=== PATIENT | male | born 1930 | race Caucasian/White ===

== ENCOUNTER 2016-09-14 23:08 | Inpatient (IN) | payer MEDICARE ==
[~2016-09-14] VITALS: Ht 172.7 cm; Wt 79.2 kg
[~2016-09-14 23:08] MED LIST: ACET325T16 PO; ATOR10TA; ATOR40TA PO; ATOR40TA59 PO; CARV12.5; CARV6.25 PO; CETI10TA30 PO; CHOL100017 PO; CIPR500T94 PO; CYAN10008 PO; DEXT30SU15 PO; DOXA4TAB2 PO; FLUT1DIS3 IH; FLUT9.9S NS; FURO-69 PO; FURO20TA3 PO; FURO40TA4 PO; GABA-585 PO; GUAI600T38 PO; HYDR-2762 PO; INSU100C SQ; INSU100C4 SQ; INSU100I13 SQ; INSU100I17 SQ; INSU100V13 SQ; IPRA3AMP NEB; LEVO500T38 PO; LOSA100T2 PO; LOSA25TA; MAGN400T3 PO; MAGN500C PO; MOME13HF2 IH; MOME17SP NS; MONT10TA6 PO; OXYC-244 PO; PANT40TA3 PO; POTA10TA5 PO; POTA20TA4 PO; POTA20TA82 PO; PRED-220 PO; PRED5TAB PO; PROAIR HFA8.5 GM IH; TIOT18CA IH; TIZA4TAB PO; TRAM-29 PO; TRAM50TA PO
[2016-09-14] MEDS ORDERED: IV NORMAL SALINE 1000ML BAG 1,000 ML IV SCH (23:52)
--- NOTE | 2016-09-14 23:52 | PHYS DOC ---
Past Medical History Past Medical History: COPD, Diabetes-Type I, Other Additional Past Medical Histor: HOME 02 Past Surgical History: Other Additional Past Surgical Histo: hernia with mesh Alcohol Use: Occasionally Drug Use: None Adult General Chief Complaint Chief Complaint: WEAKNESS/GENERALIZED HPI HPI Patient is a 86 year old female presents with dizziness. Patient reports she started feeling lightheaded at home this evening; he check his blood pressure was in the 70s systolically. He also reports some fatigue and some shortness of breath today. Denies any chest pain. No syncope. No other acute complaints. Review of Systems Review of Systems Constitutional: Lightheaded, fatigue. Denies fever or chills Eyes: Denies change in visual acuity or eye pain HENT: Denies nasal congestion or sore throat Respiratory: Shortness of breath Cardiovascular: Denies chest pain GI: Denies abdominal pain, nausea, vomiting, bloody stools or diarrhea : Denies dysuria or hematuria Musculoskeletal: Denies back pain or joint pain Integument: Denies rash or skin lesions Neurologic: Denies headache, focal weakness or sensory changes Current Medications Current Medications Current Medications Medications (Trade) Dose Ordered Sig/Marilu Start Time Stop Time Status Last Admin Dose Admin Sodium Chloride (Iv Sodium Chloride 0.9% 1000ml Bag) 1,000 ml @ 1,000 mls/hr Q1H 09/14/16 23:52 09/15/16 00:51 DC 09/14/16 23:52 1,000 MLS/HR Allergies Allergies Allergies Coded Allergies Type Severity Reaction Last Updated Verified rofecoxib Allergy Severe 09/14/16 Yes Physical Exam Physical Exam Constitutional: Well developed, well nourished, no acute distress, non-toxic appearance HENT: Normocephalic, bilateral external ears normal, old abrasion to bridge of nose Eyes: EOMI, conjunctiva normal, no discharge Neck: Normal range of motion, no stridor Cardiovascular: Heart rate normal, regular rhythm, no murmur Lungs & Thorax: Bibasilar crackles Abdomen: Bowel sounds normal, soft, non-distended, no TTP Skin: Warm, dry, no erythema, no rash Extremities: No obvious deformity, trace edema Neurologic: Alert and oriented X 3, no gross deficits noted Current Patient Data Vital Signs Vital Signs Date Time Temp Pulse Resp B/P Pulse Ox O2 Delivery O2 Flow Rate FiO2 09/15/16 00:00 62 133/62 99 Room Air 09/14/16 23:30 18 09/14/16 23:23 97.9 97.9 Lab Values Laboratory Tests Test 09/14/16 23:15 White Blood Count 8.7x10^3/uL (4.0-11.0) Red Blood Count 3.27x10^6/uL (4.30-5.70) L Hemoglobin 9.9g/dL (13.0-17.5) L Hematocrit 31.0% (39.0-53.0) L Mean Corpuscular Volume 95fL (79-100) Mean Corpuscular Hemoglobin 30pg (25-35) Mean Corpuscular Hemoglobin Concent 32g/dL (31-37) Red Cell Distribution Width 15.7% (11.5-14.5) H Platelet Count 283x10^3/uL (140-400) Neutrophils (%) (Auto) 56% (31-73) Lymphocytes (%) (Auto) 26% (24-48) Monocytes (%) (Auto) 11% (0-9) H Eosinophils (%) (Auto) 7% (0-3) H Basophils (%) (Auto) 0% (0-3) Neutrophils # (Auto) 4.8x10^3uL (1.8-7.7) Lymphocytes # (Auto) 2.3x10^3/uL (1.0-4.8) Monocytes # (Auto) 0.9x10^3/uL (0.0-1.1) Eosinophils # (Auto) 0.6x10^3/uL (0.0-0.7) Basophils # (Auto) 0.0x10^3/uL (0.0-0.2) Sodium Level 140mmol/L (136-145) Potassium Level 3.5mmol/L (3.5-5.1) Chloride Level 104mmol/L (98-107) Carbon Dioxide Level 28mmol/L (21-32) Anion Gap 8 (6-14) Blood Urea Nitrogen 13mg/dL (8-26) Creatinine 1.0mg/dL (0.7-1.3) Estimated GFR (Cockcroft-Gault) 70.7 Glucose Level 105mg/dL (70-99) H Calcium Level 8.5mg/dL (8.5-10.1) Total Bilirubin 0.6mg/dL (0.2-1.0) Direct Bilirubin 0.1mg/dL (0.0-0.2) Aspartate Amino Transferase (AST) 33U/L (15-37) Alanine Aminotransferase (ALT) 20U/L (16-63) Alkaline Phosphatase 68U/L (46-116) Troponin I Quantitative < 0.017ng/mL (0.000-0.055) XE-Tng-S-Type Natriuretic Peptide 867pg/mL (0-449) H Total Protein 6.7g/dL (6.4-8.2) Albumin 2.1g/dL (3.4-5.0) L Laboratory Tests 09/14/16 23:15 Laboratory Tests 09/14/16 23:15 EKG EKG EKG (my read): sinus rhythm, rate 64, LAD, no acute ischemic changes Radiology/Procedures Radiology/Procedures CXR (my read): No significant change from prior Course & Med Decision Making Course & Med Decision Making Pertinent Labs and Imaging studies reviewed. (See chart for details) Patient is 86-year-old male who presents with dizziness. Apparently related to hypotension. Hypotensive on arrival to ED. Fluid bolus ordered, with subsequent improvement in blood pressure. Will check EKG, chest x-ray, labs. Labs notable for anemia, close to baseline; also has mildly elevated BNP. Discussed results with patient. Discussed with Dr. Milton, will admit under his care for further evaluation and treatment. Dragon Disclaimer Dragon Disclaimer This electronic medical record was generated, in whole or in part, using a voice recognition dictation system. Departure Departure Impression: Primary Impression: Dizziness Additional Impressions: Hypotension SOB (shortness of breath) Disposition: ADMITTED INPATIENT Admitting Physician: Stepan Milton Condition: GUARDED Referrals: STEPAN MILTON MD (PCP) Problem Qualifiers JULIA JASON MD Sep 14, 2016 23:52
[2016-09-15] VITALS (7 sets, daily range): BP systolic 114–130; BP diastolic 44–72
[2016-09-15 00:09] LABS: BASO % 0 % (0-3); EOS % 7 % (0-3); HEMOGLOBIN 9.9 g/dL (13.0-17.5); LYMPH # 2.3 x10^3/uL (1.0-4.8); LYMPH % 26 % (24-48); MEAN CORPUSCULAR HEMOGLOBIN 30 pg (25-35); MEAN CORPUSCULAR HGB CONC 32 g/dL (31-37); MEAN CORPUSCULAR VOLUME 95 fL (79-100); MONO % 11 % (0-9); NEUT % 56 % (31-73); PLATELET COUNT 283 x10^3/uL (140-400); RED BLOOD COUNT 3.27 x10^6/uL (4.30-5.70); RED CELL DISTRIBUTION WIDTH 15.7 % (11.5-14.5); WHITE BLOOD COUNT 8.7 x10^3/uL (4.0-11.0)
[2016-09-15 00:22] LABS: CALCIUM 8.5 mg/dL (8.5-10.1); GFR 70.7; POTASSIUM 3.5 mmol/L (3.5-5.1)
[2016-09-15 00:28] LABS: ALBUMIN 2.1 g/dL (3.4-5.0); DIRECT BILIRUBIN 0.1 mg/dL (0.0-0.2); TOTAL BILIRUBIN 0.6 mg/dL (0.2-1.0); TOTAL PROTEIN 6.7 g/dL (6.4-8.2)
[2016-09-15] MEDS ORDERED: DEXTROSE 50% 25 GM / 50ML DISP.SYRIN. IV PRN (02:00)
[2016-09-15] MEDS ORDERED: ACETAMINOPHEN 325 MG TABLET. PO PRN (02:00)
[2016-09-15] MEDS ORDERED: ONDANSETRON PF 4 MG/2 ML VIAL. IV PRN (02:00)
--- NOTE | 2016-09-15 05:19 | ACF ---
Admit Criteria Forms Admit Criteria Forms Admit Criteria Forms GENERAL ADMISSION CRITERIA (Place 'X' for any and all applicable criteria): Admission is indicated for ANY ONE of the following: [X]I. Hemodynamic instability as indicated by ANY ONE of the following(1)(2) (3)(4)(5): [X]a) Vital sign abnormality not readily corrected by appropriate treatment within 12 to 24 hours indicated by ANY ONE of the following: [X]i) Hypotension [ ]ii) Symptomatic Tachycardia unresponsive to treatment (eg , analgesia, fluids, sedation as indicated) [ ]iii) Orthostatic vital sign changes unresponsive to treatment (eg, fluids) [ ]b) Vital sign abnormality that is severe indicated by ANY ONE of the following: [ ]i) Inadequate perfusion indicated by ANY ONE of the following: [ ]1) Lactic acidosis (greater than 2 mmol/L) [ ]2) New abnormal capillary refill (greater than 3 seconds) [ ]3) Other metabolic acidosis (arterial pH less than 7.35) not otherwise explained [ ]4) Reduced urine output [ ]5) Altered mental status [ ]6) Myocardial Ischemia [ ]v) Mean arterial pressure[A] less than 60 mm Hg [ ]vi) Mean arterial pressure[A] less than 70 mm Hg after 30 minutes of appropriate treatment (eg, fluid resuscitation) [ ]vii) IV inotropic or vasopressor medication required to maintain adequate blood pressure or perfusion [ ]viii) Sustained heart rate greater than 120 beats per minute in adult or child 6 years or older[B]] [ ]II. Hypertension requiring inpatient treatment as indicated by ANY ONE of the following(6)(7)(8): [ ]a) SBP greater than 220 mm Hg or DBP greater than 120 mm Hg despite treatment [ ]b) SBP greater than 140 mm Hg or DBP greater than 100 mm Hg with evidence of acute end organ damage as indicated by ANY ONE of the following: [ ]i) Encephalopathy [ ]ii) Acute renal failure as indicated by new onset of ANY ONE of the following(9)(10)(11)(12)(13): [ ]1) A 3-fold rise in serum creatinine from baseline [ ]2) Serum creatinine greater than 4 mg/dL ( 354 micromoles/L) with acute rise greater than 0.5 mg/dL (44.2 micromoles/L) [ ]3) Reduction of more than 75% in estimated glomerular filtration rate from baseline [ ]4) Estimated glomerular filtration rate less than 35 mL/min/1.73m2 (0.59 mL/sec/1.73m2) in child up to 18 years of age [ ]5) Cessation of urine output indicated by ALL of the following: [ ]A. Adequate volume status [ ]B. Inadequate urine output as indicated by ANY ONE of the following: [ ]a. Urine output less than 0.3 mL/kg/hr for 24 hours [ ]b. Anuria (urine output less than 0.1 mL/kg/hr) for 12 hours [ ]iii) Aortic dissection [ ]iv) Myocardial ischemia [ ]v) Left ventricular heart failure [ ]vi) Retinal hemorrhage [ ]vii) Other significant finding [ ]c) Hypertension in child requiring inpatient treatment as indicated by ALL of the following(14)(15)(16): [ ]i) Outpatient treatment not effective, not available, or not appropriate [ ]ii) SBP or DBP greater than 95th percentile for age [ ]iii) Evidence of acute end organ damage as indicated by ANY ONE of the following: [ ]1) Altered mental status [ ]2) Acute renal failure as indicated by new onset of ANY ONE of the following(9)(10)(11)(12)(13): [ ]A. A 3-fold rise in serum creatinine from baseline [ ]B. Serum creatinine greater than 4 mg/dL (354 micromoles/L) with acute rise greater than 0.5 mg/dL (44.2 micromoles/L) [ ]C. Reduction of more than 75% in estimated glomerular filtration rate from baseline [ ]D. Estimated glomerular filtration rate less than 35 mL/min/1.73m2 (0.59 mL/sec/1.73m2)in child up to 18 years of age [ ]E. Cessation of urine output indicated by ALL of the following: [ ]a. Adequate volume status [ ]b. Inadequate urine output as indicated by ANY ONE of the following: [ ]1) Urine output less than 0.3 mL/kg/hr for 24 hours [ ]2) Anuria (urine output less than 0.1 mL/kg/hr) for 12 hours [ ]3) Severe headache [ ]4) Visual disturbance [ ]5) Retinal hemorrhage [ ]6) Other significant finding [ ]III. Acute cardiac or peripheral ischemia as indicated by ANY ONE of the following: [ ]a) Acute coronary syndrome(17)(18) [ ]b) Acute peripheral ischemia (eg, pulseless, cool, mottled, or cyanotic extremity)(19) [ ]IV. Cardiac arrhythmias or findings of immediate concern indicated by ANY ONE of the following(20)(21): [ ]a) Heart rhythms that are inherently dangerous or unstable indicated by ANY ONE of the following(22)(23)(24): [ ]i) Resuscitated ventricular fibrillation or cardiac arrest [ ]ii) Ventricular escape rhythm [ ]iii) Sustained ventricular tachycardia (30 seconds or more of ventricular rhythm at greater than 100 beats per minute) [ ]iv) Nonsustained ventricular tachycardia and ANY ONE of the following: [ ]1) Suspected cardiac ischemia as cause or consequence of ventricular tachycardia [ ]2) In setting of acute myocarditis [ ]b) Unstable cardiac conduction defects indicated by ANY ONE of the following(24)(25)(26): [ ]i) Type II second-degree atrioventricular block [ ]ii) Third-degree atrioventricular block [ ]iii) New-onset left bundle branch block with suspected myocardial ischemia [ ]c) Any heart rhythm and ANY ONE of the following(22)(23)(27)(28)( 29): [ ] i) Continuous long-term ECG monitoring needed (eg, initiation of drug requiring monitoring for more than 24 hours) [ ] ii) Patient has automatic implanted cardioverter defibrillator that is repeatedly firing, malfunctioning, or in need of immediate adjustment of settings beyond the scope of ambulatory or observation care. [ ]d) Heart rhythms of concern due to ANY ONE of the following: [ ]i) Hypotension [ ]ii) Respiratory distress [ ]iii) Association with other significant symptoms (eg, bradycardia with syncope or ongoing dizziness, supraventricular tachycardia with chest pain) (27)(28) (30) [ ] V. Severe heart failure as indicated by ANY ONE of the following ( 31)(32): [ ]a) Respiratory distress [ ]b) Hypotension [ ]c) Anasarca (refractory to outpatient therapy) [ ]d) Cardiac arrhythmias of immediate concern [ ]e) Myocardial ischemia [ ]. Respiratory abnormalities, including ANY ONE of the following(33)(34) (35)(36): [ ]a) Respiratory rate greater than 30 breaths per minute unresponsive to treatment [A] [ ]b) New saturation of arterial oxygen less than 90% [ ]c) New partial pressure of carbon dioxide greater than 44 mm Hg ( 5.9 kPa) [ ]d) Supplemental oxygen or respiratory treatments needed that are new or not performable at other levels of care [ ]e) New-onset cyanosis [ ]f) Inability to protect airway [ ]g) Chronic lung disease with severe deterioration (not responsive to emergency and observation care treatment as appropriate) as indicated by ANY ONE of the following(34)(36 ): [ ]i) SaO2 5% below baseline in patient with chronic hypoxemia [ ]ii) New requirement for supplemental oxygen to keep SaO2 at baseline or acceptable level [ ]iii) Required supplemental oxygen performable only in acute inpatient setting [ ]iv) Severe airflow or ventilation abnormalities [ ]v) Previously mobile patient unable to walk between rooms [ ]vi Inability to eat or sleep due to dyspnea [ ]vii) Rapid rate of exacerbation onset [ ]viii) Altered mental status ]VII. Severe airflow or ventilation abnormalities (not responsive to emergency and observation care treatment as appropriate) as indicated by ANY ONE of the following(33)(34)(35)(37): [ ]a) PCO2 greater than 42 mm Hg (5.6 kPa) and pH less than 7.35 (new ) [ ]b) Documented PCO2 increased more than 5 mm Hg (0.7 kPa) from disease baseline [ ]c) Airflow measurements [B] less than 60% of previous best or predicted (eg, peak expiratory flow rate less than 300 L/minute) despite intensive emergent treatment [C] [ ]d) Required respiratory treatments that are performable only in acute inpatient setting [ ]VIII. Impending or actual respiratory arrest ( Also use Respiratory Failure GRG for severe respiratory disease and long-term mechanical ventilation patients) [ ]IX. Neurologic abnormalities, including ANY ONE of the following: [ ]a) New findings that suggest ANY ONE of the following: [ ]i) INTERVENTION NURSE infection(38) [ ]ii) Cerebral bleeding, ischemia, or vasospasm(39)(40) [ ]iii) Increased intracranial pressure, hydrocephalus, or cerebral edema(41)(42)(43) [ ]iv) Spinal cord injury(44) [ ]b) Uncontrolled seizures(45) [ ]c) New-onset coma (eg, Tamiko coma scale score less than 9) or unexplained abnormal mental status (eg, [place] coma scale score less than 14) [D](41)(46)(47) [ ]X. New-onset severe neurologic findings requiring inpatient care; examples include(42)(48)(49): [ ]a) Papilledema [ ]b) Cerebral edema [ ]c) Mass effect on CT scan [ ]XI. Suspected acute intra-abdominal process with peritoneal signs, abdominal mass, or similar findings (50)(51)(52) [ ]XII. Severe physiologic disorder remaining after emergency or observation level care (as appropriate) as indicated by ANY ONE of the following (53): [ ]a) Significant dehydration [ ]b) Diabetic ketoacidosis [ ]c) Hyperglycemic hyperosmolar state (eg, osmolality greater than 320 mOsm/kg (mmol/kg) [ ]d) Hypoglycemia [ ]e) Other (new) acid-base disorder with pH less than 7.35 or greater than 7.5(54) [ ]f) Thyroid storm (55) [ ]g) Myxedema coma (55) [ ]XIII. Abdominal abnormalities with ANY ONE of the following(56)(57): [ ]a) Absent bowel sounds with complete ileus [ ]b) Signs of intestinal obstruction or peritonitis [E] [ ]c) Nausea and vomiting that cannot be controlled with outpatient or observation care [ ]XIV. Acute renal failure as indicated by new onset of ANY ONE of the following(9)(10)(11)(12)(13): [ ]a) A 3-fold rise in serum creatinine from baseline [ ]b) Serum creatinine greater than 4 mg/dL (354 micromoles/L) with acute rise greater than 0.5 mg/dL (44.2 micromoles/L) [ ]c) Reduction of more than 75% in estimated glomerular filtration rate from baseline [ ]d) Estimated glomerular filtration rate less than 35 mL/min/ 1.73m2 (0.59 mL/sec/1.73m2) in child up to 18 years of age [ ]e) Cessation of urine output indicated by ALL of the following: [ ]i) Adequate volume status [ ]ii) Inadequate urine output as indicated by ANY ONE of the following: [ ]1) Urine output less than 0.3 mL/kg/hr for 24 hours [ ]2) Anuria (urine output less than 0.1 mL/kg/hr) for 12 hours [ ]XV. Significant uremic complications as indicated by ANY ONE of the following(58)(59)(60): [ ]a) Outpatient therapy is ineffective or not feasible for ANY ONE of the following: [ ]i) Severe heart failure [ ]ii) Severehypertension [ ]iii) Pleural effusion [ ]iv) Pericarditis or pericardial effusion [ ]b) Cardiac arrhythmias of immediate concern [ ]c) Intractable nausea or vomiting [ ]d) Recurrent seizures [ ]e) Encephalopathy [ ]f) Bleeding abnormalities (eg, platelet dysfunction) with active (eg, gastrointestinal) bleeding [ ]g) Dialysis indicated before long-term access or ambulatory arrangements can be made [ ]h) Significant metabolic or electrolyte abnormalities (eg, severe acidosis or hyperkalemia) [ ]XVI. High fever or other high-risk infection situation as indicated by ANY ONE of the following(61)(62)(63)(64): [ ]a) Outpatient and observation care antimicrobial treatment unavailable, not effective, or not appropriate [ ]b) Documented bacteremia [ ]c) Temperature greater than 40.5 degrees C (104.9 degrees F) ( oral) [ ]d) Temperature greater than 39.5 degrees C (103.1 degrees F) ( oral) or less than 36 degrees C (96.8 degrees F) (rectal) that does not respond to e treatment and observation care [ ] XVII. Temperature less than 95 degrees F (35 degrees C)(rectal)(65) [ ] XVIII. Severe nutritional abnormalities as indicated by ALL of the following (66)(67): [ ]a) Inability to tolerate or establish sufficient oral or other enteral nutrition in outpatient setting [ ]b) Parenteral nutrition regimen need that must be implemented on inpatient basis [ ] XIX. Severe electrolyte abnormalities indicated by ALL of the following(68) (69)(70): [ ]a) Electrolytes and associated findings are not as expected for patient baseline or acceptable treatment effects. [ ]b) Severe abnormalities indicated by ANY ONE of the following: [ ]i) Sodium less than 130 mEq/L (mmol/L) (new) [ ]ii)Sodium less than 135 mEq/L (mmol/L) with ANY ONE of the following: [ ]1) Uncorrectable (to near normal or chronic baseline) after trial of outpatient and emergency treatment [ ]2) Altered mental status [ ]3) Seizures [ ]4) Severe medical etiology requiring inpatient management (eg, heart failure, hypovolemia) [ ]iii) Sodium greater than 155 mEq/L (mmol/L) [ ]iv) Sodium greater than 150 mEq/L (mmol/L) with ANY ONE of the following: [ ]1) Uncorrectable (to near normal or chronic baseline) with outpatient and emergency treatment [ ]2) Altered mental status [ ]3) Seizures [ ]4) Severe medical etiology (eg, hypovolemia, diabetes insipidus) [ ]v) Potassium less than 2.5 mEq/L (mmol/L) despite outpatient and emergency treatment [ ]vi) Potassium less than 3 mEq/L (mmol/L) with ANY ONE of the following: [ ]1) Weakness [ ]2) Cardiac abnormality (eg, arrhythmia, conduction disturbance) [ ]3) Cardiac ischemia [ ]4) Ileus [ ]5) Ongoing medical cause requiring inpatient management (eg, acute renal wasting or SIADH) [ ]6) Other severe symptoms [ ]vii) Potassium greater than 6.5 mEq/L (mmol/L) [ ]viii) Potassium greater than 5 mEq/L (mmol/L) with ANY ONE of the following: [ ]1) Uncorrectable (to near normal or chronic baseline) with outpatient and emergency treatment [ ]2) Severe ECG findings [F] [ ]3) Acute worsening of renal failure (creatinine greater than 2.5 mg/dL (221 micromoles/L) or significant elevation for age and size) [ ]4) Severe weakness [ ]5) Severe medical etiology (eg, hemolysis, infection, drug overdose) [ ]ix) Calcium less than 7 mg/dL (1.75 mmol/L) despite outpatient and emergency treatment (72) [ ]x) Calcium less than 8 mg/dL (2 mmol/L) with significant symptoms or findings; examples include(72): [ ]1) Altered mental status [ ]2) Muscle spasms [ ]3) Seizures [ ]4) Breathing difficulty [ ]5) Cardiac abnormality (eg, arrhythmia or conduction disturbance) [ ]xi) Calcium greater than 14 mg/dL (3.5 mmol/L)(72) [ ]xii) Calcium greater than 12 mg/dL (3 mmol/L) with ANY ONE of the following(72): [ ]1) Uncorrectable (to near normal or chronic baseline) with outpatient and emergency treatment [ ]2) Significant dehydration or hypovolemia as indicated by ALL of the following(70)(73)(74): [ ]A. Not resolved with initial treatments [ ]B. Clinically significant dehydration as indicated by ANY ONE of the following: [ ]a. Vomiting refractory to outpatient treatment (ie, precluding oral rehydration) [ ]b. Inability to drink [ ]c. Hypernatremia or other electrolyte abnormality unable to be corrected with outpatient and emergency treatment [ ]d. Failure to remain hydrated with outpatient therapy [ ]e. Reduced urine output [ ]f. Hypotension [ ]g. Serious cause for dehydration requiring acute hospitalization (eg, bowel obstruction, increased intracranial pressure, infectious cause) [ ]h. Child with ANY ONE of the following(75): [ ]1) Severe abdominal tenderness [ ]2) Adequate care not available at home [ ]3) Severe dehydration ( greater than 9% loss of body weight) [ ]4) Significant symptoms or findings; examples include: [ ]A. Altered mental status [ ]B. Cardiac abnormality (eg, arrhythmia, conduction disturbance) [ ]C. Malignant etiology requiring inpatient treatment [ ]xiii) Phosphorus less than 1 mg/dL (0.32 mmol/L) [ ]xiv) Phosphorus less than 1.5 mg/dL (0.48 mmol/L) with ANY ONE of the following: [ ]1) Patient unresponsive to outpatient and emergency treatment [ ]2) Significant symptoms or findings; examples include: [ ]A. Weakness [ ]B. Altered mental status [ ]C. Breathing difficulty [ ]D. Seizures [ ]E. Rhabdomyolysis [ ]xv) Phosphorus greater than 10 mg/dL (3.2 mmol/L) [ ]xvi) Phosphorus greater than 4.5 mg/dL (1.45 mmol/L) (new) with ANY ONE of the following: [ ]1) Severe medical etiology (eg, crush injury, acute renal failure) [ ]2) Associated hypocalcemia with significant findings; examples include: [ ]A. Neurologic symptoms [ ]B. Altered mental status [ ]C. Muscle spasms [ ]D. Seizures [ ]E. Breathing difficulty [ ]F. Cardiac abnormality (eg, arrhythmia, conduction disturbance) [ ]xvii) Magnesium less than 1 mg/dL (0.41 mmol/L) [ ]xviii) Magnesium less than 1.5 mg/dL (0.62 mmol/L) with ANY ONE of the following: [ ]1) Patient unresponsive to outpatient and emergency treatment [ ]2) Associated hypocalcemia with significant findings; examples include: [ ]A. Altered mental status [ ]B. Muscle spasms [ ]C. Seizures [ ]D. Breathing difficulty [ ]E. Cardiac abnormality (eg, arrhythmia , conduction disturbance) [ ]3) Associated hypokalemia (potassium less than 3 mEq/L (mmol/L)) with risk of arrhythmia [ ]xix) Magnesium greater than 4 mEq/L (2 mmol/L) [ ]xx) Magnesium greater than 2.5 mEq/L (1.25 mmol/L) with significant symptoms or findings; examples include: [ ]1) Weakness [ ]2) Altered mental status [ ]3) Cardiac abnormality (eg, arrhythmia, conduction disturbance) [ ]4) Breathing difficulty [ ]5) Severe medical etiology (eg, renal failure, hypovolemia) [ ]xxi) Uric acid greater than 20 mg/dL (1190 micromoles/L)(76) [ ]xxii) Uric acid greater than 8 mg/dL (476 micromoles/L) with significant symptoms or findings of tumor lysis syndrome; examples include(76): [ ]1) Creatinine greater than 1.5 times upper limit of normal [ ]2) Cardiac abnormality (eg, arrhythmia, conduction disturbance) [ ]3) Seizure [ ]XX. Acute blood loss causing significant abnormality as indicated by ANY ONE of the following(77)(78): [ ]a) Hemoglobin less than 10 g/dL (100 g/L) (not baseline) [ ]b) Hematocrit less than 30% (0.30) (not baseline) [ ]c) Repeat hematocrit decreased more than 2% (0.02) [ ]d) Uncontrolled bleeding [ ]XXI. Severe anemia indicated by ANY ONE of the following(78)(79): [ ]a) Altered mental status [ ]b) Chest pain [ ]c) Exertional dyspnea [ ]d) Syncope [ ]e) Other findings suggesting inadequate perfusion [ ]f) Treatment with transfusion or volume replacement is ineffective at resolving ANY ONE of the following [G]: [ ]i) Tachycardia for age [ ]ii) Orthostatic vital sign changes as indicated by ANY ONE of the following(80): [ ]1) Fall in SBP of 20 mm Hg or more 1 to 3 minutes after patient sits or stands from recumbent position [ ]2) Fall in DBP of 10 mm Hg or more 1 to 3 minutes after patient sits or stands from recumbent position [ ]XXII. High-risk low platelet count as indicated by ANY ONE of the following( 81)(82): [ ]a) Severe or life-threatening bleeding (eg, intracranial, major gastrointestinal, or extensive mucosal bleeding), with any reduced platelet count [ ]b) Platelet count less than 20,000/mm3 (20 x109/L) with any active bleeding [ ]c) Platelet count less than 10,000/mm3 (10 x109/L) with minor purpura or petechiae [ ]d) Platelet count less than 5000/mm3 (5 x109/L) [ ]e) Low platelet count with hemolytic anemia [ ]XXIII. Disseminated intravascular coagulation(77)(83) [ ]XXIV. Severe adverse drug or systemic toxin reaction requiring inpatient treatment; examples include(84)(85): [ ]a) Serotonin syndrome(86) [ ]b) Neuroleptic malignant syndrome(86) [ ]c) Cholinergic syndrome with severe symptoms (eg, bronchorrhea, weakness, mental status changes, seizures) [ ]d) Sympathetic syndrome with severe symptoms (eg, seizures, mental status changes, cardiac dysrhythmias) [ ]e) Anticholinergic syndrome [ ]XXV. Severe pain requiring acute inpatient management as indicated by ALL of the following (87)(88)(89): [ ]a) Continuous or frequent (eg, every 2 to 4 hours) parenteral analgesics required [H] [ ]b) Rapid improvement expected from treatment or acute intervention (eg, surgery, anesthesia procedure) [ ]XXVI.Severe behavioral health issues judged unmanageable at a lower level of care (eg, residential) in a patient who is ANY ONE of the following(91) [ ]a) Acutely suicidal [ ]b) A danger to self (eg, self-mutilating or suicidal behavior) [ ]c) A danger to others (eg, assaultive or homicidal behavior) [ ]d) Incapacitated because of grave disability (eg, inability to provide for self at lower level of care) (92) [ ]XXVII. Inpatient monitoring needed; examples include(1)(3)(87)(93)(94)(95)(96 ): [ ]a) Vital signs, neurologic signs, or vascular checks more frequently than every 4 hours [ ]b) Cardiac or respiratory monitoring beyond the scope (eg, over 24 hours) of observation care [ ]c) Pulmonary artery catheter monitoring [ ]d) Suspected compartment syndrome(97) (98) [ ]e) Cerebral bleeding, hydrocephalus, or vasospasm monitoring [ ]f) Increased intracranial pressure or cerebral edema monitoring [ ]g) monitoring [ ]XXVIII. Treatment requiring inpatient care; examples include: [ ]a) IV fluid to replace significant ongoing losses (greater than 3 L/m2 per day)(53) [ ]b) High concentration oxygen (greater than 40%)(33)(99)(100) [ ]c) Frequent respiratory therapy (more frequently than every 4 hours) to maintain airflow rates greater than 60% of baseline(33)(99)(100) [ ]d) Epidural analgesia(87) [ ]e) IV anticoagulation, vasoactive, or antiarrhythmic medication(19 )(23) [ ]f) Acute thrombolytics (generally require 24 hours of observation )(101)(102) [ ]XXIX. Emergency procedures needed; examples include: [ ]a) Emergency inpatient surgery [ ]b) Temporary pacemaker placement(103) [ ]c) Chest tube placement with active evacuation (eg, suction, drainage)(104) [ ]d) Emergent cardioversion(105) [ ]e) Emergent cardiac or vascular procedures (eg, cardiac catheterization, angioplasty) (17)(18) [ ]f) Emergent dialysis access placement and institution(10)(106) [ ]g) Emergent pericardiocentesis(107) [ ]h) Emergent plasmapheresis or leukapheresis(83) [ ]i) Emergent tracheostomy The original [employer] content created by [employer] has been revised. The portions of the content which have been revised are identified through the use of italic text or in bold, and [facility] has neither reviewed nor approved the modified material. All other unmodified content is copyright [employer]. Please see references footnoted in the original [employer] edition 2016 JENNIFER ALBERTS Sep 15, 2016 05:19
--- NOTE | 2016-09-15 06:45 | EKG ---
[facility] [address] [place] [address] Test Date: 2016-09-14 Test Time: 23:16:47 Pat Name: CARLOS MCCLELLAND Department: Room: 404 Gender: M Family Consultant: CHERI : [id number] Requested By: JULIA JASON Order Number: [id number] Reading MD: Lynda Randhawa Measurements Intervals [place] Rate: 64 P: 1 MO: 172 QRS: -12 QRSD: 78 T: 36 QT: 452 QTc: 466 Interpretive Statements SINUS RHYTHM LEFTWARD AXIS QRS(T) CONTOUR ABNORMALITY CONSISTENT WITH ANTEROSEPTAL INFARCT AGE UNDETERMINED CONSISTENT WITH INFERIOR INFARCT PROBABLY OLD ABNORMAL ECG RI6.01 Compared to ECG 05/31/2016 17:06:16 No significant changes Electronically Signed On 09-20-2016 14:33:59 [employer] by Lynda Randhawa
--- NOTE | 2016-09-15 07:57 | RAD ---
Indication shortness of breath. Hypotension. A single view of the chest was obtained and is compared to an examination 06/01/2016. There is some volume loss in the left lower lobe. This has been present, to a degree, on previous examinations. Findings likely reflect chronic scarring. Underlying pneumonia is not entirely excluded but is felt less likely. Fibrotic changes are noted on a CT examination, including the lower chest, 05/31/2016. Heart size and pulmonary vessels are similar to the prior study. A definite acute finding in the chest or significant change is not seen. IMPRESSION: Chronic changes. No definite acute finding or significant change
[2016-09-15] MEDS: INSULIN ASPART 300 UNITS/3 ML INSULN.PEN SQ SCH ×3 (08:00→18:13)
[2016-09-15] MEDS ORDERED: TRAMADOL 50 MG TABLET. PO PRN (09:00)
[2016-09-15] MEDS ORDERED: ALBUTEROL SULFATE 2.5 MG/3 ML NEBU. NEB PRN (09:00)
--- NOTE | 2016-09-15 09:00 | PDOC1 ---
PINKY REES LEAD CYTOGENETIC TECHNOLOGIST 09/15/16 0900: HISTORY AND PHYSICAL Chief Complaint Chief Complaint This 86 year old male has been admitted with a chief complaint of dizziness. He presented to the ED after onset of lightheadedness yesterday. When he checked his BP it was in the 70s systolic. In the ED he was given 1L IVF with improvement in his blood pressure. Labs were essentially at baseline with Hgb 9.9 prior to IVF replacement. He had stopped his diuretic per Dr. Milton instructions at his last office appt. EKG SR. Chest XR chronic changes. BNP mildly elevated at 867 in presence suspected dehydration/CKD II. A laceration was noted across the bridge of his nose. When questioned he reported getting OOB 4 days ago and his feet becoming caught in a rug. He fell forward on his knees and his his head hit the floor. Audible congestion was heard also and when questioned he reports onset of a minimally productive cough 3 weeks ago. Denies sinus congestion but does admit to clear drainage when blows nose. He has been somewhat shorter of breath than normal. He denies fever, chills, headache, sore throat or aching joints. His appetite has been okay until this morning. Problem List Problems Medical Problems: (1) Dizziness Status: Acute (2) Hypotension Status: Acute (3) Hypotension Status: Acute (4) SOB (shortness of breath) Status: Acute Past Medical History Cardiovascular: CHF (diastolic normal EF ), HTN, Hyperlipidemia Pulmonary: COPD (pulmonary fibrosis, ILD, chronic respiratory failure with continuous 2L NC) GI: Constipation, GERD, Gastritis Heme/Onc: Anemia NOS (B12) Psych: Depression Renal/: Chronic renal insuff (CKD II), Benign prostatic enlarg. Endocrine: Diabetes (Type II insulin halfway ) Past Surgical History Past Surgical History: Pacemaker (SSSs), Arthroscopy (R shoulder and R shoulder RC repair in past ), Cataract Removal, Hernia Repair Past Family History Family History: Coronary Artery Disease, Heart Disease, Hypertension Past Social History PSH Lives with , both have disabilities, son is development officer. Remote h/o tobacco, h /o ETOH, and negative illicit drugs Review of Symptoms Review of Symptoms A 14 point ROS was completed with the following noted as positive: per HPI Other systems reviewed and negative. Medications Medications reconciled for admission Allergy Allergies Coded Allergies Type Severity Reaction Last Updated Verified rofecoxib Allergy Severe 09/14/16 Yes Physical Exam Physical Exam General appearance - alert, ill appearing, and in no distress and oriented to person, place, and time Mental Status - alert, oriented to person, place, and time, affect appropriate to mood, poor historian at times Head - normal, face flushed, laceration bridge of nose Chest -coarse ant/post, wheezing anterior and RLL Heart - S1 and S2 normal Abdomen - soft, nontender, nondistended, BS+ Neurological - no acute focal neurological deficit Musculoskeletal - no muscular tenderness noted Extremities - tr to +1 pedal edema Skin - warm and dry VTE Prophylaxis Ordered VTE Prophylaxis Devices: Yes VTE Pharmacological Prophylaxi: Yes Assessment Labs Laboratory Tests Test 09/14/16 23:15 09/15/16 07:25 09/15/16 07:35 White Blood Count 8.7x10^3/uL (4.0-11.0) Red Blood Count 3.27x10^6/uL (4.30-5.70) Hemoglobin 9.9g/dL (13.0-17.5) Hematocrit 31.0% (39.0-53.0) Mean Corpuscular Volume 95fL (79-100) Mean Corpuscular Hemoglobin 30pg (25-35) Mean Corpuscular Hemoglobin Concent 32g/dL (31-37) Red Cell Distribution Width 15.7% (11.5-14.5) Platelet Count 283x10^3/uL (140-400) Neutrophils (%) (Auto) 56% (31-73) Lymphocytes (%) (Auto) 26% (24-48) Monocytes (%) (Auto) 11% (0-9) Eosinophils (%) (Auto) 7% (0-3) Basophils (%) (Auto) 0% (0-3) Neutrophils # (Auto) 4.8x10^3uL (1.8-7.7) Lymphocytes # (Auto) 2.3x10^3/uL (1.0-4.8) Monocytes # (Auto) 0.9x10^3/uL (0.0-1.1) Eosinophils # (Auto) 0.6x10^3/uL (0.0-0.7) Basophils # (Auto) 0.0x10^3/uL (0.0-0.2) Sodium Level 140mmol/L (136-145) Potassium Level 3.5mmol/L (3.5-5.1) Chloride Level 104mmol/L (98-107) Carbon Dioxide Level 28mmol/L (21-32) Anion Gap 8 (6-14) Blood Urea Nitrogen 13mg/dL (8-26) Creatinine 1.0mg/dL (0.7-1.3) Estimated GFR (Cockcroft-Gault) 70.7 Glucose Level 105mg/dL (70-99) Calcium Level 8.5mg/dL (8.5-10.1) Total Bilirubin 0.6mg/dL (0.2-1.0) Direct Bilirubin 0.1mg/dL (0.0-0.2) Aspartate Amino Transf (AST/SGOT) 33U/L (15-37) Alanine Aminotransferase (ALT/SGPT) 20U/L (16-63) Alkaline Phosphatase 68U/L (46-116) Troponin I Quantitative < 0.017ng/mL (0.000-0.055) < 0.017ng/mL (0.000-0.055) CT-Azx-O-Type Natriuretic Peptide 867pg/mL (0-449) Total Protein 6.7g/dL (6.4-8.2) Albumin 2.1g/dL (3.4-5.0) Glucose (Fingerstick) 131mg/dL (70-99) Laboratory Tests Test 09/14/16 23:15 09/15/16 07:25 09/15/16 07:35 White Blood Count 8.7x10^3/uL (4.0-11.0) Red Blood Count 3.27x10^6/uL (4.30-5.70) Hemoglobin 9.9g/dL (13.0-17.5) Hematocrit 31.0% (39.0-53.0) Mean Corpuscular Volume 95fL (79-100) Mean Corpuscular Hemoglobin 30pg (25-35) Mean Corpuscular Hemoglobin Concent 32g/dL (31-37) Red Cell Distribution Width 15.7% (11.5-14.5) Platelet Count 283x10^3/uL (140-400) Neutrophils (%) (Auto) 56% (31-73) Lymphocytes (%) (Auto) 26% (24-48) Monocytes (%) (Auto) 11% (0-9) Eosinophils (%) (Auto) 7% (0-3) Basophils (%) (Auto) 0% (0-3) Neutrophils # (Auto) 4.8x10^3uL (1.8-7.7) Lymphocytes # (Auto) 2.3x10^3/uL (1.0-4.8) Monocytes # (Auto) 0.9x10^3/uL (0.0-1.1) Eosinophils # (Auto) 0.6x10^3/uL (0.0-0.7) Basophils # (Auto) 0.0x10^3/uL (0.0-0.2) Sodium Level 140mmol/L (136-145) Potassium Level 3.5mmol/L (3.5-5.1) Chloride Level 104mmol/L (98-107) Carbon Dioxide Level 28mmol/L (21-32) Anion Gap 8 (6-14) Blood Urea Nitrogen 13mg/dL (8-26) Creatinine 1.0mg/dL (0.7-1.3) Estimated GFR (Cockcroft-Gault) 70.7 Glucose Level 105mg/dL (70-99) Calcium Level 8.5mg/dL (8.5-10.1) Total Bilirubin 0.6mg/dL (0.2-1.0) Direct Bilirubin 0.1mg/dL (0.0-0.2) Aspartate Amino Transf (AST/SGOT) 33U/L (15-37) Alanine Aminotransferase (ALT/SGPT) 20U/L (16-63) Alkaline Phosphatase 68U/L (46-116) Troponin I Quantitative < 0.017ng/mL (0.000-0.055) < 0.017ng/mL (0.000-0.055) ZN-Ucv-D-Type Natriuretic Peptide 867pg/mL (0-449) Total Protein 6.7g/dL (6.4-8.2) Albumin 2.1g/dL (3.4-5.0) Glucose (Fingerstick) 131mg/dL (70-99) Plan Plan Impression: 1. hypotension 2. acute bronchitis 3. 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 chronic AF/Aflutter not coumadin candidate 5. anemia chronic disease B12 6. diastolic CHF norm EF chronic, stable, not acute 7. HTN 8. hyperlipidemia 9. COPD/pulmonary fibrosis/ILD/silicosis 10. CKD II 13. depression 14. h/o ETOH abuse 15. GERD 16. chronic BP LS 17. fall prior to admit with facial trauma 18. chronic hypoxic respiratory failure O2 continuous 2L 19. 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 STEPAN MILTON MD 09/15/16 1018: HISTORY AND PHYSICAL Plan Plan The patient was seen and examined by me. Chart reviewed and plan of care formulated. Discussed with, reviewed and agree with ROOM DESIGNER's notes, plan of care and orders with modifications as necessary. For more details regarding further plans, please refer to the orders. PINKY REES APRN Sep 15, 2016 09:00 STEPAN MILTON MD Sep 15, 2016 10:18
[2016-09-15 09:32] LABS: BASO # 0.1 x10^3/uL (0.0-0.2); BASO % 1 % (0-3); EOS % 7 % (0-3); HEMATOCRIT 32.8 % (39.0-53.0); HEMOGLOBIN 10.7 g/dL (13.0-17.5); LYMPH # 1.8 x10^3/uL (1.0-4.8); LYMPH % 22 % (24-48); MEAN CORPUSCULAR HEMOGLOBIN 30 pg (25-35); MEAN CORPUSCULAR HGB CONC 33 g/dL (31-37); MEAN CORPUSCULAR VOLUME 93 fL (79-100); MONO % 8 % (0-9); NEUT % 62 % (31-73); PLATELET COUNT 282 x10^3/uL (140-400); RED BLOOD COUNT 3.54 x10^6/uL (4.30-5.70); RED CELL DISTRIBUTION WIDTH 15.6 % (11.5-14.5); WHITE BLOOD COUNT 7.9 x10^3/uL (4.0-11.0)
[2016-09-15 09:41] LABS: CALCIUM 8.3 mg/dL (8.5-10.1); GFR 70.7; POTASSIUM 3.9 mmol/L (3.5-5.1)
[2016-09-15] MEDS: FLUTICASONE 50MCG/NASAL SPRAY 16GM BOTTLE. NS SCH (10:00)
[2016-09-15] MEDS ORDERED: methylPREDNISolone SOD SUCC PF 125 MG/2 ML VIAL. IV ONE (10:00)
[2016-09-15] MEDS: IPRATRPIUM/ALBUTEROL 0.5/2.5MG 3 ML NEBU. NEB SCH ×3 (10:58→19:41)
[2016-09-15] MEDS: MONTELUKAST SODIUM 10 MG TABLET. PO SCH ×2 (11:36→18:10)
[2016-09-15] MEDS: CYANOCOBALAMIN (VITAMIN B-12) 1,000 MCG TABLET. PO SCH (11:37)
[2016-09-15] MEDS: CHOLECALCIFEROL (VITAMIN D3) 1,000 UNIT TABLET PO SCH (11:37)
[2016-09-15] MEDS: GUAIFENESIN ER 600 MG TABLET.ER PO SCH ×2 (11:37→21:22)
[2016-09-15] MEDS: PANTOPRAZOLE 40 MG TABLET. PO SCH (11:38)
[2016-09-15] MEDS: CARVEDILOL 6.25 MG TABLET PO SCH ×2 (11:38→18:10)
[2016-09-15] MEDS ORDERED: POLYVINYL ALCOHOL 1.4% OPHTH SOLUTION 15ML BOTTLE. OU PRN (12:15)
[2016-09-15] MEDS ORDERED: methylPREDNISolone SOD SUCC PF 125 MG/2 ML VIAL. IV SCH (21:00)
[2016-09-15] MEDS: ATORVASTATIN CALCIUM 40 MG TABLET. PO SCH (21:22)
[2016-09-15] MEDS: GABAPENTIN 100 MG CAPSULE. PO SCH (21:22)
[2016-09-15] MEDS: CETIRIZINE HCL 10 MG TABLET PO SCH (21:22)
[2016-09-15] MEDS ORDERED: INSULIN ASPART 300 UNITS/3 ML INSULN.PEN SQ ONE (21:30)
[2016-09-16] VITALS (8 sets, daily range): BP systolic 110–136; BP diastolic 55–79
[2016-09-16 05:36] LABS: BASO % 0 % (0-3); EOS % 0 % (0-3); HEMATOCRIT 32.8 % (39.0-53.0); HEMOGLOBIN 10.5 g/dL (13.0-17.5); LYMPH # 0.9 x10^3/uL (1.0-4.8); LYMPH % 11 % (24-48); MEAN CORPUSCULAR HEMOGLOBIN 30 pg (25-35); MEAN CORPUSCULAR HGB CONC 32 g/dL (31-37); MEAN CORPUSCULAR VOLUME 94 fL (79-100); MONO % 1 % (0-9); NEUT % 88 % (31-73); PLATELET COUNT 245 x10^3/uL (140-400); RED BLOOD COUNT 3.47 x10^6/uL (4.30-5.70); RED CELL DISTRIBUTION WIDTH 15.5 % (11.5-14.5); WHITE BLOOD COUNT 7.7 x10^3/uL (4.0-11.0)
[2016-09-16 05:54] LABS: CALCIUM 8.5 mg/dL (8.5-10.1); CREATININE 1.2 mg/dL (0.7-1.3); GFR 57.3
[2016-09-16] MEDS: IPRATRPIUM/ALBUTEROL 0.5/2.5MG 3 ML NEBU. NEB SCH ×4 (07:18→20:08)
[2016-09-16] MEDS: PANTOPRAZOLE 40 MG TABLET. PO SCH (07:41)
[2016-09-16] MEDS: CARVEDILOL 6.25 MG TABLET PO SCH ×2 (07:42→16:58)
[2016-09-16 07:54] LABS: % EOS 2 % (0-5); PLT ESTIMATE ADEQUATE (ADEQUATE)
[2016-09-16] MEDS: INSULIN ASPART 300 UNITS/3 ML INSULN.PEN SQ SCH ×5 (07:56→17:03)
[2016-09-16] MEDS ORDERED: ACETAMINOPHEN 325 MG TABLET. PO PRN (08:00)
--- NOTE | 2016-09-16 08:14 | PDOC ---
JUNEJENNYFERPINKY HOME VISITS NURSE 09/16/16 0814: IM PROGRESS NOTES- Subjective Subjective feeling better, cough beginning to be productive yellow Objective Objective alert no distress Vitals Vital Signs Date Time Temp Pulse Resp B/P Pulse Ox O2 Delivery O2 Flow Rate FiO2 09/16/16 07:42 80 124/67 09/16/16 07:18 97 Nasal Cannula 2.0 09/16/16 07:00 97.8 20 97.8 Input & Output Intake and Output 09/16/16 07:00 Intake Total 700 ml Output Total 400 ml Balance 300 ml Intake Oral 700 ml Output Urine Total 400 ml # Voids 4 # Bowel Movements 4 Physical Exam Physical Exam General appearance - alert, ill appearing, and in no distress Mental Status - alert, oriented to person, place, and time, affect appropriate to mood Head - normal Chest - clear to auscultation, no wheezes, rales or rhonchi, improved from yesterday Heart - S1 and S2 normal Abdomen - soft, nontender, nondistended, BS+ Neurological - no acute focal neurological deficit noted Musculoskeletal - no muscular tenderness noted Extremities - no pedal edema Skin - warm and dry Labs Laboratory Tests Test 09/14/16 23:15 09/15/16 07:25 09/15/16 07:35 09/15/16 11:22 White Blood Count 8.7x10^3/uL (4.0-11.0) 7.9x10^3/uL (4.0-11.0) Red Blood Count 3.27x10^6/uL (4.30-5.70) 3.54x10^6/uL (4.30-5.70) Hemoglobin 9.9g/dL (13.0-17.5) 10.7g/dL (13.0-17.5) Hematocrit 31.0% (39.0-53.0) 32.8% (39.0-53.0) Mean Corpuscular Volume 95fL (79-100) 93fL (79-100) Mean Corpuscular Hemoglobin 30pg (25-35) 30pg (25-35) Mean Corpuscular Hemoglobin Concent 32g/dL (31-37) 33g/dL (31-37) Red Cell Distribution Width 15.7% (11.5-14.5) 15.6% (11.5-14.5) Platelet Count 283x10^3/uL (140-400) 282x10^3/uL (140-400) Neutrophils (%) (Auto) 56% (31-73) 62% (31-73) Lymphocytes (%) (Auto) 26% (24-48) 22% (24-48) Monocytes (%) (Auto) 11% (0-9) 8% (0-9) Eosinophils (%) (Auto) 7% (0-3) 7% (0-3) Basophils (%) (Auto) 0% (0-3) 1% (0-3) Neutrophils # (Auto) 4.8x10^3uL (1.8-7.7) 4.9x10^3uL (1.8-7.7) Lymphocytes # (Auto) 2.3x10^3/uL (1.0-4.8) 1.8x10^3/uL (1.0-4.8) Monocytes # (Auto) 0.9x10^3/uL (0.0-1.1) 0.6x10^3/uL (0.0-1.1) Eosinophils # (Auto) 0.6x10^3/uL (0.0-0.7) 0.6x10^3/uL (0.0-0.7) Basophils # (Auto) 0.0x10^3/uL (0.0-0.2) 0.1x10^3/uL (0.0-0.2) Sodium Level 140mmol/L (136-145) 137mmol/L (136-145) Potassium Level 3.5mmol/L (3.5-5.1) 3.9mmol/L (3.5-5.1) Chloride Level 104mmol/L (98-107) 102mmol/L (98-107) Carbon Dioxide Level 28mmol/L (21-32) 27mmol/L (21-32) Anion Gap 8 (6-14) 8 (6-14) Blood Urea Nitrogen 13mg/dL (8-26) 13mg/dL (8-26) Creatinine 1.0mg/dL (0.7-1.3) 1.0mg/dL (0.7-1.3) Estimated GFR (Cockcroft-Gault) 70.7 70.7 Glucose Level 105mg/dL (70-99) 135mg/dL (70-99) Calcium Level 8.5mg/dL (8.5-10.1) 8.3mg/dL (8.5-10.1) Total Bilirubin 0.6mg/dL (0.2-1.0) Direct Bilirubin 0.1mg/dL (0.0-0.2) Aspartate Amino Transf (AST/SGOT) 33U/L (15-37) Alanine Aminotransferase (ALT/SGPT) 20U/L (16-63) Alkaline Phosphatase 68U/L (46-116) Troponin I Quantitative < 0.017ng/mL (0.000-0.055) < 0.017ng/mL (0.000-0.055) FF-Foa-A-Type Natriuretic Peptide 867pg/mL (0-449) Total Protein 6.7g/dL (6.4-8.2) Albumin 2.1g/dL (3.4-5.0) Glucose (Fingerstick) 131mg/dL (70-99) 179mg/dL (70-99) Test 09/15/16 13:30 09/15/16 16:16 09/15/16 20:51 09/16/16 04:55 Troponin I Quantitative < 0.017ng/mL (0.000-0.055) Glucose (Fingerstick) 202mg/dL (70-99) 374mg/dL (70-99) White Blood Count 7.7x10^3/uL (4.0-11.0) Red Blood Count 3.47x10^6/uL (4.30-5.70) Hemoglobin 10.5g/dL (13.0-17.5) Hematocrit 32.8% (39.0-53.0) Mean Corpuscular Volume 94fL (79-100) Mean Corpuscular Hemoglobin 30pg (25-35) Mean Corpuscular Hemoglobin Concent 32g/dL (31-37) Red Cell Distribution Width 15.5% (11.5-14.5) Platelet Count 245x10^3/uL (140-400) Neutrophils (%) (Auto) 88% (31-73) Lymphocytes (%) (Auto) 11% (24-48) Monocytes (%) (Auto) 1% (0-9) Eosinophils (%) (Auto) 0% (0-3) Basophils (%) (Auto) 0% (0-3) Neutrophils # (Auto) 6.8x10^3uL (1.8-7.7) Lymphocytes # (Auto) 0.9x10^3/uL (1.0-4.8) Monocytes # (Auto) 0.1x10^3/uL (0.0-1.1) Eosinophils # (Auto) 0.0x10^3/uL (0.0-0.7) Basophils # (Auto) 0.0x10^3/uL (0.0-0.2) Segmented Neutrophils % 76% (35-66) Band Neutrophils % 4% (0-9) Lymphocytes % 15% (24-48) Monocytes % 3% (0-10) Eosinophils % 2% (0-5) Platelet Estimate Adequate (ADEQUATE) Sodium Level 135mmol/L (136-145) Potassium Level 4.0mmol/L (3.5-5.1) Chloride Level 101mmol/L (98-107) Carbon Dioxide Level 26mmol/L (21-32) Anion Gap 8 (6-14) Blood Urea Nitrogen 20mg/dL (8-26) Creatinine 1.2mg/dL (0.7-1.3) Estimated GFR (Cockcroft-Gault) 57.3 Glucose Level 335mg/dL (70-99) Calcium Level 8.5mg/dL (8.5-10.1) Magnesium Level 1.7mg/dL (1.8-2.4) Test 09/16/16 07:41 Glucose (Fingerstick) 293mg/dL (70-99) Laboratory Tests Test 09/15/16 11:22 09/15/16 13:30 09/15/16 16:16 09/15/16 20:51 Glucose (Fingerstick) 179mg/dL (70-99) 202mg/dL (70-99) 374mg/dL (70-99) Troponin I Quantitative < 0.017ng/mL (0.000-0.055) Test 09/16/16 04:55 09/16/16 07:41 White Blood Count 7.7x10^3/uL (4.0-11.0) Red Blood Count 3.47x10^6/uL (4.30-5.70) Hemoglobin 10.5g/dL (13.0-17.5) Hematocrit 32.8% (39.0-53.0) Mean Corpuscular Volume 94fL (79-100) Mean Corpuscular Hemoglobin 30pg (25-35) Mean Corpuscular Hemoglobin Concent 32g/dL (31-37) Red Cell Distribution Width 15.5% (11.5-14.5) Platelet Count 245x10^3/uL (140-400) Neutrophils (%) (Auto) 88% (31-73) Lymphocytes (%) (Auto) 11% (24-48) Monocytes (%) (Auto) 1% (0-9) Eosinophils (%) (Auto) 0% (0-3) Basophils (%) (Auto) 0% (0-3) Neutrophils # (Auto) 6.8x10^3uL (1.8-7.7) Lymphocytes # (Auto) 0.9x10^3/uL (1.0-4.8) Monocytes # (Auto) 0.1x10^3/uL (0.0-1.1) Eosinophils # (Auto) 0.0x10^3/uL (0.0-0.7) Basophils # (Auto) 0.0x10^3/uL (0.0-0.2) Segmented Neutrophils % 76% (35-66) Band Neutrophils % 4% (0-9) Lymphocytes % 15% (24-48) Monocytes % 3% (0-10) Eosinophils % 2% (0-5) Platelet Estimate Adequate (ADEQUATE) Sodium Level 135mmol/L (136-145) Potassium Level 4.0mmol/L (3.5-5.1) Chloride Level 101mmol/L (98-107) Carbon Dioxide Level 26mmol/L (21-32) Anion Gap 8 (6-14) Blood Urea Nitrogen 20mg/dL (8-26) Creatinine 1.2mg/dL (0.7-1.3) Estimated GFR (Cockcroft-Gault) 57.3 Glucose Level 335mg/dL (70-99) Calcium Level 8.5mg/dL (8.5-10.1) Magnesium Level 1.7mg/dL (1.8-2.4) Glucose (Fingerstick) 293mg/dL (70-99) Meds Current Medications Albuterol Sulfate (Ventolin Neb Soln) 2.5 mg PRN Q2HRS PRN NEB SHORTNESS OF BREATH; Start 09/15/16 at 09:00 Albuterol/ Ipratropium (Duoneb) 3 ml RTQID NEB Last administered on 09/16/16 07 :18; Start 09/15/16 at 12:00 Artificial Tears (Artificial Tears) 1 drop PRN Q4HRS PRN OU DRY EYE; Start 09/15 at 12:15 Atorvastatin Calcium (Lipitor) 40 mg QHS PO Last administered on 09/15/16 21:22 ; Start 09/15/16 at 21:00 Carvedilol (Coreg) 6.25 mg BIDWMEALS PO Last administered on 09/16/16 07:42; Start 09/15/16 at 10:00 Cetirizine HCl (Zyrtec) 10 mg HS PO Last administered on 09/15/16 21:22; Start 09/15/16 at 21:00 Cyanocobalamin (Vitamin B-12) 1,000 mcg DAILY PO Last administered on 09/15/16 11:37; Start 09/15/16 at 10:00 Fluticasone Propionate (Flonase) 2 spray DAILY NS ; Start 09/15/16 at 10:00 Gabapentin (Neurontin) 100 mg QHS PO Last administered on 09/15/16 21:22; Start 09/15/16 at 21:00 Guaifenesin (Mucinex) 1,200 mg BID PO Last administered on 09/15/16 21:22; Start 09/15/16 at 10:00 Insulin Aspart (Novolog) 6 units 1X ONCE SQ Last administered on 09/15/16 21: 27; Start 09/15/16 at 21:30; Stop 09/15/16 at 21:31; Status DC Levofloxacin/ Dextrose (LEVAQUIN 500mg PREMIX) 100 ml @ 100 mls/hr Q24H IV Last administered on 09/15/16 11:36; Start 09/15/16 at 09:00 Methylprednisolone Sodium Succinate (Solu-Medrol 125mg Vial) 80 mg Q12HR IV Last administered on 09/15/16 21:22; Start 09/15/16 at 21:00 Methylprednisolone Sodium Succinate (Solu-Medrol 125mg Vial) 125 mg 1X ONCE IV Last administered on 09/15/16 11:36; Start 09/15/16 at 10:00; Stop 09/15/16 at 10:01; Status DC Montelukast Sodium (Singulair) 10 mg DAILYBFRSUP PO Last administered on 18:10; Start 09/15/16 at 10:00 Pantoprazole Sodium (Protonix) 40 mg DAILYAC PO Last administered on 09/16/16 07:41; Start 09/15/16 at 11:30 Tramadol HCl (Ultram) 50 mg PRN Q6HRS PRN PO MODERATE PAIN; Start 09/15/16 at 09 :00 Vitamin D (Vitamin D3) 2,000 unit DAILY PO Last administered on 09/15/16 11:37 ; Start 09/15/16 at 10:00 Assessment Assessment 1. hypotension secondary to dehydration 2. acute bronchitis no sepsis 3. 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 chronic AF/Aflutter not coumadin candidate 5. anemia chronic disease B12 6. diastolic CHF norm EF chronic, stable, not acute 7. HTN 8. hyperlipidemia 9. COPD/pulmonary fibrosis/ILD/silicosis 10. CKD II 13. depression 14. h/o ETOH abuse 15. GERD 16. chronic BP LS 17. fall prior to admit with facial trauma 18. acute on chronic hypoxic respiratory failure O2 continuous 2L POA 19. 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 DM II hyperglycemia steroid induced not POA PLAN: hypotension improved with IVF hold BP meds check orthostatic-no orthostasis, ambulatory english with O2 without dizziness hypotension resolved no sepsis acute bronchitis/AECOPD Levaquin 500mg IV daily Solumedrol 125mg IV x1 09/15 Solumedrol 80mg IV q 12h 09/15 nebulizer mucinex O2 09/16 decrease soluedrol to 40mg IV bid plan transition to oral tapering for discharge 09/17 Anemia B12 Admit Hgb 9.9 09/16 10.5 Hgb 05/2016 11.3 f/u in office CKD II Admit BUN 13 09/16 20 Cr 1.0 1.2 monitor no ARF DM II steroid induced hyperglycemia FSBS/SSI no ADA controlled diet, does not follow at home Home dose: Levemir 40u at hs, Novolog 5u tid ac BS 202-335 begin Levemir tonight 09/16 hs Restart Novolog 5unit TID AC 09/16 AM CHF, not acute monitor Admit wt 178# 08 177# DVT/GI prophylaxis SCD/JEANNA PPI hypomagnesia 09/16 Mg 1.7 Begin Mag Ox 400mg bid 09/16 For more details regarding further plans, please refer to the orders. Plan Plan For more details regarding further plans, please refer to the orders. STEPAN MILTON MD 09/16/16 0945: IM PROGRESS NOTES- Assessment Assessment The patient was seen and examined by me. Chart reviewed and plan of care formulated. Discussed with, reviewed and agree with PETROLEUM REFINERY LABORER's notes, plan of care and orders with modifications as necessary. For more details regarding further plans, please refer to the orders. remains very weak.has bilateral rales,wheezing. PINKY REES APRN Sep 16, 2016 08:14 STEPAN MILTON MD Sep 16, 2016 09:45
--- NOTE | 2016-09-16 08:28 | DISCH ---
DISCHARGE FINAL DIAGNOSIS Problems Medical Problems: (1) Dizziness Status: Acute (2) Hypotension Status: Acute (3) Hypotension Status: Acute (4) SOB (shortness of breath) Status: Acute CONDITION ON DISCHARGE: Stable HOME HEALTH: Yes PT. HAS FUNCTIONAL LIMITATIONS: Yes FACE TO FACE ENCOUNTER: Yes POST DISCHARGE ORDERS ACTIVITY ORDERS: Activity as tolerated WEIGHT BEARING STATUS: No restrictions DIET AFTER DISCHARGE: Cardiac CHECKS AFTER DISCHARGE CHECKS AFTER DISCHARGE: Weigh Yourself Daily COMMENTS: Check BS before meal, bring record to appt FOLLOW-UP PHYSICIAN FOLLOW-UP: Dr. Wharton or Sonny Grullon next week. TREATMENT/EQUIPMENT ORDERS ADAPTIVE EQUIPMENT NEEDED: Walker RESPIRATORY EQUIPMENT NEEDED: Oxygen (2L NC continuous), Nebulizer (duoneb four times daily ) PINKY REES APRN Sep 16, 2016 08:28
--- NOTE | 2016-09-16 08:31 | DISCH ---
DISCHARGE WITH HOME HEALTH DISCHARGE INFORMATION: Final Diagnosis: Problems Medical Problems: (1) Dizziness Status: Acute (2) Hypotension Status: Acute (3) Hypotension Status: Acute (4) SOB (shortness of breath) Status: Acute Condition on Discharge: Stable HOME HEALTH: Face to Face: I certify this patient is under my care and that I, or a nurse practitioner or physician's quality control assistant working with me, had a face to face encounter that meets the physician face to face encounter requirements with this patient on [Date]. Medical Condition(s): HTN Long-Term For: Medication Management Physical Therapy For: Evalulation/Treatment Occupational Therapy For: Evaluation/Treatment Patient meets Homebound Statu: Other: (Does not drive/not independent ) FOLLOW-UP: Follow up with: Dr. Wharton or Sonny Bowen next week. TREATMENT/EQUIPMENT ORDERS Adaptive Equipment Issued: Walker Discharge Respiratory Equipmen: Oxygen (2L continuous ), Nebulizer (duoneb four times daily. ) CERTIFICATION STATEMENT: Certification Statement: Certification Statement: Based on the above finding, I certify that this patient is confined to the home and needs intermittent long-term care, physical therapy and/or speech therapy, or continues to need occupational therapy.~ This patient is under my care, and I have initiated the establishment of the plan of care.~ This patient will be followed by myself or a community physician who will periodically review the plan of care. PINKY REES APRN Sep 16, 2016 08:31
[2016-09-16] MEDS: methylPREDNISolone SOD SUCC PF 40 MG/ML VIAL. IV SCH ×2 (08:38→20:23)
[2016-09-16] MEDS: CYANOCOBALAMIN (VITAMIN B-12) 1,000 MCG TABLET. PO SCH (08:38)
[2016-09-16] MEDS: CHOLECALCIFEROL (VITAMIN D3) 1,000 UNIT TABLET PO SCH (08:38)
[2016-09-16] MEDS: MAGNESIUM OXIDE 400 MG TABLET PO SCH ×2 (08:38→20:23)
[2016-09-16] MEDS: GUAIFENESIN ER 600 MG TABLET.ER PO SCH ×2 (08:38→20:23)
[2016-09-16] MEDS ORDERED: PRED-220 PO (08:39)
[2016-09-16] MEDS ORDERED: INSU100I17 SQ (08:39)
[2016-09-16] MEDS ORDERED: LEVO500T38 PO (08:39)
[2016-09-16] MEDS: FLUTICASONE 50MCG/NASAL SPRAY 16GM BOTTLE. NS SCH (09:32)
[2016-09-16] MEDS ORDERED: INSULIN ASPART 300 UNITS/3 ML INSULN.PEN SQ ONE (11:15)
[2016-09-16] MEDS: MONTELUKAST SODIUM 10 MG TABLET. PO SCH (16:58)
[2016-09-16] MEDS: GABAPENTIN 100 MG CAPSULE. PO SCH (20:22)
[2016-09-16] MEDS: CETIRIZINE HCL 10 MG TABLET PO SCH (20:23)
[2016-09-16] MEDS: ATORVASTATIN CALCIUM 40 MG TABLET. PO SCH (20:23)
[2016-09-16] MEDS: INSULIN DETEMIR 300 UNITS/3 ML INSULN.PEN. SQ SCH (20:35)
[2016-09-17] VITALS (8 sets, daily range): BP systolic 119–150; BP diastolic 60–79
[2016-09-17 05:59] LABS: BASO % 0 % (0-3); EOS % 0 % (0-3); HEMATOCRIT 33.3 % (39.0-53.0); HEMOGLOBIN 10.7 g/dL (13.0-17.5); LYMPH # 1.1 x10^3/uL (1.0-4.8); LYMPH % 10 % (24-48); MEAN CORPUSCULAR HEMOGLOBIN 31 pg (25-35); MEAN CORPUSCULAR HGB CONC 32 g/dL (31-37); MEAN CORPUSCULAR VOLUME 95 fL (79-100); MONO % 3 % (0-9); NEUT % 87 % (31-73); PLATELET COUNT 258 x10^3/uL (140-400); RED BLOOD COUNT 3.51 x10^6/uL (4.30-5.70); RED CELL DISTRIBUTION WIDTH 15.2 % (11.5-14.5); WHITE BLOOD COUNT 11.3 x10^3/uL (4.0-11.0)
[2016-09-17 06:04] LABS: CALCIUM 8.6 mg/dL (8.5-10.1); CREATININE 1.1 mg/dL (0.7-1.3); GFR 63.3
[2016-09-17] MEDS: IPRATRPIUM/ALBUTEROL 0.5/2.5MG 3 ML NEBU. NEB SCH ×4 (07:07→19:47)
[2016-09-17] MEDS: PANTOPRAZOLE 40 MG TABLET. PO SCH (08:04)
[2016-09-17] MEDS: CARVEDILOL 6.25 MG TABLET PO SCH ×2 (08:05→17:32)
[2016-09-17] MEDS: INSULIN ASPART 300 UNITS/3 ML INSULN.PEN SQ SCH ×6 (08:10→17:37)
[2016-09-17] MEDS: methylPREDNISolone SOD SUCC PF 40 MG/ML VIAL. IV SCH (08:39)
[2016-09-17] MEDS: FLUTICASONE 50MCG/NASAL SPRAY 16GM BOTTLE. NS SCH (08:39)
[2016-09-17] MEDS: MAGNESIUM OXIDE 400 MG TABLET PO SCH ×2 (08:40→21:30)
[2016-09-17] MEDS: CHOLECALCIFEROL (VITAMIN D3) 1,000 UNIT TABLET PO SCH (08:40)
[2016-09-17] MEDS: GUAIFENESIN ER 600 MG TABLET.ER PO SCH ×2 (08:40→21:30)
[2016-09-17] MEDS: CYANOCOBALAMIN (VITAMIN B-12) 1,000 MCG TABLET. PO SCH (08:41)
--- NOTE | 2016-09-17 10:33 | PDOC ---
IM PROGRESS NOTES- Subjective Subjective Getting stronger. Objective Objective alert no distress Vitals Vital Signs Date Time Temp Pulse Resp B/P Pulse Ox O2 Delivery O2 Flow Rate FiO2 09/17/16 08:05 75 138/70 09/17/16 08:00 Nasal Cannula 2.0 09/17/16 07:09 96 09/17/16 07:00 97.6 18 97.6 Input & Output Intake and Output 09/17/16 07:00 Intake Total 800 ml Output Total 650 ml Balance 150 ml Intake Oral 800 ml Output Urine Total 650 ml # Voids 2 Physical Exam Physical Exam General appearance - alert, ill appearing, and in no distress Mental Status - alert, oriented to person, place, and time, affect appropriate to mood Head - normal Chest - bilateral rales,decreased wheezing Heart - S1 and S2 normal Abdomen - soft, nontender, nondistended, BS+ Neurological - no acute focal neurological deficit noted Musculoskeletal - no muscular tenderness noted Extremities - no pedal edema Skin - warm and dry Labs Laboratory Tests Test 09/15/16 11:22 09/15/16 13:30 09/15/16 16:16 09/15/16 20:51 Glucose (Fingerstick) 179mg/dL (70-99) 202mg/dL (70-99) 374mg/dL (70-99) Troponin I Quantitative < 0.017ng/mL (0.000-0.055) Test 09/16/16 04:55 09/16/16 07:41 09/16/16 10:57 09/16/16 16:48 White Blood Count 7.7x10^3/uL (4.0-11.0) Red Blood Count 3.47x10^6/uL (4.30-5.70) Hemoglobin 10.5g/dL (13.0-17.5) Hematocrit 32.8% (39.0-53.0) Mean Corpuscular Volume 94fL (79-100) Mean Corpuscular Hemoglobin 30pg (25-35) Mean Corpuscular Hemoglobin Concent 32g/dL (31-37) Red Cell Distribution Width 15.5% (11.5-14.5) Platelet Count 245x10^3/uL (140-400) Neutrophils (%) (Auto) 88% (31-73) Lymphocytes (%) (Auto) 11% (24-48) Monocytes (%) (Auto) 1% (0-9) Eosinophils (%) (Auto) 0% (0-3) Basophils (%) (Auto) 0% (0-3) Neutrophils # (Auto) 6.8x10^3uL (1.8-7.7) Lymphocytes # (Auto) 0.9x10^3/uL (1.0-4.8) Monocytes # (Auto) 0.1x10^3/uL (0.0-1.1) Eosinophils # (Auto) 0.0x10^3/uL (0.0-0.7) Basophils # (Auto) 0.0x10^3/uL (0.0-0.2) Segmented Neutrophils % 76% (35-66) Band Neutrophils % 4% (0-9) Lymphocytes % 15% (24-48) Monocytes % 3% (0-10) Eosinophils % 2% (0-5) Platelet Estimate Adequate (ADEQUATE) Sodium Level 135mmol/L (136-145) Potassium Level 4.0mmol/L (3.5-5.1) Chloride Level 101mmol/L (98-107) Carbon Dioxide Level 26mmol/L (21-32) Anion Gap 8 (6-14) Blood Urea Nitrogen 20mg/dL (8-26) Creatinine 1.2mg/dL (0.7-1.3) Estimated GFR (Cockcroft-Gault) 57.3 Glucose Level 335mg/dL (70-99) Calcium Level 8.5mg/dL (8.5-10.1) Magnesium Level 1.7mg/dL (1.8-2.4) Glucose (Fingerstick) 293mg/dL (70-99) 414mg/dL (70-99) 322mg/dL (70-99) Test 09/16/16 20:27 09/17/16 05:20 09/17/16 07:20 Glucose (Fingerstick) 285mg/dL (70-99) 263mg/dL (70-99) White Blood Count 11.3x10^3/uL (4.0-11.0) Red Blood Count 3.51x10^6/uL (4.30-5.70) Hemoglobin 10.7g/dL (13.0-17.5) Hematocrit 33.3% (39.0-53.0) Mean Corpuscular Volume 95fL (79-100) Mean Corpuscular Hemoglobin 31pg (25-35) Mean Corpuscular Hemoglobin Concent 32g/dL (31-37) Red Cell Distribution Width 15.2% (11.5-14.5) Platelet Count 258x10^3/uL (140-400) Neutrophils (%) (Auto) 87% (31-73) Lymphocytes (%) (Auto) 10% (24-48) Monocytes (%) (Auto) 3% (0-9) Eosinophils (%) (Auto) 0% (0-3) Basophils (%) (Auto) 0% (0-3) Neutrophils # (Auto) 9.8x10^3uL (1.8-7.7) Lymphocytes # (Auto) 1.1x10^3/uL (1.0-4.8) Monocytes # (Auto) 0.3x10^3/uL (0.0-1.1) Eosinophils # (Auto) 0.0x10^3/uL (0.0-0.7) Basophils # (Auto) 0.0x10^3/uL (0.0-0.2) Sodium Level 137mmol/L (136-145) Potassium Level 4.0mmol/L (3.5-5.1) Chloride Level 104mmol/L (98-107) Carbon Dioxide Level 26mmol/L (21-32) Anion Gap 7 (6-14) Blood Urea Nitrogen 29mg/dL (8-26) Creatinine 1.1mg/dL (0.7-1.3) Estimated GFR (Cockcroft-Gault) 63.3 Glucose Level 294mg/dL (70-99) Calcium Level 8.6mg/dL (8.5-10.1) Magnesium Level 2.0mg/dL (1.8-2.4) Laboratory Tests Test 09/16/16 10:57 09/16/16 16:48 09/16/16 20:27 09/17/16 05:20 Glucose (Fingerstick) 414mg/dL (70-99) 322mg/dL (70-99) 285mg/dL (70-99) White Blood Count 11.3x10^3/uL (4.0-11.0) Red Blood Count 3.51x10^6/uL (4.30-5.70) Hemoglobin 10.7g/dL (13.0-17.5) Hematocrit 33.3% (39.0-53.0) Mean Corpuscular Volume 95fL (79-100) Mean Corpuscular Hemoglobin 31pg (25-35) Mean Corpuscular Hemoglobin Concent 32g/dL (31-37) Red Cell Distribution Width 15.2% (11.5-14.5) Platelet Count 258x10^3/uL (140-400) Neutrophils (%) (Auto) 87% (31-73) Lymphocytes (%) (Auto) 10% (24-48) Monocytes (%) (Auto) 3% (0-9) Eosinophils (%) (Auto) 0% (0-3) Basophils (%) (Auto) 0% (0-3) Neutrophils # (Auto) 9.8x10^3uL (1.8-7.7) Lymphocytes # (Auto) 1.1x10^3/uL (1.0-4.8) Monocytes # (Auto) 0.3x10^3/uL (0.0-1.1) Eosinophils # (Auto) 0.0x10^3/uL (0.0-0.7) Basophils # (Auto) 0.0x10^3/uL (0.0-0.2) Sodium Level 137mmol/L (136-145) Potassium Level 4.0mmol/L (3.5-5.1) Chloride Level 104mmol/L (98-107) Carbon Dioxide Level 26mmol/L (21-32) Anion Gap 7 (6-14) Blood Urea Nitrogen 29mg/dL (8-26) Creatinine 1.1mg/dL (0.7-1.3) Estimated GFR (Cockcroft-Gault) 63.3 Glucose Level 294mg/dL (70-99) Calcium Level 8.6mg/dL (8.5-10.1) Magnesium Level 2.0mg/dL (1.8-2.4) Test 09/17/16 07:20 Glucose (Fingerstick) 263mg/dL (70-99) Meds Current Medications Insulin Aspart (Novolog) 0-7 UNITS TIDWMEALS SQ Last administered on 09/17/16 08:11; Start 09/16/16 at 12:00 Insulin Aspart (Novolog) 5 units TIDAC SQ Last administered on 09/17/16 08:10; Start 09/16/16 at 11:30 Insulin Aspart 15 units 15 units 1X ONCE SQ Last administered on 09/16/16 11: 47; Start 09/16/16 at 11:15; Stop 09/16/16 at 11:17; Status DC Insulin Detemir (Levemir) 20 units QHS SQ Last administered on 09/16/16 20:35; Start 09/16/16 at 21:00 Levofloxacin/ Dextrose (LEVAQUIN 250mg PREMIX) 50 ml @ 50 mls/hr Q24H IV Last administered on 09/17/16 08:44; Start 09/17/16 at 09:00 Assessment Assessment 1. hypotension 2. acute bronchitis 3. 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 chronic AF/Aflutter not coumadin candidate 5. anemia chronic disease B12 6. diastolic CHF norm EF chronic, stable, not acute 7. HTN 8. hyperlipidemia 9. COPD/pulmonary fibrosis/ILD/silicosis 10. CKD II 13. depression 14. h/o ETOH abuse 15. GERD 16. chronic BP LS 17. fall prior to admit with facial trauma 18. chronic hypoxic respiratory failure O2 continuous 2L 19. 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 nebulizer mucinex O2 Anemia B12 Admit Hgb 9.9 Hgb 05/2016 11.3 CKD II Admit BUN 13 Cr 1.0 monitor DM II FSBS/SSI no ADA controlled diet, does not follow at home Home dose: Levemir 40u at hs, Novolog 5u tid ac Not controlled due to steroids. Decrease steroids. CHF, not acute monitor Admit wt 178# DVT/GI prophylaxis SCD/JEANNA PPI Slowly improving. Discharge tomorrow with [facility]. Plan Plan For more details regarding further plans, please refer to the orders. STEPAN MILTON MD Sep 17, 2016 10:33
[2016-09-17] MEDS: MONTELUKAST SODIUM 10 MG TABLET. PO SCH (17:32)
[2016-09-17] MEDS: GABAPENTIN 100 MG CAPSULE. PO SCH (21:30)
[2016-09-17] MEDS: CETIRIZINE HCL 10 MG TABLET PO SCH (21:30)
[2016-09-17] MEDS: ATORVASTATIN CALCIUM 40 MG TABLET. PO SCH (21:31)
[2016-09-17] MEDS: INSULIN DETEMIR 300 UNITS/3 ML INSULN.PEN. SQ SCH (21:38)
[2016-09-18] VITALS (10 sets, daily range): BP systolic 126–150; BP diastolic 65–78
[2016-09-18] MEDS: LEVOFLOXACIN 250 MG TABLET. PO SCH (06:08)
[2016-09-18] MEDS: IPRATRPIUM/ALBUTEROL 0.5/2.5MG 3 ML NEBU. NEB SCH ×4 (07:20→19:36)
[2016-09-18] MEDS: INSULIN ASPART 300 UNITS/3 ML INSULN.PEN SQ SCH ×6 (08:00→17:05)
[2016-09-18] MEDS: PANTOPRAZOLE 40 MG TABLET. PO SCH (08:28)
[2016-09-18] MEDS: CARVEDILOL 6.25 MG TABLET PO SCH ×2 (08:28→17:01)
[2016-09-18] MEDS: MAGNESIUM OXIDE 400 MG TABLET PO SCH ×2 (08:28→21:11)
[2016-09-18] MEDS: GUAIFENESIN ER 600 MG TABLET.ER PO SCH ×2 (08:28→21:11)
[2016-09-18] MEDS: CYANOCOBALAMIN (VITAMIN B-12) 1,000 MCG TABLET. PO SCH (08:28)
[2016-09-18] MEDS: CHOLECALCIFEROL (VITAMIN D3) 1,000 UNIT TABLET PO SCH (08:29)
[2016-09-18] MEDS: FLUTICASONE 50MCG/NASAL SPRAY 16GM BOTTLE. NS SCH (08:33)
--- NOTE | 2016-09-18 09:54 | PDOC ---
IM PROGRESS NOTES- Subjective Subjective has increased dyspnea,cough,congestion. Objective Vitals Vital Signs Date Time Temp Pulse Resp B/P Pulse Ox O2 Delivery O2 Flow Rate FiO2 09/18/16 08:39 70 134/78 09/18/16 08:00 97.6 18 96 Nasal Cannula 2.0 97.6 Input & Output Intake and Output 09/18/16 07:00 Intake Total 180 ml Output Total 1300 ml Balance -1120 ml Intake Oral 180 ml Output Urine Total 1300 ml # Voids 1 Physical Exam Physical Exam General appearance - alert, ill appearing, and in moderate distress,has a coughing spell. Mental Status - alert, oriented to person, place, and time, affect appropriate to mood Head - normal Chest - bilateral rales,increased wheezing Heart - S1 and S2 normal Abdomen - soft, nontender, nondistended, BS+ Neurological - no acute focal neurological deficit noted Musculoskeletal - no muscular tenderness noted Extremities - no pedal edema Skin - warm and dry Labs Laboratory Tests Test 09/16/16 10:57 09/16/16 16:48 09/16/16 20:27 09/17/16 05:20 Glucose (Fingerstick) 414mg/dL (70-99) 322mg/dL (70-99) 285mg/dL (70-99) White Blood Count 11.3x10^3/uL (4.0-11.0) Red Blood Count 3.51x10^6/uL (4.30-5.70) Hemoglobin 10.7g/dL (13.0-17.5) Hematocrit 33.3% (39.0-53.0) Mean Corpuscular Volume 95fL (79-100) Mean Corpuscular Hemoglobin 31pg (25-35) Mean Corpuscular Hemoglobin Concent 32g/dL (31-37) Red Cell Distribution Width 15.2% (11.5-14.5) Platelet Count 258x10^3/uL (140-400) Neutrophils (%) (Auto) 87% (31-73) Lymphocytes (%) (Auto) 10% (24-48) Monocytes (%) (Auto) 3% (0-9) Eosinophils (%) (Auto) 0% (0-3) Basophils (%) (Auto) 0% (0-3) Neutrophils # (Auto) 9.8x10^3uL (1.8-7.7) Lymphocytes # (Auto) 1.1x10^3/uL (1.0-4.8) Monocytes # (Auto) 0.3x10^3/uL (0.0-1.1) Eosinophils # (Auto) 0.0x10^3/uL (0.0-0.7) Basophils # (Auto) 0.0x10^3/uL (0.0-0.2) Sodium Level 137mmol/L (136-145) Potassium Level 4.0mmol/L (3.5-5.1) Chloride Level 104mmol/L (98-107) Carbon Dioxide Level 26mmol/L (21-32) Anion Gap 7 (6-14) Blood Urea Nitrogen 29mg/dL (8-26) Creatinine 1.1mg/dL (0.7-1.3) Estimated GFR (Cockcroft-Gault) 63.3 Glucose Level 294mg/dL (70-99) Calcium Level 8.6mg/dL (8.5-10.1) Magnesium Level 2.0mg/dL (1.8-2.4) Test 09/17/16 07:20 09/17/16 11:09 09/17/16 16:02 09/17/16 20:32 Glucose (Fingerstick) 263mg/dL (70-99) 280mg/dL (70-99) 282mg/dL (70-99) 351mg/dL (70-99) Test 09/18/16 07:19 Glucose (Fingerstick) 111mg/dL (70-99) Laboratory Tests Test 09/17/16 11:09 09/17/16 16:02 09/17/16 20:32 09/18/16 07:19 Glucose (Fingerstick) 280mg/dL (70-99) 282mg/dL (70-99) 351mg/dL (70-99) 111mg/dL (70-99) Meds Current Medications Levofloxacin (Levaquin) 250 mg DAILY06 PO Last administered on 09/18/16t 06:08 ; Start 09/18/16 at 06:00 Methylprednisolone Sodium Succinate (Solu-Medrol 40mg Vial) 40 mg DAILY10 IV ; Start 09/18/16 at 10:00 Assessment Assessment 1. hypotension 2. acute bronchitis 3. 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 chronic AF/Aflutter not coumadin candidate 5. anemia chronic disease B12 6. diastolic CHF norm EF chronic, stable, not acute 7. HTN 8. hyperlipidemia 9. COPD/pulmonary fibrosis/ILD/silicosis 10. CKD II 13. depression 14. h/o ETOH abuse 15. GERD 16. chronic BP LS 17. fall prior to admit with facial trauma 18. chronic hypoxic respiratory failure O2 continuous 2L 19. moderate to severe chronic PCL malnutrition PLAN: hypotension improved with IVF hold BP meds check orthostatic acute bronchitis/AECOPD/Pulmonary fibrosis- worse. Levaquin 500mg IV daily Increase Solumedrol 100 mg extra dose this afternoon.. nebulizer mucinex O2 Anemia B12 Admit Hgb 9.9 Hgb 05/2016 11.3 CKD II Admit BUN 13 Cr 1.0 monitor DM II FSBS/SSI no ADA controlled diet, does not follow at home Home dose: Levemir 40u at hs, Novolog 5u tid ac Not controlled due to steroids. Decrease steroids. CHF, not acute monitor Admit wt 178# DVT/GI prophylaxis SCD/JEANNA PPI Slowly improving. Discharge tomorrow with [facility]. Plan Plan For more details regarding further plans, please refer to the orders. STEPAN MILTON MD Sep 18, 2016 09:54
[2016-09-18] MEDS ORDERED: methylPREDNISolone SOD SUCC PF 125 MG/2 ML VIAL. IV ONE (10:00)
[2016-09-18] MEDS: methylPREDNISolone SOD SUCC PF 40 MG/ML VIAL. IV SCH (10:33)
[2016-09-18] MEDS: MONTELUKAST SODIUM 10 MG TABLET. PO SCH (17:00)
[2016-09-18] MEDS ORDERED: INSULIN DETEMIR 300 UNITS/3 ML INSULN.PEN. SQ SCH (21:00)
[2016-09-18] MEDS: CETIRIZINE HCL 10 MG TABLET PO SCH (21:11)
[2016-09-18] MEDS: ATORVASTATIN CALCIUM 40 MG TABLET. PO SCH (21:11)
[2016-09-18] MEDS: GABAPENTIN 100 MG CAPSULE. PO SCH (21:12)
[2016-09-19 03:10] VITALS: BP 156/64
[2016-09-19] MEDS: LEVOFLOXACIN 250 MG TABLET. PO SCH (06:05)
[2016-09-19] MEDS: IPRATRPIUM/ALBUTEROL 0.5/2.5MG 3 ML NEBU. NEB SCH ×3 (06:11→15:48)
[2016-09-19 07:00] VITALS: BP 131/69
[2016-09-19 07:05] VITALS: BP 125/61
[2016-09-19 07:10] VITALS: BP 131/68
[2016-09-19] MEDS: PANTOPRAZOLE 40 MG TABLET. PO SCH (07:29)
[2016-09-19] MEDS: CYANOCOBALAMIN (VITAMIN B-12) 1,000 MCG TABLET. PO SCH (08:23)
[2016-09-19] MEDS: GUAIFENESIN ER 600 MG TABLET.ER PO SCH (08:23)
[2016-09-19] MEDS: MAGNESIUM OXIDE 400 MG TABLET PO SCH (08:23)
[2016-09-19] MEDS: CARVEDILOL 6.25 MG TABLET PO SCH (08:24)
[2016-09-19] MEDS: FLUTICASONE 50MCG/NASAL SPRAY 16GM BOTTLE. NS SCH (08:24)
[2016-09-19] MEDS: CHOLECALCIFEROL (VITAMIN D3) 1,000 UNIT TABLET PO SCH (08:24)
[2016-09-19] MEDS: INSULIN ASPART 300 UNITS/3 ML INSULN.PEN SQ SCH ×4 (08:27→11:58)
[2016-09-19] MEDS: methylPREDNISolone SOD SUCC PF 40 MG/ML VIAL. IV SCH (09:54)
[2016-09-19 11:00] VITALS: BP 128/66
--- NOTE | 2016-09-19 11:38 | PDOC ---
IM PROGRESS NOTES- Subjective Subjective Breathing better. Objective Vitals Vital Signs Date Time Temp Pulse Resp B/P Pulse Ox O2 Delivery O2 Flow Rate FiO2 09/19/16 11:32 Nasal Cannula 2.0 09/19/16 11:00 97.7 68 18 128/66 98 97.7 Input & Output Intake and Output 09/19/16 07:00 Intake Total 660 ml Output Total 850 ml Balance -190 ml Intake Oral 660 ml Output Urine Total 850 ml # Bowel Movements 1 Physical Exam Physical Exam General appearance - alert, ill appearing, and in mild distress Mental Status - alert, oriented to person, place, and time, affect appropriate to mood Head - normal Chest - bilateral rales,no wheezing Heart - S1 and S2 normal Abdomen - soft, nontender, nondistended, BS+ Neurological - no acute focal neurological deficit noted Musculoskeletal - no muscular tenderness noted Extremities - no pedal edema Skin - warm and dry Labs Laboratory Tests Test 09/17/16 16:02 09/17/16 20:32 09/18/16 07:19 09/18/16 11:48 Glucose (Fingerstick) 282mg/dL (70-99) 351mg/dL (70-99) 111mg/dL (70-99) 150mg/dL (70-99) Test 09/18/16 16:06 09/18/16 21:00 09/19/16 07:37 Glucose (Fingerstick) 328mg/dL (70-99) 332mg/dL (70-99) 242mg/dL (70-99) Laboratory Tests Test 09/18/16 11:48 09/18/16 16:06 09/18/16 21:00 09/19/16 07:37 Glucose (Fingerstick) 150mg/dL (70-99) 328mg/dL (70-99) 332mg/dL (70-99) 242mg/dL (70-99) Meds Current Medications Insulin Detemir (Levemir) 25 units QHS SQ Last administered on 09/18/16t 21:18 ; Start 09/18/16 at 21:00 Assessment Assessment 1. hypotension 2. acute bronchitis 3. 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 chronic AF/Aflutter not coumadin candidate 5. anemia chronic disease B12 6. diastolic CHF norm EF chronic, stable, not acute 7. HTN 8. hyperlipidemia 9. COPD/pulmonary fibrosis/ILD/silicosis 10. CKD II 13. depression 14. h/o ETOH abuse 15. GERD 16. chronic BP LS 17. fall prior to admit with facial trauma 18. chronic hypoxic respiratory failure O2 continuous 2L 19. moderate to severe chronic PCL malnutrition PLAN: hypotension improved with IVF hold BP meds check orthostatic acute bronchitis/AECOPD/Pulmonary fibrosis- better. Levaquin 500mg IV daily nebulizer mucinex O2 Anemia B12 Admit Hgb 9.9 Hgb 05/2016 11.3 CKD II Admit BUN 13 Cr 1.0 monitor DM II FSBS/SSI no ADA controlled diet, does not follow at home Home dose: Levemir 40u at hs, Novolog 5u tid ac Not controlled due to steroids. Decrease steroids. CHF, not acute monitor Admit wt 178# DVT/GI prophylaxis SCD/JEANNA PPI Slowly improving. Discharge today with [facility]. On Levaquin and taper oral steroids- Prednisone 40-30-20-10 each for 3 days. see in office in 5 days. Plan Plan For more details regarding further plans, please refer to the orders. STEPAN MILTON MD Sep 19, 2016 11:38
--- NOTE | 2016-09-22 14:07 | PDOC3 ---
IM DISCHARGE SUMMARY Date of Admission Date of Admission Date of Admission: Sep 15, 2016 at 01:45 Date of Discharge Date of Discharge 09/20/16 Primary Diagnosis Primary Diagnosis 1. hypotension 2. acute bronchitis 3. 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 chronic AF/Aflutter not coumadin candidate 5. anemia chronic disease B12 6. diastolic CHF norm EF chronic, stable, not acute 7. HTN 8. hyperlipidemia 9. COPD/pulmonary fibrosis/ILD/silicosis 10. CKD II 13. depression 14. h/o ETOH abuse 15. GERD 16. chronic BP LS 17. fall prior to admit with facial trauma 18. chronic hypoxic respiratory failure O2 continuous 2L 19. moderate to severe chronic PCL malnutrition Problems: Consults Consults None Procedures Procedures None Labs Labs See EHR Brief hospital course Brief hospital course This 86 year old male who presented with hypotension was admitted. He was also noted to have acute bronchitis, AECOPD, acute on chronic hypoxic respiratory failure. The follow is a summary of his treatment: hypotension improved with IVF hold BP meds check orthostatic-negative resolved acute bronchitis/AECOPD/Pulmonary fibrosis- better. Levaquin 500mg IV daily nebulizer mucinex O2 DC home oral levaquin tapering steroids. leukcytosis -steroid induced Anemia B12 Admit Hgb 9.9 09/20 10.7 Hgb 05/2016 11.3 CKD II Admit BUN 13 Cr 1.0 monitor DM II FSBS/SSI no ADA controlled diet, does not follow at home Home dose: Levemir 40u at hs, Novolog 5u tid ac Not controlled due to steroids. Decrease steroids. BS 134-332 CHF, not acute monitor Admit wt 178# DC wt 174.5# DVT/GI prophylaxis SCD/JEANNA PPI For more details regarding the past history, family history, social history, surgical history and other details, please refer to History and Physical. Please see discharge orders and medications. He will be discharged home with [facility]. Medications Medications reviewed and reconciled for discharge. Allergy Allergies Coded Allergies Type Severity Reaction Last Updated Verified rofecoxib Allergy Severe 09/14/16 Yes Follow up in 3 days. DISPOSITION: Home health services ([facility] ) Comments Discharge Management - 35 minutes. For other details please refer to discharge instructions PINKY REES APRN Sep 22, 2016 14:07
== END 2016-09-19 15:00 | disposition home health service (06) | DRG 189 ==
LOC: ER 23:08 → 4 NORTH 09-15 01:45
PROVIDERS: ADMIT Internal Medicine; ATTEND Internal Medicine
DX: J96.21 Acute and chronic respiratory failure with hypoxia (principal); E43 Unspecified severe protein-calorie malnutrition; I13.0 Hypertensive heart and chronic kidney disease with heart failure and stage 1 through stage 4 chronic kidney disease, or unspecified chronic kidney disease; I48.92 Unspecified atrial flutter; I50.32 Chronic diastolic (congestive) heart failure; J44.0 Chronic obstructive pulmonary disease with (acute) lower respiratory infection; J20.9 Acute bronchitis, unspecified; E86.0 Dehydration; E11.22 Type 2 diabetes mellitus with diabetic chronic kidney disease; Z68.26 Body mass index [BMI] 26.0-26.9, adult; E78.5 Hyperlipidemia, unspecified; F32.9 Major depressive disorder, single episode, unspecified; D63.8 Anemia in other chronic diseases classified elsewhere; I48.2 Chronic atrial fibrillation; K21.9 Gastro-esophageal reflux disease without esophagitis; N18.2 Chronic kidney disease, stage 2 (mild); Z79.4 Long term (current) use of insulin; Z82.49 Family history of ischemic heart disease and other diseases of the circulatory system; Z99.81 Dependence on supplemental oxygen; Z88.8 Allergy status to other drugs, medicaments and biological substances
CPT/HCPCS: 36415; 71010; 80048; 80076; 82947; 83735; 83880; 84484; 85007; 85027; 93005; 94250; 94640; 94760; 96360; J1815; J1956; J2920; J2930; J7030; J7620; 97116; 97535; 99285-25

== ENCOUNTER 2017-02-17 16:58 | Inpatient (IN) | payer MEDICARE ==
[~2017-02-17] VITALS: Ht 172.7 cm; Wt 77.6 kg
[~2017-02-17 16:58] MED LIST changes: +CYAN100070 PO; -CYAN10008 PO; -DEXT30SU15 PO; +DEXT30SU19 PO; -GUAI600T38 PO; +GUAI600T47 PO; -LEVO500T38 PO; +LEVO500T59 PO; -MAGN500C PO; +MAGN500C10 PO; -OXYC-244 PO; +OXYC-327 PO; -TRAM-29 PO; +TRAM-48 PO
--- NOTE | 2017-02-17 17:29 | PHYS DOC ---
Past Medical History Past Medical History: COPD, Diabetes-Type I, Other Additional Past Medical Histor: HOME 02 Past Surgical History: Other Additional Past Surgical Histo: hernia with mesh Alcohol Use: Occasionally Drug Use: None Adult General Chief Complaint Chief Complaint: HYPOTENSION HPI HPI Patient is a 87 year old male who presents with worsening lower extremities swelling and was seen his primary care office and was tachycardic and hypotensive. He denies any chest pain shortness of breath. He states his lower legs are little more swollen than normal. He denies any fevers or chills. His past medical history consists of 1. hypotension 2. acute bronchitis 3. 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 chronic AF/Aflutter not coumadin candidate 5. anemia chronic disease B12 6. diastolic CHF norm EF chronic, stable, not acute 7. HTN 8. hyperlipidemia 9. COPD/pulmonary fibrosis/ILD/silicosis 10. CKD II 13. depression 14. h/o ETOH abuse 15. GERD 16. chronic BP LS 17. fall prior to admit with facial trauma 18. chronic hypoxic respiratory failure O2 continuous 2L 19. moderate to severe chronic PCL malnutrition Review of Systems Review of Systems Constitutional: Denies fever or chills [] Eyes: Denies change in visual acuity, redness, or eye pain [] HENT: Denies nasal congestion or sore throat [] Respiratory: Denies cough or shortness of breath [] Cardiovascular: No additional information not addressed in HPI [] GI: Denies abdominal pain, nausea, vomiting, bloody stools or diarrhea [] : Denies dysuria or hematuria [] Musculoskeletal: Denies back pain or joint pain [] Integument: Denies rash or skin lesions [] Neurologic: Denies headache, focal weakness or sensory changes [] Endocrine: Denies polyuria or polydipsia [] Allergies Allergies Allergies Coded Allergies Type Severity Reaction Last Updated Verified rofecoxib Allergy Severe 09/14/16 Yes Physical Exam Physical Exam Constitutional: Well developed, well nourished, no acute distress, non-toxic appearance. [] HENT: Normocephalic, atraumatic, bilateral external ears normal, oropharynx moist, no oral exudates, nose normal. [] Eyes: PERRLA, EOMI, conjunctiva normal, no discharge. [] Neck: Normal range of motion, no tenderness, supple, no stridor. [] Cardiovascular:Heart rate irregular rhythm, tachycardic, no murmur [] Lungs & Thorax: Bilateral breath sounds clear to auscultation [] Abdomen: Bowel sounds normal, soft, no tenderness, no masses, no pulsatile masses. [] Skin: Warm, dry, no erythema, no rash. [] Back: No tenderness, no CVA tenderness. [] Extremities: No tenderness, no cyanosis, no clubbing, ROM intact, 2+ bilateral lower extremities edema with mild erythema from mid calfs to ankles Neurologic: Alert and oriented X 3, normal motor function, normal sensory function, no focal deficits noted. [] Psychologic: Affect normal, judgement normal, mood normal. [] Current Patient Data Vital Signs Vital Signs Date Time Temp Pulse Resp B/P (MAP) Pulse Ox O2 Delivery O2 Flow Rate FiO2 02/17/17 19:00 112 17 131/69 (89) 98 Nasal Cannula 3.0 02/17/17 17:10 99.3 99.3 Lab Values Laboratory Tests Test 02/17/17 17:15 White Blood Count 8.3 x10^3/uL (4.0-11.0) Red Blood Count 3.95 x10^6/uL (4.30-5.70) L Hemoglobin 12.8 g/dL (13.0-17.5) L Hematocrit 37.2 % (39.0-53.0) L Mean Corpuscular Volume 94 fL (79-100) Mean Corpuscular Hemoglobin 32 pg (25-35) Mean Corpuscular Hemoglobin Concent 34 g/dL (31-37) Red Cell Distribution Width 14.9 % (11.5-14.5) H Platelet Count 259 x10^3/uL (140-400) Neutrophils (%) (Auto) 56 % (31-73) Lymphocytes (%) (Auto) 28 % (24-48) Monocytes (%) (Auto) 10 % (0-9) H Eosinophils (%) (Auto) 4 % (0-3) H Basophils (%) (Auto) 1 % (0-3) Neutrophils # (Auto) 4.7 x10^3uL (1.8-7.7) Lymphocytes # (Auto) 2.3 x10^3/uL (1.0-4.8) Monocytes # (Auto) 0.9 x10^3/uL (0.0-1.1) Eosinophils # (Auto) 0.3 x10^3/uL (0.0-0.7) Basophils # (Auto) 0.1 x10^3/uL (0.0-0.2) Prothrombin Time 13.5 SEC (11.7-14.0) Prothrombin Time INR 1.1 (0.8-1.1) Sodium Level 140 mmol/L (136-145) Potassium Level 3.9 mmol/L (3.5-5.1) Chloride Level 99 mmol/L (98-107) Carbon Dioxide Level 30 mmol/L (21-32) Anion Gap 11 (6-14) Blood Urea Nitrogen 14 mg/dL (8-26) Creatinine 1.3 mg/dL (0.7-1.3) Estimated GFR (Cockcroft-Gault) 52.1 Glucose Level 165 mg/dL (70-99) H Calcium Level 8.2 mg/dL (8.5-10.1) L Magnesium Level 1.6 mg/dL (1.8-2.4) L Total Bilirubin 1.1 mg/dL (0.2-1.0) H Direct Bilirubin 0.4 mg/dL (0.0-0.2) H Aspartate Amino Transferase (AST) 45 U/L (15-37) H Alanine Aminotransferase (ALT) 19 U/L (16-63) Alkaline Phosphatase 92 U/L (46-116) Creatine Kinase 116 U/L (39-308) Creatine Kinase MB (Mass) 1.4 ng/mL (0.0-3.6) Creatine Kinase MB Relative Index 1.2 % (0-4) Troponin I Quantitative < 0.017 ng/mL (0.000-0.055) YF-Wdt-I-Type Natriuretic Peptide 1048 pg/mL (0-449) H Total Protein 6.8 g/dL (6.4-8.2) Albumin 3.0 g/dL (3.4-5.0) L Lipase 280 U/L (73-393) Thyroid Stimulating Hormone (TSH) 6.315 uIU/mL (0.358-3.74) H Laboratory Tests 02/17/17 17:15 Laboratory Tests 02/17/17 17:15 EKG EKG EKG shows irregular rhythm with rate of [address] elevations or T- wave inversions, left axis deviation noted, QTC 513 ms, as interpreted by me. Radiology/Procedures Radiology/Procedures [] Course & Med Decision Making Course & Med Decision Making Will admit for further evaluation and treatment. Dragon Disclaimer Dragon Disclaimer This electronic medical record was generated, in whole or in part, using a voice recognition dictation system. Departure Departure Impression: Primary Impression: Congestive heart failure Additional Impressions: Acute and chronic respiratory failure Atrial fibrillation with RVR Disposition: ADMITTED INPATIENT Admitting Physician: Stepan Milton Condition: STABLE Referrals: STEPAN MILTON MD (PCP) Problem Qualifiers Primary Impression: Congestive heart failure Congestive heart failure type: unspecified congestive heart failure type Congestive heart failure chronicity: acute on chronic Qualified Codes: I50.9 - Heart failure, unspecified ARNIE MCPHERSON MD Feb 17, 2017 17:29 KAM MCGILL DO Feb 17, 2017 21:24
[2017-02-17 17:35] LABS: BASO # 0.1 x10^3/uL (0.0-0.2); BASO % 1 % (0-3); EOS % 4 % (0-3); HEMATOCRIT 37.2 % (39.0-53.0); HEMOGLOBIN 12.8 g/dL (13.0-17.5); LYMPH # 2.3 x10^3/uL (1.0-4.8); LYMPH % 28 % (24-48); MEAN CORPUSCULAR HEMOGLOBIN 32 pg (25-35); MEAN CORPUSCULAR HGB CONC 34 g/dL (31-37); MEAN CORPUSCULAR VOLUME 94 fL (79-100); MONO % 10 % (0-9); NEUT % 56 % (31-73); PLATELET COUNT 259 x10^3/uL (140-400); RED BLOOD COUNT 3.95 x10^6/uL (4.30-5.70); RED CELL DISTRIBUTION WIDTH 14.9 % (11.5-14.5); WHITE BLOOD COUNT 8.3 x10^3/uL (4.0-11.0)
[2017-02-17 17:44] LABS: INR 1.1 (0.8-1.1); PROTHROMBIN TIME PATIENT 13.5 SEC (11.7-14.0)
[2017-02-17 17:47] LABS: CALCIUM 8.2 mg/dL (8.5-10.1); CREATININE 1.3 mg/dL (0.7-1.3); GFR 52.1; POTASSIUM 3.9 mmol/L (3.5-5.1)
[2017-02-17 17:54] LABS: DIRECT BILIRUBIN 0.4 mg/dL (0.0-0.2); MAGNESIUM 1.6 mg/dL (1.8-2.4); TOTAL BILIRUBIN 1.1 mg/dL (0.2-1.0); TOTAL PROTEIN 6.8 g/dL (6.4-8.2)
[2017-02-17 17:59] LABS: CKMB MASS 1.4 ng/mL (0.0-3.6)
[2017-02-17] MEDS ORDERED: CARVEDILOL 12.5 MG TABLET. PO STA (19:05)
[2017-02-17] MEDS ORDERED: ONDANSETRON PF 4 MG/2 ML VIAL. IV PRN (19:15)
[2017-02-17 19:40] LABS: BILIRUBIN,URINE SMALL (NEG); GLUCOSE,URINE NEGATIVE (NEG); NITRITE,URINE NEGATIVE (NEG); PH,URINE 7.5; PROTEIN,URINE 100 mg/dL (NEG-TRACE)
[2017-02-17 19:48] LABS: BACTERIA,URINE 0 /HPF (0-FEW); RBC,URINE 0 /HPF (0-2); SQUAMOUS EPITHELIAL CELL,UR FEW /LPF; WBC,URINE 0 /HPF (0-4)
[2017-02-17 19:53] LABS: BARBITURATES NEG (NEG); BENZODIAZEPINES NEG (NEG); CANNABINOIDS NEG (NEG); COCAINE NEG (NEG); METHADONE NEG (NEG); OPIATES NEG (NEG); PHENCYCLIDINE NEG (NEG)
[2017-02-17 21:00] VITALS: BP 109/56
[2017-02-17] MEDS ORDERED: POLY17PO29 PO (21:43)
[2017-02-17] MEDS ORDERED: chlordiazePOXIDE HCL 25 MG CAPSULE PO PRN (22:00)
[2017-02-17] MEDS ORDERED: MAGNESIUM SULFATE 2GM 50 ML IV ONE (22:15)
[2017-02-17] MEDS ORDERED: FUROSEMIDE 40 MG/4 ML VIAL. IVP ONE (22:15)
[2017-02-17] MEDS ORDERED: IPRATRPIUM/ALBUTEROL 0.5/2.5MG 3 ML NEBU. NEB ONE (22:15)
[2017-02-17 22:31] VITALS: BP 99/51
[2017-02-17] MEDS ORDERED: FURO40TA4 PO (23:00)
[2017-02-17] MEDS ORDERED: MAGN400C PO (23:02)
[2017-02-17] MEDS ORDERED: POTA20TA82 PO (23:02)
--- NOTE | 2017-02-18 02:11 | ACF ---
Admission Forms Criteria HEART FAILURE (Place 'X' for any and all applicable criteria): Admission to inpatient status for two midnights or more is indicated by ANY ONE of the following(1)(2)(3)(4) [ ]I. Hemodynamic instability [ ]II. Severe electrolyte abnormalities requiring inpatient care(9) [ ]III. Cardiac arrhythmias of immediate concern Anasarca [ ]IV. Precipitating cause for acute decompensation (eg, pneumonia, pulmonary embolism)[ ]V. [ ]V. Acute cardiac ischemia causing or associated with failure (Also use Angina or Myocardial Infarction as appropriate) [ ]. Pulmonary edema that is very severe (eg, mechanical ventilation needed, imminent or likely, need for 100% oxygen to keep oxygen saturation above 90%) [ ]VII. Massive skin edema (anasarca) with complications (eg tissue breakdown with infection, inability to void due to edema) [A] [X]VIII. Inpatient admission required rather than observation care (See Heart Failure: Observation Care as appropriate) because of 1 or more of the following: [ ]a) Pulmonary edema that is severe or worsening as indicated by ALL of the following : [ ]1) New need for oxygen therapy to keep oxygen saturation above 90% (or increased FiO2 need from baseline) [ ]2) Has not improved sufficiently with emergency department or observation care IV diuretics or other heart failure treatments[C] [ ]b) Altered mental status that is severe or persistent [ ]c) Increased creatinine (new on laboratory test) with reduction of more than 50% in estimated glomerular filtration rate from baseline. [ ]d) Progressively (ongoing) rising creatinine (known from past laboratory test) with reduction of more than 25% in estimated glomerular filtration rate from baseline [ ]e) Acute renal insufficiency (progressively (ongoing) rising creatinine (known from past laboratory test) with reduction of more than 25% in estimated glomerular filtration rate from baseline [ ]f) Acute renal failure [ ]g) Acute peripheral ischemia (e.g., examination shows pulseless, cool, mottled, or cyanotic extremity) [X]h) Oyxgen administration or respiratory treatments have been needed for over 24 hours that are performable only in acute inpatient setting [ ]i) Pulmonary artery catheter monitoring [ ]j) Other condition, treatment or monitoring requiring inpatient admission Extended stay beyond goal length of stay may be needed for(1)(3)(21)(25): [ ]a) Cardiac ischemia, confirmed or suspected as precipitant [ ]b) Cardiogenic shock [ ]c) Acute renal failure [ ]d) Stage IV chronic kidney disease (estimated glomerular filteration rate of less than 30 ML/min/1.73m2 (0.50 mL/sec/1.73m2), and not previously on chronic dialysis [ ]e) Respiratory failure (eg, need for noninvasive or invasive mechanical ventilation) (23) [ ]f) Concomitant pneumonia or significant electrolyte abnormality (eg, severe hyponatremia) [ ]g) Newly diagnosed (new onset) atrial fibrillation The original [facility] content created by [facility] has been revised. The portions of the content which have been revised are identified through the use of italic text, and [facility] has neither reviewed nor approved the modified material. All other unmodified content is copyright [facility]. Please see references footnoted in the original [facility] edition 2014 Admission Criteria Met?: Yes ONELIA OSPINA Feb 18, 2017 02:11
[2017-02-18 02:38] VITALS: BP 108/57
[2017-02-18 05:24] LABS: BASO # 0.1 x10^3/uL (0.0-0.2); BASO % 1 % (0-3); EOS % 6 % (0-3); HEMATOCRIT 33.2 % (39.0-53.0); LYMPH # 2.4 x10^3/uL (1.0-4.8); LYMPH % 35 % (24-48); MEAN CORPUSCULAR HEMOGLOBIN 32 pg (25-35); MEAN CORPUSCULAR HGB CONC 33 g/dL (31-37); MEAN CORPUSCULAR VOLUME 97 fL (79-100); MONO % 10 % (0-9); NEUT % 48 % (31-73); PLATELET COUNT 198 x10^3/uL (140-400); RED BLOOD COUNT 3.43 x10^6/uL (4.30-5.70); RED CELL DISTRIBUTION WIDTH 15.2 % (11.5-14.5); WHITE BLOOD COUNT 6.9 x10^3/uL (4.0-11.0)
[2017-02-18 06:02] LABS: CALCIUM 7.9 mg/dL (8.5-10.1); CREATININE 1.3 mg/dL (0.7-1.3); GFR 52.1; POTASSIUM 3.7 mmol/L (3.5-5.1)
--- NOTE | 2017-02-18 06:23 | EKG ---
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
[2017-02-18] MEDS ORDERED: ACETAMINOPHEN 325 MG TABLET. PO PRN (06:30)
[2017-02-18] MEDS ORDERED: POLYETHYLENE GLYCOL 3350 17 GM PACKET. PO PRN (06:30)
[2017-02-18] MEDS ORDERED: LORazepam 0.5 MG TABLET PO PRN (06:30)
--- NOTE | 2017-02-18 07:12 | PDOC1 ---
PINKY REES AUTOMOTIVE SALES PROFESSIONAL 02/18/17 0712: HISTORY AND PHYSICAL Chief Complaint Chief Complaint This 87 year old male has been admitted with a chief complaint of shortness of breath and hypotension. He is non compliant with his f/u appointments in the office. The son, who is the caregiver, reported that the missed appointments were because Mike was too sick to come the the office. Mike presented yesterday with hypotension and tachycardia. He denied chest pain, diaphoresis, or n/v. He is taking Lasix 40 mg MWF and 20mg TTSS. He has chronic edema of the lower extremities averaging 1-2+ pitting. He also has chronic respiratory failure requiring O2 2L NC continuously. He reported increased shortness of breath and cough that is nonproductive. His sat was >90% in the office. Breath sounds crackles R sided and BP 80/60. He missed one dose of Lasix this week and the son was not sure what date. He c/o weakness in the lower extremities and was requiring assistance to stand and transfer. He was sent to the [facility] ER for evaluation. EKG AF with RVR 130s. Coreg 12.5mg po given. CXR acute congestion. Lasix 40mg IV given and started on 40mg IV BID. Mg 1.6 =2 gm Mg Sulfate IV. UA + ETOH. There was a low grade T99.3F and his BP was WNL upon arrival to ER. He is admitted to [facility] for further treatment. This morning he reports his breathing is better. His back has been itching like he has a rash. ETOH: restarted 2 weeks ago with intake of 1/2 to 1 pint daily. Problem List Problems Medical Problems: (1) Acute and chronic respiratory failure Status: Acute (2) Atrial fibrillation with RVR Status: Acute (3) Congestive heart failure Status: Acute Past Medical History Cardiovascular: CHF (diastolic EF normal ), HTN, Hyperlipidemia Pulmonary: COPD (pulmonary fibrosis, ILD< chronci respiratory failre with continuous O2 2LNC ) GI: Constipation, GERD, Gastritis Heme/Onc: Anemia NOS (B12 deficiency ), B12 deficiency Psych: Depression Renal/: Chronic renal insuff (CKDII ), Benign prostatic enlarg. Endocrine: Diabetes (Type II group home insulin ) Past Surgical History Past Surgical History: Pacemaker (SSS ), Arthroscopy (R shoulder and R shoulder RC repair in past), Cataract Removal, Hernia Repair Past Family History Family History: Coronary Artery Disease, Heart Disease, Hypertension Past Social History PSH Lives with , son Rio is caregiver. h/o smoking, alcoholism active currently , and neg for illicit drugs Review of Symptoms Review of Symptoms A 14 point ROS was completed with the following noted as positive: per HPI Other systems reviewed and negative. Medications Reviewed and reconciled Allergy Allergies Coded Allergies Type Severity Reaction Last Updated Verified rofecoxib Allergy Severe 09/14/16 Yes Physical Exam Physical Exam General appearance - alert, chronically ill appearing, and in no distress Mental Status - alert, oriented to person, place, and time, affect appropriate to mood Head - normal Chest - wheeze L base and fine crackles L anterior. Heart - S1 and S2 normal Abdomen - soft, nontender, nondistended, no masses or organomegaly Neurological - no acute focal neurological deficit noted. Musculoskeletal - no muscular tenderness noted Extremities - +pedal edema Skin - warm and dry VTE Prophylaxis Ordered VTE Prophylaxis Devices: Yes VTE Pharmacological Prophylaxi: No Assessment Labs Laboratory Tests Test 02/17/17 17:15 02/17/17 19:30 02/18/17 04:04 White Blood Count 8.3 x10^3/uL (4.0-11.0) 6.9 x10^3/uL (4.0-11.0) Red Blood Count 3.95 x10^6/uL (4.30-5.70) 3.43 x10^6/uL (4.30-5.70) Hemoglobin 12.8 g/dL (13.0-17.5) 11.0 g/dL (13.0-17.5) Hematocrit 37.2 % (39.0-53.0) 33.2 % (39.0-53.0) Mean Corpuscular Volume 94 fL (79-100) 97 fL (79-100) Mean Corpuscular Hemoglobin 32 pg (25-35) 32 pg (25-35) Mean Corpuscular Hemoglobin Concent 34 g/dL (31-37) 33 g/dL (31-37) Red Cell Distribution Width 14.9 % (11.5-14.5) 15.2 % (11.5-14.5) Platelet Count 259 x10^3/uL (140-400) 198 x10^3/uL (140-400) Neutrophils (%) (Auto) 56 % (31-73) 48 % (31-73) Lymphocytes (%) (Auto) 28 % (24-48) 35 % (24-48) Monocytes (%) (Auto) 10 % (0-9) 10 % (0-9) Eosinophils (%) (Auto) 4 % (0-3) 6 % (0-3) Basophils (%) (Auto) 1 % (0-3) 1 % (0-3) Neutrophils # (Auto) 4.7 x10^3uL (1.8-7.7) 3.3 x10^3uL (1.8-7.7) Lymphocytes # (Auto) 2.3 x10^3/uL (1.0-4.8) 2.4 x10^3/uL (1.0-4.8) Monocytes # (Auto) 0.9 x10^3/uL (0.0-1.1) 0.7 x10^3/uL (0.0-1.1) Eosinophils # (Auto) 0.3 x10^3/uL (0.0-0.7) 0.4 x10^3/uL (0.0-0.7) Basophils # (Auto) 0.1 x10^3/uL (0.0-0.2) 0.1 x10^3/uL (0.0-0.2) Prothrombin Time 13.5 SEC (11.7-14.0) Prothromb Time International Ratio 1.1 (0.8-1.1) Sodium Level 140 mmol/L (136-145) 141 mmol/L (136-145) Potassium Level 3.9 mmol/L (3.5-5.1) 3.7 mmol/L (3.5-5.1) Chloride Level 99 mmol/L (98-107) 101 mmol/L (98-107) Carbon Dioxide Level 30 mmol/L (21-32) 34 mmol/L (21-32) Anion Gap 11 (6-14) 6 (6-14) Blood Urea Nitrogen 14 mg/dL (8-26) 16 mg/dL (8-26) Creatinine 1.3 mg/dL (0.7-1.3) 1.3 mg/dL (0.7-1.3) Estimated GFR (Cockcroft-Gault) 52.1 52.1 Glucose Level 165 mg/dL (70-99) 155 mg/dL (70-99) Calcium Level 8.2 mg/dL (8.5-10.1) 7.9 mg/dL (8.5-10.1) Magnesium Level 1.6 mg/dL (1.8-2.4) 2.3 mg/dL (1.8-2.4) Total Bilirubin 1.1 mg/dL (0.2-1.0) Direct Bilirubin 0.4 mg/dL (0.0-0.2) Aspartate Amino Transf (AST/SGOT) 45 U/L (15-37) Alanine Aminotransferase (ALT/SGPT) 19 U/L (16-63) Alkaline Phosphatase 92 U/L (46-116) Creatine Kinase 116 U/L (39-308) Creatine Kinase MB (Mass) 1.4 ng/mL (0.0-3.6) Creatine Kinase MB Relative Index 1.2 % (0-4) Troponin I Quantitative < 0.017 ng/mL (0.000-0.055) CN-Dwg-I-Type Natriuretic Peptide 1048 pg/mL (0-449) Total Protein 6.8 g/dL (6.4-8.2) Albumin 3.0 g/dL (3.4-5.0) Lipase 280 U/L (73-393) Thyroid Stimulating Hormone (TSH) 6.315 uIU/mL (0.358-3.74) Urine Collection Type Void Urine Color Dk yellow Urine Clarity Clear Urine pH 7.5 Urine Specific [place] 1.015 Urine Protein 100 mg/dL (NEG-TRACE) Urine Glucose (UA) Negative mg/dL (NEG) Urine Ketones (Stick) Trace mg/dL (NEG) Urine Blood Negative (NEG) Urine Nitrite Negative (NEG) Urine Bilirubin Small (NEG) Urine Urobilinogen Dipstick 1.0 mg/dL (0.2 mg/dL) Urine Leukocyte Esterase Trace (NEG) Urine RBC 0 /HPF (0-2) Urine WBC 0 /HPF (0-4) Urine Squamous Epithelial Cells Few /LPF Urine Bacteria 0 /HPF (0-FEW) Urine Hyaline Casts Few /HPF Urine Mucus Slight /LPF Urine Opiates Screen Neg (NEG) Urine Methadone Screen Neg (NEG) Urine Barbiturates Neg (NEG) Urine Phencyclidine Screen Neg (NEG) Urine Amphetamine/Methamphetamine Neg (NEG) Urine Benzodiazepines Screen Neg (NEG) Urine Cocaine Screen Neg (NEG) Urine Cannabinoids Screen Neg (NEG) Urine Ethyl Alcohol Pos (NEG) Laboratory Tests Test 02/17/17 17:15 02/17/17 19:30 02/18/17 04:04 White Blood Count 8.3 x10^3/uL (4.0-11.0) 6.9 x10^3/uL (4.0-11.0) Red Blood Count 3.95 x10^6/uL (4.30-5.70) 3.43 x10^6/uL (4.30-5.70) Hemoglobin 12.8 g/dL (13.0-17.5) 11.0 g/dL (13.0-17.5) Hematocrit 37.2 % (39.0-53.0) 33.2 % (39.0-53.0) Mean Corpuscular Volume 94 fL (79-100) 97 fL (79-100) Mean Corpuscular Hemoglobin 32 pg (25-35) 32 pg (25-35) Mean Corpuscular Hemoglobin Concent 34 g/dL (31-37) 33 g/dL (31-37) Red Cell Distribution Width 14.9 % (11.5-14.5) 15.2 % (11.5-14.5) Platelet Count 259 x10^3/uL (140-400) 198 x10^3/uL (140-400) Neutrophils (%) (Auto) 56 % (31-73) 48 % (31-73) Lymphocytes (%) (Auto) 28 % (24-48) 35 % (24-48) Monocytes (%) (Auto) 10 % (0-9) 10 % (0-9) Eosinophils (%) (Auto) 4 % (0-3) 6 % (0-3) Basophils (%) (Auto) 1 % (0-3) 1 % (0-3) Neutrophils # (Auto) 4.7 x10^3uL (1.8-7.7) 3.3 x10^3uL (1.8-7.7) Lymphocytes # (Auto) 2.3 x10^3/uL (1.0-4.8) 2.4 x10^3/uL (1.0-4.8) Monocytes # (Auto) 0.9 x10^3/uL (0.0-1.1) 0.7 x10^3/uL (0.0-1.1) Eosinophils # (Auto) 0.3 x10^3/uL (0.0-0.7) 0.4 x10^3/uL (0.0-0.7) Basophils # (Auto) 0.1 x10^3/uL (0.0-0.2) 0.1 x10^3/uL (0.0-0.2) Prothrombin Time 13.5 SEC (11.7-14.0) Prothromb Time International Ratio 1.1 (0.8-1.1) Sodium Level 140 mmol/L (136-145) 141 mmol/L (136-145) Potassium Level 3.9 mmol/L (3.5-5.1) 3.7 mmol/L (3.5-5.1) Chloride Level 99 mmol/L (98-107) 101 mmol/L (98-107) Carbon Dioxide Level 30 mmol/L (21-32) 34 mmol/L (21-32) Anion Gap 11 (6-14) 6 (6-14) Blood Urea Nitrogen 14 mg/dL (8-26) 16 mg/dL (8-26) Creatinine 1.3 mg/dL (0.7-1.3) 1.3 mg/dL (0.7-1.3) Estimated GFR (Cockcroft-Gault) 52.1 52.1 Glucose Level 165 mg/dL (70-99) 155 mg/dL (70-99) Calcium Level 8.2 mg/dL (8.5-10.1) 7.9 mg/dL (8.5-10.1) Magnesium Level 1.6 mg/dL (1.8-2.4) 2.3 mg/dL (1.8-2.4) Total Bilirubin 1.1 mg/dL (0.2-1.0) Direct Bilirubin 0.4 mg/dL (0.0-0.2) Aspartate Amino Transf (AST/SGOT) 45 U/L (15-37) Alanine Aminotransferase (ALT/SGPT) 19 U/L (16-63) Alkaline Phosphatase 92 U/L (46-116) Creatine Kinase 116 U/L (39-308) Creatine Kinase MB (Mass) 1.4 ng/mL (0.0-3.6) Creatine Kinase MB Relative Index 1.2 % (0-4) Troponin I Quantitative < 0.017 ng/mL (0.000-0.055) YS-Iov-K-Type Natriuretic Peptide 1048 pg/mL (0-449) Total Protein 6.8 g/dL (6.4-8.2) Albumin 3.0 g/dL (3.4-5.0) Lipase 280 U/L (73-393) Thyroid Stimulating Hormone (TSH) 6.315 uIU/mL (0.358-3.74) Urine Collection Type Void Urine Color Dk yellow Urine Clarity Clear Urine pH 7.5 Urine Specific [place] 1.015 Urine Protein 100 mg/dL (NEG-TRACE) Urine Glucose (UA) Negative mg/dL (NEG) Urine Ketones (Stick) Trace mg/dL (NEG) Urine Blood Negative (NEG) Urine Nitrite Negative (NEG) Urine Bilirubin Small (NEG) Urine Urobilinogen Dipstick 1.0 mg/dL (0.2 mg/dL) Urine Leukocyte Esterase Trace (NEG) Urine RBC 0 /HPF (0-2) Urine WBC 0 /HPF (0-4) Urine Squamous Epithelial Cells Few /LPF Urine Bacteria 0 /HPF (0-FEW) Urine Hyaline Casts Few /HPF Urine Mucus Slight /LPF Urine Opiates Screen Neg (NEG) Urine Methadone Screen Neg (NEG) Urine Barbiturates Neg (NEG) Urine Phencyclidine Screen Neg (NEG) Urine Amphetamine/Methamphetamine Neg (NEG) Urine Benzodiazepines Screen Neg (NEG) Urine Cocaine Screen Neg (NEG) Urine Cannabinoids Screen Neg (NEG) Urine Ethyl Alcohol Pos (NEG) Plan Plan IMPRESSION: 1 AFib chronic with RVR, not anticoagulation candidate 2. A/C diastolic CHF EF normal 3. COPD with acute exacerbation mild 4. Acute bronchitis 5. HTN 6. chronic respiratory failure with COPD, ILD, silicosis underlying O2 dependent 7. anemia chronic disease B12 8. hyperlipidemia 9. 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 depression 11. ETOH abuse currently active with intake 1/2 to 1 pint daily 12. GERD 13. chronic BP LS 14. 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 severe weakness and debility with mobility deficits PLAN: AF RVR rate decreased, chronic, not anticoagulation candidate cardiology consult TSH 6.315-no treatment at this time, recheck in 3 months outpatient Diastolic CHF admit weight 171.25# IO Daily weight BNP 1048 Lasix 40mg IV ED 02/17 Lasix 40mg IV BID beginning 02/18 AB with AECOPD duoneb/budesonide nebulizer mucinex 1200mg bid Levaquin 500mg IV daily begin 02/18 continue O2 2L and maintain Sat >90% Diabetes FSBS, SSI REsume Levemir 50units at hs does not follow ADA diet at home, continue cardiac diet ETOH withdrawal precautions THiamine 100mg po Ativan 0.5mg IV or po for aggitation/withdrawl CKD II/hypomagnesia Admit BUN 14 02/18 16 Cr 1.3 1.3 Na 140 141 K 3.9 3.7 Mg 1.6 2.3 Mg 2gm IV ED 01/18 anemia Admit Hgb 12.8 02/18 11.0 resume B12 po abnormal LFTs secondary to ETOH Admit T Bili 1.1 D Bili 0.4 AST 45 weakness and debility PT OT eval and treat DVT/GI prophylaxis SCD/JEANNA For more details regarding further plans, please refer to the orders. STEPAN MILTON MD 02/18/17 1201: HISTORY AND PHYSICAL Plan Plan The patient was seen and examined by me. Chart reviewed and plan of care formulated. Discussed with, reviewed and agree with PROFESSOR OF MUSICOLOGY's notes, plan of care and orders with modifications as necessary. For more details regarding further plans, please refer to the orders. PINKY REES APRN Feb 18, 2017 07:12 STEPAN MILTON MD Feb 18, 2017 12:01
[2017-02-18 07:30] VITALS: BP 92/54
[2017-02-18] MEDS: INSULIN ASPART 300 UNITS/3 ML INSULN.PEN SQ SCH ×3 (07:30→17:43)
--- NOTE | 2017-02-18 08:18 | RAD ---
Portable chest, 02/17/2017: History: Hypotension, weakness Comparison is made to a study from 09/15/2016. The depth of inspiration is suboptimal. The heart is mildly enlarged. There is calcific plaquing of the aorta. There are prominent pulmonary markings. Previous CT images demonstrated fibrosis with peripheral honeycombing. No new pulmonary opacities are seen. There is no evidence of pleural fluid. There is a mild thoracolumbar scoliosis with moderate associated multilevel degenerative change. IMPRESSION: 1. Mild cardiomegaly and aortic atherosclerosis. 2. Moderate fibrotic change in the lungs
[2017-02-18] MEDS: BUDESONIDE 0.5 MG/2 ML NEBU. NEB SCH ×2 (08:22→19:41)
[2017-02-18] MEDS: IPRATRPIUM/ALBUTEROL 0.5/2.5MG 3 ML NEBU. NEB SCH ×4 (08:22→19:41)
[2017-02-18] MEDS: CARVEDILOL 6.25 MG TABLET. PO SCH ×2 (09:00→16:44)
[2017-02-18] MEDS: MAGNESIUM OXIDE 400 MG TABLET PO SCH ×2 (09:09→20:38)
[2017-02-18] MEDS: THIAMINE 100 MG TABLET. PO SCH (09:09)
[2017-02-18] MEDS: CHOLECALCIFEROL (VITAMIN D3) 5,000 UNIT CAPSULE PO SCH (09:09)
[2017-02-18] MEDS: PANTOPRAZOLE 40 MG TABLET.DR. PO SCH (09:09)
[2017-02-18] MEDS: POTASSIUM CHLORIDE 10 MEQ TABLET.ER. PO SCH ×3 (09:10→20:38)
[2017-02-18] MEDS: FUROSEMIDE 40 MG/4 ML VIAL. IVP SCH ×2 (09:12→14:20)
[2017-02-18] MEDS: FLUTICASONE 50MCG/NASAL SPRAY 16GM BOTTLE. NS SCH (09:21)
[2017-02-18 11:13] VITALS: BP 91/47
[2017-02-18] MEDS ORDERED: THIA100T8 PO (11:13)
[2017-02-18] MEDS ORDERED: FLUT1DIS3 IH (11:13)
[2017-02-18] MEDS ORDERED: PROAIR HFA8.5 GM INH (11:13)
[2017-02-18] MEDS ORDERED: MONT10TA9 PO (11:14)
[2017-02-18] MEDS ORDERED: PANT40TA3 PO (11:14)
[2017-02-18] MEDS ORDERED: ATOR40TA PO (11:14)
--- NOTE | 2017-02-18 12:43 | PDOC2 ---
CARDIAC CONSULT DATE OF CONSULT Date of Consult DATE: 02/18/17 TIME: 11:22 REASON FOR CONSULT Reason for Consult: CHF AFIB REFERRING PHYSICIAN Referring Physician: Dr. Rose SOURCE Source: Chart review, Patient HISTORY OF PRESENT ILLNESS HISTORY OF PRESENT ILLNESS This is an 87 yo male who presented from Dr. Wharton's office due to hypotension and tachycardia. Has also had some mild lower extremity edema over the last week. Reports improvement with elevation. Denies any SOA, orthopnea, MENDEZ, CP, palpitations, dizziness, or diaphoresis. No recent illness or fevers. PAST MEDICAL HISTORY Cardiovascular: AFIB (chronic ), CHF, HTN, Hyperlipidemia Pulmonary: COPD (chronic O2) GI: GERD Heme/Onc: Anemia NOS Psych: Addictions (ETOH) Musculoskeletal: Osteoarthritis Renal/: Chronic renal insuff, Benign prostatic enlarg. Endocrine: Diabetes PAST SURGICAL HISTORY Past Surgical History: Hernia Repair FAMILY HISTORY Family History: Coronary Artery Disease, Heart Disease SOCIAL HISTORY Smoke: No (smokeless tobacco) ALCOHOL: heavy (1/2 pint daily ) Lives: with Family CURRENT MEDICATIONS CURRENT MEDICATIONS Current Medications Medications (Trade) Dose Ordered Sig/Marilu Route PRN Reason Start Time Stop Time Status Last Admin Dose Admin Carvedilol (Coreg) 12.5 mg 1X STAT PO 02/17/17 19:05 02/17/17 19:09 DC 02/17/17 19:24 Furosemide (Lasix) 40 mg 1X ONCE IVP 02/17/17 22:15 02/17/17 22:16 DC 02/17/17 22:20 Furosemide (Lasix) 40 mg BID92 IVP 02/18/17 09:00 02/18/17 09:12 Magnesium Sulfate/ Dextrose 50 ml @ 25 mls/hr 1X ONCE IV 02/17/17 22:15 02/18/17 00:14 DC 02/17/17 22:20 Albuterol/ Ipratropium (Duoneb) 3 ml RTQID NEB 02/18/17 08:00 02/18/17 12:17 Albuterol/ Ipratropium (Duoneb) 3 ml 1X ONCE NEB 02/17/17 22:15 02/17/17 22:16 DC 02/17/17 22:32 Pantoprazole Sodium (Protonix) 40 mg DAILY PO 02/18/17 09:00 02/18/17 09:09 Vitamin D (Vitamin D3) 5,000 unit DAILY PO 02/18/17 09:00 02/18/17 09:09 Fluticasone Propionate (Flonase) 2 spray DAILY NS 02/18/17 09:00 02/18/17 09:21 Magnesium Oxide (Magnesium Oxide) 400 mg BID PO 02/18/17 09:00 02/18/17 09:09 Potassium Chloride (Klor-Con) 10 meq TID PO 02/18/17 09:00 02/18/17 09:10 Thiamine Mononitrate (Vitamin B-1) 100 mg DAILY PO 02/18/17 09:00 02/18/17 09:09 Budesonide (Pulmicort) 0.5 mg RTBID NEB 02/18/17 08:00 02/18/17 08:22 Levofloxacin/ Dextrose 100 ml @ 100 mls/hr Q24H IV 02/18/17 09:00 02/18/17 09:23 Guaifenesin (Mucinex) 1,200 mg BID PO 02/18/17 09:00 02/18/17 09:10 ALLERGIES ALLERGIES: Coded Allergies: rofecoxib (Verified Allergy, Severe, 09/14/16) ROS Review of System 14 point ROS conducted with pertinent positives noted above in HPI PHYSICAL EXAM General: Alert, Oriented X3, Cooperative HEENT: Atraumatic, Mucous membr. moist/pink Lungs: Other (faint bibasilar crackles ) Heart: Normal S1, Normal S2, Other (IRRR: tele AFIB with controlled rate) Abdomen: Soft, No tenderness Extremities: Normal pulses, Other (1+ bilateral LE edema ) Skin: No significant lesion Neuro: Normal speech, Sensation intact Psych/Mental Status: Mental status NL, Mood NL MUSCULOSKELETAL: Osteoarthritic changes both hands VITALS VITALS Vital Signs Date Time Temp Pulse Resp B/P (MAP) Pulse Ox O2 Delivery O2 Flow Rate FiO2 02/18/17 12:17 Nasal Cannula 2.0 02/18/17 11:13 97.8 85 14 91/47 (62) 95 97.8 LABS Lab: Laboratory Tests Test 02/17/17 17:15 02/17/17 19:30 02/18/17 04:04 02/18/17 07:41 White Blood Count 8.3 x10^3/uL (4.0-11.0) 6.9 x10^3/uL (4.0-11.0) Red Blood Count 3.95 x10^6/uL (4.30-5.70) 3.43 x10^6/uL (4.30-5.70) Hemoglobin 12.8 g/dL (13.0-17.5) 11.0 g/dL (13.0-17.5) Hematocrit 37.2 % (39.0-53.0) 33.2 % (39.0-53.0) Mean Corpuscular Volume 94 fL (79-100) 97 fL (79-100) Mean Corpuscular Hemoglobin 32 pg (25-35) 32 pg (25-35) Mean Corpuscular Hemoglobin Concent 34 g/dL (31-37) 33 g/dL (31-37) Red Cell Distribution Width 14.9 % (11.5-14.5) 15.2 % (11.5-14.5) Platelet Count 259 x10^3/uL (140-400) 198 x10^3/uL (140-400) Neutrophils (%) (Auto) 56 % (31-73) 48 % (31-73) Lymphocytes (%) (Auto) 28 % (24-48) 35 % (24-48) Monocytes (%) (Auto) 10 % (0-9) 10 % (0-9) Eosinophils (%) (Auto) 4 % (0-3) 6 % (0-3) Basophils (%) (Auto) 1 % (0-3) 1 % (0-3) Neutrophils # (Auto) 4.7 x10^3uL (1.8-7.7) 3.3 x10^3uL (1.8-7.7) Lymphocytes # (Auto) 2.3 x10^3/uL (1.0-4.8) 2.4 x10^3/uL (1.0-4.8) Monocytes # (Auto) 0.9 x10^3/uL (0.0-1.1) 0.7 x10^3/uL (0.0-1.1) Eosinophils # (Auto) 0.3 x10^3/uL (0.0-0.7) 0.4 x10^3/uL (0.0-0.7) Basophils # (Auto) 0.1 x10^3/uL (0.0-0.2) 0.1 x10^3/uL (0.0-0.2) Prothrombin Time 13.5 SEC (11.7-14.0) Prothromb Time International Ratio 1.1 (0.8-1.1) Sodium Level 140 mmol/L (136-145) 141 mmol/L (136-145) Potassium Level 3.9 mmol/L (3.5-5.1) 3.7 mmol/L (3.5-5.1) Chloride Level 99 mmol/L (98-107) 101 mmol/L (98-107) Carbon Dioxide Level 30 mmol/L (21-32) 34 mmol/L (21-32) Anion Gap 11 (6-14) 6 (6-14) Blood Urea Nitrogen 14 mg/dL (8-26) 16 mg/dL (8-26) Creatinine 1.3 mg/dL (0.7-1.3) 1.3 mg/dL (0.7-1.3) Estimated GFR (Cockcroft-Gault) 52.1 52.1 Glucose Level 165 mg/dL (70-99) 155 mg/dL (70-99) Calcium Level 8.2 mg/dL (8.5-10.1) 7.9 mg/dL (8.5-10.1) Magnesium Level 1.6 mg/dL (1.8-2.4) 2.3 mg/dL (1.8-2.4) Total Bilirubin 1.1 mg/dL (0.2-1.0) Direct Bilirubin 0.4 mg/dL (0.0-0.2) Aspartate Amino Transf (AST/SGOT) 45 U/L (15-37) Alanine Aminotransferase (ALT/SGPT) 19 U/L (16-63) Alkaline Phosphatase 92 U/L (46-116) Creatine Kinase 116 U/L (39-308) Creatine Kinase MB (Mass) 1.4 ng/mL (0.0-3.6) Creatine Kinase MB Relative Index 1.2 % (0-4) Troponin I Quantitative < 0.017 ng/mL (0.000-0.055) SC-Eaf-P-Type Natriuretic Peptide 1048 pg/mL (0-449) Total Protein 6.8 g/dL (6.4-8.2) Albumin 3.0 g/dL (3.4-5.0) Lipase 280 U/L (73-393) Thyroid Stimulating Hormone (TSH) 6.315 uIU/mL (0.358-3.74) Urine Collection Type Void Urine Color Dk yellow Urine Clarity Clear Urine pH 7.5 Urine Specific [place] 1.015 Urine Protein 100 mg/dL (NEG-TRACE) Urine Glucose (UA) Negative mg/dL (NEG) Urine Ketones (Stick) Trace mg/dL (NEG) Urine Blood Negative (NEG) Urine Nitrite Negative (NEG) Urine Bilirubin Small (NEG) Urine Urobilinogen Dipstick 1.0 mg/dL (0.2 mg/dL) Urine Leukocyte Esterase Trace (NEG) Urine RBC 0 /HPF (0-2) Urine WBC 0 /HPF (0-4) Urine Squamous Epithelial Cells Few /LPF Urine Bacteria 0 /HPF (0-FEW) Urine Hyaline Casts Few /HPF Urine Mucus Slight /LPF Urine Opiates Screen Neg (NEG) Urine Methadone Screen Neg (NEG) Urine Barbiturates Neg (NEG) Urine Phencyclidine Screen Neg (NEG) Urine Amphetamine/Methamphetamine Neg (NEG) Urine Benzodiazepines Screen Neg (NEG) Urine Cocaine Screen Neg (NEG) Urine Cannabinoids Screen Neg (NEG) Urine Ethyl Alcohol Pos (NEG) Glucose (Fingerstick) 146 mg/dL (70-99) ECHOCARDIOGRAM ECHOCARDIOGRAM <Conclusion> Normal LV systolic function. No evidence of significant valvular heart disease. DATE: 03/08/15 1631 ASSESSMENT/PLAN ASSESSMENT/PLAN 1. Acute on chronic diastolic HF; NT Pro BNP mildly elevated. improved with diuresis. LVEF preserved from echo 02/20 as noted above 2. Permanent AFIB with RVR upon arrival; ventricular rate now controlled 3. AE COPD; improved. 4. Hypertension with present hypotension 5. Hyperlipidemia; statin therapy 6. CKD; stable 7. Diabetes; per PCP 8. Hypothyroidism: TSH 6.135. outpaitnet follow up per PCP 9. Hypomagnesemia; resolved 10. EOTH abuse; monitor for withdrawal. 11, Weakness/debility Recommendations Echo to assess LV function Continue diuresis with monitoring or kidney function. Will likely convert to oral in am Not presently on rate control therapy; consider covering Coreg to metoprolol for better rate control If BP remains marginal, consider dig for rate control. ASA for stroke prevention as patient is poor long-term OAC candidate given weakness/debility/EOTH abuse- increased fall risk. Problems: LORNA AMIN APRN Feb 18, 2017 12:42
[2017-02-18] MEDS: ASPIRIN ENTERIC COATED 81 MG TABLET.DR. PO SCH (14:21)
[2017-02-18 15:00] VITALS: BP 107/59
--- NOTE | 2017-02-18 17:30 | CARD ---
APPROVED REPORT EXAM: Two-dimensional and M-mode echocardiogram with Doppler and color Doppler. Other Information Quality : Fair Rhythm : NSR INDICATION Congestive Heart Failure 2D DIMENSIONS Left Atrium(2D)2.9 (1.6-4.0cm)IVSd1.1 (0.7-1.1cm) Aortic Root(2D)2.6 (2.0-3.7cm)LVDd4.7 (3.9-5.9cm) LVOT Diameter2.0 (1.8-2.4cm)PWd1.1 (0.7-1.1cm) LVDs3.1 (2.5-4.0cm)FS (%) 33.1 % SV61.6 mlLVEF(%)61.7 (>50%) Aortic Valve AoV Peak Andriy.160.9cm/sAoV VTI28.0cm AO Peak GR.10.4mmHgLVOT VTI 15.08cm AO Mean GR.6mmHgAVA (VTI)1.71cm2 Mitral Valve MV E Nzedmnrm10.9cm/sMV E Peak Gr.5mmHg MV DECEL [id number] A Rrrzvwyk17.2cm/s MV E Mean Gr.2mmHgMV [id number] E/A Ratio0.6MV A [id number] MVA (PHT)3.14cm2 TDI Lateral E' P. V7.70cm/sMedial E' P. V7.60cm/s E/Lateral E'8.0E/Medial E'8.1 Tricuspid Valve TR P. [id number]/sRAP [id number] TR Peak Gr.[id number] LEFT VENTRICLE Technically difficult study. The left ventricle is normal size. There is normal left ventricular wall thickness. Left ventricle systolic function is normal. The Ejection Fraction is 60-65%. There is nor mal LV segmental wall motion. Tissue Doppler imaging reveals mild left ventricular diastolic dysfunct ion. Transmitral Doppler flow pattern is Grade I-abnormal relaxation pattern. RIGHT VENTRICLE The right ventricle is normal size. The right ventricular systolic function is normal. ATRIA The left atrium size is normal. The right atrium size is normal. The interatrial septum is intact wit h no evidence for an atrial septal defect or patent foramen ovale as noted on 2-D or Doppler imaging. AORTIC VALVE The aortic valve is moderately calcified and displays decreased opening. The aortic valve is trileafl et. Doppler and Color Flow revealed no significant aortic regurgitation. Calculated aortic valve area is 1.7 cm2 with maximum pressure gradient of 10 mmHg and mean pressure gradient of 6 mmHg. There is mild valvular aortic stenosis. MITRAL VALVE Mitral annular calcification is moderate. There is no mitral valve stenosis. Doppler and Color Flow r evealed trace to mild mitral regurgitation. TRICUSPID VALVE The tricuspid valve is normal in structure and function. Doppler and Color Flow revealed trace to mil d tricuspid regurgitation. The PA pressure was estimated at 30 mmHg. There is no tricuspid valve sten osis. PULMONIC VALVE The pulmonic valve is not well visualized. Doppler and Color Flow revealed no pulmonic valvular regur gitation. There is no pulmonic valvular stenosis. GREAT VESSELS The aortic root is normal in size. The ascending aorta is normal in size. Pulmonary veins not recorde d. Due to poor image quality, the IVC could not be assessed. PERICARDIAL EFFUSION There is no evidence of significant pericardial effusion. Critical Notification Critical Value: No <Conclusion> Technically difficult study. The left ventricle is normal size. Left ventricle systolic function is normal. The Ejection Fraction is 60-65%. Calculated aortic valve area is 1.7 cm2 with maximum pressure gradient of 10 mmHg and mean pressure g radient of 6 mmHg. There is mild valvular aortic stenosis. Doppler and Color Flow revealed no significant aortic regurgitation. Doppler and Color Flow revealed trace to mild mitral regurgitation. Doppler and Color Flow revealed trace to mild tricuspid regurgitation. The PA pressure was estimated at 30 mmHg.
[2017-02-18] MEDS: MONTELUKAST SODIUM 10 MG TABLET. PO SCH (17:40)
[2017-02-18 19:50] VITALS: BP 81/47
[2017-02-18] MEDS: ATORVASTATIN CALCIUM 40 MG TABLET. PO SCH (20:38)
[2017-02-18] MEDS: tiZANidine 4 MG TABLET. PO SCH (20:38)
[2017-02-18] MEDS: CETIRIZINE HCL 10 MG TABLET. PO SCH (20:38)
[2017-02-18] MEDS: GABAPENTIN 100 MG CAPSULE. PO SCH (20:38)
[2017-02-18] MEDS: traMADol 50 MG TABLET PO PRN (20:39)
[2017-02-18] MEDS: INSULIN DETEMIR 300 UNITS/3 ML INSULN.PEN. SQ SCH (20:41)
[2017-02-18] MEDS ORDERED: MONTELUKAST SODIUM 10 MG TABLET. PO SCH (21:00)
[2017-02-18 22:39] VITALS: BP 83/48
[2017-02-18] MEDS ORDERED: guaiFENesin DM 200MG/20MG 10 ML SYRUP PO PRN (23:00)
[2017-02-18] MEDS: guaiFENesin/CODEINE 100mg/10mg 5 ML LIQUID PO PRN (23:23)
[2017-02-19] VITALS (13 sets, daily range): BP systolic 70–109; BP diastolic 37–62
[2017-02-19 06:08] LABS: BASO # 0.1 x10^3/uL (0.0-0.2); BASO % 1 % (0-3); EOS % 7 % (0-3); HEMATOCRIT 32.5 % (39.0-53.0); HEMOGLOBIN 11.1 g/dL (13.0-17.5); LYMPH % 24 % (24-48); MEAN CORPUSCULAR HEMOGLOBIN 33 pg (25-35); MEAN CORPUSCULAR HGB CONC 34 g/dL (31-37); MEAN CORPUSCULAR VOLUME 97 fL (79-100); MONO % 9 % (0-9); NEUT % 59 % (31-73); PLATELET COUNT 189 x10^3/uL (140-400); RED BLOOD COUNT 3.34 x10^6/uL (4.30-5.70); WHITE BLOOD COUNT 8.3 x10^3/uL (4.0-11.0)
[2017-02-19 06:14] LABS: ALBUMIN 2.4 g/dL (3.4-5.0); ALBUMIN/GLOBULIN RATIO 0.7 (1.0-1.7); CALCIUM 8.4 mg/dL (8.5-10.1); CREATININE 1.8 mg/dL (0.7-1.3); GFR 35.8; MAGNESIUM 2.1 mg/dL (1.8-2.4); POTASSIUM 3.3 mmol/L (3.5-5.1); TOTAL BILIRUBIN 0.9 mg/dL (0.2-1.0)
[2017-02-19 06:18] LABS: CHOLESTEROL/HDL RATIO 6.1
[2017-02-19] MEDS: IPRATRPIUM/ALBUTEROL 0.5/2.5MG 3 ML NEBU. NEB SCH ×4 (06:58→19:39)
[2017-02-19] MEDS: BUDESONIDE 0.5 MG/2 ML NEBU. NEB SCH ×2 (06:58→19:39)
[2017-02-19] MEDS ORDERED: POTASSIUM CHLORIDE 20 MEQ TABLET.ER. PO ONE (07:00)
--- NOTE | 2017-02-19 07:11 | PDOC ---
[employer] 02/19/17 0711: IM PROGRESS NOTES- Subjective Subjective cough better. short of breath slightly better Objective Objective no acute distress Vitals Vital Signs Date Time Temp Pulse Resp B/P (MAP) Pulse Ox O2 Delivery O2 Flow Rate FiO2 02/19/17 05:30 100/62 (75) 02/19/17 02:20 97.7 84 18 98 Nasal Cannula 3.0 97.7 Input & Output Intake and Output 02/19/17 07:00 Intake Total 920 ml Output Total 875 ml Balance 45 ml Intake Oral 820 ml IV Total 100 ml Output Urine Total 875 ml Physical Exam Physical Exam General appearance - alert, chronically ill appearing, and in no distress Mental Status - alert, oriented to person, place, and time, affect appropriate to mood Head - normal Chest - wheezing ant post Heart - S1 and S2 normal Abdomen - soft, nontender, nondistended, no masses or organomegaly Neurological - no acute focal neurological deficit noted. Musculoskeletal - no muscular tenderness noted Extremities - +pedal edema Skin - warm and dry Labs Laboratory Tests Test 02/17/17 17:15 02/17/17 19:30 02/18/17 04:04 02/18/17 07:41 White Blood Count 8.3 x10^3/uL (4.0-11.0) 6.9 x10^3/uL (4.0-11.0) Red Blood Count 3.95 x10^6/uL (4.30-5.70) 3.43 x10^6/uL (4.30-5.70) Hemoglobin 12.8 g/dL (13.0-17.5) 11.0 g/dL (13.0-17.5) Hematocrit 37.2 % (39.0-53.0) 33.2 % (39.0-53.0) Mean Corpuscular Volume 94 fL (79-100) 97 fL (79-100) Mean Corpuscular Hemoglobin 32 pg (25-35) 32 pg (25-35) Mean Corpuscular Hemoglobin Concent 34 g/dL (31-37) 33 g/dL (31-37) Red Cell Distribution Width 14.9 % (11.5-14.5) 15.2 % (11.5-14.5) Platelet Count 259 x10^3/uL (140-400) 198 x10^3/uL (140-400) Neutrophils (%) (Auto) 56 % (31-73) 48 % (31-73) Lymphocytes (%) (Auto) 28 % (24-48) 35 % (24-48) Monocytes (%) (Auto) 10 % (0-9) 10 % (0-9) Eosinophils (%) (Auto) 4 % (0-3) 6 % (0-3) Basophils (%) (Auto) 1 % (0-3) 1 % (0-3) Neutrophils # (Auto) 4.7 x10^3uL (1.8-7.7) 3.3 x10^3uL (1.8-7.7) Lymphocytes # (Auto) 2.3 x10^3/uL (1.0-4.8) 2.4 x10^3/uL (1.0-4.8) Monocytes # (Auto) 0.9 x10^3/uL (0.0-1.1) 0.7 x10^3/uL (0.0-1.1) Eosinophils # (Auto) 0.3 x10^3/uL (0.0-0.7) 0.4 x10^3/uL (0.0-0.7) Basophils # (Auto) 0.1 x10^3/uL (0.0-0.2) 0.1 x10^3/uL (0.0-0.2) Prothrombin Time 13.5 SEC (11.7-14.0) Prothromb Time International Ratio 1.1 (0.8-1.1) Sodium Level 140 mmol/L (136-145) 141 mmol/L (136-145) Potassium Level 3.9 mmol/L (3.5-5.1) 3.7 mmol/L (3.5-5.1) Chloride Level 99 mmol/L (98-107) 101 mmol/L (98-107) Carbon Dioxide Level 30 mmol/L (21-32) 34 mmol/L (21-32) Anion Gap 11 (6-14) 6 (6-14) Blood Urea Nitrogen 14 mg/dL (8-26) 16 mg/dL (8-26) Creatinine 1.3 mg/dL (0.7-1.3) 1.3 mg/dL (0.7-1.3) Estimated GFR (Cockcroft-Gault) 52.1 52.1 Glucose Level 165 mg/dL (70-99) 155 mg/dL (70-99) Calcium Level 8.2 mg/dL (8.5-10.1) 7.9 mg/dL (8.5-10.1) Magnesium Level 1.6 mg/dL (1.8-2.4) 2.3 mg/dL (1.8-2.4) Total Bilirubin 1.1 mg/dL (0.2-1.0) Direct Bilirubin 0.4 mg/dL (0.0-0.2) Aspartate Amino Transf (AST/SGOT) 45 U/L (15-37) Alanine Aminotransferase (ALT/SGPT) 19 U/L (16-63) Alkaline Phosphatase 92 U/L (46-116) Creatine Kinase 116 U/L (39-308) Creatine Kinase MB (Mass) 1.4 ng/mL (0.0-3.6) Creatine Kinase MB Relative Index 1.2 % (0-4) Troponin I Quantitative < 0.017 ng/mL (0.000-0.055) IC-Teo-P-Type Natriuretic Peptide 1048 pg/mL (0-449) Total Protein 6.8 g/dL (6.4-8.2) Albumin 3.0 g/dL (3.4-5.0) Lipase 280 U/L (73-393) Thyroid Stimulating Hormone (TSH) 6.315 uIU/mL (0.358-3.74) Urine Collection Type Void Urine Color Dk yellow Urine Clarity Clear Urine pH 7.5 Urine Specific [place] 1.015 Urine Protein 100 mg/dL (NEG-TRACE) Urine Glucose (UA) Negative mg/dL (NEG) Urine Ketones (Stick) Trace mg/dL (NEG) Urine Blood Negative (NEG) Urine Nitrite Negative (NEG) Urine Bilirubin Small (NEG) Urine Urobilinogen Dipstick 1.0 mg/dL (0.2 mg/dL) Urine Leukocyte Esterase Trace (NEG) Urine RBC 0 /HPF (0-2) Urine WBC 0 /HPF (0-4) Urine Squamous Epithelial Cells Few /LPF Urine Bacteria 0 /HPF (0-FEW) Urine Hyaline Casts Few /HPF Urine Mucus Slight /LPF Urine Opiates Screen Neg (NEG) Urine Methadone Screen Neg (NEG) Urine Barbiturates Neg (NEG) Urine Phencyclidine Screen Neg (NEG) Urine Amphetamine/Methamphetamine Neg (NEG) Urine Benzodiazepines Screen Neg (NEG) Urine Cocaine Screen Neg (NEG) Urine Cannabinoids Screen Neg (NEG) Urine Ethyl Alcohol Pos (NEG) Glucose (Fingerstick) 146 mg/dL (70-99) Test 02/18/17 11:17 02/18/17 16:32 02/18/17 20:36 02/19/17 05:30 Glucose (Fingerstick) 246 mg/dL (70-99) 168 mg/dL (70-99) 182 mg/dL (70-99) Sodium Level 138 mmol/L (136-145) Potassium Level 3.3 mmol/L (3.5-5.1) Chloride Level 100 mmol/L (98-107) Carbon Dioxide Level 32 mmol/L (21-32) Anion Gap 6 (6-14) Blood Urea Nitrogen 22 mg/dL (8-26) Creatinine 1.8 mg/dL (0.7-1.3) Estimated GFR (Cockcroft-Gault) 35.8 BUN/Creatinine Ratio 12 (6-20) Glucose Level 96 mg/dL (70-99) Calcium Level 8.4 mg/dL (8.5-10.1) Magnesium Level 2.1 mg/dL (1.8-2.4) Total Bilirubin 0.9 mg/dL (0.2-1.0) Aspartate Amino Transf (AST/SGOT) 32 U/L (15-37) Alanine Aminotransferase (ALT/SGPT) 11 U/L (16-63) Alkaline Phosphatase 71 U/L (46-116) Total Protein 6.0 g/dL (6.4-8.2) Albumin 2.4 g/dL (3.4-5.0) Albumin/Globulin Ratio 0.7 (1.0-1.7) Triglycerides Level 152 mg/dL (0-150) Cholesterol Level 182 mg/dL (0-200) LDL Cholesterol, Calculated 122 mg/dL (0-100) VLDL Cholesterol, Calculated 30 mg/dL (0-40) Non-HDL Cholesterol Calculated 152 mg/dL (0-129) HDL Cholesterol 30 mg/dL (40-60) Cholesterol/HDL Ratio 6.1 Laboratory Tests Test 02/18/17 07:41 02/18/17 11:17 02/18/17 16:32 02/18/17 20:36 Glucose (Fingerstick) 146 mg/dL (70-99) 246 mg/dL (70-99) 168 mg/dL (70-99) 182 mg/dL (70-99) Test 02/19/17 05:30 Sodium Level 138 mmol/L (136-145) Potassium Level 3.3 mmol/L (3.5-5.1) Chloride Level 100 mmol/L (98-107) Carbon Dioxide Level 32 mmol/L (21-32) Anion Gap 6 (6-14) Blood Urea Nitrogen 22 mg/dL (8-26) Creatinine 1.8 mg/dL (0.7-1.3) Estimated GFR (Cockcroft-Gault) 35.8 BUN/Creatinine Ratio 12 (6-20) Glucose Level 96 mg/dL (70-99) Calcium Level 8.4 mg/dL (8.5-10.1) Magnesium Level 2.1 mg/dL (1.8-2.4) Total Bilirubin 0.9 mg/dL (0.2-1.0) Aspartate Amino Transf (AST/SGOT) 32 U/L (15-37) Alanine Aminotransferase (ALT/SGPT) 11 U/L (16-63) Alkaline Phosphatase 71 U/L (46-116) Total Protein 6.0 g/dL (6.4-8.2) Albumin 2.4 g/dL (3.4-5.0) Albumin/Globulin Ratio 0.7 (1.0-1.7) Triglycerides Level 152 mg/dL (0-150) Cholesterol Level 182 mg/dL (0-200) LDL Cholesterol, Calculated 122 mg/dL (0-100) VLDL Cholesterol, Calculated 30 mg/dL (0-40) Non-HDL Cholesterol Calculated 152 mg/dL (0-129) HDL Cholesterol 30 mg/dL (40-60) Cholesterol/HDL Ratio 6.1 Meds Current Medications Albuterol/ Ipratropium (Duoneb) 3 ml RTQID NEB Last administered on 02/18/17t 19:41; Start 02/18/17 at 08:00 Aspirin (Ecotrin) 81 mg [id number] PO Last administered on 02/18/17 14:21; Start 02/18/17 at 14:00 Atorvastatin Calcium (Lipitor) 40 mg QHS PO Last administered on 02/18/17 20: 38; Start 02/18/17 at 21:00 Budesonide (Pulmicort) 0.5 mg RTBID NEB Last administered on 02/18/17 19:41; Start 02/18/17 at 08:00 Carvedilol (Coreg) 6.25 mg BID94 PO Last administered on 02/18/17 16:44; Start 02/18/17 at 09:00 Cetirizine HCl (ZyrTEC) 10 mg HS PO Last administered on 02/18/17 20:38; Start 02/18/17 at 21:00 Fluticasone Propionate (Flonase) 2 spray DAILY NS Last administered on 09:21; Start 02/18/17 at 09:00 Furosemide (Lasix) 40 mg BID92 IVP Last administered on 02/18/17 14:20; Start 02/18/17 at 09:00 Gabapentin (Neurontin) 100 mg QHS PO Last administered on 02/18/17 20:38; Start 02/18/17 at 21:00 Guaifenesin (Mucinex) 1,200 mg BID PO Last administered on 02/18/17 20:38; Start 02/18/17 at 09:00 Guaifenesin (Robitussin Dm) 10 ml PRN Q6HRS PRN PO COUGH; Start 02/18/17 at 23: 00 Guaifenesin/ Codeine Phosphate (Robitussin Ac) 5 ml PRN Q6HRS PRN PO COUGH Last administered on 02/18/17 23:23; Start 02/18/17 at 23:15 Insulin Aspart (NovoLOG) TIDAC SQ Last administered on 02/18/17 17:43; Start 02/18/17 at 07:30 Insulin Detemir (Levemir) 50 units QHS SQ Last administered on 02/18/17 20:41 ; Start 02/18/17 at 21:00 Levofloxacin/ Dextrose 100 ml @ 100 mls/hr Q24H IV Last administered on 09:23; Start 02/18/17 at 09:00 Lorazepam (Ativan) 0.5 mg PRN Q8HRS PRN IV ANXIETY / AGITATION; Start 02/18/17 at 07:15 Magnesium Oxide (Magnesium Oxide) 400 mg BID PO Last administered on 02/18/17 20:38; Start 02/18/17 at 09:00 Montelukast Sodium (Singulair) 10 mg [id number] PO Last administered on 17:40; Start 02/18/17 at 17:00 Montelukast Sodium (Singulair) 10 mg QHS PO ; Start 02/18/17 at 21:00; Status UNV Pantoprazole Sodium (Protonix) 40 mg DAILY PO Last administered on 02/18/17 09 :09; Start 02/18/17 at 09:00 Potassium Chloride (Klor-Con) 10 meq TID PO Last administered on 02/18/17 20: 38; Start 02/18/17 at 09:00 Thiamine Mononitrate (Vitamin B-1) 100 mg DAILY PO Last administered on 09:09; Start 02/18/17 at 09:00 Tizanidine HCl (Zanaflex) 4 mg QHS PO Last administered on 02/18/17 20:38; Start 02/18/17 at 21:00 Vitamin D (Vitamin D3) 5,000 unit DAILY PO Last administered on 02/18/17 09:09 ; Start 02/18/17 at 09:00 Assessment Assessment 1 AFib chronic with RVR, not anticoagulation candidate 2. A/C diastolic CHF EF normal 3. COPD with acute exacerbation mild 4. Acute bronchitis 5. HTN 6. chronic respiratory failure with COPD, ILD, silicosis underlying O2 dependent 7. anemia chronic disease B12 8. hyperlipidemia 9. 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 depression 11. ETOH abuse currently active with intake 1/2 to 1 pint daily 12. GERD 13. chronic BP LS 14. 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 severe weakness and debility with mobility deficits PLAN: AF RVR rate decreased, chronic, not anticoagulation candidate cardiology consult TSH 6.315-no treatment at this time, recheck in 3 months outpatient rate improved Diastolic CHF admit weight 171.25# 02/19 166.44# IO Daily weight BNP 1048 Lasix 40mg IV ED 02/17 Lasix 40mg IV BID beginning 02/18-change to Lasix 40mg po daily beginning 02/20 At high risk for ARF-home dose has been Lasix 40mg MWF and 20mg TTSS. Has been drinking and not taking medications appropriately continues hypotensive -suspect r/t volume depletion, will hold Lasix 02/19 and begin Lasix 40mg po daily 02/20 Decrease Coreg to 3.125mg bid and monitor. Cardio note reviewed - await decision to continue coreg or change to metoprolol or Dig Bolus x 2 through night with NS 400-500cc for hypotension 02/19 ECHO 02/18 ECHO EF 60-65% mild tr-mild MR TR pulmonary HTN AB with AECOPD duoneb/budesonide nebulizer mucinex 1200mg bid Levaquin 500mg IV daily begin 02/18 continue O2 2L and maintain Sat >90% Prednisone 40mg po and will order tapering at DC 02/20/16 cough improved Diabetes FSBS, SSI REsume Levemir 50units at hs does not follow ADA diet at home, continue cardiac diet BS [id number] Add Novolog 5 unit tid ac +ssi in anticipation of steroids worsening BS ETOH withdrawal precautions THiamine 100mg po Ativan 0.5mg IV or po for aggitation/withdrawl no withdrawal symptoms 02/19 CKD II/hypomagnesia Admit BUN 14 02/19 22 Cr 1.3 1.8 Na 140 138 K 3.9 3.3 Mg 1.6 2.1 Mg 2gm IV ED 01/18 Hold Lasix 02/19 anemia Admit Hgb 12.8 02/19 pending resume B12 po abnormal LFTs secondary to ETOH Admit T Bili 1.1 D Bili 0.4 AST 45 hyperlipidemia lipids not controlled Lipitor 40mg daily -suspect non compliance with medication due to drinking weakness and debility PT OT eval and treat DVT/GI prophylaxis SCD/JEANNA For more details regarding further plans, please refer to the orders. Plan Plan For more details regarding further plans, please refer to the orders. STEPAN MILTON MD 02/19/17 0959: IM PROGRESS NOTES- Assessment Assessment The patient was seen and examined by me. Chart reviewed and plan of care formulated. Discussed with, reviewed and agree with [employer]'s notes, plan of care and orders with modifications as necessary. For more details regarding further plans, please refer to the orders. Hypotension is improving- systolic BP 107 now. Remains weak. PINKY REES APRN Feb 19, 2017 07:11 STEPAN MILTON MD Feb 19, 2017 09:59
[2017-02-19] MEDS: INSULIN ASPART 300 UNITS/3 ML INSULN.PEN SQ SCH ×6 (07:30→17:49)
[2017-02-19] MEDS ORDERED: CARVEDILOL 3.125 MG TABLET. PO SCH (08:00)
[2017-02-19] MEDS ORDERED: FUROSEMIDE 40 MG TABLET. PO SCH (09:00)
[2017-02-19] MEDS: predniSONE 20 MG TABLET PO SCH (09:18)
[2017-02-19] MEDS: ASPIRIN ENTERIC COATED 81 MG TABLET.DR. PO SCH (09:18)
[2017-02-19] MEDS: MAGNESIUM OXIDE 400 MG TABLET PO SCH ×2 (09:18→20:51)
[2017-02-19] MEDS: CHOLECALCIFEROL (VITAMIN D3) 5,000 UNIT CAPSULE PO SCH (09:19)
[2017-02-19] MEDS: PANTOPRAZOLE 40 MG TABLET.DR. PO SCH (09:19)
[2017-02-19] MEDS: THIAMINE 100 MG TABLET. PO SCH (09:19)
[2017-02-19] MEDS: FLUTICASONE 50MCG/NASAL SPRAY 16GM BOTTLE. NS SCH (09:34)
--- NOTE | 2017-02-19 15:32 | PDOC ---
CARDIO Progress Notes Date and Time Date of Service 02/19/17 Time of Evaluation 1245 Subjective Subjective: No Chest Pain, No shortness of breath, No Dizziness Vitals Vitals Vital Signs Date Time Temp Pulse Resp B/P (MAP) Pulse Ox O2 Delivery O2 Flow Rate FiO2 02/19/17 15:10 98.7 73 18 90/53 (65) 100 Nasal Cannula 2.0 98.7 Weight Weight [ ] Input and Output Intake and Output Intake and Output 02/19/17 06:59 Intake Total 920 ml Output Total 875 ml Balance 45 ml Intake Oral 820 ml IV Total 100 ml Output Urine Total 875 ml Laboratory Labs Laboratory Tests Test 02/18/17 16:32 02/18/17 20:36 02/19/17 05:30 02/19/17 07:52 Glucose (Fingerstick) 168 mg/dL (70-99) 182 mg/dL (70-99) 88 mg/dL (70-99) White Blood Count 8.3 x10^3/uL (4.0-11.0) Red Blood Count 3.34 x10^6/uL (4.30-5.70) Hemoglobin 11.1 g/dL (13.0-17.5) Hematocrit 32.5 % (39.0-53.0) Mean Corpuscular Volume 97 fL (79-100) Mean Corpuscular Hemoglobin 33 pg (25-35) Mean Corpuscular Hemoglobin Concent 34 g/dL (31-37) Red Cell Distribution Width 15.0 % (11.5-14.5) Platelet Count 189 x10^3/uL (140-400) Neutrophils (%) (Auto) 59 % (31-73) Lymphocytes (%) (Auto) 24 % (24-48) Monocytes (%) (Auto) 9 % (0-9) Eosinophils (%) (Auto) 7 % (0-3) Basophils (%) (Auto) 1 % (0-3) Neutrophils # (Auto) 4.9 x10^3uL (1.8-7.7) Lymphocytes # (Auto) 2.0 x10^3/uL (1.0-4.8) Monocytes # (Auto) 0.8 x10^3/uL (0.0-1.1) Eosinophils # (Auto) 0.6 x10^3/uL (0.0-0.7) Basophils # (Auto) 0.1 x10^3/uL (0.0-0.2) Sodium Level 138 mmol/L (136-145) Potassium Level 3.3 mmol/L (3.5-5.1) Chloride Level 100 mmol/L (98-107) Carbon Dioxide Level 32 mmol/L (21-32) Anion Gap 6 (6-14) Blood Urea Nitrogen 22 mg/dL (8-26) Creatinine 1.8 mg/dL (0.7-1.3) Estimated GFR (Cockcroft-Gault) 35.8 BUN/Creatinine Ratio 12 (6-20) Glucose Level 96 mg/dL (70-99) Calcium Level 8.4 mg/dL (8.5-10.1) Magnesium Level 2.1 mg/dL (1.8-2.4) Total Bilirubin 0.9 mg/dL (0.2-1.0) Aspartate Amino Transf (AST/SGOT) 32 U/L (15-37) Alanine Aminotransferase (ALT/SGPT) 11 U/L (16-63) Alkaline Phosphatase 71 U/L (46-116) Total Protein 6.0 g/dL (6.4-8.2) Albumin 2.4 g/dL (3.4-5.0) Albumin/Globulin Ratio 0.7 (1.0-1.7) Triglycerides Level 152 mg/dL (0-150) Cholesterol Level 182 mg/dL (0-200) LDL Cholesterol, Calculated 122 mg/dL (0-100) VLDL Cholesterol, Calculated 30 mg/dL (0-40) Non-HDL Cholesterol Calculated 152 mg/dL (0-129) HDL Cholesterol 30 mg/dL (40-60) Cholesterol/HDL Ratio 6.1 Test 02/19/17 10:14 Glucose (Fingerstick) 169 mg/dL (70-99) Microbiology Micro Microbiology 02/17/17 Urine Culture - Preliminary, Resulted 02/17/17 Urine Culture Result 1 (DOMINIQUE) - Preliminary, Resulted Physical Exam HEENT: Neck Supple W Full Motion Chest: Symmetric LUNGS: Other (RLL crackles ) Heart: S1S2, RRR Extremities: Other (1+ bilateral LE edema with mild erythema ) Neurology: alert, oriented, follow commands Assessment Assessment 1. Acute on chronic diastolic HF; improved. Echo with preserved LV function with as EF of 60-655 with mild . No aggressive diuresis warranted at this time 2. Permanent AFIB with RVR upon arrival; ventricular rate now controlled 3. AE COPD; improved. 4. H/o hypertension with present hypotension; required fluid bolus overnight. 5. Hyperlipidemia; LDL 122; statin therapy 6. BOBBY with CKD; Cr now 1.8 with diuresis 7. Diabetes; per PCP 8. Hypothyroidism: TSH 6.135. outpaitnet follow up per PCP 9. Hypokalemia; replaced. Mg WNL 10. EOTH abuse; monitor for withdrawal. 11. Weakness/debility Recommendations Convert coreg to metoprolol for rate control. Hold for SBP < 100. ASA for stroke prevention as patient is poor long-term OAC candidate given weakness/debility/EOTH abuse- increased fall risk. Repeat CXR in am Supportive care. LORNA AMIN APRN Feb 19, 2017 15:32
[2017-02-19] MEDS: MONTELUKAST SODIUM 10 MG TABLET. PO SCH (17:43)
[2017-02-19] MEDS: POTASSIUM CHLORIDE 10 MEQ TABLET.ER. PO SCH (17:43)
[2017-02-19] MEDS: GABAPENTIN 100 MG CAPSULE. PO SCH (20:49)
[2017-02-19] MEDS: traMADol 50 MG TABLET PO PRN (20:49)
[2017-02-19] MEDS: tiZANidine 4 MG TABLET. PO SCH (20:50)
[2017-02-19] MEDS: CETIRIZINE HCL 10 MG TABLET. PO SCH (20:50)
[2017-02-19] MEDS: ATORVASTATIN CALCIUM 40 MG TABLET. PO SCH (20:50)
[2017-02-19] MEDS: INSULIN DETEMIR 300 UNITS/3 ML INSULN.PEN. SQ SCH (20:54)
[2017-02-19] MEDS: METOPROLOL TART IMMED RELEASE 25 MG TABLET. PO SCH (21:00)
[2017-02-20 03:37] VITALS: BP 105/57
[2017-02-20 03:56] LABS: BASO % 0 % (0-3); EOS % 0 % (0-3); HEMATOCRIT 34.3 % (39.0-53.0); HEMOGLOBIN 11.2 g/dL (13.0-17.5); LYMPH # 1.6 x10^3/uL (1.0-4.8); LYMPH % 19 % (24-48); MEAN CORPUSCULAR HEMOGLOBIN 32 pg (25-35); MEAN CORPUSCULAR HGB CONC 33 g/dL (31-37); MEAN CORPUSCULAR VOLUME 99 fL (79-100); MONO % 9 % (0-9); NEUT % 71 % (31-73); PLATELET COUNT 205 x10^3/uL (140-400); RED BLOOD COUNT 3.46 x10^6/uL (4.30-5.70); WHITE BLOOD COUNT 8.2 x10^3/uL (4.0-11.0)
[2017-02-20 04:18] LABS: ALBUMIN 2.6 g/dL (3.4-5.0); ALBUMIN/GLOBULIN RATIO 0.7 (1.0-1.7); CREATININE 1.6 mg/dL (0.7-1.3); POTASSIUM 4.5 mmol/L (3.5-5.1); TOTAL BILIRUBIN 0.7 mg/dL (0.2-1.0); TOTAL PROTEIN 6.6 g/dL (6.4-8.2)
[2017-02-20] MEDS: traMADol 50 MG TABLET PO PRN ×2 (04:35→21:35)
[2017-02-20 07:30] VITALS: BP 128/60
[2017-02-20] MEDS: INSULIN ASPART 300 UNITS/3 ML INSULN.PEN SQ SCH ×6 (07:30→17:56)
[2017-02-20] MEDS: BUDESONIDE 0.5 MG/2 ML NEBU. NEB SCH ×2 (07:50→20:23)
[2017-02-20] MEDS: IPRATRPIUM/ALBUTEROL 0.5/2.5MG 3 ML NEBU. NEB SCH ×4 (07:51→20:23)
[2017-02-20] MEDS: FLUTICASONE 50MCG/NASAL SPRAY 16GM BOTTLE. NS SCH (09:00)
--- NOTE | 2017-02-20 09:13 | RAD ---
AP chest. History: CHF AP view was taken of the chest. There is elevation of the right diaphragm. No new infiltrates are noted. There's been little change compared to the recent study. The heart is enlarged. Mild vascular congestion is possible. There may be chronic interstitial lung disease. Impression: 1. No change from the recent study..
[2017-02-20] MEDS: CHOLECALCIFEROL (VITAMIN D3) 5,000 UNIT CAPSULE PO SCH (09:18)
[2017-02-20] MEDS: POTASSIUM CHLORIDE 10 MEQ TABLET.ER. PO SCH ×2 (09:18→17:52)
[2017-02-20] MEDS: FUROSEMIDE 40 MG TABLET. PO SCH (09:19)
[2017-02-20] MEDS: THIAMINE 100 MG TABLET. PO SCH (09:20)
[2017-02-20] MEDS: MAGNESIUM OXIDE 400 MG TABLET PO SCH ×2 (09:20→21:36)
[2017-02-20] MEDS: ASPIRIN ENTERIC COATED 81 MG TABLET.DR. PO SCH (09:20)
[2017-02-20] MEDS: predniSONE 20 MG TABLET PO SCH (09:20)
[2017-02-20] MEDS: PANTOPRAZOLE 40 MG TABLET.DR. PO SCH (09:20)
[2017-02-20] MEDS: METOPROLOL TART IMMED RELEASE 25 MG TABLET. PO SCH ×2 (09:21→21:36)
[2017-02-20 11:00] VITALS: BP_SYST 128; BP_SYST 133; BP_DIAS 60; BP_DIAS 63
--- NOTE | 2017-02-20 11:45 | PDOC ---
GEORGELuceroPINKY BURGER ADJUNCT ENGLISH INSTRUCTOR 02/20/17 1145: IM PROGRESS NOTES- Subjective Subjective cough better. short of breath slightly better Objective Objective no acute distress Vitals Vital Signs Date Time Temp Pulse Resp B/P (MAP) Pulse Ox O2 Delivery O2 Flow Rate FiO2 02/20/17 09:21 80 02/20/17 07:51 98 Nasal Cannula 2.0 02/20/17 03:37 98.2 20 105/57 (73) 98.2 Input & Output Intake and Output 02/20/17 07:00 Intake Total 1700 ml Output Total 900 ml Balance 800 ml Intake Oral 1600 ml IV Total 100 ml Output Urine Total 900 ml Physical Exam Physical Exam General appearance - alert, chronically ill appearing, and in no distress Mental Status - alert, oriented to person, place, and time, affect appropriate to mood Head - normal Chest - wheezing improved, Heart - S1 and S2 normal Abdomen - soft, nontender, nondistended, no masses or organomegaly Neurological - no acute focal neurological deficit noted. Musculoskeletal - no muscular tenderness noted Extremities - +pedal edema Skin - warm and dry Labs Laboratory Tests Test 02/18/17 16:32 02/18/17 20:36 02/19/17 05:30 02/19/17 07:52 Glucose (Fingerstick) 168 mg/dL (70-99) 182 mg/dL (70-99) 88 mg/dL (70-99) White Blood Count 8.3 x10^3/uL (4.0-11.0) Red Blood Count 3.34 x10^6/uL (4.30-5.70) Hemoglobin 11.1 g/dL (13.0-17.5) Hematocrit 32.5 % (39.0-53.0) Mean Corpuscular Volume 97 fL (79-100) Mean Corpuscular Hemoglobin 33 pg (25-35) Mean Corpuscular Hemoglobin Concent 34 g/dL (31-37) Red Cell Distribution Width 15.0 % (11.5-14.5) Platelet Count 189 x10^3/uL (140-400) Neutrophils (%) (Auto) 59 % (31-73) Lymphocytes (%) (Auto) 24 % (24-48) Monocytes (%) (Auto) 9 % (0-9) Eosinophils (%) (Auto) 7 % (0-3) Basophils (%) (Auto) 1 % (0-3) Neutrophils # (Auto) 4.9 x10^3uL (1.8-7.7) Lymphocytes # (Auto) 2.0 x10^3/uL (1.0-4.8) Monocytes # (Auto) 0.8 x10^3/uL (0.0-1.1) Eosinophils # (Auto) 0.6 x10^3/uL (0.0-0.7) Basophils # (Auto) 0.1 x10^3/uL (0.0-0.2) Sodium Level 138 mmol/L (136-145) Potassium Level 3.3 mmol/L (3.5-5.1) Chloride Level 100 mmol/L (98-107) Carbon Dioxide Level 32 mmol/L (21-32) Anion Gap 6 (6-14) Blood Urea Nitrogen 22 mg/dL (8-26) Creatinine 1.8 mg/dL (0.7-1.3) Estimated GFR (Cockcroft-Gault) 35.8 BUN/Creatinine Ratio 12 (6-20) Glucose Level 96 mg/dL (70-99) Calcium Level 8.4 mg/dL (8.5-10.1) Magnesium Level 2.1 mg/dL (1.8-2.4) Total Bilirubin 0.9 mg/dL (0.2-1.0) Aspartate Amino Transf (AST/SGOT) 32 U/L (15-37) Alanine Aminotransferase (ALT/SGPT) 11 U/L (16-63) Alkaline Phosphatase 71 U/L (46-116) Total Protein 6.0 g/dL (6.4-8.2) Albumin 2.4 g/dL (3.4-5.0) Albumin/Globulin Ratio 0.7 (1.0-1.7) Triglycerides Level 152 mg/dL (0-150) Cholesterol Level 182 mg/dL (0-200) LDL Cholesterol, Calculated 122 mg/dL (0-100) VLDL Cholesterol, Calculated 30 mg/dL (0-40) Non-HDL Cholesterol Calculated 152 mg/dL (0-129) HDL Cholesterol 30 mg/dL (40-60) Cholesterol/HDL Ratio 6.1 Test 02/19/17 10:14 7/14/17 16:45 02/19/17 20:49 02/20/17 03:10 Glucose (Fingerstick) 169 mg/dL (70-99) 287 mg/dL (70-99) 266 mg/dL (70-99) White Blood Count 8.2 x10^3/uL (4.0-11.0) Red Blood Count 3.46 x10^6/uL (4.30-5.70) Hemoglobin 11.2 g/dL (13.0-17.5) Hematocrit 34.3 % (39.0-53.0) Mean Corpuscular Volume 99 fL (79-100) Mean Corpuscular Hemoglobin 32 pg (25-35) Mean Corpuscular Hemoglobin Concent 33 g/dL (31-37) Red Cell Distribution Width 15.0 % (11.5-14.5) Platelet Count 205 x10^3/uL (140-400) Neutrophils (%) (Auto) 71 % (31-73) Lymphocytes (%) (Auto) 19 % (24-48) Monocytes (%) (Auto) 9 % (0-9) Eosinophils (%) (Auto) 0 % (0-3) Basophils (%) (Auto) 0 % (0-3) Neutrophils # (Auto) 5.8 x10^3uL (1.8-7.7) Lymphocytes # (Auto) 1.6 x10^3/uL (1.0-4.8) Monocytes # (Auto) 0.8 x10^3/uL (0.0-1.1) Eosinophils # (Auto) 0.0 x10^3/uL (0.0-0.7) Basophils # (Auto) 0.0 x10^3/uL (0.0-0.2) Sodium Level 136 mmol/L (136-145) Potassium Level 4.5 mmol/L (3.5-5.1) Chloride Level 101 mmol/L (98-107) Carbon Dioxide Level 30 mmol/L (21-32) Anion Gap 5 (6-14) Blood Urea Nitrogen 34 mg/dL (8-26) Creatinine 1.6 mg/dL (0.7-1.3) Estimated GFR (Cockcroft-Gault) 41.0 BUN/Creatinine Ratio 21 (6-20) Glucose Level 239 mg/dL (70-99) Calcium Level 8.0 mg/dL (8.5-10.1) Total Bilirubin 0.7 mg/dL (0.2-1.0) Aspartate Amino Transf (AST/SGOT) 30 U/L (15-37) Alanine Aminotransferase (ALT/SGPT) 14 U/L (16-63) Alkaline Phosphatase 90 U/L (46-116) Total Protein 6.6 g/dL (6.4-8.2) Albumin 2.6 g/dL (3.4-5.0) Albumin/Globulin Ratio 0.7 (1.0-1.7) Test 02/20/17 08:09 Glucose (Fingerstick) 156 mg/dL (70-99) Laboratory Tests Test 02/19/17 16:45 02/19/17 20:49 02/20/17 03:10 02/20/17 08:09 Glucose (Fingerstick) 287 mg/dL (70-99) 266 mg/dL (70-99) 156 mg/dL (70-99) White Blood Count 8.2 x10^3/uL (4.0-11.0) Red Blood Count 3.46 x10^6/uL (4.30-5.70) Hemoglobin 11.2 g/dL (13.0-17.5) Hematocrit 34.3 % (39.0-53.0) Mean Corpuscular Volume 99 fL (79-100) Mean Corpuscular Hemoglobin 32 pg (25-35) Mean Corpuscular Hemoglobin Concent 33 g/dL (31-37) Red Cell Distribution Width 15.0 % (11.5-14.5) Platelet Count 205 x10^3/uL (140-400) Neutrophils (%) (Auto) 71 % (31-73) Lymphocytes (%) (Auto) 19 % (24-48) Monocytes (%) (Auto) 9 % (0-9) Eosinophils (%) (Auto) 0 % (0-3) Basophils (%) (Auto) 0 % (0-3) Neutrophils # (Auto) 5.8 x10^3uL (1.8-7.7) Lymphocytes # (Auto) 1.6 x10^3/uL (1.0-4.8) Monocytes # (Auto) 0.8 x10^3/uL (0.0-1.1) Eosinophils # (Auto) 0.0 x10^3/uL (0.0-0.7) Basophils # (Auto) 0.0 x10^3/uL (0.0-0.2) Sodium Level 136 mmol/L (136-145) Potassium Level 4.5 mmol/L (3.5-5.1) Chloride Level 101 mmol/L (98-107) Carbon Dioxide Level 30 mmol/L (21-32) Anion Gap 5 (6-14) Blood Urea Nitrogen 34 mg/dL (8-26) Creatinine 1.6 mg/dL (0.7-1.3) Estimated GFR (Cockcroft-Gault) 41.0 BUN/Creatinine Ratio 21 (6-20) Glucose Level 239 mg/dL (70-99) Calcium Level 8.0 mg/dL (8.5-10.1) Total Bilirubin 0.7 mg/dL (0.2-1.0) Aspartate Amino Transf (AST/SGOT) 30 U/L (15-37) Alanine Aminotransferase (ALT/SGPT) 14 U/L (16-63) Alkaline Phosphatase 90 U/L (46-116) Total Protein 6.6 g/dL (6.4-8.2) Albumin 2.6 g/dL (3.4-5.0) Albumin/Globulin Ratio 0.7 (1.0-1.7) Meds Current Medications Furosemide (Lasix) 40 mg DAILY PO Last administered on 02/20/17 09:19; Start 02/20/17 at 09:00 Levofloxacin (Levaquin) 250 mg DAILY06 PO Last administered on 02/20/17 06:32 ; Start 02/20/17 at 06:00 Metoprolol Tartrate (Lopressor) 12.5 mg BID PO Last administered on 02/20/17 09:21; Start 02/19/17 at 21:00 Potassium Chloride (Klor-Con) 20 meq BIDWMEALS PO Last administered on 09:18; Start 02/19/17 at 17:00 Assessment Assessment 1 AFib chronic with RVR, not anticoagulation candidate 2. A/C diastolic CHF EF normal 3. COPD with acute exacerbation mild 4. Acute bronchitis 5. HTN 6. chronic respiratory failure with COPD, ILD, silicosis underlying O2 dependent 7. anemia chronic disease B12 8. hyperlipidemia 9. 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 depression 11. ETOH abuse currently active with intake 1/2 to 1 pint daily 12. GERD 13. chronic BP LS 14. 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 severe weakness and debility with mobility deficits PLAN: AF RVR rate decreased, chronic, not anticoagulation candidate cardiology consult TSH 6.315-no treatment at this time, recheck in 3 months outpatient rate improved ASA as cannot take anticoagulation Diastolic CHF admit weight 171.25# 02/19 166.44# 02/20 173.5# IO Daily weight BNP 1048 Lasix 40mg IV ED 02/17 Lasix 40mg IV BID beginning 02/18-change to Lasix 40mg po daily beginning 02/20 At high risk for ARF-home dose has been Lasix 40mg MWF and 20mg TTSS. Has been drinking and not taking medications appropriately continues hypotensive -suspect r/t volume depletion, will hold Lasix 02/19 and begin Lasix 40mg po daily 02/20 Decrease Coreg to 3.125mg bid and monitor. Cardio note reviewed - await decision to continue coreg or change to metoprolol or Dig Bolus x 2 through night with NS 400-500cc for hypotension 02/19 ECHO 02/18 ECHO EF 60-65% mild tr-mild MR TR pulmonary HTN 02/20 Cardio note reviewed 02/19: changed coreg to metoprolol-has COPD and DM - close monitoring. Still hypotensive. Lasix 40mg started 02/20 AB with AECOPD duoneb/budesonide nebulizer mucinex 1200mg bid Levaquin 500mg IV daily begin 02/18 continue O2 2L and maintain Sat >90% Prednisone 40mg po and will order tapering at DC 02/20/16 cough improved wheezing improved Diabetes FSBS, SSI REsume Levemir 50units at hs does not follow ADA diet at home, continue cardiac diet BS 156-287 Add Novolog 5 unit tid ac +ssi in anticipation of steroids worsening BS ETOH withdrawal precautions THiamine 100mg po Ativan 0.5mg IV or po for aggitation/withdrawl no withdrawal symptoms 02/19 CKD II/hypomagnesia Admit BUN 14 02/20 34 Cr 1.3 1.6 Na 140 136 K 3.9 4.5 Mg 1.6 02/19 2.1 Mg 2gm IV ED 01/18 Hold Lasix 02/19 anemia Admit Hgb 12.8 02/20 11.2 resume B12 po abnormal LFTs secondary to ETOH Admit T Bili 1.1 D Bili 0.4 AST 45 Resolved hyperlipidemia lipids not controlled Lipitor 40mg daily -suspect non compliance with medication due to drinking weakness and debility PT OT eval and treat DVT/GI prophylaxis SCD/JEANNA For more details regarding further plans, please refer to the orders. Plan Plan For more details regarding further plans, please refer to the orders. STEPAN MILTON MD 02/20/17 1152: IM PROGRESS NOTES- Assessment Assessment Lopressor held in evening and Lasix held in AM yesterday due to low BP. remains weak- advised him to go to SNF when discharged. Prognosis is poor. The patient was seen and examined by me. Chart reviewed and plan of care formulated. Discussed with, reviewed and agree with EXTERMINATION INSPECTOR's notes, plan of care and orders with modifications as necessary. For more details regarding further plans, please refer to the orders. PINKY REES APRN Feb 20, 2017 11:45 STEPAN MILTON MD Feb 20, 2017 11:52
[2017-02-20 14:48] VITALS: BP 111/59
[2017-02-20] MEDS: MONTELUKAST SODIUM 10 MG TABLET. PO SCH (17:52)
[2017-02-20 19:25] VITALS: BP 104/52
[2017-02-20] MEDS: GABAPENTIN 100 MG CAPSULE. PO SCH (21:35)
[2017-02-20] MEDS: tiZANidine 4 MG TABLET. PO SCH (21:36)
[2017-02-20] MEDS: ATORVASTATIN CALCIUM 40 MG TABLET. PO SCH (21:36)
[2017-02-20] MEDS: CETIRIZINE HCL 10 MG TABLET. PO SCH (21:36)
[2017-02-20] MEDS: INSULIN DETEMIR 300 UNITS/3 ML INSULN.PEN. SQ SCH (21:39)
[2017-02-20 23:25] VITALS: BP 104/55
[2017-02-21 03:25] VITALS: BP 96/47
[2017-02-21 04:34] LABS: BASO % 0 % (0-3); EOS % 1 % (0-3); HEMATOCRIT 34.5 % (39.0-53.0); HEMOGLOBIN 11.2 g/dL (13.0-17.5); LYMPH # 1.3 x10^3/uL (1.0-4.8); LYMPH % 15 % (24-48); MEAN CORPUSCULAR HEMOGLOBIN 32 pg (25-35); MEAN CORPUSCULAR HGB CONC 33 g/dL (31-37); MEAN CORPUSCULAR VOLUME 99 fL (79-100); MONO % 12 % (0-9); NEUT % 72 % (31-73); PLATELET COUNT 231 x10^3/uL (140-400); RED BLOOD COUNT 3.48 x10^6/uL (4.30-5.70); RED CELL DISTRIBUTION WIDTH 15.4 % (11.5-14.5); WHITE BLOOD COUNT 8.3 x10^3/uL (4.0-11.0)
[2017-02-21 05:02] LABS: ALBUMIN 2.7 g/dL (3.4-5.0); ALBUMIN/GLOBULIN RATIO 0.6 (1.0-1.7); CALCIUM 8.2 mg/dL (8.5-10.1); CREATININE 1.6 mg/dL (0.7-1.3); POTASSIUM 4.2 mmol/L (3.5-5.1); TOTAL BILIRUBIN 0.6 mg/dL (0.2-1.0); TOTAL PROTEIN 6.9 g/dL (6.4-8.2)
[2017-02-21 07:00] VITALS: BP 134/63
[2017-02-21] MEDS: INSULIN ASPART 300 UNITS/3 ML INSULN.PEN SQ SCH ×6 (07:30→18:10)
[2017-02-21] MEDS: IPRATRPIUM/ALBUTEROL 0.5/2.5MG 3 ML NEBU. NEB SCH ×4 (07:44→19:43)
[2017-02-21] MEDS: BUDESONIDE 0.5 MG/2 ML NEBU. NEB SCH ×2 (07:44→19:43)
[2017-02-21] MEDS: FLUTICASONE 50MCG/NASAL SPRAY 16GM BOTTLE. NS SCH (09:00)
[2017-02-21] MEDS: predniSONE 20 MG TABLET PO SCH (09:21)
[2017-02-21] MEDS: PANTOPRAZOLE 40 MG TABLET.DR. PO SCH (09:21)
[2017-02-21] MEDS: THIAMINE 100 MG TABLET. PO SCH (09:21)
[2017-02-21] MEDS: ASPIRIN ENTERIC COATED 81 MG TABLET.DR. PO SCH (09:21)
[2017-02-21] MEDS: MAGNESIUM OXIDE 400 MG TABLET PO SCH ×2 (09:21→23:03)
[2017-02-21] MEDS: CHOLECALCIFEROL (VITAMIN D3) 5,000 UNIT CAPSULE PO SCH (09:21)
[2017-02-21] MEDS: FUROSEMIDE 40 MG TABLET. PO SCH (09:22)
[2017-02-21] MEDS: POTASSIUM CHLORIDE 10 MEQ TABLET.ER. PO SCH ×2 (09:22→18:05)
[2017-02-21] MEDS: METOPROLOL TART IMMED RELEASE 25 MG TABLET. PO SCH ×2 (09:23→23:05)
[2017-02-21 11:00] VITALS: BP 146/53
[2017-02-21] MEDS: guaiFENesin/CODEINE 100mg/10mg 5 ML LIQUID PO PRN (12:26)
--- NOTE | 2017-02-21 12:28 | PDOC ---
IM PROGRESS NOTES- Subjective Subjective cough better. short of breath slightly better.still weak. Objective Vitals Vital Signs Date Time Temp Pulse Resp B/P (MAP) Pulse Ox O2 Delivery O2 Flow Rate FiO2 02/21/17 11:41 100 Nasal Cannula 2.0 02/21/17 09:23 103 02/21/17 07:00 97.6 18 134/63 (86) 97.6 Input & Output Intake and Output 02/21/17 07:00 Intake Total 940 ml Output Total 400 ml Balance 540 ml Intake Oral 940 ml Output Urine Total 400 ml # Voids 1 # Bowel Movements 1 Physical Exam Physical Exam General appearance - alert, chronically ill appearing, and in mild distress Mental Status - alert, oriented to person, place, and time, affect appropriate to mood Head - normal Chest - wheezing improved, Heart - S1 and S2 normal Abdomen - soft, nontender, nondistended, no masses or organomegaly Neurological - no acute focal neurological deficit noted. Musculoskeletal - no muscular tenderness noted Extremities - +pedal edema Skin - warm and dry Labs Laboratory Tests Test 02/19/17 16:45 02/19/17 20:49 02/20/17 03:10 02/20/17 08:09 Glucose (Fingerstick) 287 mg/dL (70-99) 266 mg/dL (70-99) 156 mg/dL (70-99) White Blood Count 8.2 x10^3/uL (4.0-11.0) Red Blood Count 3.46 x10^6/uL (4.30-5.70) Hemoglobin 11.2 g/dL (13.0-17.5) Hematocrit 34.3 % (39.0-53.0) Mean Corpuscular Volume 99 fL (79-100) Mean Corpuscular Hemoglobin 32 pg (25-35) Mean Corpuscular Hemoglobin Concent 33 g/dL (31-37) Red Cell Distribution Width 15.0 % (11.5-14.5) Platelet Count 205 x10^3/uL (140-400) Neutrophils (%) (Auto) 71 % (31-73) Lymphocytes (%) (Auto) 19 % (24-48) Monocytes (%) (Auto) 9 % (0-9) Eosinophils (%) (Auto) 0 % (0-3) Basophils (%) (Auto) 0 % (0-3) Neutrophils # (Auto) 5.8 x10^3uL (1.8-7.7) Lymphocytes # (Auto) 1.6 x10^3/uL (1.0-4.8) Monocytes # (Auto) 0.8 x10^3/uL (0.0-1.1) Eosinophils # (Auto) 0.0 x10^3/uL (0.0-0.7) Basophils # (Auto) 0.0 x10^3/uL (0.0-0.2) Sodium Level 136 mmol/L (136-145) Potassium Level 4.5 mmol/L (3.5-5.1) Chloride Level 101 mmol/L (98-107) Carbon Dioxide Level 30 mmol/L (21-32) Anion Gap 5 (6-14) Blood Urea Nitrogen 34 mg/dL (8-26) Creatinine 1.6 mg/dL (0.7-1.3) Estimated GFR (Cockcroft-Gault) 41.0 BUN/Creatinine Ratio 21 (6-20) Glucose Level 239 mg/dL (70-99) Calcium Level 8.0 mg/dL (8.5-10.1) Total Bilirubin 0.7 mg/dL (0.2-1.0) Aspartate Amino Transf (AST/SGOT) 30 U/L (15-37) Alanine Aminotransferase (ALT/SGPT) 14 U/L (16-63) Alkaline Phosphatase 90 U/L (46-116) Total Protein 6.6 g/dL (6.4-8.2) Albumin 2.6 g/dL (3.4-5.0) Albumin/Globulin Ratio 0.7 (1.0-1.7) Test 02/20/17 12:20 02/20/17 16:49 02/20/17 20:33 02/21/17 04:00 Glucose (Fingerstick) 188 mg/dL (70-99) 289 mg/dL (70-99) 291 mg/dL (70-99) White Blood Count 8.3 x10^3/uL (4.0-11.0) Red Blood Count 3.48 x10^6/uL (4.30-5.70) Hemoglobin 11.2 g/dL (13.0-17.5) Hematocrit 34.5 % (39.0-53.0) Mean Corpuscular Volume 99 fL (79-100) Mean Corpuscular Hemoglobin 32 pg (25-35) Mean Corpuscular Hemoglobin Concent 33 g/dL (31-37) Red Cell Distribution Width 15.4 % (11.5-14.5) Platelet Count 231 x10^3/uL (140-400) Neutrophils (%) (Auto) 72 % (31-73) Lymphocytes (%) (Auto) 15 % (24-48) Monocytes (%) (Auto) 12 % (0-9) Eosinophils (%) (Auto) 1 % (0-3) Basophils (%) (Auto) 0 % (0-3) Neutrophils # (Auto) 5.9 x10^3uL (1.8-7.7) Lymphocytes # (Auto) 1.3 x10^3/uL (1.0-4.8) Monocytes # (Auto) 1.0 x10^3/uL (0.0-1.1) Eosinophils # (Auto) 0.0 x10^3/uL (0.0-0.7) Basophils # (Auto) 0.0 x10^3/uL (0.0-0.2) Sodium Level 138 mmol/L (136-145) Potassium Level 4.2 mmol/L (3.5-5.1) Chloride Level 102 mmol/L (98-107) Carbon Dioxide Level 30 mmol/L (21-32) Anion Gap 6 (6-14) Blood Urea Nitrogen 39 mg/dL (8-26) Creatinine 1.6 mg/dL (0.7-1.3) Estimated GFR (Cockcroft-Gault) 41.0 BUN/Creatinine Ratio 24 (6-20) Glucose Level 204 mg/dL (70-99) Calcium Level 8.2 mg/dL (8.5-10.1) Total Bilirubin 0.6 mg/dL (0.2-1.0) Aspartate Amino Transf (AST/SGOT) 45 U/L (15-37) Alanine Aminotransferase (ALT/SGPT) 19 U/L (16-63) Alkaline Phosphatase 80 U/L (46-116) Total Protein 6.9 g/dL (6.4-8.2) Albumin 2.7 g/dL (3.4-5.0) Albumin/Globulin Ratio 0.6 (1.0-1.7) Test 02/21/17 07:52 02/21/17 11:36 Glucose (Fingerstick) 116 mg/dL (70-99) 197 mg/dL (70-99) Laboratory Tests Test 02/20/17 16:49 02/20/17 20:33 02/21/17 04:00 02/21/17 07:52 Glucose (Fingerstick) 289 mg/dL (70-99) 291 mg/dL (70-99) 116 mg/dL (70-99) White Blood Count 8.3 x10^3/uL (4.0-11.0) Red Blood Count 3.48 x10^6/uL (4.30-5.70) Hemoglobin 11.2 g/dL (13.0-17.5) Hematocrit 34.5 % (39.0-53.0) Mean Corpuscular Volume 99 fL (79-100) Mean Corpuscular Hemoglobin 32 pg (25-35) Mean Corpuscular Hemoglobin Concent 33 g/dL (31-37) Red Cell Distribution Width 15.4 % (11.5-14.5) Platelet Count 231 x10^3/uL (140-400) Neutrophils (%) (Auto) 72 % (31-73) Lymphocytes (%) (Auto) 15 % (24-48) Monocytes (%) (Auto) 12 % (0-9) Eosinophils (%) (Auto) 1 % (0-3) Basophils (%) (Auto) 0 % (0-3) Neutrophils # (Auto) 5.9 x10^3uL (1.8-7.7) Lymphocytes # (Auto) 1.3 x10^3/uL (1.0-4.8) Monocytes # (Auto) 1.0 x10^3/uL (0.0-1.1) Eosinophils # (Auto) 0.0 x10^3/uL (0.0-0.7) Basophils # (Auto) 0.0 x10^3/uL (0.0-0.2) Sodium Level 138 mmol/L (136-145) Potassium Level 4.2 mmol/L (3.5-5.1) Chloride Level 102 mmol/L (98-107) Carbon Dioxide Level 30 mmol/L (21-32) Anion Gap 6 (6-14) Blood Urea Nitrogen 39 mg/dL (8-26) Creatinine 1.6 mg/dL (0.7-1.3) Estimated GFR (Cockcroft-Gault) 41.0 BUN/Creatinine Ratio 24 (6-20) Glucose Level 204 mg/dL (70-99) Calcium Level 8.2 mg/dL (8.5-10.1) Total Bilirubin 0.6 mg/dL (0.2-1.0) Aspartate Amino Transf (AST/SGOT) 45 U/L (15-37) Alanine Aminotransferase (ALT/SGPT) 19 U/L (16-63) Alkaline Phosphatase 80 U/L (46-116) Total Protein 6.9 g/dL (6.4-8.2) Albumin 2.7 g/dL (3.4-5.0) Albumin/Globulin Ratio 0.6 (1.0-1.7) Test 02/21/17 11:36 Glucose (Fingerstick) 197 mg/dL (70-99) Assessment Assessment 1 AFib chronic with RVR, not anticoagulation candidate 2. A/C diastolic CHF EF normal 3. COPD with acute exacerbation mild 4. Acute bronchitis 5. HTN 6. chronic respiratory failure with COPD, ILD, silicosis underlying O2 dependent 7. anemia chronic disease B12 8. hyperlipidemia 9. 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 depression 11. ETOH abuse currently active with intake 1/2 to 1 pint daily 12. GERD 13. chronic BP LS 14. 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 severe weakness and debility with mobility deficits PLAN: AF RVR rate decreased, chronic, not anticoagulation candidate cardiology consult TSH 6.315-no treatment at this time, recheck in 3 months outpatient rate improved Diastolic CHF admit weight 171.25# 02/19 166.44# IO Daily weight BNP 1048 Lasix 40mg IV ED 02/17 Lasix 40mg IV BID beginning 02/18-change to Lasix 40mg po daily beginning 02/20 At high risk for ARF-home dose has been Lasix 40mg MWF and 20mg TTSS. Has been drinking and not taking medications appropriately continues hypotensive -suspect r/t volume depletion, will hold Lasix 02/19 and begin Lasix 40mg po daily 02/20 Decrease Coreg to 3.125mg bid and monitor. Cardio note reviewed - await decision to continue coreg or change to metoprolol or Dig Bolus x 2 through night with NS 400-500cc for hypotension 02/19 ECHO 02/18 ECHO EF 60-65% mild tr-mild MR TR pulmonary HTN AB with AECOPD duoneb/budesonide nebulizer mucinex 1200mg bid Levaquin 500mg IV daily begin 02/18 continue O2 2L and maintain Sat >90% Prednisone 40mg po and will order tapering at DC 02/20/16 cough improved Diabetes FSBS, SSI REsume Levemir 50units at hs does not follow ADA diet at home, continue cardiac diet BS 168-246 Add Novolog 5 unit tid ac +ssi in anticipation of steroids worsening BS ETOH withdrawal precautions THiamine 100mg po Ativan 0.5mg IV or po for aggitation/withdrawl no withdrawal symptoms 02/19 CKD II/hypomagnesia Admit BUN 02/19 22 Cr 1.3 1.8 Na 140 138 K 3.9 3.3 Mg 1.6 2.1 Mg 2gm IV ED 01/18 Hold Lasix 02/19 anemia Admit Hgb 12.8 02/19 pending resume B12 po abnormal LFTs secondary to ETOH Admit T Bili 1.1 D Bili 0.4 AST 45 hyperlipidemia lipids not controlled Lipitor 40mg daily -suspect non compliance with medication due to drinking weakness and debility PT OT eval and treat DVT/GI prophylaxis SCD/JEANNA Lopressor held in evening and Lasix held in AM yesterday due to low BP. remains weak- advised him to go to SNF when discharged. Prognosis is poor. Plan Plan For more details regarding further plans, please refer to the orders. STEPAN MILTON MD Feb 21, 2017 12:28
[2017-02-21 15:00] VITALS: BP 110/53
[2017-02-21] MEDS: MONTELUKAST SODIUM 10 MG TABLET. PO SCH (18:05)
[2017-02-21 19:15] VITALS: BP 136/61
[2017-02-21 23:00] VITALS: BP 159/71
[2017-02-21] MEDS: GABAPENTIN 100 MG CAPSULE. PO SCH (23:03)
[2017-02-21] MEDS: CETIRIZINE HCL 10 MG TABLET. PO SCH (23:03)
[2017-02-21] MEDS: tiZANidine 4 MG TABLET. PO SCH (23:03)
[2017-02-21] MEDS: traMADol 50 MG TABLET PO PRN (23:04)
[2017-02-21] MEDS: ATORVASTATIN CALCIUM 40 MG TABLET. PO SCH (23:10)
[2017-02-21] MEDS: INSULIN DETEMIR 300 UNITS/3 ML INSULN.PEN. SQ SCH (23:14)
[2017-02-22 03:00] VITALS: BP 96/54
[2017-02-22 05:19] LABS: BASO % 0 % (0-3); EOS % 0 % (0-3); HEMATOCRIT 33.6 % (39.0-53.0); LYMPH # 1.1 x10^3/uL (1.0-4.8); LYMPH % 15 % (24-48); MEAN CORPUSCULAR HEMOGLOBIN 32 pg (25-35); MEAN CORPUSCULAR HGB CONC 33 g/dL (31-37); MEAN CORPUSCULAR VOLUME 99 fL (79-100); MONO % 13 % (0-9); NEUT % 71 % (31-73); PLATELET COUNT 232 x10^3/uL (140-400); RED CELL DISTRIBUTION WIDTH 15.2 % (11.5-14.5); WHITE BLOOD COUNT 7.1 x10^3/uL (4.0-11.0)
[2017-02-22 05:55] LABS: ALBUMIN 2.6 g/dL (3.4-5.0); ALBUMIN/GLOBULIN RATIO 0.7 (1.0-1.7); CREATININE 1.6 mg/dL (0.7-1.3); POTASSIUM 4.2 mmol/L (3.5-5.1); TOTAL BILIRUBIN 0.4 mg/dL (0.2-1.0); TOTAL PROTEIN 6.4 g/dL (6.4-8.2)
[2017-02-22 07:20] VITALS: BP 115/62
[2017-02-22] MEDS: INSULIN ASPART 300 UNITS/3 ML INSULN.PEN SQ SCH ×4 (07:30→11:30)
[2017-02-22] MEDS: BUDESONIDE 0.5 MG/2 ML NEBU. NEB SCH (07:47)
[2017-02-22] MEDS: IPRATRPIUM/ALBUTEROL 0.5/2.5MG 3 ML NEBU. NEB SCH ×2 (07:47→12:06)
--- NOTE | 2017-02-22 08:43 | PDOC3 ---
GEORGE-PINKY BURGER PRECISION AGRONOMIST 02/22/17 0843: IM DISCHARGE & PROGRESS NOTES Date of Admission Date of Admission Date of Admission: Feb 17, 2017 at 19:01 Date of Discharge Date of Discharge 02/22/17 Primary Diagnosis Primary Diagnosis 1 AFib chronic with RVR, not anticoagulation candidate 2. A/C diastolic CHF EF normal 3. COPD with acute exacerbation mild 4. Acute bronchitis 5. HTN 6. chronic respiratory failure with COPD, ILD, silicosis underlying O2 dependent 7. anemia chronic disease B12 8. hyperlipidemia 9. 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 depression 11. ETOH abuse currently active with intake 1/2 to 1 pint daily 12. GERD 13. chronic BP LS 14. 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 severe weakness and debility with mobility deficits Consults Consults Adam Low MD Procedures Procedures None Labs Labs Laboratory Tests Test 02/19/17 10:14 02/19/17 16:45 02/19/17 20:49 02/20/17 03:10 Glucose (Fingerstick) 169 mg/dL (70-99) 287 mg/dL (70-99) 266 mg/dL (70-99) White Blood Count 8.2 x10^3/uL (4.0-11.0) Red Blood Count 3.46 x10^6/uL (4.30-5.70) Hemoglobin 11.2 g/dL (13.0-17.5) Hematocrit 34.3 % (39.0-53.0) Mean Corpuscular Volume 99 fL (79-100) Mean Corpuscular Hemoglobin 32 pg (25-35) Mean Corpuscular Hemoglobin Concent 33 g/dL (31-37) Red Cell Distribution Width 15.0 % (11.5-14.5) Platelet Count 205 x10^3/uL (140-400) Neutrophils (%) (Auto) 71 % (31-73) Lymphocytes (%) (Auto) 19 % (24-48) Monocytes (%) (Auto) 9 % (0-9) Eosinophils (%) (Auto) 0 % (0-3) Basophils (%) (Auto) 0 % (0-3) Neutrophils # (Auto) 5.8 x10^3uL (1.8-7.7) Lymphocytes # (Auto) 1.6 x10^3/uL (1.0-4.8) Monocytes # (Auto) 0.8 x10^3/uL (0.0-1.1) Eosinophils # (Auto) 0.0 x10^3/uL (0.0-0.7) Basophils # (Auto) 0.0 x10^3/uL (0.0-0.2) Sodium Level 136 mmol/L (136-145) Potassium Level 4.5 mmol/L (3.5-5.1) Chloride Level 101 mmol/L (98-107) Carbon Dioxide Level 30 mmol/L (21-32) Anion Gap 5 (6-14) Blood Urea Nitrogen 34 mg/dL (8-26) Creatinine 1.6 mg/dL (0.7-1.3) Estimated GFR (Cockcroft-Gault) 41.0 BUN/Creatinine Ratio 21 (6-20) Glucose Level 239 mg/dL (70-99) Calcium Level 8.0 mg/dL (8.5-10.1) Total Bilirubin 0.7 mg/dL (0.2-1.0) Aspartate Amino Transf (AST/SGOT) 30 U/L (15-37) Alanine Aminotransferase (ALT/SGPT) 14 U/L (16-63) Alkaline Phosphatase 90 U/L (46-116) Total Protein 6.6 g/dL (6.4-8.2) Albumin 2.6 g/dL (3.4-5.0) Albumin/Globulin Ratio 0.7 (1.0-1.7) Test 02/20/17 08:09 02/20/17 12:20 02/20/17 16:49 02/20/17 20:33 Glucose (Fingerstick) 156 mg/dL (70-99) 188 mg/dL (70-99) 289 mg/dL (70-99) 291 mg/dL (70-99) Test 02/21/17 04:00 02/21/17 07:52 02/21/17 11:36 02/21/17 16:52 White Blood Count 8.3 x10^3/uL (4.0-11.0) Red Blood Count 3.48 x10^6/uL (4.30-5.70) Hemoglobin 11.2 g/dL (13.0-17.5) Hematocrit 34.5 % (39.0-53.0) Mean Corpuscular Volume 99 fL (79-100) Mean Corpuscular Hemoglobin 32 pg (25-35) Mean Corpuscular Hemoglobin Concent 33 g/dL (31-37) Red Cell Distribution Width 15.4 % (11.5-14.5) Platelet Count 231 x10^3/uL (140-400) Neutrophils (%) (Auto) 72 % (31-73) Lymphocytes (%) (Auto) 15 % (24-48) Monocytes (%) (Auto) 12 % (0-9) Eosinophils (%) (Auto) 1 % (0-3) Basophils (%) (Auto) 0 % (0-3) Neutrophils # (Auto) 5.9 x10^3uL (1.8-7.7) Lymphocytes # (Auto) 1.3 x10^3/uL (1.0-4.8) Monocytes # (Auto) 1.0 x10^3/uL (0.0-1.1) Eosinophils # (Auto) 0.0 x10^3/uL (0.0-0.7) Basophils # (Auto) 0.0 x10^3/uL (0.0-0.2) Sodium Level 138 mmol/L (136-145) Potassium Level 4.2 mmol/L (3.5-5.1) Chloride Level 102 mmol/L (98-107) Carbon Dioxide Level 30 mmol/L (21-32) Anion Gap 6 (6-14) Blood Urea Nitrogen 39 mg/dL (8-26) Creatinine 1.6 mg/dL (0.7-1.3) Estimated GFR (Cockcroft-Gault) 41.0 BUN/Creatinine Ratio 24 (6-20) Glucose Level 204 mg/dL (70-99) Calcium Level 8.2 mg/dL (8.5-10.1) Total Bilirubin 0.6 mg/dL (0.2-1.0) Aspartate Amino Transf (AST/SGOT) 45 U/L (15-37) Alanine Aminotransferase (ALT/SGPT) 19 U/L (16-63) Alkaline Phosphatase 80 U/L (46-116) Total Protein 6.9 g/dL (6.4-8.2) Albumin 2.7 g/dL (3.4-5.0) Albumin/Globulin Ratio 0.6 (1.0-1.7) Glucose (Fingerstick) 116 mg/dL (70-99) 197 mg/dL (70-99) 292 mg/dL (70-99) Test 02/21/17 23:09 02/22/17 04:10 02/22/17 07:25 Glucose (Fingerstick) 353 mg/dL (70-99) 134 mg/dL (70-99) White Blood Count 7.1 x10^3/uL (4.0-11.0) Red Blood Count 3.40 x10^6/uL (4.30-5.70) Hemoglobin 11.0 g/dL (13.0-17.5) Hematocrit 33.6 % (39.0-53.0) Mean Corpuscular Volume 99 fL (79-100) Mean Corpuscular Hemoglobin 32 pg (25-35) Mean Corpuscular Hemoglobin Concent 33 g/dL (31-37) Red Cell Distribution Width 15.2 % (11.5-14.5) Platelet Count 232 x10^3/uL (140-400) Neutrophils (%) (Auto) 71 % (31-73) Lymphocytes (%) (Auto) 15 % (24-48) Monocytes (%) (Auto) 13 % (0-9) Eosinophils (%) (Auto) 0 % (0-3) Basophils (%) (Auto) 0 % (0-3) Neutrophils # (Auto) 5.0 x10^3uL (1.8-7.7) Lymphocytes # (Auto) 1.1 x10^3/uL (1.0-4.8) Monocytes # (Auto) 1.0 x10^3/uL (0.0-1.1) Eosinophils # (Auto) 0.0 x10^3/uL (0.0-0.7) Basophils # (Auto) 0.0 x10^3/uL (0.0-0.2) Sodium Level 142 mmol/L (136-145) Potassium Level 4.2 mmol/L (3.5-5.1) Chloride Level 104 mmol/L (98-107) Carbon Dioxide Level 30 mmol/L (21-32) Anion Gap 8 (6-14) Blood Urea Nitrogen 35 mg/dL (8-26) Creatinine 1.6 mg/dL (0.7-1.3) Estimated GFR (Cockcroft-Gault) 41.0 BUN/Creatinine Ratio 22 (6-20) Glucose Level 179 mg/dL (70-99) Calcium Level 8.0 mg/dL (8.5-10.1) Total Bilirubin 0.4 mg/dL (0.2-1.0) Aspartate Amino Transf (AST/SGOT) 47 U/L (15-37) Alanine Aminotransferase (ALT/SGPT) 21 U/L (16-63) Alkaline Phosphatase 98 U/L (46-116) Total Protein 6.4 g/dL (6.4-8.2) Albumin 2.6 g/dL (3.4-5.0) Albumin/Globulin Ratio 0.7 (1.0-1.7) Medications Medications Medications reviewed and reconciled for discharge. Brief hospital course Brief hospital course This 87 year old male who presented with hypotension and dyspnea. The following is a summary of his treatment: AF RVR rate decreased, chronic, not anticoagulation candidate cardiology consult TSH 6.315-no treatment at this time, recheck in 3 months outpatient rate improved Diastolic CHF admit weight 171.25# 02/19 166.44# 15 173.31 02/21 171# IO Daily weight BNP 1048 Lasix 40mg IV ED 02/17 Lasix 40mg IV BID beginning 02/18-change to Lasix 40mg po daily beginning 02/20 At high risk for ARF-home dose has been Lasix 40mg MWF and 20mg TTSS. Has been drinking and not taking medications appropriately continues hypotensive -suspect r/t volume depletion, will hold Lasix 02/19 and begin Lasix 40mg po daily 02/20 Decrease Coreg to 3.125mg bid and monitor. Cardio note reviewed - await decision to continue coreg or change to metoprolol or Dig Bolus x 2 through night with NS 400-500cc for hypotension 02/19 ECHO 02/18 ECHO EF 60-65% mild tr-mild MR TR pulmonary HTN 02/22 wheezing continues, give Lasix 40mg IV this AM, Hold oral dose Lasix 40mg today. Renal function slightly weaker. hypotensive lasix held 02/21/17 and metoprolol held Hold metoprolol if SBP <110 AB with AECOPD duoneb/budesonide nebulizer mucinex 1200mg bid Levaquin 500mg IV daily begin 02/18 continue O2 2L and maintain Sat >90% Prednisone 40mg po and will order tapering at DC 02/20/16 cough improved Levaquin 250mg po x 3d at discharge 02/22, Decrease Prednisone to 30mg at discharge and taper at SNU Diabetes FSBS, SSI REsume Levemir 50units at hs does not follow ADA diet at home, continue cardiac diet BS 134-353 Add Novolog 5 unit tid ac +ssi in anticipation of steroids worsening BS ETOH withdrawal precautions THiamine 100mg po Ativan 0.5mg IV or po for aggitation/withdrawl no withdrawal symptoms 02/19 CKD II/hypomagnesia Admit BUN 14 02/22 35 Cr 1.3 1.6 Na 140 142 K 3.9 4.2 Mg 1.6 02/20 2.1 Mg 2gm IV ED 01/18 Hold Lasix 02/19 No acute renal failure, resetting baseline for diuresis CHF anemia Admit Hgb 12.8 02/22 11.0 resume B12 po abnormal LFTs secondary to ETOH Admit T Bili 1.1 D Bili 0.4 AST 45 hyperlipidemia lipids not controlled Lipitor 40mg daily -suspect non compliance with medication due to drinking weakness and debility PT OT eval and treat DVT/GI prophylaxis SCD/JEANNA For more details regarding the past history, family history, social history, surgical history and other details, please refer to History and Physical. Plan DC to SNU at [facility]. Please see discharge orders. Subjective cough better. short of breath slightly better.still weak. Objective no distress Vitals Vital Signs Date Time Temp Pulse Resp B/P (MAP) Pulse Ox O2 Delivery O2 Flow Rate FiO2 02/22/17 07:51 97 Nasal Cannula 2.0 02/22/17 07:20 97.7 62 20 115/62 (79) 97.7 Physical Exam General appearance - alert, chronically ill appearing, and in mild distress Mental Status - alert, oriented to person, place, and time, affect appropriate to mood Head - normal Chest - wheezing ant and post Heart - S1 and S2 normal Abdomen - soft, nontender, nondistended, no masses or organomegaly Neurological - no acute focal neurological deficit noted. Musculoskeletal - no muscular tenderness noted Extremities - +pedal edema Skin - warm and dry Medications Medications reviewed. Allergy Allergies Coded Allergies Type Severity Reaction Last Updated Verified rofecoxib Allergy Severe 09/14/16 Yes Follow up Admit to SNU [facility] facility Disposition: Group Home facility Comments Discharge Management - 35 minutes. For other details please refer to discharge instructions STEPAN MILTON MD 02/22/17 0931: IM DISCHARGE & PROGRESS NOTES Brief hospital course Brief hospital course slowly improving.Long/short term prognosis remains poor. The patient was seen and examined by me. Chart reviewed and plan of care formulated. Discussed with, reviewed and agree with MERCHANDISING COORDINATOR's notes, plan of care and orders with modifications as necessary. For more details regarding further plans, please refer to the orders. Discharge Management - 35 minutes. PINKY REES APRN Feb 22, 2017 08:43 STEPAN MILTON MD Feb 22, 2017 09:31
--- NOTE | 2017-02-22 08:51 | DISCH ---
DISCHARGE DISCHARGE DATE: Feb 22, 2017 FINAL DIAGNOSIS Problems Medical Problems: (1) Acute and chronic respiratory failure Status: Acute (2) Atrial fibrillation with RVR Status: Acute (3) Congestive heart failure Status: Acute CONDITION ON DISCHARGE: Stable SNF STAY <30 DAYS: Yes POST DISCHARGE ORDERS ACTIVITY ORDERS: Activity as tolerated WEIGHT BEARING STATUS: No restrictions DIET AFTER DISCHARGE: Cardiac (no concentrated sweets, no added salt ) CHECKS AFTER DISCHARGE CHECKS AFTER DISCHARGE: Check blood press - daily (VS per routine ), Check blood sugar, ac/hs, Weigh Yourself Daily (Daily weight CHF ) FOLLOW-UP PHYSICIAN FOLLOW-UP: Admit to facility LAB ORDERS FOR FOLLOW-UP: CBC with diff, CMP, Mg and pre albumin in am TREATMENT/EQUIPMENT ORDERS ADAPTIVE EQUIPMENT NEEDED: Walker RESPIRATORY EQUIPMENT NEEDED: Oxygen (2L NC continuous, titrate to maintain sat >90%), Nebulizer (QID ) PINKY REES APRN Feb 22, 2017 08:51
[2017-02-22] MEDS ORDERED: INSU100I17 SQ (08:56)
[2017-02-22] MEDS ORDERED: ASPI-612 PO (08:56)
[2017-02-22] MEDS ORDERED: LEVO250T25 PO (08:56)
[2017-02-22] MEDS ORDERED: POTA10TA12 PO (08:57)
[2017-02-22] MEDS ORDERED: PRED-220 PO (08:57)
[2017-02-22] MEDS ORDERED: METO25TA4 PO (08:57)
[2017-02-22] MEDS ORDERED: predniSONE 10 MG TABLET PO SCH (09:00)
[2017-02-22] MEDS: FUROSEMIDE 40 MG TABLET. PO SCH (09:00)
[2017-02-22] MEDS: FLUTICASONE 50MCG/NASAL SPRAY 16GM BOTTLE. NS SCH (09:00)
[2017-02-22] MEDS ORDERED: FUROSEMIDE 40 MG/4 ML VIAL. IVP ONE (09:30)
[2017-02-22] MEDS: THIAMINE 100 MG TABLET. PO SCH (09:44)
[2017-02-22] MEDS: PANTOPRAZOLE 40 MG TABLET.DR. PO SCH (09:44)
[2017-02-22] MEDS: ASPIRIN ENTERIC COATED 81 MG TABLET.DR. PO SCH (09:44)
[2017-02-22] MEDS: CHOLECALCIFEROL (VITAMIN D3) 5,000 UNIT CAPSULE PO SCH (09:44)
[2017-02-22] MEDS: POTASSIUM CHLORIDE 10 MEQ TABLET.ER. PO SCH (09:44)
[2017-02-22] MEDS: METOPROLOL TART IMMED RELEASE 25 MG TABLET. PO SCH (09:46)
[2017-02-22] MEDS: MAGNESIUM OXIDE 400 MG TABLET PO SCH (09:55)
[2017-02-22 11:00] VITALS: BP 106/55
== END 2017-02-22 15:20 | DRG 291 ==
LOC: ER 16:58 → 2 SOUTH 19:01
PROVIDERS: ADMIT Internal Medicine; ATTEND Internal Medicine
DX: I13.0 Hypertensive heart and chronic kidney disease with heart failure and stage 1 through stage 4 chronic kidney disease, or unspecified chronic kidney disease (principal); I50.33 Acute on chronic diastolic (congestive) heart failure; E43 Unspecified severe protein-calorie malnutrition; J96.21 Acute and chronic respiratory failure with hypoxia; I48.92 Unspecified atrial flutter; J44.0 Chronic obstructive pulmonary disease with (acute) lower respiratory infection; J44.1 Chronic obstructive pulmonary disease with (acute) exacerbation; N17.9 Acute kidney failure, unspecified; E03.9 Hypothyroidism, unspecified; D63.8 Anemia in other chronic diseases classified elsewhere; E11.22 Type 2 diabetes mellitus with diabetic chronic kidney disease; E78.5 Hyperlipidemia, unspecified; E83.42 Hypomagnesemia; E87.6 Hypokalemia; F10.10 Alcohol abuse, uncomplicated; F32.9 Major depressive disorder, single episode, unspecified; I48.2 Chronic atrial fibrillation; J20.9 Acute bronchitis, unspecified; K21.9 Gastro-esophageal reflux disease without esophagitis; N18.2 Chronic kidney disease, stage 2 (mild); J84.10 Pulmonary fibrosis, unspecified; E53.8 Deficiency of other specified B group vitamins; I49.5 Sick sinus syndrome; K59.00 Constipation, unspecified; M19.90 Unspecified osteoarthritis, unspecified site; I95.9 Hypotension, unspecified; Z79.4 Long term (current) use of insulin; Z68.26 Body mass index [BMI] 26.0-26.9, adult; Z82.49 Family history of ischemic heart disease and other diseases of the circulatory system; Z91.19 Patient's noncompliance with other medical treatment and regimen; Z88.8 Allergy status to other drugs, medicaments and biological substances; Z95.0 Presence of cardiac pacemaker
CPT/HCPCS: 36415; 71010; 80048; 80053; 80061; 80076; 81001; 82553; 82962; 83690; 83735; 83880; 84443; 84484; 85027; 85610; 87086; 93005; 93306; 94250; 94640; 94760; A6539; G0481; J1815; J1940; J1956; J7060; J7512; J7620; J7626; 97110; 97116; 97530; 99285-25

== ENCOUNTER 2017-04-22 01:11 | Inpatient (IN) | payer MEDICARE ==
[~2017-04-22] VITALS: Ht 175.3 cm; Wt 82.3 kg
[~2017-04-22 01:11] MED LIST changes: +AMOX1TAB61 PO; +ASPI-612 PO; +ENOX40DI3 SQ; +LEVO250T25 PO; +MAGN400C PO; +METO25TA4 PO; +MONT10TA9 PO; +POLY17PO29 PO; +POTA10TA12 PO; +PROAIR HFA8.5 GM INH; +THIA100T8 PO
[2017-04-22] MEDS ORDERED: OXYMETAZOLINE 0.05% NASAL SPRAY 30ML BOTTLE. NS ONE (02:00)
[2017-04-22] MEDS ORDERED: IV NORMAL SALINE 500ML BAG 500 ML IV ONE (02:00)
[2017-04-22 02:11] LABS: BASO # 0.1 x10^3/uL (0.0-0.2); BASO % 1 % (0-3); EOS % 7 % (0-3); HEMATOCRIT 27.9 % (39.0-53.0); HEMOGLOBIN 9.1 g/dL (13.0-17.5); LYMPH # 3.5 x10^3/uL (1.0-4.8); LYMPH % 32 % (24-48); MEAN CORPUSCULAR HEMOGLOBIN 31 pg (25-35); MEAN CORPUSCULAR HGB CONC 33 g/dL (31-37); MEAN CORPUSCULAR VOLUME 95 fL (79-100); MONO % 9 % (0-9); NEUT % 52 % (31-73); PLATELET COUNT 351 x10^3/uL (140-400); RED BLOOD COUNT 2.94 x10^6/uL (4.30-5.70); RED CELL DISTRIBUTION WIDTH 16.1 % (11.5-14.5)
[2017-04-22 02:25] LABS: CALCIUM 8.9 mg/dL (8.5-10.1); CREATININE 1.7 mg/dL (0.7-1.3); GFR 38.2; INR 2.3 (0.8-1.1); POTASSIUM 4.2 mmol/L (3.5-5.1); PROTHROMBIN TIME PATIENT 23.9 SEC (11.7-14.0)
[2017-04-22 02:31] LABS: ALBUMIN 2.6 g/dL (3.4-5.0); DIRECT BILIRUBIN 0.2 mg/dL (0.0-0.2); TOTAL BILIRUBIN 0.5 mg/dL (0.2-1.0)
--- NOTE | 2017-04-22 02:54 | ED.ADGEN ---
Past Medical History Past Medical History: COPD, Diabetes-Type I, GERD, High Cholesterol, Hypertension, Other Additional Past Medical Histor: HOME 02; silicosis; prior afib (not an anticoagulation candidate);elev TSH Past Surgical History: Other Additional Past Surgical Histo: hernia with mesh Alcohol Use: Occasionally Drug Use: None Adult General Chief Complaint Chief Complaint: HYPOTENSION HPI HPI Patient is a 87 year old man, history of type 2 diabetes mellitus, COPD with history of silicosis, on 2 L nasal cannula oxygen at all times, hypertension, atrial fibrillation on Xarelto, who presents emergency department via EMS from his nursing facility with report of epistaxis from the left Currie intermittently over the past several hours, and hypotension. Per nursing facility report given to nursing staff in the ED, patient was first noted to have epistaxis around 5 or 6 hours prior to arrival in the ED. Patient initially declined transportation. Epistaxis appears to be coming from the left Currie, currently, there is no bleeding. Patient noted be hypotensive per EMS report, 80s over 50s , heart rate is in the 80s, patient does take metoprolol. Patient denies any complaints at this time, states that he has nosebleeds from time to time, no chest pain, shortness breath, no evidence or dizziness, no cough or congestion, no nausea or vomiting, no weakness, numbness or tingling. Denies headache, or injury injury, sore throat, rhinorrhea, nasal congestion or other preceding symptoms. Patient is on non-humidified oxygen. Initial blood pressure is 83/53. Review of Systems Review of Systems Constitutional: Denies fever or chills. [] Eyes: Denies change in visual acuity. [] HENT: Denies nasal congestion or sore throat. [] Respiratory: Denies cough or shortness of breath. Epistaxis. Cardiovascular: Denies chest pain or edema. [] GI: Denies abdominal pain, nausea, vomiting, bloody stools or diarrhea. [] : Denies dysuria. [] Musculoskeletal: Denies back pain or joint pain. [] Integument: Denies rash. [] Neurologic: Denies headache, focal weakness or sensory changes. [] Endocrine: Denies polyuria or polydipsia. [] Lymphatic: Denies swollen glands. [] Psychiatric: Denies depression or anxiety. [] Current Medications Current Medications Current Medications Medications (Trade) Dose Ordered Sig/Marilu Start Time Stop Time Status Last Admin Dose Admin Acetaminophen (Tylenol) 650 mg PRN Q4HRS PRN 04/22/17 03:15 04/23/17 03:14 UNV Dextrose (Dextrose 50%-Water Syringe) 12.5 gm PRN Q15MIN PRN 04/22/17 03:15 UNV Insulin Aspart (NovoLOG) 0-5 UNITS TIDWMEALS 04/22/17 08:00 UNV Ondansetron HCl (Zofran) 4 mg PRN Q8HRS PRN 04/22/17 03:15 04/23/17 03:14 UNV Oxymetazoline HCl (Afrin) 2 spray 1X ONCE 04/22/17 02:00 04/22/17 02:01 DC 04/22/17 01:59 2 SPRAY Sodium Chloride 500 ml @ 500 mls/hr 1X ONCE 04/22/17 02:00 04/22/17 02:59 DC 04/22/17 02:03 500 MLS/HR Allergies Allergies Allergies Coded Allergies Type Severity Reaction Last Updated Verified rofecoxib Allergy Severe 09/14/16 Yes Physical Exam Physical Exam Constitutional: Well developed, well nourished, no acute distress, non-toxic appearance. Dried blood noted in left Currie. Nasal cannula in place. HENT: Normocephalic, atraumatic, bilateral external ears normal, oropharynx moist, no oral exudates, external nose normal. Patient noted to have blood clots in the left Currie, area cleared, with application of Afrin, patient noted to have irritation of the anterior frontal mucosa, without evidence of denuded vessels or acute bleeding. Right naris unremarkable. Patient has no blood in the oropharynx evidence of posterior bleeding. Eyes: PERRLA, EOMI, conjunctiva pale, no discharge. [] Neck: Normal range of motion, no tenderness, supple, no stridor. [] Cardiovascular:Heart rate regular rhythm, soft heart sounds, S1, S2, no murmurs , rubs or gallops.[] Lungs & Thorax: Patient with rales noted at bases to midlung cervantes bilaterally , no wheezing, no rhonchi. No chest wall crepitus or tenderness.[] Abdomen: Bowel sounds normal, soft, no tenderness, no rebound, rigidity, no guarding, no masses, no pulsatile masses. [] Skin: Warm, dry, no erythema, no rash. [] Back: No tenderness, no CVA tenderness. [] Extremities: No tenderness, no cyanosis, no clubbing, ROM intact, no edema. Negative Homans sign. [] Neurologic: Alert and oriented X 3, normal motor function, normal sensory function, no focal deficits noted. [] Psychologic: Affect normal, judgement normal, mood normal. [] Current Patient Data Vital Signs Vital Signs Date Time Temp Pulse Resp B/P (MAP) Pulse Ox O2 Delivery O2 Flow Rate FiO2 04/22/17 02:17 64 16 98/55 (69) 96 Nasal Cannula 2.0 04/22/17 01:12 98.4 98.4 Lab Values Laboratory Tests Test 04/22/17 01:17 White Blood Count 11.0 x10^3/uL (4.0-11.0) Red Blood Count 2.94 x10^6/uL (4.30-5.70) L Hemoglobin 9.1 g/dL (13.0-17.5) L Hematocrit 27.9 % (39.0-53.0) L Mean Corpuscular Volume 95 fL (79-100) Mean Corpuscular Hemoglobin 31 pg (25-35) Mean Corpuscular Hemoglobin Concent 33 g/dL (31-37) Red Cell Distribution Width 16.1 % (11.5-14.5) H Platelet Count 351 x10^3/uL (140-400) # Neutrophils (%) (Auto) 52 % (31-73) Lymphocytes (%) (Auto) 32 % (24-48) Monocytes (%) (Auto) 9 % (0-9) Eosinophils (%) (Auto) 7 % (0-3) H Basophils (%) (Auto) 1 % (0-3) Neutrophils # (Auto) 5.7 x10^3uL (1.8-7.7) Lymphocytes # (Auto) 3.5 x10^3/uL (1.0-4.8) Monocytes # (Auto) 1.0 x10^3/uL (0.0-1.1) Eosinophils # (Auto) 0.7 x10^3/uL (0.0-0.7) Basophils # (Auto) 0.1 x10^3/uL (0.0-0.2) Prothrombin Time 23.9 SEC (11.7-14.0) H Prothrombin Time INR 2.3 (0.8-1.1) H Sodium Level 144 mmol/L (136-145) Potassium Level 4.2 mmol/L (3.5-5.1) Chloride Level 105 mmol/L (98-107) Carbon Dioxide Level 33 mmol/L (21-32) H Anion Gap 6 (6-14) Blood Urea Nitrogen 25 mg/dL (8-26) Creatinine 1.7 mg/dL (0.7-1.3) H Estimated GFR (Cockcroft-Gault) 38.2 Glucose Level 90 mg/dL (70-99) Calcium Level 8.9 mg/dL (8.5-10.1) Total Bilirubin 0.5 mg/dL (0.2-1.0) Direct Bilirubin 0.2 mg/dL (0.0-0.2) Aspartate Amino Transferase (AST) 22 U/L (15-37) Alanine Aminotransferase (ALT) 18 U/L (16-63) Alkaline Phosphatase 83 U/L (46-116) Troponin I Quantitative < 0.017 ng/mL (0.000-0.055) CD-Dxs-A-Type Natriuretic Peptide 479 pg/mL (0-449) H Total Protein 6.0 g/dL (6.4-8.2) L Albumin 2.6 g/dL (3.4-5.0) L Laboratory Tests 04/22/17 01:17 Laboratory Tests 04/22/17 01:17 EKG EKG EC: Sinus rhythm, heart rate 69 beats/minute, left axis deviation, QTC of 441, SD 172, QRS of 82, patient with contour normality is noted in the inferior and anterior leads, with Q waves noted in lead 3 and aVF consistent with likely previous infarct, no ST elevations or depressions, patient with mild baseline artifact noted. Abnormal ECG, does not meet STEMI criteria. As interpreted by me.[] Radiology/Procedures Radiology/Procedures Chest x-ray: One view: Patient with cardiomegaly noted, with pulmonary edema, suboptimal inspiratory effort noted. No pneumothorax, no effusions, no infiltrates, no soft tissue or bony abnormalities identified. As interpreted by me.[] Course & Med Decision Making Course & Med Decision Making Pertinent Labs and Imaging studies reviewed. (See chart for details) Unclear amount of bleeding the patient may experience, stated that did occur over a period of time, patient has no active bleeding in the emergency department. Thorough evaluation of the left Currie, the source of bleeding, patient noted to have irritation in the anterior portion, although there is no active bleeding at this time, right Currie is unremarkable, no evidence of posterior bleeding, this is consistent with an anterior left-sided epistaxis. Afrin applied as stated, patient was placed on humidified oxygen in the ED. Hypotension as stated, initial blood pressure of 8353, patient received a 500 mL normal saline bolus, blood pressures than low 100s over 60s, heart rate remains in the 80s, patient denying any complaints. Laboratory studies obtained reveal a hemoglobin of 9.1, last hemoglobin on 03/19/2017 was 11.6. Platelet count 351, which is slightly elevated for patient from prior. Patient with a negative troponin, other electrolytes within normal limits, noted to have an INR of 2.3, patient is reportedly on Xarelto. Pulmonary edema noted on chest x- ray, patient's oxygen saturation between 88-93% on his baseline 2 L, patient was bumped up in the ED as desaturation at occur with sleep. Patient resting comfortably with no further bleeding, after 2 hours of observation the emergency department, blood pressure is now 111/59, heart rate remains in the 80s, patient remains asymptomatic and resting comfortably. I did discuss findings as above with Dr. Plummer, on-call for Dr. Wharton, the patient's primary care provider. He is agreeable to accepting the patient for admission to the telemetry floor, for continued observation and monitoring. Requested cardiology be consult interpreted as there are no indications for additional interventions or specialty services with ENT at this time based the patient's evaluation and ED course. Noted that the patient's INR is 2.3, as reported the patient is on Xarelto, and previous INR was 1.1. Bridge orders entered per discussion, including repeat CBC, serial troponins, and cardiology consultation. Dragon Disclaimer Dragon Disclaimer This electronic medical record was generated, in whole or in part, using a voice recognition dictation system. Departure Impression: Primary Impression: Anterior epistaxis Additional Impressions: Acute exacerbation of congestive heart failure Hypotension Anemia Disposition: 09 ADMITTED INPATIENT Admitting Physician: Dragan Wharton Condition: IMPROVED Problem Qualifiers DICK BYRD DO Apr 22, 2017 02:54
[2017-04-22] MEDS ORDERED: ACETAMINOPHEN 325 MG TABLET. PO PRN ×2 (03:15→08:30)
[2017-04-22] MEDS ORDERED: DEXTROSE 50% 25 GM / 50ML DISP.SYRIN. IV PRN (03:15)
[2017-04-22] MEDS ORDERED: ONDANSETRON PF 4 MG/2 ML VIAL. IV PRN ×2 (03:15→08:30)
[2017-04-22 04:02] VITALS: BP 107/52
[2017-04-22] MEDS ORDERED: RIVA20TA2 PO (04:51)
--- NOTE | 2017-04-22 06:50 | EKG ---
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
[2017-04-22 07:00] VITALS: BP 129/61
--- NOTE | 2017-04-22 07:24 | RAD ---
Indication shortness of air. A single view of the chest was obtained and is compared to an examination 03/16/2017. Heart size is unchanged. There are probable background changes of fibrosis. There is perhaps mild pulmonary vascular congestion. There is no consolidated pneumonia. Significant pleural fluid is not seen and there is no pneumothorax. Degenerative changes about the shoulders are noted. IMPRESSION:: Stable mild enlargement of the cardiac silhouette. 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 Mild superimposed pulmonary vascular congestion is not excluded. No consolidated pneumonia seen
[2017-04-22] MEDS: INSULIN ASPART 300 UNITS/3 ML INSULN.PEN SQ SCH ×2 (08:00→12:00)
[2017-04-22] MEDS ORDERED: POLYETHYLENE GLYCOL 3350 17 GM PACKET. PO PRN (08:30)
[2017-04-22] MEDS ORDERED: traMADol 50 MG TABLET PO PRN (08:30)
[2017-04-22] MEDS ORDERED: ALBUTEROL SULFATE 2.5 MG/3 ML NEBU. NEB PRN (08:30)
--- NOTE | 2017-04-22 08:59 | PDOC1 ---
PINKY REES MAXILLOFACIAL PROSTHETICS DENTIST 04/22/17 0859: HISTORY AND PHYSICAL Chief Complaint Chief Complaint This 87 year old male has been admitted with a chief complaint of nose bleed. He reports developed nose bleed intermittently yesterday. The nurses at the SNU became concerned and transported him to ED for evaluation. The ER physician examined the L nare and a source of bleeding could not be identified. A CXR revealed pulmonary edema with BNP 479. He was slightly hypoxic (underlying chronic respiratory failure chronic O2 2L) with Sats 88-90% on arrival and this has resolved since admission. Hypotension was also present and he recieved at 500cc fluid bolus. He receives lasix 20mg MWF and 40mg TTSS along with metoprolol tart 12.5mg bid. There is history of AF and chronic xarelto. The INR in the ED was elevated at 2.4 with APTT 59. He is admitted to the [facility] for ongoing evaluation and treatment. 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 Endocrine: Diabetes (Type II insulin CKD II ) Past Surgical History Past Surgical History: Arthroscopy (R shoulder), Cataract Removal, Hernia Repair, Other (L RTC repair ) Past Family History Family History: Coronary Artery Disease, Diabetes, Hypertension Past Social History PSH current SNU at [facility]. + h/o tobacco, ETOH. Neg illicit drug use. Review of Symptoms Review of Symptoms A 14 point ROS was completed with the following noted as positive: per HPI Other systems reviewed and negative. Medications Medications reviewed and reconciled for admission Allergy Allergies Coded Allergies Type Severity Reaction Last Updated Verified rofecoxib Allergy Severe 09/14/16 Yes Physical Exam Physical Exam General appearance - alert, chronically appearing, and in no distress Mental Status - alert, oriented to person, place, and time, affect appropriate to mood Head - normal Chest - clear to auscultation, no wheezes, crackles bilateral lower lobes chronic Heart - S1 and S2 normal Abdomen - soft, nontender, nondistended, BS+ Neurological - no acute focal neurological deficit noted Musculoskeletal - no muscular tenderness noted Extremities - no pedal edema Skin - warm and dry VTE Prophylaxis Ordered VTE Prophylaxis Devices: Yes VTE Pharmacological Prophylaxi: No Assessment Labs Laboratory Tests Test 04/22/17 01:17 White Blood Count 11.0 x10^3/uL (4.0-11.0) Red Blood Count 2.94 x10^6/uL (4.30-5.70) Hemoglobin 9.1 g/dL (13.0-17.5) Hematocrit 27.9 % (39.0-53.0) Mean Corpuscular Volume 95 fL (79-100) Mean Corpuscular Hemoglobin 31 pg (25-35) Mean Corpuscular Hemoglobin Concent 33 g/dL (31-37) Red Cell Distribution Width 16.1 % (11.5-14.5) Platelet Count 351 x10^3/uL (140-400) Neutrophils (%) (Auto) 52 % (31-73) Lymphocytes (%) (Auto) 32 % (24-48) Monocytes (%) (Auto) 9 % (0-9) Eosinophils (%) (Auto) 7 % (0-3) Basophils (%) (Auto) 1 % (0-3) Neutrophils # (Auto) 5.7 x10^3uL (1.8-7.7) Lymphocytes # (Auto) 3.5 x10^3/uL (1.0-4.8) Monocytes # (Auto) 1.0 x10^3/uL (0.0-1.1) Eosinophils # (Auto) 0.7 x10^3/uL (0.0-0.7) Basophils # (Auto) 0.1 x10^3/uL (0.0-0.2) Prothrombin Time 23.9 SEC (11.7-14.0) Prothromb Time International Ratio 2.3 (0.8-1.1) Activated Partial Thromboplast Time 59 SEC (24-38) Sodium Level 144 mmol/L (136-145) Potassium Level 4.2 mmol/L (3.5-5.1) Chloride Level 105 mmol/L (98-107) Carbon Dioxide Level 33 mmol/L (21-32) Anion Gap 6 (6-14) Blood Urea Nitrogen 25 mg/dL (8-26) Creatinine 1.7 mg/dL (0.7-1.3) Estimated GFR (Cockcroft-Gault) 38.2 Glucose Level 90 mg/dL (70-99) Calcium Level 8.9 mg/dL (8.5-10.1) Total Bilirubin 0.5 mg/dL (0.2-1.0) Direct Bilirubin 0.2 mg/dL (0.0-0.2) Aspartate Amino Transf (AST/SGOT) 22 U/L (15-37) Alanine Aminotransferase (ALT/SGPT) 18 U/L (16-63) Alkaline Phosphatase 83 U/L (46-116) Troponin I Quantitative < 0.017 ng/mL (0.000-0.055) XT-Oyl-F-Type Natriuretic Peptide 479 pg/mL (0-449) Total Protein 6.0 g/dL (6.4-8.2) Albumin 2.6 g/dL (3.4-5.0) Laboratory Tests Test 04/22/17 01:17 White Blood Count 11.0 x10^3/uL (4.0-11.0) Red Blood Count 2.94 x10^6/uL (4.30-5.70) Hemoglobin 9.1 g/dL (13.0-17.5) Hematocrit 27.9 % (39.0-53.0) Mean Corpuscular Volume 95 fL (79-100) Mean Corpuscular Hemoglobin 31 pg (25-35) Mean Corpuscular Hemoglobin Concent 33 g/dL (31-37) Red Cell Distribution Width 16.1 % (11.5-14.5) Platelet Count 351 x10^3/uL (140-400) Neutrophils (%) (Auto) 52 % (31-73) Lymphocytes (%) (Auto) 32 % (24-48) Monocytes (%) (Auto) 9 % (0-9) Eosinophils (%) (Auto) 7 % (0-3) Basophils (%) (Auto) 1 % (0-3) Neutrophils # (Auto) 5.7 x10^3uL (1.8-7.7) Lymphocytes # (Auto) 3.5 x10^3/uL (1.0-4.8) Monocytes # (Auto) 1.0 x10^3/uL (0.0-1.1) Eosinophils # (Auto) 0.7 x10^3/uL (0.0-0.7) Basophils # (Auto) 0.1 x10^3/uL (0.0-0.2) Prothrombin Time 23.9 SEC (11.7-14.0) Prothromb Time International Ratio 2.3 (0.8-1.1) Activated Partial Thromboplast Time 59 SEC (24-38) Sodium Level 144 mmol/L (136-145) Potassium Level 4.2 mmol/L (3.5-5.1) Chloride Level 105 mmol/L (98-107) Carbon Dioxide Level 33 mmol/L (21-32) Anion Gap 6 (6-14) Blood Urea Nitrogen 25 mg/dL (8-26) Creatinine 1.7 mg/dL (0.7-1.3) Estimated GFR (Cockcroft-Gault) 38.2 Glucose Level 90 mg/dL (70-99) Calcium Level 8.9 mg/dL (8.5-10.1) Total Bilirubin 0.5 mg/dL (0.2-1.0) Direct Bilirubin 0.2 mg/dL (0.0-0.2) Aspartate Amino Transf (AST/SGOT) 22 U/L (15-37) Alanine Aminotransferase (ALT/SGPT) 18 U/L (16-63) Alkaline Phosphatase 83 U/L (46-116) Troponin I Quantitative < 0.017 ng/mL (0.000-0.055) ZO-Lpo-B-Type Natriuretic Peptide 479 pg/mL (0-449) Total Protein 6.0 g/dL (6.4-8.2) Albumin 2.6 g/dL (3.4-5.0) Plan Plan IMPRESSION: 1. Epistaxis 2. Hypotension with underlying HTN 3. A/C diastolic CHF with pulmonary edema per CXR 04/22 4. coagulopathy on xarelto for AF 5. 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 Chronic respiratory failure with pulmonary fibrosis.Interstitial lung disease secondary to fibrosis with chronic O2 2L . 7. Benign prostatic hypertrophy. 8. Moderate protein calorie malnutrition 9. COPD with exacerbation 10. h/o AF Xarelto 11. chronic respiratory failure with COPD, ILD, silicosis underlying O2 dependent 12. anemia chronic disease B12 13. hyperlipidemia 14. moderate weakness and debility with mobility deficits 15. depression 16. h/o ETOH abuse 17. GERD 18. chronic back pain LS PLAN: Epistaxis eval in ED, visualization neg for source bleed anemia stable xarelto on hold, ASA continues Hypotension with underlying HTN fluid bolus ED 500cc chronic diuretics Metoprolol tartrate 12.5mg bid-parameter added to hold SBP <110 A/C diastolic CHF with pulmonary edema per CXR 04/22 IO Daily wt Admit wt 181.44 Lasix 20mg MWF alt 40mg TTSS-hold SBP <110 CXR pulmonary edema EKG negative acute changes Troponin negative coagulopathy on xarelto for AF xarelto on hold INR 2.4 on admit h/o alcoholism-?liver disease INR daily DM II FSBS/SSI Novolog 10u tid ac/levemir 60u daily chronic respiratory failure O2 sat 88-93%, increased short time in ED Sats stablized mid 90s resume nebulizer treatments AF rate controlled anticoagulation with xarelto-INR 2.4 on admit-Hold DVT/GI SCD/Terrance PPI For more details regarding further plans, please refer to the orders. STEPAN MILTON MD 04/22/17 0950: HISTORY AND PHYSICAL Plan Plan No epistaxis.BP better.Tends to run low. Clinically stable. Ok to discharge. Hold Xarelto and ASA for 3 days.Restart Xarelto at a lower dose of 15 mg daily. Nasal saline spray 2 sprays in each nostril 4 times /day. The patient was seen and examined by me. Chart reviewed and plan of care formulated. Discussed with, reviewed and agree with PAINTER ROUGH's notes, plan of care and orders with modifications as necessary. For more details regarding further plans, please refer to the orders. PINKY REES APRN Apr 22, 2017 08:59 STEPAN MILTON MD Apr 22, 2017 09:50
[2017-04-22] MEDS ORDERED: FUROSEMIDE 20 MG TABLET PO SCH (09:00)
[2017-04-22] MEDS ORDERED: PANTOPRAZOLE 40 MG TABLET.DR. PO SCH (09:00)
[2017-04-22] MEDS ORDERED: ASPIRIN ENTERIC COATED 81 MG TABLET.DR. PO SCH (09:00)
[2017-04-22] MEDS ORDERED: THIAMINE 100 MG TABLET. PO SCH (09:00)
[2017-04-22] MEDS ORDERED: POTASSIUM CHLORIDE 10 MEQ TABLET.ER. PO SCH (09:00)
[2017-04-22] MEDS ORDERED: METOPROLOL TART IMMED RELEASE 25 MG TABLET. PO SCH (09:00)
[2017-04-22] MEDS ORDERED: CHOLECALCIFEROL (VITAMIN D3) 1,000 UNIT TABLET PO SCH (09:00)
[2017-04-22] MEDS ORDERED: CYANOCOBALAMIN (VITAMIN B-12) 1,000 MCG TABLET. PO SCH (09:00)
[2017-04-22] MEDS ORDERED: MAGNESIUM OXIDE 400 MG TABLET PO SCH (09:00)
--- NOTE | 2017-04-22 09:35 | DISCH ---
DISCHARGE FINAL DIAGNOSIS Problems Medical Problems: (1) Acute exacerbation of congestive heart failure Status: Acute (2) Anemia Status: Acute (3) Anterior epistaxis Status: Acute (4) Hypotension Status: Acute CONDITION ON DISCHARGE: Stable SNF STAY <30 DAYS: Yes POST DISCHARGE ORDERS ACTIVITY ORDERS: Resume previous activity, Activity as tolerated WEIGHT BEARING STATUS: No restrictions BATHING ORDERS: No Tub Bath until see DIET AFTER DISCHARGE: ADA (Cardiac) OTHER ORDERS: PT/OT CHECKS AFTER DISCHARGE CHECKS AFTER DISCHARGE: Check blood sugar, ac/hs, Weigh Yourself Daily FOLLOW-UP PHYSICIAN FOLLOW-UP: Facility physician LAB ORDERS FOR FOLLOW-UP: CBC with diff, CMP, Mg,PT/INR in am TREATMENT/EQUIPMENT ORDERS ADAPTIVE EQUIPMENT NEEDED: Walker RESPIRATORY EQUIPMENT NEEDED: Oxygen (2 lit/min) STEPAN MILTON MD Apr 22, 2017 09:35
[2017-04-22 11:00] VITALS: BP 134/64
[2017-04-22] MEDS: IPRATRPIUM/ALBUTEROL 0.5/2.5MG 3 ML NEBU. NEB SCH ×2 (11:22→15:10)
[2017-04-22] MEDS ORDERED: INSULIN ASPART 300 UNITS/3 ML INSULN.PEN SQ SCH (11:30)
--- NOTE | 2017-04-22 11:43 | PDOC2 ---
CARDIAC CONSULT DATE OF CONSULT Date of Consult DATE: 04/22/17 TIME: 11:17 REASON FOR CONSULT Reason for Consult: CHF Hypotension REFERRING PHYSICIAN Referring Physician: Dr. Andersen SOURCE Source: Chart review, Patient HISTORY OF PRESENT ILLNESS HISTORY OF PRESENT ILLNESS This is an 87 yo male who presented from [facility] secondary to nosebleed. Was noted to be hypotensive and BNP mildly elevated (479) upon arrival, which prompted this consult. Received at 500cc fluid bolus. Patient denies any shortness of breath, chest pain, palpitations, dizziness, diaphoresis, syncope, or nausea/vomiting. PAST MEDICAL HISTORY Past Medical History Cardiovascular: AFIB (chronic ), CHF, HTN, Hyperlipidemia Pulmonary: COPD (chronic O2) GI: GERD Heme/Onc: Anemia NOS Psych: Addictions (ETOH) Musculoskeletal: Osteoarthritis Renal/: Chronic renal insuff, Benign prostatic enlarg. Endocrine: Diabetes PAST SURGICAL HISTORY Past Surgical History: Hernia Repair FAMILY HISTORY Family History Coronary Artery Disease, Heart Disease SOCIAL HISTORY Social History Smoke: No (smokeless tobacco) ALCOHOL: history of heavy use reportedly has not drank since discharge from hospital 02/22/17 ) Lives: with Family CURRENT MEDICATIONS CURRENT MEDICATIONS Current Medications Medications (Trade) Dose Ordered Sig/Marilu Route PRN Reason Start Time Stop Time Status Last Admin Dose Admin Oxymetazoline HCl (Afrin) 2 spray 1X ONCE NS 04/22/17 02:00 04/22/17 02:01 DC 04/22/17 01:59 Sodium Chloride 500 ml @ 500 mls/hr 1X ONCE IV 04/22/17 02:00 04/22/17 02:59 DC 04/22/17 02:03 Aspirin (Ecotrin) 81 mg DAILYWBKFT PO 04/22/17 09:00 04/22/17 08:59 Furosemide (Lasix) 40 mg QTUTHSASU@0900 PO 04/22/17 09:00 04/22/17 08:59 Metoprolol Tartrate (Lopressor) 12.5 mg BID PO 04/22/17 09:00 04/22/17 09:00 Pantoprazole Sodium (Protonix) 40 mg DAILYAC PO 04/22/17 09:00 04/22/17 09:01 Potassium Chloride (Klor-Con) 20 meq BIDWMEALS PO 04/22/17 09:00 04/22/17 08:59 Vitamin D (Vitamin D3) 2,000 unit DAILY PO 04/22/17 09:00 04/22/17 09:01 Cyanocobalamin (Vitamin B-12) 1,000 mcg DAILY PO 04/22/17 09:00 04/22/17 09:00 Magnesium Oxide (Magnesium Oxide) 400 mg BID PO 04/22/17 09:00 04/22/17 08:59 Thiamine Mononitrate (Vitamin B-1) 100 mg DAILY PO 04/22/17 09:00 04/22/17 09:00 ALLERGIES ALLERGIES: Coded Allergies: rofecoxib (Verified Allergy, Severe, 09/14/16) ROS Review of System 14 point ROS conducted with pertinent positives noted above in HPI. PHYSICAL EXAM PHYSICAL EXAM General: Alert, Oriented X3, Cooperative HEENT: Atraumatic, Mucous membr. moist/pink Lungs: Other (diminished bases) Heart: Normal S1, Normal S2, Other (IRRR: tele AFIB with controlled rate) Abdomen: Soft, No tenderness Extremities: Normal pulses, Other (1+ bilateral LE edema ) Skin: No significant lesion Neuro: Normal speech, Sensation intact Psych/Mental Status: Mental status NL, Mood NL MUSCULOSKELETAL: Osteoarthritic changes both hands VITALS VITALS Vital Signs Date Time Temp Pulse Resp B/P (MAP) Pulse Ox O2 Delivery O2 Flow Rate FiO2 04/22/17 09:00 70 107/52 04/22/17 04:02 97.5 20 94 Nasal Cannula 2.0 97.5 LABS Lab: Laboratory Tests Test 04/22/17 01:17 04/22/17 08:05 04/22/17 08:19 White Blood Count 11.0 x10^3/uL (4.0-11.0) Red Blood Count 2.94 x10^6/uL (4.30-5.70) Hemoglobin 9.1 g/dL (13.0-17.5) Hematocrit 27.9 % (39.0-53.0) Mean Corpuscular Volume 95 fL (79-100) Mean Corpuscular Hemoglobin 31 pg (25-35) Mean Corpuscular Hemoglobin Concent 33 g/dL (31-37) Red Cell Distribution Width 16.1 % (11.5-14.5) Platelet Count 351 x10^3/uL (140-400) Neutrophils (%) (Auto) 52 % (31-73) Lymphocytes (%) (Auto) 32 % (24-48) Monocytes (%) (Auto) 9 % (0-9) Eosinophils (%) (Auto) 7 % (0-3) Basophils (%) (Auto) 1 % (0-3) Neutrophils # (Auto) 5.7 x10^3uL (1.8-7.7) Lymphocytes # (Auto) 3.5 x10^3/uL (1.0-4.8) Monocytes # (Auto) 1.0 x10^3/uL (0.0-1.1) Eosinophils # (Auto) 0.7 x10^3/uL (0.0-0.7) Basophils # (Auto) 0.1 x10^3/uL (0.0-0.2) Prothrombin Time 23.9 SEC (11.7-14.0) Prothromb Time International Ratio 2.3 (0.8-1.1) Activated Partial Thromboplast Time 59 SEC (24-38) Sodium Level 144 mmol/L (136-145) Potassium Level 4.2 mmol/L (3.5-5.1) Chloride Level 105 mmol/L (98-107) Carbon Dioxide Level 33 mmol/L (21-32) Anion Gap 6 (6-14) Blood Urea Nitrogen 25 mg/dL (8-26) Creatinine 1.7 mg/dL (0.7-1.3) Estimated GFR (Cockcroft-Gault) 38.2 Glucose Level 90 mg/dL (70-99) Calcium Level 8.9 mg/dL (8.5-10.1) Total Bilirubin 0.5 mg/dL (0.2-1.0) Direct Bilirubin 0.2 mg/dL (0.0-0.2) Aspartate Amino Transf (AST/SGOT) 22 U/L (15-37) Alanine Aminotransferase (ALT/SGPT) 18 U/L (16-63) Alkaline Phosphatase 83 U/L (46-116) Troponin I Quantitative < 0.017 ng/mL (0.000-0.055) < 0.017 ng/mL (0.000-0.055) VX-Zso-F-Type Natriuretic Peptide 479 pg/mL (0-449) Total Protein 6.0 g/dL (6.4-8.2) Albumin 2.6 g/dL (3.4-5.0) Glucose (Fingerstick) 102 mg/dL (70-99) ECHOCARDIOGRAM ECHOCARDIOGRAM <Conclusion> Technically difficult study. The left ventricle is normal size. Left ventricle systolic function is normal. The Ejection Fraction is 60-65%. Calculated aortic valve area is 1.7 cm2 with maximum pressure gradient of 10 mmHg and mean pressure gradient of 6 mmHg. There is mild valvular aortic stenosis. Doppler and Color Flow revealed no significant aortic regurgitation. Doppler and Color Flow revealed trace to mild mitral regurgitation. Doppler and Color Flow revealed trace to mild tricuspid regurgitation. The PA pressure was estimated at 30 mmHg. DATE: 02/18/17 1729 STRESS TEST STRESS TEST Conclusion 1. No evidence of EKG changes with stress testing. 2. Normal perfusion at stress/rest. 3. Low risk study. 4. EF > 60%. DATE: 03/18/17 1158 ASSESSMENT/PLAN ASSESSMENT/PLAN 1. Epistaxis; resolved. on Xarelto and ASA at home. INR 2.3 2. Mild acute on chronic diastolic HF; LVEF 60-65% per recent echo. CXR with possible vascular congestion. BNP mildly elevated but insignificant based upon age adjustment. Continue oral diuresis/optimization therapy. 3. Hypotension with h/o hypertension; improved. Hold antiHTN therapy as warranted 4. Permanent AFIB; rate controlled. Holding Xarelto. ASA continued. 5. Mild ; Calculated valve area is 1.7 cm2 with maximum pressure gradient of 10 mmHg and mean pressure gradient of 6 mmHg. 6. Hyperlipidemia; LDL 141 statin therapy 7. CKD; stable 8. Diabetes; per PCP 9. Hypothyroidism: on replacement therapy 10. H/o alcoholism- INR 2.3 ? liver disease Problems: LORNA AMIN APRN Apr 22, 2017 11:43
[2017-04-22] MEDS ORDERED: MONTELUKAST SODIUM 10 MG TABLET. PO SCH (17:00)
[2017-04-22] MEDS ORDERED: BUDESONIDE 0.5 MG/2 ML NEBU. NEB SCH (20:00)
[2017-04-22] MEDS ORDERED: ATORVASTATIN CALCIUM 40 MG TABLET. PO SCH (21:00)
[2017-04-22] MEDS ORDERED: GABAPENTIN 100 MG CAPSULE. PO SCH (21:00)
[2017-04-22] MEDS ORDERED: INSULIN DETEMIR 300 UNITS/3 ML INSULN.PEN. SQ SCH (21:00)
[2017-04-22] MEDS ORDERED: CETIRIZINE HCL 10 MG TABLET. PO SCH (21:00)
--- NOTE | 2017-04-23 01:13 | ACF ---
Admission Forms Criteria HEART FAILURE (Place 'X' for any and all applicable criteria): Admission to inpatient status for two midnights or more is indicated by ANY ONE of the following(1)(2)(3)(4) [ ]I. Hemodynamic instability [ ]II. Severe electrolyte abnormalities requiring inpatient care(9) [ ]III. Cardiac arrhythmias of immediate concern Anasarca [ ]IV. Precipitating cause for acute decompensation (eg, pneumonia, pulmonary embolism)[ ]V. [ ]V. Acute cardiac ischemia causing or associated with failure (Also use Angina or Myocardial Infarction as appropriate) [ ]. Pulmonary edema that is very severe (eg, mechanical ventilation needed, imminent or likely, need for 100% oxygen to keep oxygen saturation above 90%) [ ]VII. Massive skin edema (anasarca) with complications (eg tissue breakdown with infection, inability to void due to edema) [A] [X]VIII. Inpatient admission required rather than observation care (See Heart Failure: Observation Care as appropriate) because of 1 or more of the following: [ ]a) Pulmonary edema that is severe or worsening as indicated by ALL of the following : [ ]1) New need for oxygen therapy to keep oxygen saturation above 90% (or increased FiO2 need from baseline) [ ]2) Has not improved sufficiently with emergency department or observation care IV diuretics or other heart failure treatments[C] [ ]b) Altered mental status that is severe or persistent [ ]c) Increased creatinine (new on laboratory test) with reduction of more than 50% in estimated glomerular filtration rate from baseline. [ ]d) Progressively (ongoing) rising creatinine (known from past laboratory test) with reduction of more than 25% in estimated glomerular filtration rate from baseline [ ]e) Acute renal insufficiency (progressively (ongoing) rising creatinine (known from past laboratory test) with reduction of more than 25% in estimated glomerular filtration rate from baseline [ ]f) Acute renal failure [ ]g) Acute peripheral ischemia (e.g., examination shows pulseless, cool, mottled, or cyanotic extremity) [X]h) Oyxgen administration or respiratory treatments have been needed for over 24 hours that are performable only in acute inpatient setting [ ]i) Pulmonary artery catheter monitoring [ ]j) Other condition, treatment or monitoring requiring inpatient admission Extended stay beyond goal length of stay may be needed for(1)(3)(21)(25): [ ]a) Cardiac ischemia, confirmed or suspected as precipitant [ ]b) Cardiogenic shock [ ]c) Acute renal failure [ ]d) Stage IV chronic kidney disease (estimated glomerular filteration rate of less than 30 ML/min/1.73m2 (0.50 mL/sec/1.73m2), and not previously on chronic dialysis [ ]e) Respiratory failure (eg, need for noninvasive or invasive mechanical ventilation) (23) [ ]f) Concomitant pneumonia or significant electrolyte abnormality (eg, severe hyponatremia) [ ]g) Newly diagnosed (new onset) atrial fibrillation The original [facility] content created by [facility] has been revised. The portions of the content which have been revised are identified through the use of italic text, and [facility] has neither reviewed nor approved the modified material. All other unmodified content is copyright [facility]. Please see references footnoted in the original [facility] edition 2014 Admission Criteria Met?: Yes ONELIA OSPINA Apr 23, 2017 01:13
[2017-04-23] MEDS ORDERED: FUROSEMIDE 20 MG TABLET PO SCH (09:00)
== END 2017-04-22 16:00 | DRG 150 ==
LOC: ER 01:11 → 2 SOUTH 03:03
PROVIDERS: ADMIT Internal Medicine; ATTEND Internal Medicine
DX: R04.0 Epistaxis (principal); I50.33 Acute on chronic diastolic (congestive) heart failure; E44.0 Moderate protein-calorie malnutrition; J96.11 Chronic respiratory failure with hypoxia; I95.9 Hypotension, unspecified; D68.9 Coagulation defect, unspecified; E10.22 Type 1 diabetes mellitus with diabetic chronic kidney disease; I13.0 Hypertensive heart and chronic kidney disease with heart failure and stage 1 through stage 4 chronic kidney disease, or unspecified chronic kidney disease; J44.1 Chronic obstructive pulmonary disease with (acute) exacerbation; Z99.81 Dependence on supplemental oxygen; I48.2 Chronic atrial fibrillation; F32.9 Major depressive disorder, single episode, unspecified; E03.9 Hypothyroidism, unspecified; D63.8 Anemia in other chronic diseases classified elsewhere; E78.5 Hyperlipidemia, unspecified; Z68.26 Body mass index [BMI] 26.0-26.9, adult; E78.00 Pure hypercholesterolemia, unspecified; G89.29 Other chronic pain; K21.9 Gastro-esophageal reflux disease without esophagitis; N18.2 Chronic kidney disease, stage 2 (mild); N40.0 Benign prostatic hyperplasia without lower urinary tract symptoms; Z82.49 Family history of ischemic heart disease and other diseases of the circulatory system; Z83.3 Family history of diabetes mellitus; F10.20 Alcohol dependence, uncomplicated; M19.90 Unspecified osteoarthritis, unspecified site; Z88.8 Allergy status to other drugs, medicaments and biological substances
CPT/HCPCS: 36415; 71010; 80048; 80076; 82962; 83880; 84484; 85025; 85610; 85730; 86850; 86900; 86901; 87641; 93005; 94250; 94640; 94760; 96360; J1815; J7040; J7620; 99285-25

== ENCOUNTER 2017-06-24 15:55 | Inpatient (IN) | payer MEDICARE ==
[~2017-06-24] VITALS: Ht 172.7 cm; Wt 80.3 kg
[~2017-06-24 15:55] MED LIST changes: +RIVA20TA2 PO
--- NOTE | 2017-06-24 16:26 | RAD ---
Portable chest, 06/24/2017: History: Cough and congestion Comparison is made to a study from 04/22/2017. The heart is within normal limits in size. There is calcific plaquing in the aorta. There are moderate interstitial opacities in the periphery of the lungs, greatest in the lung bases. Correlation with previous CT study suggests that these opacities are due to fibrosis with peripheral honeycombing. No definite acute infiltrate is seen. There is no evidence of pleural fluid. IMPRESSION: 1. Moderate chronic fibrosis with peripheral honeycombing. 2. No new cardiopulmonary abnormality is detected.
--- NOTE | 2017-06-24 16:30 | PHYS DOC ---
Past Medical History Past Medical History: COPD, Diabetes-Type I, GERD, High Cholesterol, Hypertension, Other Additional Past Medical Histor: HOME 02; silicosis; prior afib (not an anticoagulation candidate);elev TSH Past Surgical History: Other Additional Past Surgical Histo: hernia with mesh Alcohol Use: Occasionally Drug Use: None Adult General HPI HPI Patient is a 87 year old M who presents with fever and increased shortness of breath and back pain for the past couple days. Patient is coming from home and EMS states his home conditions are not very good. In the emergency room patient states he's had increased shortness of breath for the past day with a productive cough. Patient has had fevers off-and-on. Patient denies any nausea/ vomiting/diarrhea. No family is at bedside. Patient is no other complaints. Review of Systems Review of Systems GEN: Denies fevers, chills, sweats HEENT: Denies blurred vision, sore throat CV: Denies chest pain RESP: Shortness of breath GI: Denies n/v/d NEURO: Denies confusion, dizziness MSK: Back pain All other systems were reviewed and found to be within normal limits, except as documented in this note. Current Medications Current Medications Current Medications Medications (Trade) Dose Ordered Sig/Marilu Start Time Stop Time Status Last Admin Dose Admin Acetaminophen (Tylenol) 1,000 mg 1X ONCE 06/24/17 17:00 06/24/17 17:01 DC Piperacillin Sod/ Tazobactam Sod (Zosyn Per Pharmacy) 1 each PRN DAILY PRN 06/24/17 17:00 Vancomycin HCl (Vanco Per Pharmacy) 1 each PRN DAILY PRN 06/24/17 17:00 06/24/17 18:38 1 EACH Allergies Allergies Allergies Coded Allergies Type Severity Reaction Last Updated Verified rofecoxib Allergy Severe 09/14/16 Yes Physical Exam Physical Exam GEN.: No apparent distress. Alert and oriented. HEENT: Head is normocephalic, atraumatic, dry mucous membranes NECK: Supple. LUNGS: Decreased breath sounds bilaterally, rhonchi bilaterally HEART: RRR, S1, S2 present. Peripheral pulses intact ABDOMEN: Soft, nontender. Positive bowel sounds. EXTREMITIES: Without any cyanosis, +1 pitting edema to lower show many bilaterally NEUROLOGIC: Normal speech, normal tone PSYCHIATRIC: Normal affect, normal mood. SKIN: No ulcerations Current Patient Data Vital Signs Vital Signs Date Time Temp Pulse Resp B/P (MAP) Pulse Ox O2 Delivery O2 Flow Rate FiO2 06/24/17 17:08 94 21 91/49 (63) 93 Nasal Cannula 2.0 06/24/17 15:55 100.6 100.6 Lab Values Laboratory Tests Test 06/24/17 16:34 White Blood Count 20.7 x10^3/uL (4.0-11.0) H Red Blood Count 3.70 x10^6/uL (4.30-5.70) L Hemoglobin 10.6 g/dL (13.0-17.5) L Hematocrit 33.1 % (39.0-53.0) L Mean Corpuscular Volume 89 fL (79-100) Mean Corpuscular Hemoglobin 29 pg (25-35) Mean Corpuscular Hemoglobin Concent 32 g/dL (31-37) Red Cell Distribution Width 15.5 % (11.5-14.5) H Platelet Count 302 x10^3/uL (140-400) Neutrophils (%) (Auto) 86 % (31-73) H Lymphocytes (%) (Auto) 5 % (24-48) L Monocytes (%) (Auto) 8 % (0-9) Eosinophils (%) (Auto) 1 % (0-3) Basophils (%) (Auto) 1 % (0-3) Neutrophils # (Auto) 17.7 x10^3uL (1.8-7.7) H Lymphocytes # (Auto) 1.0 x10^3/uL (1.0-4.8) Monocytes # (Auto) 1.6 x10^3/uL (0.0-1.1) H Eosinophils # (Auto) 0.2 x10^3/uL (0.0-0.7) Basophils # (Auto) 0.1 x10^3/uL (0.0-0.2) Segmented Neutrophils % 78 % (35-66) H Band Neutrophils % 12 % (0-9) H Lymphocytes % 4 % (24-48) L Monocytes % 5 % (0-10) Basophils % 1 % (0-3) Platelet Estimate Adequate (ADEQUATE) Sodium Level 142 mmol/L (136-145) Potassium Level 3.7 mmol/L (3.5-5.1) Chloride Level 104 mmol/L (98-107) Carbon Dioxide Level 28 mmol/L (21-32) Anion Gap 10 (6-14) Blood Urea Nitrogen 20 mg/dL (8-26) Creatinine 1.5 mg/dL (0.7-1.3) H Estimated GFR (Cockcroft-Gault) 44.2 BUN/Creatinine Ratio 13 (6-20) Glucose Level 196 mg/dL (70-99) H Lactic Acid Level 2.7 mmol/L (0.4-2.0) H Calcium Level 9.0 mg/dL (8.5-10.1) Total Bilirubin 0.6 mg/dL (0.2-1.0) Aspartate Amino Transferase (AST) 25 U/L (15-37) Alanine Aminotransferase (ALT) 13 U/L (16-63) L Alkaline Phosphatase 78 U/L (46-116) Troponin I Quantitative 0.025 ng/mL (0.000-0.055) HT-Yuz-X-Type Natriuretic Peptide 1085 pg/mL (0-449) H Total Protein 6.7 g/dL (6.4-8.2) Albumin 2.7 g/dL (3.4-5.0) L Albumin/Globulin Ratio 0.7 (1.0-1.7) L Laboratory Tests 06/24/17 16:34 Laboratory Tests 06/24/17 16:34 EKG EKG 1717: EKG shows normal sinus rhythm rate of 96 no STEMI[] Radiology/Procedures Radiology/Procedures Chest x-ray NAD[] Course & Med Decision Making Course & Med Decision Making Pertinent Labs and Imaging studies reviewed. (See chart for details) ED course: Patient was seen and examined emergency room septic workup was ordered Updated patient on pulmonary results are showing sinus sepsis we'll start antibiotics and admitted to the hospital Discussed CC/HP/PMH with Dr. Milton and recommends admit on consult ID Patient is positive for influenza B MDM: After reviewing the chart, CC/HPI/PMH, physical exam, [lab results], [ radiological results], I believe the patient has influenza B causing sepsis endocrine admission hospital for further evaluation and management. Critical care time was 35 minutes exclusive of procedures. [] Dragon Disclaimer Dragon Disclaimer This electronic medical record was generated, in whole or in part, using a voice recognition dictation system. Departure Departure Impression: Primary Impression: Sepsis Additional Impressions: Lactic acidosis Influenza B Disposition: ADMITTED INPATIENT Admitting Physician: Stepan Milton Condition: STABLE Referrals: STEPAN MILTON MD (PCP) Problem Qualifiers VINICIUS AGUIRRE DO Jun 24, 2017 16:30
[2017-06-24 16:50] LABS: BASO # 0.1 x10^3/uL (0.0-0.2); BASO % 1 % (0-3); EOS % 1 % (0-3); HEMATOCRIT 33.1 % (39.0-53.0); HEMOGLOBIN 10.6 g/dL (13.0-17.5); LYMPH % 5 % (24-48); MEAN CORPUSCULAR HEMOGLOBIN 29 pg (25-35); MEAN CORPUSCULAR HGB CONC 32 g/dL (31-37); MEAN CORPUSCULAR VOLUME 89 fL (79-100); MONO % 8 % (0-9); NEUT % 86 % (31-73); PLATELET COUNT 302 x10^3/uL (140-400); RED CELL DISTRIBUTION WIDTH 15.5 % (11.5-14.5); WHITE BLOOD COUNT 20.7 x10^3/uL (4.0-11.0)
[2017-06-24] MEDS ORDERED: ACETAMINOPHEN 500 MG TABLET PO ONE (17:00)
[2017-06-24] MEDS ORDERED: PIP/TAZO PER PHARMACY MC PRN (17:00)
[2017-06-24] MEDS ORDERED: VANCOMYCIN PER PHARMACY MC PRN (17:00)
[2017-06-24 17:06] LABS: CREATININE 1.5 mg/dL (0.7-1.3); GFR 44.2; POTASSIUM 3.7 mmol/L (3.5-5.1)
[2017-06-24] MEDS: ACETAMINOPHEN 325 MG TABLET. PO PRN ×2 (17:10→23:05)
[2017-06-24 17:13] LABS: ALBUMIN 2.7 g/dL (3.4-5.0); ALBUMIN/GLOBULIN RATIO 0.7 (1.0-1.7); TOTAL BILIRUBIN 0.6 mg/dL (0.2-1.0); TOTAL PROTEIN 6.7 g/dL (6.4-8.2)
[2017-06-24 17:15] LABS: % BASOS 1 % (0-3); PLT ESTIMATE ADEQUATE (ADEQUATE)
[2017-06-24] MEDS ORDERED: ONDANSETRON PF 4 MG/2 ML VIAL. IV PRN (17:15)
[2017-06-24] MEDS ORDERED: fentaNYL PF VIAL 100 MCG/2 ML VIAL IV PRN (17:15)
[2017-06-24] MEDS ORDERED: IV NORMAL SALINE 1000ML BAG 1,000 ML IV ONE ×2 (17:15)
[2017-06-24] MEDS ORDERED: PIPERACILLIN/TAZO IV Push 3.375 GM VIAL. IVP ONE (17:30)
[2017-06-24] MEDS ORDERED: VANCOMYCIN 1.75 GM in IV DEXTROSE 5% 500 ML IV ONE (17:30)
[2017-06-24 19:27] LABS: OBC FLU VALID
[2017-06-24] MEDS ORDERED: INSU100I17 SQ (21:31)
[2017-06-24] MEDS ORDERED: INSU100I27 SQ (21:31)
[2017-06-24] MEDS ORDERED: ALBUTEROL SULFATE 2.5 MG/3 ML NEBU. NEB PRN (21:45)
[2017-06-24] MEDS ORDERED: OSELTAMIVIR 75 MG CAPSULE PO SCH (22:00)
[2017-06-24] MEDS ORDERED: INSULIN DETEMIR 300 UNITS/3 ML INSULN.PEN. SQ SCH (22:00)
[2017-06-24] MEDS: IV NORMAL SALINE 1000ML BAG 1,000 ML IV SCH ×2 (22:02→23:50)
[2017-06-24 22:04] VITALS: BP 89/52
[2017-06-24 23:01] VITALS: BP 77/50
[2017-06-24] MEDS ORDERED: IV NORMAL SALINE 500ML BAG 250 ML IV ONE (23:30)
[2017-06-24] MEDS: PIPERACILLIN/TAZO IV Push 2.25 GM VIAL. IVP SCH (23:53)
[2017-06-24 23:55] VITALS: BP 75/36
[2017-06-25] VITALS (28 sets, daily range): BP systolic 62–160; BP diastolic 25–92
[2017-06-25] MEDS ORDERED: NOREPINEPHRIN PREMIX 250 ML IV PRN (00:45)
[2017-06-25] MEDS ORDERED: IV NORMAL SALINE 500ML BAG 500 ML IV ONE (00:45)
[2017-06-25] MEDS ORDERED: SODI30SP NS (02:02)
[2017-06-25] MEDS ORDERED: MONT10TA9 PO (02:02)
[2017-06-25] MEDS ORDERED: FLUT1DIS3 IH (02:02)
[2017-06-25] MEDS ORDERED: PROAIR HFA8.5 GM INH (02:02)
[2017-06-25] MEDS ORDERED: POTA20TA82 PO (02:02)
[2017-06-25] MEDS ORDERED: NON FORMULARY ITEM (Albuterol Sulfate (Proair Hfa Inhaler) 1 PUFF) INH PRN (02:15)
[2017-06-25] MEDS ORDERED: ACETAMINOPHEN 325 MG TABLET. PO PRN (02:15)
[2017-06-25] MEDS ORDERED: POLYETHYLENE GLYCOL 3350 17 GM PACKET. PO PRN (02:15)
[2017-06-25] MEDS ORDERED: ALBUTEROL SULFATE 2.5 MG/3 ML NEBU. NEB PRN ×2 (02:45→08:00)
[2017-06-25] MEDS ORDERED: DEXTROSE 50% 25 GM / 50ML DISP.SYRIN. IV PRN (03:30)
[2017-06-25 05:43] LABS: BASO % 0 % (0-3); EOS % 1 % (0-3); HEMATOCRIT 31.3 % (39.0-53.0); HEMOGLOBIN 10.1 g/dL (13.0-17.5); LYMPH # 0.5 x10^3/uL (1.0-4.8); LYMPH % 3 % (24-48); MEAN CORPUSCULAR HEMOGLOBIN 29 pg (25-35); MEAN CORPUSCULAR HGB CONC 32 g/dL (31-37); MEAN CORPUSCULAR VOLUME 89 fL (79-100); MONO % 2 % (0-9); NEUT % 94 % (31-73); PLATELET COUNT 281 x10^3/uL (140-400); RED BLOOD COUNT 3.51 x10^6/uL (4.30-5.70); RED CELL DISTRIBUTION WIDTH 15.8 % (11.5-14.5); WHITE BLOOD COUNT 16.2 x10^3/uL (4.0-11.0)
[2017-06-25] MEDS: IV NORMAL SALINE 1000ML BAG 1,000 ML IV SCH (05:58)
[2017-06-25] MEDS: PIPERACILLIN/TAZO IV Push 2.25 GM VIAL. IVP SCH ×3 (05:58→18:07)
[2017-06-25 06:00] LABS: CALCIUM 8.4 mg/dL (8.5-10.1); CREATININE 1.8 mg/dL (0.7-1.3); GFR 35.8; POTASSIUM 3.3 mmol/L (3.5-5.1)
--- NOTE | 2017-06-25 06:42 | EKG ---
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
--- NOTE | 2017-06-25 07:29 | PDOC ---
Infectious Disease Note Vital Sign Vital Signs Vital Signs Date Time Temp Pulse Resp B/P (MAP) Pulse Ox O2 Delivery O2 Flow Rate FiO2 06/25/17 06:43 160/67 (98) 06/25/17 06:00 74 17 97 Nasal Cannula 2.0 06/25/17 04:00 98.3 98.3 Labs Lab Laboratory Tests Test 06/24/17 16:34 06/24/17 18:00 06/24/17 19:00 06/24/17 21:30 White Blood Count 20.7 x10^3/uL (4.0-11.0) Red Blood Count 3.70 x10^6/uL (4.30-5.70) Hemoglobin 10.6 g/dL (13.0-17.5) Hematocrit 33.1 % (39.0-53.0) Mean Corpuscular Volume 89 fL (79-100) Mean Corpuscular Hemoglobin 29 pg (25-35) Mean Corpuscular Hemoglobin Concent 32 g/dL (31-37) Red Cell Distribution Width 15.5 % (11.5-14.5) Platelet Count 302 x10^3/uL (140-400) Neutrophils (%) (Auto) 86 % (31-73) Lymphocytes (%) (Auto) 5 % (24-48) Monocytes (%) (Auto) 8 % (0-9) Eosinophils (%) (Auto) 1 % (0-3) Basophils (%) (Auto) 1 % (0-3) Neutrophils # (Auto) 17.7 x10^3uL (1.8-7.7) Lymphocytes # (Auto) 1.0 x10^3/uL (1.0-4.8) Monocytes # (Auto) 1.6 x10^3/uL (0.0-1.1) Eosinophils # (Auto) 0.2 x10^3/uL (0.0-0.7) Basophils # (Auto) 0.1 x10^3/uL (0.0-0.2) Segmented Neutrophils % 78 % (35-66) Band Neutrophils % 12 % (0-9) Lymphocytes % 4 % (24-48) Monocytes % 5 % (0-10) Basophils % 1 % (0-3) Platelet Estimate Adequate (ADEQUATE) Sodium Level 142 mmol/L (136-145) Potassium Level 3.7 mmol/L (3.5-5.1) Chloride Level 104 mmol/L (98-107) Carbon Dioxide Level 28 mmol/L (21-32) Anion Gap 10 (6-14) Blood Urea Nitrogen 20 mg/dL (8-26) Creatinine 1.5 mg/dL (0.7-1.3) Estimated GFR (Cockcroft-Gault) 44.2 BUN/Creatinine Ratio 13 (6-20) Glucose Level 196 mg/dL (70-99) Lactic Acid Level 2.7 mmol/L (0.4-2.0) 1.5 mmol/L (0.4-2.0) Calcium Level 9.0 mg/dL (8.5-10.1) Total Bilirubin 0.6 mg/dL (0.2-1.0) Aspartate Amino Transf (AST/SGOT) 25 U/L (15-37) Alanine Aminotransferase (ALT/SGPT) 13 U/L (16-63) Alkaline Phosphatase 78 U/L (46-116) Troponin I Quantitative 0.025 ng/mL (0.000-0.055) JF-Ijz-B-Type Natriuretic Peptide 1085 pg/mL (0-449) Total Protein 6.7 g/dL (6.4-8.2) Albumin 2.7 g/dL (3.4-5.0) Albumin/Globulin Ratio 0.7 (1.0-1.7) Influenza Type A Antigen Negative (NEGATIVE) Influenza Type B Antigen Positive (NEGATIVE) Glucose (Fingerstick) 238 mg/dL (70-99) Test 06/25/17 04:45 White Blood Count 16.2 x10^3/uL (4.0-11.0) Red Blood Count 3.51 x10^6/uL (4.30-5.70) Hemoglobin 10.1 g/dL (13.0-17.5) Hematocrit 31.3 % (39.0-53.0) Mean Corpuscular Volume 89 fL (79-100) Mean Corpuscular Hemoglobin 29 pg (25-35) Mean Corpuscular Hemoglobin Concent 32 g/dL (31-37) Red Cell Distribution Width 15.8 % (11.5-14.5) Platelet Count 281 x10^3/uL (140-400) Neutrophils (%) (Auto) 94 % (31-73) Lymphocytes (%) (Auto) 3 % (24-48) Monocytes (%) (Auto) 2 % (0-9) Eosinophils (%) (Auto) 1 % (0-3) Basophils (%) (Auto) 0 % (0-3) Neutrophils # (Auto) 15.3 x10^3uL (1.8-7.7) Lymphocytes # (Auto) 0.5 x10^3/uL (1.0-4.8) Monocytes # (Auto) 0.4 x10^3/uL (0.0-1.1) Eosinophils # (Auto) 0.1 x10^3/uL (0.0-0.7) Basophils # (Auto) 0.0 x10^3/uL (0.0-0.2) Sodium Level 139 mmol/L (136-145) Potassium Level 3.3 mmol/L (3.5-5.1) Chloride Level 105 mmol/L (98-107) Carbon Dioxide Level 25 mmol/L (21-32) Anion Gap 9 (6-14) Blood Urea Nitrogen 23 mg/dL (8-26) Creatinine 1.8 mg/dL (0.7-1.3) Estimated GFR (Cockcroft-Gault) 35.8 Glucose Level 196 mg/dL (70-99) Calcium Level 8.4 mg/dL (8.5-10.1) Objective Assessment Sepsis - POA currently on 5 of levophed Influenza B Leukocytosis BOBBY DM Plan Plan of Care Adjust Tamiflu to 30 mg po BID D/c Vanc Begin Zyvox Cont Zosyn F/u labs and cults 35 mins Thank you # [phone] RICKY CHAN MD Jun 25, 2017 07:29
[2017-06-25] MEDS ORDERED: INSULIN ASPART 300 UNITS/3 ML INSULN.PEN SQ SCH ×2 (07:30)
[2017-06-25] MEDS ORDERED: PANTOPRAZOLE 40 MG TABLET.DR. PO SCH (07:30)
[2017-06-25] MEDS: IPRATRPIUM/ALBUTEROL 0.5/2.5MG 3 ML NEBU. NEB SCH ×4 (08:00→19:55)
[2017-06-25] MEDS ORDERED: BUDESONIDE 0.5 MG/2 ML NEBU. NEB SCH (08:00)
[2017-06-25] MEDS ORDERED: ALBUTEROL SULFATE 2.5 MG/3 ML NEBU. NEB SCH (08:00)
[2017-06-25] MEDS ORDERED: IPRATRPIUM/ALBUTEROL 0.5/2.5MG 3 ML NEBU. NEB SCH ×2 (08:00→09:00)
[2017-06-25] MEDS: BUDESONIDE 0.5 MG/2 ML NEBU. NEB SCH ×2 (08:36→19:55)
[2017-06-25] MEDS ORDERED: FUROSEMIDE 20 MG/2 ML VIAL. IVP ONE (08:45)
[2017-06-25] MEDS ORDERED: methylPREDNISolone SOD SUCC PF 125 MG/2 ML VIAL. IV ONE (08:45)
[2017-06-25] MEDS ORDERED: POTASSIUM CHLORIDE 20 MEQ TABLET.ER. PO ONE (08:45)
[2017-06-25] MEDS: FUROSEMIDE 20 MG TABLET PO SCH ×2 (09:00→10:33)
[2017-06-25] MEDS: SODIUM CHLORIDE 0.65% NASAL SPRAY 45ML BOTTLE. NS SCH ×4 (09:00→21:31)
[2017-06-25] MEDS ORDERED: RIVAROXABAN 15 MG TABLET. PO SCH (09:00)
[2017-06-25] MEDS ORDERED: NON FORMULARY ITEM (Fluticasone/Salmeterol (Advair 250-50 Diskus) 1 PUFF) IH SCH (09:00)
--- NOTE | 2017-06-25 09:38 | PDOC1 ---
PINKY REES BREASTFEEDING PEER COUNSELOR 06/25/17 0938: HISTORY AND PHYSICAL Chief Complaint Chief Complaint This 87 year old male has been admitted with a chief complaint of Influenzae B with sepsis. He was recently seen in the office for his chronic medical conditions that were stable. He reports over the last 2 days he developed fever, increasing dyspnea, cough productive yellow sputum, and exacerbation chronic low back pain. On arrival to the ED his temperature was 100.6F. His breath sounds were decreased with rhonchi bilaterally. CXR was negative acute finding. WBCs elevated at 20.7. Influenzae B positive. He was given Zosyn and Vancomycin IV in the ED and admitted to the ICU. After admission to the ICU he became hypotensive with multiple IV boluses of NS and was started on Levophed to maintain SBP >90. ID has been consulted. Problem List Problems Medical Problems: (1) Influenza B Status: Acute (2) Lactic acidosis Status: Acute Past Medical History Cardiovascular: AFIB (xarelto ), CHF (diastolic EF normal ), HTN, Hyperlipidemia Pulmonary: COPD (chronic ILD - pulmonary fibrosis/ chronic respiratory failure O2 2L nc ) GI: GERD, Gastritis (h/o) Heme/Onc: Anemia NOS (B12) Psych: Addictions (Alcoholism ) Musculoskeletal: low back pain (chronic ), Osteoarthritis Renal/: Chronic renal insuff (CKD II ), Benign prostatic enlarg. Endocrine: Diabetes (Type II emt intermediate insulin ) Past Surgical History Past Surgical History: Arthroscopy (R shoulder ), Hernia Repair, Other (L RTC repair ) Past Family History Family History: Coronary Artery Disease, Diabetes, Hypertension Past Social History PSH Lives at home with , son is project administrator. remote h/o tobacco, ETOH negative at this time, no illicit drugs Review of Symptoms Review of Symptoms A 14 point ROS was completed with the following noted as positive: per HPI Other systems reviewed and negative. Medications Medications reviewed and reconciled Allergy Allergies Coded Allergies Type Severity Reaction Last Updated Verified rofecoxib Allergy Severe 09/14/16 Yes Physical Exam Physical Exam General appearance - alert, acutely ill appearing, and in no distress Mental Status - alert, oriented to person, place, and time, affect appropriate to mood Head - normal Chest - rhonchi anterior, wheezing all lobes Heart - S1 and S2 normal Abdomen - soft, nontender, nondistended, BS + Neurological - no acute focal neurological deficits noted Musculoskeletal - no muscular tenderness noted Extremities - ++ pedal edema Skin - warm and dry VTE Prophylaxis Ordered VTE Prophylaxis Devices: Yes VTE Pharmacological Prophylaxi: No Assessment Labs Laboratory Tests Test 06/24/17 16:34 06/24/17 18:00 06/24/17 19:00 06/24/17 21:30 White Blood Count 20.7 x10^3/uL (4.0-11.0) Red Blood Count 3.70 x10^6/uL (4.30-5.70) Hemoglobin 10.6 g/dL (13.0-17.5) Hematocrit 33.1 % (39.0-53.0) Mean Corpuscular Volume 89 fL (79-100) Mean Corpuscular Hemoglobin 29 pg (25-35) Mean Corpuscular Hemoglobin Concent 32 g/dL (31-37) Red Cell Distribution Width 15.5 % (11.5-14.5) Platelet Count 302 x10^3/uL (140-400) Neutrophils (%) (Auto) 86 % (31-73) Lymphocytes (%) (Auto) 5 % (24-48) Monocytes (%) (Auto) 8 % (0-9) Eosinophils (%) (Auto) 1 % (0-3) Basophils (%) (Auto) 1 % (0-3) Neutrophils # (Auto) 17.7 x10^3uL (1.8-7.7) Lymphocytes # (Auto) 1.0 x10^3/uL (1.0-4.8) Monocytes # (Auto) 1.6 x10^3/uL (0.0-1.1) Eosinophils # (Auto) 0.2 x10^3/uL (0.0-0.7) Basophils # (Auto) 0.1 x10^3/uL (0.0-0.2) Segmented Neutrophils % 78 % (35-66) Band Neutrophils % 12 % (0-9) Lymphocytes % 4 % (24-48) Monocytes % 5 % (0-10) Basophils % 1 % (0-3) Platelet Estimate Adequate (ADEQUATE) Sodium Level 142 mmol/L (136-145) Potassium Level 3.7 mmol/L (3.5-5.1) Chloride Level 104 mmol/L (98-107) Carbon Dioxide Level 28 mmol/L (21-32) Anion Gap 10 (6-14) Blood Urea Nitrogen 20 mg/dL (8-26) Creatinine 1.5 mg/dL (0.7-1.3) Estimated GFR (Cockcroft-Gault) 44.2 BUN/Creatinine Ratio 13 (6-20) Glucose Level 196 mg/dL (70-99) Lactic Acid Level 2.7 mmol/L (0.4-2.0) 1.5 mmol/L (0.4-2.0) Calcium Level 9.0 mg/dL (8.5-10.1) Total Bilirubin 0.6 mg/dL (0.2-1.0) Aspartate Amino Transf (AST/SGOT) 25 U/L (15-37) Alanine Aminotransferase (ALT/SGPT) 13 U/L (16-63) Alkaline Phosphatase 78 U/L (46-116) Troponin I Quantitative 0.025 ng/mL (0.000-0.055) AV-Lud-B-Type Natriuretic Peptide 1085 pg/mL (0-449) Total Protein 6.7 g/dL (6.4-8.2) Albumin 2.7 g/dL (3.4-5.0) Albumin/Globulin Ratio 0.7 (1.0-1.7) Influenza Type A Antigen Negative (NEGATIVE) Influenza Type B Antigen Positive (NEGATIVE) Glucose (Fingerstick) 238 mg/dL (70-99) Test 06/25/17 04:45 White Blood Count 16.2 x10^3/uL (4.0-11.0) Red Blood Count 3.51 x10^6/uL (4.30-5.70) Hemoglobin 10.1 g/dL (13.0-17.5) Hematocrit 31.3 % (39.0-53.0) Mean Corpuscular Volume 89 fL (79-100) Mean Corpuscular Hemoglobin 29 pg (25-35) Mean Corpuscular Hemoglobin Concent 32 g/dL (31-37) Red Cell Distribution Width 15.8 % (11.5-14.5) Platelet Count 281 x10^3/uL (140-400) Neutrophils (%) (Auto) 94 % (31-73) Lymphocytes (%) (Auto) 3 % (24-48) Monocytes (%) (Auto) 2 % (0-9) Eosinophils (%) (Auto) 1 % (0-3) Basophils (%) (Auto) 0 % (0-3) Neutrophils # (Auto) 15.3 x10^3uL (1.8-7.7) Lymphocytes # (Auto) 0.5 x10^3/uL (1.0-4.8) Monocytes # (Auto) 0.4 x10^3/uL (0.0-1.1) Eosinophils # (Auto) 0.1 x10^3/uL (0.0-0.7) Basophils # (Auto) 0.0 x10^3/uL (0.0-0.2) Sodium Level 139 mmol/L (136-145) Potassium Level 3.3 mmol/L (3.5-5.1) Chloride Level 105 mmol/L (98-107) Carbon Dioxide Level 25 mmol/L (21-32) Anion Gap 9 (6-14) Blood Urea Nitrogen 23 mg/dL (8-26) Creatinine 1.8 mg/dL (0.7-1.3) Estimated GFR (Cockcroft-Gault) 35.8 Glucose Level 196 mg/dL (70-99) Calcium Level 8.4 mg/dL (8.5-10.1) Laboratory Tests Test 06/24/17 16:34 06/24/17 18:00 06/24/17 19:00 06/24/17 21:30 White Blood Count 20.7 x10^3/uL (4.0-11.0) Red Blood Count 3.70 x10^6/uL (4.30-5.70) Hemoglobin 10.6 g/dL (13.0-17.5) Hematocrit 33.1 % (39.0-53.0) Mean Corpuscular Volume 89 fL (79-100) Mean Corpuscular Hemoglobin 29 pg (25-35) Mean Corpuscular Hemoglobin Concent 32 g/dL (31-37) Red Cell Distribution Width 15.5 % (11.5-14.5) Platelet Count 302 x10^3/uL (140-400) Neutrophils (%) (Auto) 86 % (31-73) Lymphocytes (%) (Auto) 5 % (24-48) Monocytes (%) (Auto) 8 % (0-9) Eosinophils (%) (Auto) 1 % (0-3) Basophils (%) (Auto) 1 % (0-3) Neutrophils # (Auto) 17.7 x10^3uL (1.8-7.7) Lymphocytes # (Auto) 1.0 x10^3/uL (1.0-4.8) Monocytes # (Auto) 1.6 x10^3/uL (0.0-1.1) Eosinophils # (Auto) 0.2 x10^3/uL (0.0-0.7) Basophils # (Auto) 0.1 x10^3/uL (0.0-0.2) Segmented Neutrophils % 78 % (35-66) Band Neutrophils % 12 % (0-9) Lymphocytes % 4 % (24-48) Monocytes % 5 % (0-10) Basophils % 1 % (0-3) Platelet Estimate Adequate (ADEQUATE) Sodium Level 142 mmol/L (136-145) Potassium Level 3.7 mmol/L (3.5-5.1) Chloride Level 104 mmol/L (98-107) Carbon Dioxide Level 28 mmol/L (21-32) Anion Gap 10 (6-14) Blood Urea Nitrogen 20 mg/dL (8-26) Creatinine 1.5 mg/dL (0.7-1.3) Estimated GFR (Cockcroft-Gault) 44.2 BUN/Creatinine Ratio 13 (6-20) Glucose Level 196 mg/dL (70-99) Lactic Acid Level 2.7 mmol/L (0.4-2.0) 1.5 mmol/L (0.4-2.0) Calcium Level 9.0 mg/dL (8.5-10.1) Total Bilirubin 0.6 mg/dL (0.2-1.0) Aspartate Amino Transf (AST/SGOT) 25 U/L (15-37) Alanine Aminotransferase (ALT/SGPT) 13 U/L (16-63) Alkaline Phosphatase 78 U/L (46-116) Troponin I Quantitative 0.025 ng/mL (0.000-0.055) PJ-Ybp-P-Type Natriuretic Peptide 1085 pg/mL (0-449) Total Protein 6.7 g/dL (6.4-8.2) Albumin 2.7 g/dL (3.4-5.0) Albumin/Globulin Ratio 0.7 (1.0-1.7) Influenza Type A Antigen Negative (NEGATIVE) Influenza Type B Antigen Positive (NEGATIVE) Glucose (Fingerstick) 238 mg/dL (70-99) Test 06/25/17 04:45 White Blood Count 16.2 x10^3/uL (4.0-11.0) Red Blood Count 3.51 x10^6/uL (4.30-5.70) Hemoglobin 10.1 g/dL (13.0-17.5) Hematocrit 31.3 % (39.0-53.0) Mean Corpuscular Volume 89 fL (79-100) Mean Corpuscular Hemoglobin 29 pg (25-35) Mean Corpuscular Hemoglobin Concent 32 g/dL (31-37) Red Cell Distribution Width 15.8 % (11.5-14.5) Platelet Count 281 x10^3/uL (140-400) Neutrophils (%) (Auto) 94 % (31-73) Lymphocytes (%) (Auto) 3 % (24-48) Monocytes (%) (Auto) 2 % (0-9) Eosinophils (%) (Auto) 1 % (0-3) Basophils (%) (Auto) 0 % (0-3) Neutrophils # (Auto) 15.3 x10^3uL (1.8-7.7) Lymphocytes # (Auto) 0.5 x10^3/uL (1.0-4.8) Monocytes # (Auto) 0.4 x10^3/uL (0.0-1.1) Eosinophils # (Auto) 0.1 x10^3/uL (0.0-0.7) Basophils # (Auto) 0.0 x10^3/uL (0.0-0.2) Sodium Level 139 mmol/L (136-145) Potassium Level 3.3 mmol/L (3.5-5.1) Chloride Level 105 mmol/L (98-107) Carbon Dioxide Level 25 mmol/L (21-32) Anion Gap 9 (6-14) Blood Urea Nitrogen 23 mg/dL (8-26) Creatinine 1.8 mg/dL (0.7-1.3) Estimated GFR (Cockcroft-Gault) 35.8 Glucose Level 196 mg/dL (70-99) Calcium Level 8.4 mg/dL (8.5-10.1) Plan Plan IMPRESSION: 1. Influenzae B with sepsis 2. Acute on Chronic respiratory failure with pulmonary fibrosis.Interstitial lung disease 3. acute bronchitis secondary to influenzae B 4. AECOPD 5. 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 chronic diastolic CHF EF normal . 7. Benign prostatic hypertrophy. 8. Moderate protein calorie malnutrition with new onset severe PCL malnutrition 9. COPD with exacerbation 10. chronic AF Xarelto 11. chronic respiratory failure with COPD, ILD, silicosis underlying O2 dependent 12. anemia chronic disease B12 13. hyperlipidemia 14. severe weakness and debility with mobility deficits 15. depression 16. h/o ETOH abuse 17. GERD 18. acute on chronic back pain LS POA 19. Severe PCL malnutrition 20. CKD II with BOBBY hypotension PLAN: Inf B with sepsis - tamiflu - zosysn - zyvox - Vanco x 1 now stopped - ID consulted - Admit WBC 20.7 today 16.2 hypotension - levophed, multiple NS boluses through night a/c respiratory failure - AB/AECOPD - solumedrol 125mg IV x 1 then 60mg IV q8 - nebulizer - mucinex - CHF - admit wt 177.31 - diastolic -?component fluid overload from NS replacement fluids - give low dose Lasix 20mg IV x 1 - chronic lasix stopped DM II - FSBS SSI HTN - hold meds hypokalemia - admit 3.7 today 3.3 give additional 20KCL this am po CKD II - Admit BUN/Cr 20/1.5 this am 23/1.8 - monitor - BOBBY hypotension weakness debility - PT OT consult malnutrition - supplements DVT/GI prophylaxis - xarelto PPI For more details regarding further plans, please refer to the orders. STEPAN MILTON MD 06/25/17 1022: HISTORY AND PHYSICAL Plan Plan The patient was seen and examined by me. Chart reviewed and plan of care formulated. Discussed with, reviewed and agree with WELDER SETTER ELECTRON BEAM MACHINE's notes, plan of care and orders with modifications as necessary. For more details regarding further plans, please refer to the orders. PINKY REES APRN Jun 25, 2017 09:38 STEPAN MILTON MD Jun 25, 2017 10:22
[2017-06-25] MEDS: ASPIRIN ENTERIC COATED 81 MG TABLET.DR. PO SCH (09:49)
[2017-06-25] MEDS: CYANOCOBALAMIN (VITAMIN B-12) 1,000 MCG TABLET. PO SCH (09:50)
[2017-06-25] MEDS: PANTOPRAZOLE 40 MG TABLET.DR. PO SCH (09:50)
[2017-06-25] MEDS: CHOLECALCIFEROL (VITAMIN D3) 1,000 UNIT TABLET PO SCH (09:50)
[2017-06-25] MEDS: OSELTAMIVIR 30 MG CAPSULE PO SCH ×2 (09:50→21:21)
[2017-06-25] MEDS: traMADol 50 MG TABLET PO PRN (09:50)
[2017-06-25] MEDS: THIAMINE 100 MG TABLET. PO SCH (09:50)
[2017-06-25] MEDS: MAGNESIUM OXIDE 400 MG TABLET PO SCH ×2 (09:51→21:21)
[2017-06-25] MEDS: POTASSIUM CHLORIDE 20 MEQ TABLET.ER. PO SCH ×2 (09:53→18:06)
[2017-06-25] MEDS: INSULIN ASPART 300 UNITS/3 ML INSULN.PEN SQ SCH ×6 (10:35→18:11)
--- NOTE | 2017-06-25 12:20 | CONS ---
DATE OF CONSULTATION: ATTENDING PHYSICIAN: Dr. Dragan Wharton. REASON FOR CONSULTATION: Respiratory failure, influenza, sepsis. HISTORY OF PRESENT ILLNESS: The patient is an 87-year-old male who has no significant history of tobacco use. He has history of diastolic CHF, history of pulmonary fibrosis and chronic respiratory failure, on 2 liters. He was brought into the hospital with complaint of fever and increasing dyspnea for the last 2 days and a cough productive of yellow sputum. He also had some back pain as well. His temperature was 100.6 in the ED Department. The patient was found to be influenza B positive. His chest x-ray shows bilateral interstitial infiltrates, which appears to be slightly accentuated compared to films from 6 months ago. He is currently under isolation and antibiotics also been initiated for possible sepsis. PAST MEDICAL HISTORY: History of AFib, on Xarelto. History of CHF, diastolic type. History of hypertension, hyperlipidemia, history of pulmonary fibrosis. His last CT chest from November has diffuse ground glass infiltrates. History of chronic respiratory failure, gastritis, anemia, alcoholism, back pain, osteoarthritis, chronic renal insufficiency, CKD stage 2 and diabetes. PAST SURGICAL HISTORY: Arthroscopy and hernia repair. FAMILY HISTORY: Coronary artery disease, hypertension, diabetes. REVIEW OF SYSTEMS: A 10-point system obtained. Pertinent positives discussed in my history of present illness, otherwise noncontributory. All systems that were negative were reviewed as well. MEDICATIONS: Reviewed as listed in the MRAD. PHYSICAL EXAMINATION: VITAL SIGNS: Stable, pulse ox 96% on 2 liters. NECK: Supple. LUNGS: With crackles at the bases. CARDIOVASCULAR: Regular rate and rhythm. ABDOMEN: Soft. EXTREMITIES: With trace pitting edema. LABORATORY DATA: Reviewed. Influenza screen is positive for influenza B. BUN 23, creatinine 1.8. IMPRESSION: 1. Dyspnea with cough related to influenza B. Cannot exclude any superimposed bacterial infection. 2. Chronic respiratory failure secondary to chronic pulmonary fibrosis. 3. Abnormal chest x-ray with bilateral interstitial infiltrates, which appears to be accentuated than 6 months ago and may be related to superimposed interstitial viral pneumonia. 4. Renal insufficiency. 5. No history of tobacco use. RECOMMENDATIONS: 1. Continue with present respiratory isolation. 2. Tamiflu. 3. IV steroids. 4. Antibiotics. 5. Bronchodilators. 6. Continue oxygen at 2 liters. 7. Xarelto for AFib. 8. Discussed with RN, we will follow along with you. LILLIE GONSALVES MD DR: TANI/naresh JOB#: [id number] / [id number]
[2017-06-25] MEDS: methylPREDNISolone SOD SUCC PF 125 MG/2 ML VIAL. IV SCH ×2 (13:38→21:31)
[2017-06-25] MEDS ORDERED: FUROSEMIDE 20 MG TABLET PO SCH (16:00)
[2017-06-25] MEDS ORDERED: VANCOMYCIN 1.25 GM in IV DEXTROSE 5% 250 ML IV SCH (18:00)
[2017-06-25] MEDS: MONTELUKAST SODIUM 10 MG TABLET. PO SCH (18:06)
[2017-06-25] MEDS ORDERED: LORazepam 1 MG TABLET PO PRN (18:30)
[2017-06-25] MEDS ORDERED: HALOPERIDOL LACTATE 5 MG/ML VIAL. IVP PRN (18:30)
[2017-06-25] MEDS ORDERED: diphenhydrAMINE 50 MG/ML VIAL IVP PRN (18:30)
[2017-06-25] MEDS ORDERED: [UNRECOGNIZED DRUG - OTHER] IV SCH (19:00)
[2017-06-25] MEDS ORDERED: THIAMINE IV SCH (19:00)
[2017-06-25] MEDS ORDERED: FOLIC ACID IV SCH (19:00)
[2017-06-25] MEDS ORDERED: MULTIVIT INFUSN ADULT K IV SCH (19:00)
[2017-06-25] MEDS: CETIRIZINE HCL 10 MG TABLET. PO SCH (21:20)
[2017-06-25] MEDS: LACTOBACILLUS RHAMNOSUS GG 1 CAPSULE. PO SCH (21:20)
[2017-06-25] MEDS: GABAPENTIN 100 MG CAPSULE. PO SCH (21:21)
[2017-06-25] MEDS: tiZANidine 4 MG TABLET. PO SCH (21:21)
[2017-06-25] MEDS: ATORVASTATIN CALCIUM 40 MG TABLET. PO SCH (21:31)
[2017-06-25] MEDS: INSULIN DETEMIR 300 UNITS/3 ML INSULN.PEN. SQ SCH (21:48)
[2017-06-26] VITALS (16 sets, daily range): BP systolic 87–113; BP diastolic 50–76
[2017-06-26] MEDS: PIPERACILLIN/TAZO IV Push 2.25 GM VIAL. IVP SCH ×4 (00:14→17:07)
[2017-06-26 05:26] LABS: BASO % 0 % (0-3); EOS % 0 % (0-3); HEMATOCRIT 29.3 % (39.0-53.0); HEMOGLOBIN 9.7 g/dL (13.0-17.5); LYMPH # 0.7 x10^3/uL (1.0-4.8); LYMPH % 7 % (24-48); MEAN CORPUSCULAR HEMOGLOBIN 30 pg (25-35); MEAN CORPUSCULAR HGB CONC 33 g/dL (31-37); MEAN CORPUSCULAR VOLUME 89 fL (79-100); MONO % 1 % (0-9); NEUT % 92 % (31-73); PLATELET COUNT 217 x10^3/uL (140-400); RED BLOOD COUNT 3.28 x10^6/uL (4.30-5.70); RED CELL DISTRIBUTION WIDTH 15.7 % (11.5-14.5); WHITE BLOOD COUNT 9.5 x10^3/uL (4.0-11.0)
[2017-06-26] MEDS: methylPREDNISolone SOD SUCC PF 125 MG/2 ML VIAL. IV SCH (05:41)
[2017-06-26 05:49] LABS: CALCIUM 7.8 mg/dL (8.5-10.1); CREATININE 1.5 mg/dL (0.7-1.3); GFR 44.2
[2017-06-26 06:29] LABS: % BASOS 1 % (0-3)
[2017-06-26 06:30] LABS: PLT ESTIMATE ADEQUATE (ADEQUATE)
[2017-06-26] MEDS: BUDESONIDE 0.5 MG/2 ML NEBU. NEB SCH ×2 (07:46→20:13)
[2017-06-26] MEDS: IPRATRPIUM/ALBUTEROL 0.5/2.5MG 3 ML NEBU. NEB SCH ×4 (07:47→20:13)
[2017-06-26] MEDS: CYANOCOBALAMIN (VITAMIN B-12) 1,000 MCG TABLET. PO SCH (08:22)
[2017-06-26] MEDS: CHOLECALCIFEROL (VITAMIN D3) 1,000 UNIT TABLET PO SCH (08:23)
[2017-06-26] MEDS: LACTOBACILLUS RHAMNOSUS GG 1 CAPSULE. PO SCH ×2 (08:23→21:00)
[2017-06-26] MEDS: THIAMINE 100 MG TABLET. PO SCH (08:23)
[2017-06-26] MEDS: MAGNESIUM OXIDE 400 MG TABLET PO SCH ×2 (08:23→21:00)
[2017-06-26] MEDS: ASPIRIN ENTERIC COATED 81 MG TABLET.DR. PO SCH (08:25)
[2017-06-26] MEDS: PANTOPRAZOLE 40 MG TABLET.DR. PO SCH (08:25)
[2017-06-26] MEDS: OSELTAMIVIR 30 MG CAPSULE PO SCH ×2 (08:25→21:00)
[2017-06-26] MEDS: FUROSEMIDE 20 MG TABLET PO SCH (08:26)
[2017-06-26] MEDS: POTASSIUM CHLORIDE 20 MEQ TABLET.ER. PO SCH ×2 (08:27→17:06)
[2017-06-26] MEDS: INSULIN ASPART 300 UNITS/3 ML INSULN.PEN SQ SCH ×7 (08:31→21:12)
[2017-06-26] MEDS: SODIUM CHLORIDE 0.65% NASAL SPRAY 45ML BOTTLE. NS SCH ×4 (08:32→20:59)
[2017-06-26] MEDS: MULTIVIT INFUSN,ADULT 4,VIT K 10 ML, THIAMINE 100 MG, FOLIC ACID 1 MG in IV NORMAL SALI... IV SCH (08:35)
--- NOTE | 2017-06-26 10:02 | PDOC ---
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, 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, no focal neurologic deficit SKIN: No rash IV: ok Labs Lab Laboratory Tests Test 06/25/17 10:32 06/25/17 13:50 06/25/17 18:09 06/25/17 21:47 Glucose (Fingerstick) 236 mg/dL (70-99) 306 mg/dL (70-99) 367 mg/dL (70-99) 345 mg/dL (70-99) Test 06/26/17 05:00 06/26/17 08:19 White Blood Count 9.5 x10^3/uL (4.0-11.0) Red Blood Count 3.28 x10^6/uL (4.30-5.70) Hemoglobin 9.7 g/dL (13.0-17.5) Hematocrit 29.3 % (39.0-53.0) Mean Corpuscular Volume 89 fL (79-100) Mean Corpuscular Hemoglobin 30 pg (25-35) Mean Corpuscular Hemoglobin Concent 33 g/dL (31-37) Red Cell Distribution Width 15.7 % (11.5-14.5) Platelet Count 217 x10^3/uL (140-400) Neutrophils (%) (Auto) 92 % (31-73) Lymphocytes (%) (Auto) 7 % (24-48) Monocytes (%) (Auto) 1 % (0-9) Eosinophils (%) (Auto) 0 % (0-3) Basophils (%) (Auto) 0 % (0-3) Neutrophils # (Auto) 8.7 x10^3uL (1.8-7.7) Lymphocytes # (Auto) 0.7 x10^3/uL (1.0-4.8) Monocytes # (Auto) 0.1 x10^3/uL (0.0-1.1) Eosinophils # (Auto) 0.0 x10^3/uL (0.0-0.7) Basophils # (Auto) 0.0 x10^3/uL (0.0-0.2) Segmented Neutrophils % 83 % (35-66) Band Neutrophils % 7 % (0-9) Lymphocytes % 9 % (24-48) Basophils % 1 % (0-3) Platelet Estimate Adequate (ADEQUATE) Sodium Level 137 mmol/L (136-145) Potassium Level 4.0 mmol/L (3.5-5.1) Chloride Level 104 mmol/L (98-107) Carbon Dioxide Level 23 mmol/L (21-32) Anion Gap 10 (6-14) Blood Urea Nitrogen 25 mg/dL (8-26) Creatinine 1.5 mg/dL (0.7-1.3) Estimated GFR (Cockcroft-Gault) 44.2 Glucose Level 314 mg/dL (70-99) Calcium Level 7.8 mg/dL (8.5-10.1) Magnesium Level 1.8 mg/dL (1.8-2.4) Glucose (Fingerstick) 292 mg/dL (70-99) Micro BLOOD CULTURE Preliminary NO GROWTH AFTER 1 DAY Objective Assessment Sepsis - POA, off Levophed Influenza B Leukocytosis BOBBY DM Plan Plan of Care Tamiflu to 30 mg po BID Zyvox and Zosyn F/u labs and cults 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
[2017-06-26] MEDS ORDERED: INSULIN ASPART 300 UNITS/3 ML INSULN.PEN SQ ONE (12:00)
--- NOTE | 2017-06-26 12:27 | PDOC ---
PROGRESS NOTES Subjective Subjective doing well ,off pressors Objective Objective Vital Signs Date Time Temp Pulse Resp B/P (MAP) Pulse Ox O2 Delivery O2 Flow Rate FiO2 06/26/17 12:06 Nasal Cannula 2.0 06/26/17 11:00 96.8 72 20 104/59 (74) 96 96.8 Intake and Output 06/26/17 07:00 Intake Total 3167 ml Output Total 2225 ml Balance 942 ml Intake Oral 20 ml IV Total 2447 ml Tube Feeding 700 ml Output Urine Total 2225 ml Physical Exam Abdomen: Normal bowel sounds, Soft Heart: Regular rate, Normal S1, Normal S2 Extremities: No clubbing General: Alert HEENT: Atraumatic Lungs: Clear to auscultation MUSCULOSKELETAL: No swelling, Osteoarthritic changes both hands Neuro: Normal speech Psych/Mental Status: Mental status NL Skin: No breakdown Diagnosis Problem List Problems Medical Problems: (1) Influenza B Status: Acute (2) Lactic acidosis Status: Acute Assessment Assessment Problems Medical Problems: (1) Influenza B Status: Acute (2) Lactic acidosis Status: Acute IMPRESSION: DT s from alcohol, was shaky yesterday 1. Influenzae B with sepsis and hypotension. 2. Acute on Chronic respiratory failure with pulmonary fibrosis.Interstitial lung disease 3. acute bronchitis secondary to influenzae B 4. AECOPD 5. 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 chronic diastolic CHF EF normal . 7. Benign prostatic hypertrophy. 8. Moderate protein calorie malnutrition with new onset severe PCL malnutrition 9. COPD with exacerbation 10. chronic AF Xarelto 11. chronic respiratory failure with COPD, ILD, silicosis underlying O2 dependent 12. anemia chronic disease B12 13. hyperlipidemia 14. severe weakness and debility with mobility deficits 15. depression 16. h/o ETOH abuse 17. GERD 18. acute on chronic back pain LS POA 19. Severe PCL malnutrition 20. CKD II with BOBBY hypotension PLAN: Hypotension resolved off pressors. transfer out of icu. Librium+thiamine+banana bag for DTs. Wbc down to 9.0 Inf B with sepsis - tamiflu - zosysn - zyvox - Vanco x 1 now stopped - ID consulted - Admit WBC 20.7 today 9.0 hypotension - levophed, multiple NS boluses through night a/c respiratory failure - AB/AECOPD - solumedrol 125mg IV x 1 then 60mg IV q8 - nebulizer - mucinex - CHF - admit wt 177.31 - diastolic -?component fluid overload from NS replacement fluids - give low dose Lasix 20mg IV x 1 - chronic lasix stopped DM II - FSBS SSI HTN - hold meds hypokalemia - admit 3.7 today 3.3 give additional 20KCL this am po CKD II - Admit BUN/Cr 20/1.5 this am 23/1.8 - monitor - BOBBY hypotension weakness debility - PT OT consult malnutrition - supplements DVT/GI prophylaxis - xarelto PPI Problems: Plan Plan of Care Problems Medical Problems: (1) Influenza B Status: Acute (2) Lactic acidosis Status: Acute Comment Review of Relevant I have reviewed the following items sean (where applicable) has been applied. Labs Laboratory Tests Test 06/25/17 13:50 06/25/17 18:09 06/25/17 21:47 06/26/17 05:00 Glucose (Fingerstick) 306 mg/dL (70-99) 367 mg/dL (70-99) 345 mg/dL (70-99) White Blood Count 9.5 x10^3/uL (4.0-11.0) Red Blood Count 3.28 x10^6/uL (4.30-5.70) Hemoglobin 9.7 g/dL (13.0-17.5) Hematocrit 29.3 % (39.0-53.0) Mean Corpuscular Volume 89 fL (79-100) Mean Corpuscular Hemoglobin 30 pg (25-35) Mean Corpuscular Hemoglobin Concent 33 g/dL (31-37) Red Cell Distribution Width 15.7 % (11.5-14.5) Platelet Count 217 x10^3/uL (140-400) Neutrophils (%) (Auto) 92 % (31-73) Lymphocytes (%) (Auto) 7 % (24-48) Monocytes (%) (Auto) 1 % (0-9) Eosinophils (%) (Auto) 0 % (0-3) Basophils (%) (Auto) 0 % (0-3) Neutrophils # (Auto) 8.7 x10^3uL (1.8-7.7) Lymphocytes # (Auto) 0.7 x10^3/uL (1.0-4.8) Monocytes # (Auto) 0.1 x10^3/uL (0.0-1.1) Eosinophils # (Auto) 0.0 x10^3/uL (0.0-0.7) Basophils # (Auto) 0.0 x10^3/uL (0.0-0.2) Segmented Neutrophils % 83 % (35-66) Band Neutrophils % 7 % (0-9) Lymphocytes % 9 % (24-48) Basophils % 1 % (0-3) Platelet Estimate Adequate (ADEQUATE) Sodium Level 137 mmol/L (136-145) Potassium Level 4.0 mmol/L (3.5-5.1) Chloride Level 104 mmol/L (98-107) Carbon Dioxide Level 23 mmol/L (21-32) Anion Gap 10 (6-14) Blood Urea Nitrogen 25 mg/dL (8-26) Creatinine 1.5 mg/dL (0.7-1.3) Estimated GFR (Cockcroft-Gault) 44.2 Glucose Level 314 mg/dL (70-99) Calcium Level 7.8 mg/dL (8.5-10.1) Magnesium Level 1.8 mg/dL (1.8-2.4) Test 06/26/17 08:19 06/26/17 11:19 Glucose (Fingerstick) 292 mg/dL (70-99) 395 mg/dL (70-99) Microbiology 06/24/17 Blood Culture - Preliminary, Resulted NO GROWTH AFTER 1 DAY Medications Current Medications Atorvastatin Calcium (Lipitor) 40 mg QHS PO Last administered on 06/25/17 21: 31; Start 06/25/17 at 21:00 Cetirizine HCl (ZyrTEC) 10 mg QHS PO Last administered on 06/25/17t 21:20; Start 06/25/17 at 21:00 Diphenhydramine HCl (Benadryl) 25 mg PRN Q15MIN PRN IVP EPS symptoms 2'Haldol admin; Start 06/25/17 at 18:30 Furosemide (Lasix) 20 mg QMWF PO ; Start 06/25/17 at 16:00; Stop 06/25/17 at 16:00; Status DC Furosemide (Lasix) 40 mg QTUTHSASU PO ; Start 06/26/17 at 16:00; Stop at 16:00; Status DC Gabapentin (Neurontin) 100 mg QHS PO Last administered on 06/25/17 21:21; Start 06/25/17 at 21:00 Haloperidol Lactate (Haldol) 5 mg PRN Q4HRS PRN IVP Hallucinatns,Confusn, Delirium; Start 06/25/17 at 18:30 Insulin Aspart (NovoLOG) TIDACHC SQ ; Start 06/26/17 at 16:30 Insulin Aspart (NovoLOG) 5 units 1X ONCE SQ ; Start 06/26/17 at 12:00; Stop 06/26/17 at 12:07; Status DC Insulin Aspart (NovoLOG) 10 units TIDAC SQ ; Start 06/26/17 at 16:30 Insulin Detemir (Levemir) 40 units HS SQ Last administered on 06/25/17 21:48 ; Start 06/25/17 at 21:00 Lactobacillus Rhamnosus (Culturelle) 1 cap BID PO Last administered on 08:23; Start 06/25/17 at 21:00 Lorazepam (Ativan) 2 mg PRN Q1HR PRN IV For CIWA 8-14 Last administered on 19:16; Start 06/25/17 at 18:30 Lorazepam (Ativan) 4 mg PRN Q1HR PRN PO For CIWA 8-14; Start 06/25/17 at 18:30 Methylprednisolone Sodium Succinate (SOLU-Medrol 125MG VIAL) 60 mg Q8HRS IV Last administered on 06/26/17 05:41; Start 06/25/17 at 14:00 Montelukast Sodium (Singulair) 10 mg DAILYBFRSUP PO Last administered on 18:06; Start 06/25/17 at 17:00 Multivitamins 10 ml/Thiamine HCl 100 mg/Folic Acid 1 mg/Sodium Chloride 1,011.2 ml @ 70.47 mls/hr DAILY IV Last administered on 06/26/17 08:35; Start 06/26 at 07:15 Multivitamins 75 ml/Thiamine HCl 100 mg/Folic Acid 1 mg/Sodium Chloride 1,076.2 ml @ 75 mls/hr DAILY IV Last administered on 06/25/17 19:16; Start at 19:00; Stop 06/26/17 at 07:15; Status DC Rivaroxaban (Xarelto) 15 mg DAILYWSUP PO ; Start 06/26/17 at 17:00 Tizanidine HCl (Zanaflex) 4 mg QHS PO Last administered on 06/25/17t 21:21; Start 06/25/17 at 21:00 Vancomycin HCl 1 each 1X ONCE MC ; Start 06/26/17 at 17:30; Stop 06/26/17 at 17:30; Status DC Vancomycin HCl 1.25 gm/Dextrose 250 ml @ 167 mls/hr Q24H IV ; Start 06/25/17 at 18:00; Stop 06/25/17 at 18:00; Status DC Vitals/I & O Vital Sign - Last 24 Hours 06/25/17 06/25/17 06/25/17 06/25/17 14:00 15:04 16:00 16:00 Temp 98.1 98.1 Pulse 80 82 Resp 17 23 B/P (MAP) 128/56 (80) 112/62 (79) Pulse Ox 94 97 96 O2 Delivery Nasal Cannula Nasal Cannula Nasal Cannula Nasal Cannula O2 Flow Rate 2.0 2.0 2.0 2.0 06/25/17 06/25/17 06/25/17 06/25/17 17:00 19:00 19:55 20:00 Pulse 80 83 Resp 15 25 B/P (MAP) 114/60 (78) 99/49 (66) Pulse Ox 96 95 94 O2 Delivery Nasal Cannula Nasal Cannula Nasal Cannula Nasal Cannula O2 Flow Rate 2.0 2.0 2.0 2.0 06/25/17 06/25/17 06/25/17 06/25/17 20:00 21:00 22:00 23:00 Temp 97.7 97.7 Pulse 80 82 79 76 Resp 24 22 28 18 B/P (MAP) 100/47 (64) 106/40 (62) 101/52 (68) 89/49 (62) Pulse Ox 94 95 95 96 O2 Delivery Nasal Cannula Nasal Cannula Nasal Cannula Nasal Cannula O2 Flow Rate 2.0 2.0 2.0 2.0 06/26/17 06/26/17 06/26/17 06/26/17 00:00 00:00 01:00 02:00 Temp 97.4 97.4 Pulse 70 70 74 Resp 26 30 15 B/P (MAP) 87/51 (63) 93/52 (66) 93/58 (70) Pulse Ox 97 96 99 O2 Delivery Nasal Cannula Nasal Cannula Nasal Cannula Nasal Cannula O2 Flow Rate 2.0 2.0 2.0 2.0 06/26/17 06/26/17 06/26/17 06/26/17 03:00 04:00 04:00 05:00 Temp 97.2 97.2 Pulse 61 69 72 Resp 23 14 27 B/P (MAP) 90/59 (69) 100/57 (71) 91/76 (81) Pulse Ox 96 98 97 O2 Delivery Nasal Cannula Nasal Cannula Nasal Cannula Nasal Cannula O2 Flow Rate 2.0 2.0 2.0 2.0 06/26/17 06/26/17 06/26/17 06/26/17 06:00 07:00 07:20 07:47 Temp 96.8 96.8 Pulse 67 70 Resp 21 18 B/P (MAP) 113/65 (81) 92/52 (65) Pulse Ox 96 99 98 O2 Delivery Nasal Cannula Nasal Cannula Nasal Cannula Nasal Cannula O2 Flow Rate 2.0 2.0 2.0 2.0 06/26/17 06/26/17 06/26/17 06/26/17 08:00 08:50 09:00 10:00 Pulse 68 78 74 Resp 18 18 18 B/P (MAP) 95/50 (65) 93/50 (64) 92/52 (65) Pulse Ox 96 94 96 O2 Delivery Nasal Cannula Nasal Cannula Nasal Cannula Nasal Cannula O2 Flow Rate 2.0 2.0 2.0 2.0 06/26/17 06/26/17 11:00 12:06 Temp 96.8 96.8 Pulse 72 Resp 20 B/P (MAP) 104/59 (74) Pulse Ox 96 O2 Delivery Nasal Cannula Nasal Cannula O2 Flow Rate 2.0 2.0 Intake and Output 06/25/17 06/25/17 06/26/17 15:00 23:00 07:00 Intake Total 700 ml 2467 ml Output Total 950 ml 750 ml 525 ml Balance -250 ml -750 ml 1942 ml SALLIE MANZO MD Jun 26, 2017 12:27
[2017-06-26] MEDS ORDERED: predniSONE 20 MG TABLET PO ONE (12:30)
[2017-06-26] MEDS ORDERED: FUROSEMIDE 20 MG TABLET PO SCH (16:00)
[2017-06-26] MEDS: RIVAROXABAN 15 MG TABLET. PO SCH (17:06)
[2017-06-26] MEDS: MONTELUKAST SODIUM 10 MG TABLET. PO SCH (17:06)
[2017-06-26] MEDS: CETIRIZINE HCL 10 MG TABLET. PO SCH (21:00)
[2017-06-26] MEDS: GABAPENTIN 100 MG CAPSULE. PO SCH (21:00)
[2017-06-26] MEDS: tiZANidine 4 MG TABLET. PO SCH (21:00)
[2017-06-26] MEDS: ATORVASTATIN CALCIUM 40 MG TABLET. PO SCH (21:00)
[2017-06-26] MEDS: INSULIN DETEMIR 300 UNITS/3 ML INSULN.PEN. SQ SCH (21:11)
[2017-06-27] MEDS: PIPERACILLIN/TAZO IV Push 2.25 GM VIAL. IVP SCH ×4 (00:58→17:40)
[2017-06-27 03:05] VITALS: BP 94/56
[2017-06-27] MEDS: BUDESONIDE 0.5 MG/2 ML NEBU. NEB SCH ×2 (06:04→21:07)
[2017-06-27] MEDS: IPRATRPIUM/ALBUTEROL 0.5/2.5MG 3 ML NEBU. NEB SCH ×4 (06:04→21:07)
[2017-06-27 07:20] VITALS: BP 128/82
[2017-06-27] MEDS: INSULIN ASPART 300 UNITS/3 ML INSULN.PEN SQ SCH ×7 (07:30→20:52)
[2017-06-27] MEDS: OSELTAMIVIR 30 MG CAPSULE PO SCH ×2 (08:19→20:42)
[2017-06-27] MEDS: LACTOBACILLUS RHAMNOSUS GG 1 CAPSULE. PO SCH ×2 (08:19→20:42)
[2017-06-27] MEDS: THIAMINE 100 MG TABLET. PO SCH (08:19)
[2017-06-27] MEDS: FUROSEMIDE 20 MG TABLET PO SCH (08:20)
[2017-06-27] MEDS: ASPIRIN ENTERIC COATED 81 MG TABLET.DR. PO SCH (08:20)
[2017-06-27] MEDS: POTASSIUM CHLORIDE 20 MEQ TABLET.ER. PO SCH ×2 (08:20→17:39)
[2017-06-27] MEDS: CYANOCOBALAMIN (VITAMIN B-12) 1,000 MCG TABLET. PO SCH (08:20)
[2017-06-27] MEDS: MAGNESIUM OXIDE 400 MG TABLET PO SCH ×2 (08:20→20:43)
[2017-06-27] MEDS: CHOLECALCIFEROL (VITAMIN D3) 1,000 UNIT TABLET PO SCH (08:20)
[2017-06-27] MEDS: PANTOPRAZOLE 40 MG TABLET.DR. PO SCH (08:20)
[2017-06-27] MEDS: SODIUM CHLORIDE 0.65% NASAL SPRAY 45ML BOTTLE. NS SCH ×4 (08:21→20:44)
[2017-06-27] MEDS: MULTIVIT INFUSN,ADULT 4,VIT K 10 ML, THIAMINE 100 MG, FOLIC ACID 1 MG in IV NORMAL SALI... IV SCH (09:00)
[2017-06-27 11:07] VITALS: BP 130/72
[2017-06-27] MEDS ORDERED: predniSONE 20 MG TABLET PO ONE (12:30)
--- NOTE | 2017-06-27 12:36 | PDOC ---
PULMONARY PROGRESS NOTES Subjective feels better Vitals Vital Signs Date Time Temp Pulse Resp B/P (MAP) Pulse Ox O2 Delivery O2 Flow Rate FiO2 06/27/17 12:12 96 Nasal Cannula 2.0 06/27/17 11:07 97.4 81 24 130/72 (91) 97.4 General: Alert, No acute distress Lungs: Crackles (bases) Cardiovascular: S1, S2 Abdomen: Soft, Non-tender Extremities: Other (trace edema) Labs Laboratory Tests Test 06/25/17 13:50 06/25/17 18:09 06/25/17 21:47 06/26/17 05:00 Glucose (Fingerstick) 306 mg/dL (70-99) 367 mg/dL (70-99) 345 mg/dL (70-99) White Blood Count 9.5 x10^3/uL (4.0-11.0) Red Blood Count 3.28 x10^6/uL (4.30-5.70) Hemoglobin 9.7 g/dL (13.0-17.5) Hematocrit 29.3 % (39.0-53.0) Mean Corpuscular Volume 89 fL (79-100) Mean Corpuscular Hemoglobin 30 pg (25-35) Mean Corpuscular Hemoglobin Concent 33 g/dL (31-37) Red Cell Distribution Width 15.7 % (11.5-14.5) Platelet Count 217 x10^3/uL (140-400) Neutrophils (%) (Auto) 92 % (31-73) Lymphocytes (%) (Auto) 7 % (24-48) Monocytes (%) (Auto) 1 % (0-9) Eosinophils (%) (Auto) 0 % (0-3) Basophils (%) (Auto) 0 % (0-3) Neutrophils # (Auto) 8.7 x10^3uL (1.8-7.7) Lymphocytes # (Auto) 0.7 x10^3/uL (1.0-4.8) Monocytes # (Auto) 0.1 x10^3/uL (0.0-1.1) Eosinophils # (Auto) 0.0 x10^3/uL (0.0-0.7) Basophils # (Auto) 0.0 x10^3/uL (0.0-0.2) Segmented Neutrophils % 83 % (35-66) Band Neutrophils % 7 % (0-9) Lymphocytes % 9 % (24-48) Basophils % 1 % (0-3) Platelet Estimate Adequate (ADEQUATE) Sodium Level 137 mmol/L (136-145) Potassium Level 4.0 mmol/L (3.5-5.1) Chloride Level 104 mmol/L (98-107) Carbon Dioxide Level 23 mmol/L (21-32) Anion Gap 10 (6-14) Blood Urea Nitrogen 25 mg/dL (8-26) Creatinine 1.5 mg/dL (0.7-1.3) Estimated GFR (Cockcroft-Gault) 44.2 Glucose Level 314 mg/dL (70-99) Calcium Level 7.8 mg/dL (8.5-10.1) Magnesium Level 1.8 mg/dL (1.8-2.4) Test 06/26/17 08:19 06/26/17 11:19 06/26/17 12:03 06/26/17 16:03 Glucose (Fingerstick) 292 mg/dL (70-99) 395 mg/dL (70-99) 376 mg/dL (70-99) 386 mg/dL (70-99) Test 06/26/17 20:31 06/27/17 07:19 06/27/17 11:03 Glucose (Fingerstick) 286 mg/dL (70-99) 74 mg/dL (70-99) 210 mg/dL (70-99) Laboratory Tests Test 06/26/17 16:03 06/26/17 20:31 06/27/17 07:19 06/27/17 11:03 Glucose (Fingerstick) 386 mg/dL (70-99) 286 mg/dL (70-99) 74 mg/dL (70-99) 210 mg/dL (70-99) Medications Active Scripts Medications Dose Route/Sig Max Daily Dose Days Date Category Dose Instructions Saline Nasal Marienthal (Sodium Chloride) 30 Ml Marienthal 2 Mar[place]hal NS QID 06/25/17 Reported Proair Hfa Inhaler (Albuterol Sulfate) 8.5 Gm Hfa.aer.ad 1 Puff INH PRN Q6HRS PRN 06/25/17 Reported Potassium Chloride 20 Meq Tablet.er 20 Meq PO BID 06/25/17 Reported Advair 250-50 Diskus (Fluticasone/Salmeterol) 1 Each Disk.w.dev 1 Puff IH BID 06/25/17 Reported Levemir Flextouch (Insulin Detemir) 100 Unit/1 Ml Insuln.pen 40 Unit SQ HS 06/24/17 Reported Novolog Flexpen (Insulin Aspart) 100 Unit/1 Ml Insuln.pen 5 Unit SQ TIDAC 06/24/17 Reported Xarelto (Rivaroxaban) 20 Mg Tablet 15 Mg PO DAILY 04/22/17 Reported Lasix (Furosemide) 20 Mg Tablet 1 Tab PO MWF 03/19/17 Rx Lasix (Furosemide) 20 Mg Tablet 2 Tab PO TTSS 03/19/17 Rx Novolog Flexpen (Insulin Aspart) 100 Unit/1 Ml Insuln.pen 1 Unit SQ TIDAC 03/18/17 Rx BS <150=0, 151-200=2units, 201-250=3units, 251-300= 4 units, 301-350=5 units, 351-400=6 units >401 call Metoprolol Tartrate 25 Mg Tablet 12.5 Mg PO BID 02/22/17 Rx Take 1/2 tablet bid. HOLD if SBP <110 Aspirin Ec (Aspirin) 81 Mg Tablet.dr 81 Mg PO DAILYWBKFT 02/22/17 Rx Take one tablet by mouth daily Protonix (Pantoprazole Sodium) 40 Mg Tablet.dr 1 Tab PO DAILY 02/18/17 Reported Lipitor (Atorvastatin Calcium) 40 Mg Tablet 1 Tab PO QHS 02/18/17 Reported Thiamine Hcl 100 Mg Tablet 100 Mg PO DAILY 02/18/17 Reported Magnesium (Magnesium Oxide) 400 Mg Capsule 400 Mg PO BID 02/17/17 Reported Miralax (Polyethylene Glycol 3350) 17 Gm Powd.pack 1 Pkt PO DAILY PRN 02/17/17 Reported Mapap (Acetaminophen) 325 Mg Tablet 650 Mg PO PRN Q4HRS PRN 06/03/16 Rx Tizanidine Hcl 4 Mg Tablet 1 Tab-Cap PO QHS 05/03/16 Reported Cetirizine Hcl 10 Mg Tab.chew 10 Mg PO QHS 05/03/16 Reported Gabapentin 100 Mg Capsule 100 Mg PO QHS 05/03/16 Reported Duoneb 0.5-3(2.5) Mg/3 Ml (Albuterol/Ipratropium) 3 Ml Ampul.neb 3 Ml NEB RTQID 12/04/15 Rx Tramadol Hcl 50 Mg Tablet 1 Tab PO PRN Q6HRS 03/07/15 Reported Vitamin D (Cholecalciferol (Vitamin D3)) 10,000 Unit Capsule 2,000 Unit PO DAILY 03/07/15 Reported Vitamin B-12 (Cyanocobalamin (Vitamin B-12)) 1,000 Mcg Tablet.er 1,000 Mcg PO DAILY08 11/17/13 Rx Singulair Tablet (Montelukast Sodium) 10 Mg Tablet 10 Mg PO DAILYBFRSUP 11/01/13 Reported last dose with supper next dose tomorrow Impression . 1. Dyspnea with cough related to influenza B. Cannot exclude any superimposed bacterial infection. 2. Chronic respiratory failure secondary to chronic pulmonary fibrosis. 3. Abnormal chest x-ray with bilateral interstitial infiltrates, which appears to be accentuated than 6 months ago and may be related to superimposed interstitial viral pneumonia. 4. Renal insufficiency. 5. No history of tobacco use. Plan . 1. Continue with present respiratory isolation. 2. Tamiflu. 3. steroids. 4. Antibiotics. 5. Bronchodilators. 6. Continue oxygen at 2 liters. 7. Xarelto for AFib. 8. Discussed with RN, we will follow along with you. LILLIE GONSALVES MD Jun 27, 2017 12:36
[2017-06-27] MEDS: ANTI-COAG MONITOR BY PHARMACY. MC PRN ×2 (13:56→14:04)
--- NOTE | 2017-06-27 14:42 | PDOC ---
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, 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, no focal neurologic deficit SKIN: No rash IV: ok Labs Lab Laboratory Tests Test 06/26/17 16:03 06/26/17 20:31 06/27/17 07:19 06/27/17 11:03 Glucose (Fingerstick) 386 mg/dL (70-99) 286 mg/dL (70-99) 74 mg/dL (70-99) 210 mg/dL (70-99) Micro BLOOD CULTURE Preliminary NO GROWTH AFTER 2 DAY Objective Assessment Sepsis - POA, off Levophed Influenza B Leukocytosis, improved BOBBY DM Plan Plan of Care Tamiflu to 30 mg po BID Zyvox and Zosyn F/u labs and cults PT SEEN ,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
[2017-06-27 15:31] VITALS: BP 120/64
[2017-06-27] MEDS: RIVAROXABAN 15 MG TABLET. PO SCH ×2 (17:00→17:39)
[2017-06-27] MEDS: MONTELUKAST SODIUM 10 MG TABLET. PO SCH (17:38)
--- NOTE | 2017-06-27 17:50 | PDOC ---
PROGRESS NOTES Subjective Subjective moved out of ICU Objective Objective Vital Signs Date Time Temp Pulse Resp B/P (MAP) Pulse Ox O2 Delivery O2 Flow Rate FiO2 06/27/17 15:31 98.2 77 22 120/64 (82) 97 Nasal Cannula 2.0 98.2 Intake and Output 06/27/17 07:00 Intake Total 2639 ml Output Total 1250 ml Balance 1389 ml Intake Oral 760 ml IV Total 1879 ml Output Urine Total 1250 ml # Voids 1 Physical Exam Abdomen: Normal bowel sounds, Soft Heart: Regular rate, Normal S1, Normal S2 Extremities: No clubbing General: Alert HEENT: Atraumatic Lungs: Clear to auscultation, Other (wheeezing rt lung) MUSCULOSKELETAL: No swelling, Osteoarthritic changes both hands Neuro: Normal speech Psych/Mental Status: Mental status NL Skin: No breakdown Diagnosis Problem List Problems Medical Problems: (1) Influenza B Status: Acute (2) Lactic acidosis Status: Acute Assessment Assessment Problems Medical Problems: (1) Influenza B Status: Acute (2) Lactic acidosis Status: Acute IMPRESSION: DT s from alcohol, was shaky yesterday 1. Influenzae B with sepsis and hypotension. 2. Acute on Chronic respiratory failure with pulmonary fibrosis.Interstitial lung disease 3. acute bronchitis secondary to influenzae B 4. AECOPD 5. 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 chronic diastolic CHF EF normal . 7. Benign prostatic hypertrophy. 8. Moderate protein calorie malnutrition with new onset severe PCL malnutrition 9. COPD with exacerbation 10. chronic AF Xarelto 11. chronic respiratory failure with COPD, ILD, silicosis underlying O2 dependent 12. anemia chronic disease B12 13. hyperlipidemia 14. severe weakness and debility with mobility deficits 15. depression 16. h/o ETOH abuse 17. GERD 18. acute on chronic back pain LS POA 19. Severe PCL malnutrition 20. CKD II with BOBBY hypotension PLAN: Tamiflue+zyvox Hypotension resolved off pressors. transferred out of icu. Librium+thiamine+ d/c banana bag for DTs. No labs today. Inf B with sepsis - tamiflu - zosysn - zyvox - Vanco x 1 now stopped - ID consulted - Admit WBC 20.7 today 9.0 hypotension - levophed, multiple NS boluses through night a/c respiratory failure - AB/AECOPD - solumedrol 125mg IV x 1 then 60mg IV q8 - nebulizer - mucinex - CHF - admit wt 177.31 - diastolic -?component fluid overload from NS replacement fluids - give low dose Lasix 20mg IV x 1 - chronic lasix stopped DM II - FSBS SSI HTN - hold meds hypokalemia - admit 3.7 today 3.7 CKD II - Admit BUN/Cr 20/1.5 this am 23/1.8 - monitor - BOBBY hypotension weakness debility - PT OT consult malnutrition - supplements DVT/GI prophylaxis - xarelto PPI Problems: Plan Plan of Care Problems Medical Problems: (1) Influenza B Status: Acute (2) Lactic acidosis Status: Acute Comment Review of Relevant I have reviewed the following items sean (where applicable) has been applied. Labs Laboratory Tests Test 06/26/17 20:31 06/27/17 07:19 06/27/17 11:03 06/27/17 17:10 Glucose (Fingerstick) 286 mg/dL (70-99) 74 mg/dL (70-99) 210 mg/dL (70-99) 63 mg/dL (70-99) Microbiology 06/24/17 Blood Culture - Preliminary, Resulted NO GROWTH AFTER 3 DAYS Medications Current Medications Info (Anti-Coagulation Monitoring By Pharmacy) 1 each PRN DAILY PRN MC SEE COMMENTS Last administered on 06/27/17 14:04; Start 06/27/17 at 14:00 Prednisone (Prednisone) 30 mg 1X ONCE PO Last administered on 06/27/17 12:47 ; Start 06/27/17 at 12:30; Stop 06/27/17 at 12:31; Status DC Vitals/I & O Vital Sign - Last 24 Hours 06/26/17 06/26/17 06/26/17 06/27/17 19:05 20:15 23:12 03:05 Temp 97.5 97.3 97.6 97.5 97.3 97.6 Pulse 92 71 60 Resp 22 20 18 B/P (MAP) 104/62 (76) 104/61 (75) 94/56 (69) Pulse Ox 95 96 95 O2 Delivery Nasal Cannula Nasal Cannula Nasal Cannula Nasal Cannula O2 Flow Rate 2.0 2.0 2.0 2.0 06/27/17 06/27/17 06/27/17 06/27/17 06:06 07:20 11:07 12:12 Temp 97.3 97.4 97.3 97.4 Pulse 89 81 Resp 22 24 B/P (MAP) 128/82 (97) 130/72 (91) Pulse Ox 93 94 96 O2 Delivery Nasal Cannula Nasal Cannula Nasal Cannula Nasal Cannula O2 Flow Rate 2.0 2.0 2.0 2.0 06/27/17 06/27/17 15:20 15:31 Temp 98.2 98.2 Pulse 77 Resp 22 B/P (MAP) 120/64 (82) Pulse Ox 97 O2 Delivery Nasal Cannula Nasal Cannula O2 Flow Rate 2.0 2.0 Intake and Output 06/26/17 06/26/17 06/27/17 15:00 23:00 07:00 Intake Total 790 ml 729 ml 1120 ml Output Total 250 ml 400 ml 600 ml Balance 540 ml 329 ml 520 ml SALLIE MANZO MD Jun 27, 2017 17:50
[2017-06-27 19:30] VITALS: BP 136/81
[2017-06-27] MEDS: ATORVASTATIN CALCIUM 40 MG TABLET. PO SCH (20:43)
[2017-06-27] MEDS: tiZANidine 4 MG TABLET. PO SCH (20:43)
[2017-06-27] MEDS: GABAPENTIN 100 MG CAPSULE. PO SCH (20:43)
[2017-06-27] MEDS: CETIRIZINE HCL 10 MG TABLET. PO SCH (20:43)
[2017-06-27] MEDS: INSULIN DETEMIR 300 UNITS/3 ML INSULN.PEN. SQ SCH (20:50)
[2017-06-27 23:42] VITALS: BP 110/62
[2017-06-28] MEDS: PIPERACILLIN/TAZO IV Push 2.25 GM VIAL. IVP SCH ×3 (01:01→12:00)
[2017-06-28 03:58] VITALS: BP 131/77
[2017-06-28 04:29] LABS: BASO % 0 % (0-3); EOS % 0 % (0-3); HEMATOCRIT 29.6 % (39.0-53.0); HEMOGLOBIN 9.8 g/dL (13.0-17.5); LYMPH # 1.2 x10^3/uL (1.0-4.8); LYMPH % 13 % (24-48); MEAN CORPUSCULAR HEMOGLOBIN 30 pg (25-35); MEAN CORPUSCULAR HGB CONC 33 g/dL (31-37); MEAN CORPUSCULAR VOLUME 89 fL (79-100); MONO % 6 % (0-9); NEUT % 81 % (31-73); PLATELET COUNT 253 x10^3/uL (140-400); RED BLOOD COUNT 3.34 x10^6/uL (4.30-5.70); RED CELL DISTRIBUTION WIDTH 15.5 % (11.5-14.5); WHITE BLOOD COUNT 9.6 x10^3/uL (4.0-11.0)
[2017-06-28 04:44] LABS: CALCIUM 8.2 mg/dL (8.5-10.1); CREATININE 1.5 mg/dL (0.7-1.3); GFR 44.2; POTASSIUM 3.7 mmol/L (3.5-5.1)
[2017-06-28] MEDS: IPRATRPIUM/ALBUTEROL 0.5/2.5MG 3 ML NEBU. NEB SCH ×4 (06:43→20:31)
[2017-06-28] MEDS: BUDESONIDE 0.5 MG/2 ML NEBU. NEB SCH ×2 (07:20→20:31)
[2017-06-28 07:25] VITALS: BP 136/71
[2017-06-28] MEDS: INSULIN ASPART 300 UNITS/3 ML INSULN.PEN SQ SCH ×7 (07:30→20:14)
[2017-06-28] MEDS: CYANOCOBALAMIN (VITAMIN B-12) 1,000 MCG TABLET. PO SCH (08:36)
[2017-06-28] MEDS: THIAMINE 100 MG TABLET. PO SCH (08:36)
[2017-06-28] MEDS: ASPIRIN ENTERIC COATED 81 MG TABLET.DR. PO SCH (08:36)
[2017-06-28] MEDS: FUROSEMIDE 20 MG TABLET PO SCH (08:37)
[2017-06-28] MEDS: OSELTAMIVIR 30 MG CAPSULE PO SCH ×2 (08:37→20:08)
[2017-06-28] MEDS: POTASSIUM CHLORIDE 20 MEQ TABLET.ER. PO SCH ×2 (08:37→16:30)
[2017-06-28] MEDS: predniSONE 20 MG TABLET PO SCH (08:38)
[2017-06-28] MEDS: PANTOPRAZOLE 40 MG TABLET.DR. PO SCH (08:39)
[2017-06-28] MEDS: LACTOBACILLUS RHAMNOSUS GG 1 CAPSULE. PO SCH ×2 (08:39→20:02)
[2017-06-28] MEDS: MAGNESIUM OXIDE 400 MG TABLET PO SCH ×2 (08:39→20:01)
[2017-06-28] MEDS: SODIUM CHLORIDE 0.65% NASAL SPRAY 45ML BOTTLE. NS SCH ×4 (08:40→20:03)
[2017-06-28] MEDS: CHOLECALCIFEROL (VITAMIN D3) 1,000 UNIT TABLET PO SCH (08:40)
--- NOTE | 2017-06-28 10:54 | PDOC ---
IM PROGRESS NOTES- Subjective Subjective Coughing a lot.Dyspnea is improving. Objective Vitals Vital Signs Date Time Temp Pulse Resp B/P (MAP) Pulse Ox O2 Delivery O2 Flow Rate FiO2 06/28/17 08:04 Nasal Cannula 2.0 06/28/17 07:25 98.3 94 22 136/71 (92) 93 98.3 Input & Output Intake and Output 06/28/17 07:00 Intake Total 2000 ml Output Total 400 ml Balance 1600 ml Intake Oral 2000 ml Output Urine Total 400 ml # Voids 5 # Bowel Movements 7 Physical Exam Physical Exam General appearance - alert, ill appearing, and in mild distress Mental Status - alert, oriented to person, place, and time, affect appropriate to mood Head - normal Chest - rhonchi anteriorly Heart - S1 and S2 normal Abdomen - soft, nontender, nondistended, BS + Neurological - no acute focal neurological deficits noted Musculoskeletal - no muscular tenderness noted Extremities - ++ pedal edema Skin - warm and dry Labs Laboratory Tests Test 06/26/17 11:19 06/26/17 12:03 06/26/17 16:03 06/26/17 20:31 Glucose (Fingerstick) 395 mg/dL (70-99) 376 mg/dL (70-99) 386 mg/dL (70-99) 286 mg/dL (70-99) Test 06/27/17 07:19 06/27/17 11:03 06/27/17 17:10 06/27/17 20:45 Glucose (Fingerstick) 74 mg/dL (70-99) 210 mg/dL (70-99) 63 mg/dL (70-99) 172 mg/dL (70-99) Test 06/28/17 04:15 06/28/17 07:30 White Blood Count 9.6 x10^3/uL (4.0-11.0) Red Blood Count 3.34 x10^6/uL (4.30-5.70) Hemoglobin 9.8 g/dL (13.0-17.5) Hematocrit 29.6 % (39.0-53.0) Mean Corpuscular Volume 89 fL (79-100) Mean Corpuscular Hemoglobin 30 pg (25-35) Mean Corpuscular Hemoglobin Concent 33 g/dL (31-37) Red Cell Distribution Width 15.5 % (11.5-14.5) Platelet Count 253 x10^3/uL (140-400) Neutrophils (%) (Auto) 81 % (31-73) Lymphocytes (%) (Auto) 13 % (24-48) Monocytes (%) (Auto) 6 % (0-9) Eosinophils (%) (Auto) 0 % (0-3) Basophils (%) (Auto) 0 % (0-3) Neutrophils # (Auto) 7.8 x10^3uL (1.8-7.7) Lymphocytes # (Auto) 1.2 x10^3/uL (1.0-4.8) Monocytes # (Auto) 0.6 x10^3/uL (0.0-1.1) Eosinophils # (Auto) 0.0 x10^3/uL (0.0-0.7) Basophils # (Auto) 0.0 x10^3/uL (0.0-0.2) Sodium Level 139 mmol/L (136-145) Potassium Level 3.7 mmol/L (3.5-5.1) Chloride Level 105 mmol/L (98-107) Carbon Dioxide Level 25 mmol/L (21-32) Anion Gap 9 (6-14) Blood Urea Nitrogen 30 mg/dL (8-26) Creatinine 1.5 mg/dL (0.7-1.3) Estimated GFR (Cockcroft-Gault) 44.2 Glucose Level 140 mg/dL (70-99) Calcium Level 8.2 mg/dL (8.5-10.1) Glucose (Fingerstick) 81 mg/dL (70-99) Laboratory Tests Test 06/27/17 11:03 06/27/17 17:10 06/27/17 20:45 06/28/17 04:15 Glucose (Fingerstick) 210 mg/dL (70-99) 63 mg/dL (70-99) 172 mg/dL (70-99) White Blood Count 9.6 x10^3/uL (4.0-11.0) Red Blood Count 3.34 x10^6/uL (4.30-5.70) Hemoglobin 9.8 g/dL (13.0-17.5) Hematocrit 29.6 % (39.0-53.0) Mean Corpuscular Volume 89 fL (79-100) Mean Corpuscular Hemoglobin 30 pg (25-35) Mean Corpuscular Hemoglobin Concent 33 g/dL (31-37) Red Cell Distribution Width 15.5 % (11.5-14.5) Platelet Count 253 x10^3/uL (140-400) Neutrophils (%) (Auto) 81 % (31-73) Lymphocytes (%) (Auto) 13 % (24-48) Monocytes (%) (Auto) 6 % (0-9) Eosinophils (%) (Auto) 0 % (0-3) Basophils (%) (Auto) 0 % (0-3) Neutrophils # (Auto) 7.8 x10^3uL (1.8-7.7) Lymphocytes # (Auto) 1.2 x10^3/uL (1.0-4.8) Monocytes # (Auto) 0.6 x10^3/uL (0.0-1.1) Eosinophils # (Auto) 0.0 x10^3/uL (0.0-0.7) Basophils # (Auto) 0.0 x10^3/uL (0.0-0.2) Sodium Level 139 mmol/L (136-145) Potassium Level 3.7 mmol/L (3.5-5.1) Chloride Level 105 mmol/L (98-107) Carbon Dioxide Level 25 mmol/L (21-32) Anion Gap 9 (6-14) Blood Urea Nitrogen 30 mg/dL (8-26) Creatinine 1.5 mg/dL (0.7-1.3) Estimated GFR (Cockcroft-Gault) 44.2 Glucose Level 140 mg/dL (70-99) Calcium Level 8.2 mg/dL (8.5-10.1) Test 06/28/17 07:30 Glucose (Fingerstick) 81 mg/dL (70-99) Meds Current Medications Info (Anti-Coagulation Monitoring By Pharmacy) 1 each PRN DAILY PRN MC SEE COMMENTS Last administered on 06/27/17 14:04; Start 06/27/17 at 14:00 Prednisone (Prednisone) 30 mg 1X ONCE PO Last administered on 06/27/17 12:47 ; Start 06/27/17 at 12:30; Stop 06/27/17 at 12:31; Status DC Prednisone (Prednisone) 50 mg DAILY PO Last administered on 06/28/17t 08:38; Start 06/28/17 at 09:00 Assessment Assessment Problems Medical Problems: (1) Influenza B Status: Acute (2) Lactic acidosis Status: Acute IMPRESSION: DT s from alcohol, was shaky yesterday 1. Influenzae B with sepsis and hypotension. 2. Acute on Chronic respiratory failure with pulmonary fibrosis.Interstitial lung disease 3. acute bronchitis secondary to influenzae B 4. AECOPD 5. 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 chronic diastolic CHF EF normal . 7. Benign prostatic hypertrophy. 8. Moderate protein calorie malnutrition with new onset severe PCL malnutrition 9. COPD with exacerbation 10. chronic AF Xarelto 11. chronic respiratory failure with COPD, ILD, silicosis underlying O2 dependent 12. anemia chronic disease B12 13. hyperlipidemia 14. severe weakness and debility with mobility deficits 15. depression 16. h/o ETOH abuse 17. GERD 18. acute on chronic back pain LS POA 19. Severe PCL malnutrition 20. CKD II with BOBBY hypotension PLAN: Tamiflue+zyvox Hypotension resolved off pressors. transferred out of icu. Librium+thiamine+ d/c banana bag for DTs. No labs today. Inf B with sepsis - tamiflu - zosysn - zyvox - Vanco x 1 now stopped - ID consulted - Admit WBC 20.7 today 9.0 hypotension - levophed, multiple NS boluses through night a/c respiratory failure - AB/AECOPD - solumedrol 125mg IV x 1 then 60mg IV q8 - nebulizer - mucinex - CHF - admit wt 177.31 - diastolic -?component fluid overload from NS replacement fluids - give low dose Lasix 20mg IV x 1 - chronic lasix stopped DM II - FSBS SSI HTN - hold meds hypokalemia - admit 3.7 today 3.7 CKD II - Admit BUN/Cr 20/1.5 this am 23/1.8 - monitor - BOBBY hypotension weakness debility - PT OT consult malnutrition - supplements DVT/GI prophylaxis - xarelto PPI Has nose bleeds- hold Xarelto. SNF when ready. slowly improving. Plan Plan The patient was seen and examined by me. Chart reviewed and plan of care formulated. Discussed with, reviewed and agree with SU[employer]'s notes, plan of care and orders with modifications as necessary. For more details regarding further plans, please refer to the orders. STEPAN MILTON MD Jun 28, 2017 10:54
--- NOTE | 2017-06-28 11:10 | CONS ---
DATE OF CONSULTATION: 06/25/2017 PATIENT'S ROOM: ICU 9. REQUESTING PHYSICIAN: Dr. Anderson. REASON FOR CONSULTATION: Sepsis. HISTORY OF PRESENT ILLNESS: The patient is a pleasant 87-year-old gentleman with longstanding history of diabetes, who recently diagnosed with Pantoea sepsis back in March, was treated. He had been doing fairly well, but was brought to the Emergency Room at [facility] on 06/24/2017 secondary to fever, increased shortness of air and back pain for a couple of days. He feels he has been ill for at least a week or so, but he is somewhat of a questionable historian. Lives with his son and his and denies any ill contacts. He states he had a flu shot this year, not been on any antimicrobials recently. He was brought in to [facility]. He did have a temperature of 100.6. White blood cell count was elevated at 20.7. Creatinine was 1.5, but has increased to 1.8. Influenza screen was positive for influenza B. A chest x-ray was performed, showed moderate chronic fibrosis, peripheral honeycombing, no new acute cardiopulmonary abnormality was detected. His blood pressure was low, dropping into the 60s/30s. He was admitted to the intensive care unit and placed on Levophed where currently, he is on 5. He had been started on vancomycin, Zosyn and received a dose of Tamiflu 75 mg. Currently, he is lying comfortably, although he is a little bit tired, did not sleep much and he has been looking for his urinal and denies any sinus congestion, no gross drainage, a little bit of sore throat, mild cough with minimal sputum production. No chest pain. Denies any nausea, vomiting or diarrhea. No dysuria, frequency or urgency, but does have some incontinence at times. Denies any rashes or joint aches. PAST MEDICAL HISTORY: Again is positive for the Pantoea agglomerans sepsis back in March of this year, also has a longstanding history of diabetes, chronic kidney disease, congestive heart failure which is diastolic, hyperlipidemia, COPD, pulmonary fibrosis, gastroesophageal reflux disease, anemia, depression, BPH. PAST SURGICAL HISTORY: Positive for cataract surgery, pacemaker for sick sinus syndrome, arthroscopy of the right shoulder and left shoulder repair. REVIEW OF SYSTEMS: Otherwise negative except for as mentioned above. SOCIAL HISTORY: As mentioned, he lives at home. He has a history of tobacco in the past. Lives with his and son. Denies any ill contacts. FAMILY HISTORY: Positive for coronary artery disease, hypertension and heart disease. CURRENT MEDICATIONS: Include Levophed, vancomycin, albuterol, aspirin, Lipitor, Zyrtec, vitamin D, Lasix, Neurontin, insulin, Tamiflu 75, Protonix, Zosyn, thiamine, Zanaflex, tramadol. Other meds are available, have been reviewed in the chart. PHYSICAL EXAMINATION: VITAL SIGNS: T-max again was 100.6 on arrival, currently 93, pulse 74, respirations 17, blood pressure 160/67, satting 97% on 2 liters. CONSTITUTIONAL: He is alert. He is in no acute distress, but he is somewhat of a questionable historian. HEENT: His pupils are status post cataract surgery. Oropharynx is poor dentition but otherwise clear. NECK: Supple, no JVD. LUNGS: With some mild wheeze, no gross rhonchi. HEART: S1, S2. Pacemaker without signs of complications. ABDOMEN: Soft, nontender, nondistended with decreased bowel sounds. EXTREMITIES: Without clubbing or cyanosis. No gross edema. SKIN: Without signs of rash. IV site is clean. NEUROLOGIC: He is nonfocal, moves all extremities. PSYCHIATRIC: Affect is pleasant. LABORATORY VALUES: White count today is 16.2, hemoglobin 10.1, platelets of 281, neutrophils 94, lymphs are 3, creatinine of 1.8, glucose of 196. Again, influenza is positive for influenza B. Chest x-ray reviewed in history of present illness. IMPRESSION: 1. Sepsis present on admission, currently on 5 of Levophed. 2. Influenza B. 3. Leukocytosis. 4. Acute kidney injury. 5. Diabetes. RECOMMENDATIONS: We will adjust the Tamiflu 30 mg p.o. b.i.d., discontinue the vancomycin, begin Zyvox. With his renal failure, continue Zosyn, follow up labs and cultures. Thank you for participating in the patient's care. If you have any questions, please do not hesitate to contact me. I spent 35 minutes of critical care time. RICKY CHAN MD DR: TONY/naresh JOB#: [id number] / [id number]
[2017-06-28 11:30] VITALS: BP 138/87
--- NOTE | 2017-06-28 12:01 | PDOC ---
Infectious Disease Note Subjective Subjective Occasional cough, denies CP or SOA Appetite good ROS ROS GEN: Denies fevers, chills, sweats HEENT: Denies blurred vision, sore throat CV: Denies chest pain RESP: Denies shortness of air, cough GI: Denies n/v/d NEURO: Denies confusion, dizziness MSK: Denies weakness, joint pain/swelling Vital Sign Vital Signs Vital Signs Date Time Temp Pulse Resp B/P (MAP) Pulse Ox O2 Delivery O2 Flow Rate FiO2 06/28/17 08:04 Nasal Cannula 2.0 06/28/17 07:25 98.3 94 22 136/71 (92) 93 98.3 Physical Exam PHYSICAL EXAM GENERAL: NAD, Alert HEENT: PERRL, OC/OP NECK: Supple, no JVD, no LN LUNGS: Clear HEART: S1S2, no gallop, no murmur ABD: Soft, NT, no organomegaly, no rebound EXT: No edema, no cyanosis 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, 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, no focal neurologic deficit SKIN: No rash IV: ok Labs Lab Laboratory Tests Test 06/27/17 17:10 06/27/17 20:45 06/28/17 04:15 06/28/17 07:30 Glucose (Fingerstick) 63 mg/dL (70-99) 172 mg/dL (70-99) 81 mg/dL (70-99) White Blood Count 9.6 x10^3/uL (4.0-11.0) Red Blood Count 3.34 x10^6/uL (4.30-5.70) Hemoglobin 9.8 g/dL (13.0-17.5) Hematocrit 29.6 % (39.0-53.0) Mean Corpuscular Volume 89 fL (79-100) Mean Corpuscular Hemoglobin 30 pg (25-35) Mean Corpuscular Hemoglobin Concent 33 g/dL (31-37) Red Cell Distribution Width 15.5 % (11.5-14.5) Platelet Count 253 x10^3/uL (140-400) Neutrophils (%) (Auto) 81 % (31-73) Lymphocytes (%) (Auto) 13 % (24-48) Monocytes (%) (Auto) 6 % (0-9) Eosinophils (%) (Auto) 0 % (0-3) Basophils (%) (Auto) 0 % (0-3) Neutrophils # (Auto) 7.8 x10^3uL (1.8-7.7) Lymphocytes # (Auto) 1.2 x10^3/uL (1.0-4.8) Monocytes # (Auto) 0.6 x10^3/uL (0.0-1.1) Eosinophils # (Auto) 0.0 x10^3/uL (0.0-0.7) Basophils # (Auto) 0.0 x10^3/uL (0.0-0.2) Sodium Level 139 mmol/L (136-145) Potassium Level 3.7 mmol/L (3.5-5.1) Chloride Level 105 mmol/L (98-107) Carbon Dioxide Level 25 mmol/L (21-32) Anion Gap 9 (6-14) Blood Urea Nitrogen 30 mg/dL (8-26) Creatinine 1.5 mg/dL (0.7-1.3) Estimated GFR (Cockcroft-Gault) 44.2 Glucose Level 140 mg/dL (70-99) Calcium Level 8.2 mg/dL (8.5-10.1) Test 06/28/17 11:46 Glucose (Fingerstick) 137 mg/dL (70-99) Objective Assessment Sepsis - POA, off Levophed Influenza B Leukocytosis, improved BOBBY DM Plan Plan of Care Tamiflu to 30 mg po BID start scaling down Zyvox and Zosyn F/u labs and cults ZEINA HU MD Jun 28, 2017 12:01
[2017-06-28] MEDS: AMOXICILLIN/K CLAV 500/125MG TABLET. PO SCH ×2 (12:12→20:02)
[2017-06-28 15:59] VITALS: BP 137/77
[2017-06-28] MEDS: MONTELUKAST SODIUM 10 MG TABLET. PO SCH (16:29)
--- NOTE | 2017-06-28 17:04 | PDOC ---
PULMONARY PROGRESS NOTES Subjective NOT MORE SOA NO INCREASE COUGH Vitals Vital Signs Date Time Temp Pulse Resp B/P (MAP) Pulse Ox O2 Delivery O2 Flow Rate FiO2 06/28/17 16:48 95 Nasal Cannula 2.0 06/28/17 15:59 98.6 90 19 137/77 (97) 98.6 General: Alert, No acute distress Cardiovascular: S1, S2 Abdomen: Soft, Non-tender Extremities: Other (trace edema) Labs Laboratory Tests Test 06/26/17 20:31 06/27/17 07:19 06/27/17 11:03 06/27/17 17:10 Glucose (Fingerstick) 286 mg/dL (70-99) 74 mg/dL (70-99) 210 mg/dL (70-99) 63 mg/dL (70-99) Test 06/27/17 20:45 06/28/17 04:15 06/28/17 07:30 06/28/17 11:46 Glucose (Fingerstick) 172 mg/dL (70-99) 81 mg/dL (70-99) 137 mg/dL (70-99) White Blood Count 9.6 x10^3/uL (4.0-11.0) Red Blood Count 3.34 x10^6/uL (4.30-5.70) Hemoglobin 9.8 g/dL (13.0-17.5) Hematocrit 29.6 % (39.0-53.0) Mean Corpuscular Volume 89 fL (79-100) Mean Corpuscular Hemoglobin 30 pg (25-35) Mean Corpuscular Hemoglobin Concent 33 g/dL (31-37) Red Cell Distribution Width 15.5 % (11.5-14.5) Platelet Count 253 x10^3/uL (140-400) Neutrophils (%) (Auto) 81 % (31-73) Lymphocytes (%) (Auto) 13 % (24-48) Monocytes (%) (Auto) 6 % (0-9) Eosinophils (%) (Auto) 0 % (0-3) Basophils (%) (Auto) 0 % (0-3) Neutrophils # (Auto) 7.8 x10^3uL (1.8-7.7) Lymphocytes # (Auto) 1.2 x10^3/uL (1.0-4.8) Monocytes # (Auto) 0.6 x10^3/uL (0.0-1.1) Eosinophils # (Auto) 0.0 x10^3/uL (0.0-0.7) Basophils # (Auto) 0.0 x10^3/uL (0.0-0.2) Sodium Level 139 mmol/L (136-145) Potassium Level 3.7 mmol/L (3.5-5.1) Chloride Level 105 mmol/L (98-107) Carbon Dioxide Level 25 mmol/L (21-32) Anion Gap 9 (6-14) Blood Urea Nitrogen 30 mg/dL (8-26) Creatinine 1.5 mg/dL (0.7-1.3) Estimated GFR (Cockcroft-Gault) 44.2 Glucose Level 140 mg/dL (70-99) Calcium Level 8.2 mg/dL (8.5-10.1) Test 06/28/17 16:21 Glucose (Fingerstick) 162 mg/dL (70-99) Laboratory Tests Test 06/27/17 17:10 06/27/17 20:45 06/28/17 04:15 06/28/17 07:30 Glucose (Fingerstick) 63 mg/dL (70-99) 172 mg/dL (70-99) 81 mg/dL (70-99) White Blood Count 9.6 x10^3/uL (4.0-11.0) Red Blood Count 3.34 x10^6/uL (4.30-5.70) Hemoglobin 9.8 g/dL (13.0-17.5) Hematocrit 29.6 % (39.0-53.0) Mean Corpuscular Volume 89 fL (79-100) Mean Corpuscular Hemoglobin 30 pg (25-35) Mean Corpuscular Hemoglobin Concent 33 g/dL (31-37) Red Cell Distribution Width 15.5 % (11.5-14.5) Platelet Count 253 x10^3/uL (140-400) Neutrophils (%) (Auto) 81 % (31-73) Lymphocytes (%) (Auto) 13 % (24-48) Monocytes (%) (Auto) 6 % (0-9) Eosinophils (%) (Auto) 0 % (0-3) Basophils (%) (Auto) 0 % (0-3) Neutrophils # (Auto) 7.8 x10^3uL (1.8-7.7) Lymphocytes # (Auto) 1.2 x10^3/uL (1.0-4.8) Monocytes # (Auto) 0.6 x10^3/uL (0.0-1.1) Eosinophils # (Auto) 0.0 x10^3/uL (0.0-0.7) Basophils # (Auto) 0.0 x10^3/uL (0.0-0.2) Sodium Level 139 mmol/L (136-145) Potassium Level 3.7 mmol/L (3.5-5.1) Chloride Level 105 mmol/L (98-107) Carbon Dioxide Level 25 mmol/L (21-32) Anion Gap 9 (6-14) Blood Urea Nitrogen 30 mg/dL (8-26) Creatinine 1.5 mg/dL (0.7-1.3) Estimated GFR (Cockcroft-Gault) 44.2 Glucose Level 140 mg/dL (70-99) Calcium Level 8.2 mg/dL (8.5-10.1) Test 06/28/17 11:46 06/28/17 16:21 Glucose (Fingerstick) 137 mg/dL (70-99) 162 mg/dL (70-99) Medications Active Scripts Medications Dose Route/Sig Max Daily Dose Days Date Category Dose Instructions Saline Nasal Seale (Sodium Chloride) 30 Ml Seale 2 Seale NS QID 06/25/17 Reported Proair Hfa Inhaler (Albuterol Sulfate) 8.5 Gm Hfa.aer.ad 1 Puff INH PRN Q6HRS PRN 06/25/17 Reported Potassium Chloride 20 Meq Tablet.er 20 Meq PO BID 06/25/17 Reported Advair 250-50 Diskus (Fluticasone/Salmeterol) 1 Each Disk.w.dev 1 Puff IH BID 06/25/17 Reported Levemir Flextouch (Insulin Detemir) 100 Unit/1 Ml Insuln.pen 40 Unit SQ HS 06/24/17 Reported Novolog Flexpen (Insulin Aspart) 100 Unit/1 Ml Insuln.pen 5 Unit SQ TIDAC 06/24/17 Reported Xarelto (Rivaroxaban) 20 Mg Tablet 15 Mg PO DAILY 04/22/17 Reported Lasix (Furosemide) 20 Mg Tablet 1 Tab PO MWF 03/19/17 Rx Lasix (Furosemide) 20 Mg Tablet 2 Tab PO TTSS 03/19/17 Rx Novolog Flexpen (Insulin Aspart) 100 Unit/1 Ml Insuln.pen 1 Unit SQ TIDAC 03/18/17 Rx BS <150=0, 151-200=2units, 201-250=3units, 251-300= 4 units, 301-350=5 units, 351-400=6 units >401 call Metoprolol Tartrate 25 Mg Tablet 12.5 Mg PO BID 02/22/17 Rx Take 1/2 tablet bid. HOLD if SBP <110 Aspirin Ec (Aspirin) 81 Mg Tablet. 81 Mg PO DAILYWBKFT 02/22/17 Rx Take one tablet by mouth daily Protonix (Pantoprazole Sodium) 40 Mg Tablet. 1 Tab PO DAILY 02/18/17 Reported Lipitor (Atorvastatin Calcium) 40 Mg Tablet 1 Tab PO QHS 02/18/17 Reported Thiamine Hcl 100 Mg Tablet 100 Mg PO DAILY 02/18/17 Reported Magnesium (Magnesium Oxide) 400 Mg Capsule 400 Mg PO BID 02/17/17 Reported Miralax (Polyethylene Glycol 3350) 17 Gm Powd.pack 1 Pkt PO DAILY PRN 02/17/17 Reported Mapap (Acetaminophen) 325 Mg Tablet 650 Mg PO PRN Q4HRS PRN 06/03/16 Rx Tizanidine Hcl 4 Mg Tablet 1 Tab-Cap PO QHS 05/03/16 Reported Cetirizine Hcl 10 Mg Tab.chew 10 Mg PO QHS 05/03/16 Reported Gabapentin 100 Mg Capsule 100 Mg PO QHS 05/03/16 Reported Duoneb 0.5-3(2.5) Mg/3 Ml (Albuterol/Ipratropium) 3 Ml Ampul.neb 3 Ml NEB RTQID 12/04/15 Rx Tramadol Hcl 50 Mg Tablet 1 Tab PO PRN Q6HRS 03/07/15 Reported Vitamin D (Cholecalciferol (Vitamin D3)) 10,000 Unit Capsule 2,000 Unit PO DAILY 03/07/15 Reported Vitamin B-12 (Cyanocobalamin (Vitamin B-12)) 1,000 Mcg Tablet.er 1,000 Mcg PO DAILY08 11/17/13 Rx Singulair Tablet (Montelukast Sodium) 10 Mg Tablet 10 Mg PO DAILYBFRSUP 11/01/13 Reported last dose with supper next dose tomorrow Impression . 1. ACUTE/C RESP FAILURE SEC TO INFLUENZA 2. Chronic respiratory failure secondary to chronic pulmonary fibrosis. 3. Abnormal chest x-ray with bilateral interstitial infiltrates, which appears to be accentuated than 6 months ago and may be related to superimposed interstitial viral pneumonia. 4. Renal insufficiency. 5. No history of tobacco use. Plan . ANTIBX PER ID 1. Continue with present respiratory isolation. 2. Tamiflu. 3. steroids. 4. Antibiotics. 5. Bronchodilators. 6. Continue oxygen at 2 liters. 7. Xarelto for AFib. AVA PRASAD MD Jun 28, 2017 17:04
[2017-06-28 19:15] VITALS: BP 129/70
[2017-06-28] MEDS: tiZANidine 4 MG TABLET. PO SCH (20:01)
[2017-06-28] MEDS: GABAPENTIN 100 MG CAPSULE. PO SCH (20:02)
[2017-06-28] MEDS: CETIRIZINE HCL 10 MG TABLET. PO SCH (20:02)
[2017-06-28] MEDS: ATORVASTATIN CALCIUM 40 MG TABLET. PO SCH (20:02)
[2017-06-28] MEDS: INSULIN DETEMIR 300 UNITS/3 ML INSULN.PEN. SQ SCH (20:14)
[2017-06-28] MEDS: traMADol 50 MG TABLET PO PRN (20:19)
[2017-06-28 23:20] VITALS: BP 105/63
[2017-06-29 03:25] VITALS: BP 104/52
[2017-06-29 04:17] LABS: BASO % 0 % (0-3); EOS % 0 % (0-3); HEMATOCRIT 29.8 % (39.0-53.0); HEMOGLOBIN 9.8 g/dL (13.0-17.5); LYMPH % 21 % (24-48); MEAN CORPUSCULAR HEMOGLOBIN 29 pg (25-35); MEAN CORPUSCULAR HGB CONC 33 g/dL (31-37); MEAN CORPUSCULAR VOLUME 88 fL (79-100); MONO % 9 % (0-9); NEUT % 69 % (31-73); PLATELET COUNT 258 x10^3/uL (140-400); RED BLOOD COUNT 3.37 x10^6/uL (4.30-5.70); RED CELL DISTRIBUTION WIDTH 15.5 % (11.5-14.5); WHITE BLOOD COUNT 9.8 x10^3/uL (4.0-11.0)
[2017-06-29 04:46] LABS: CREATININE 1.3 mg/dL (0.7-1.3); GFR 52.1; POTASSIUM 4.1 mmol/L (3.5-5.1)
[2017-06-29 07:00] VITALS: BP 134/84
[2017-06-29] MEDS: INSULIN ASPART 300 UNITS/3 ML INSULN.PEN SQ SCH ×5 (07:30→21:00)
[2017-06-29] MEDS: BUDESONIDE 0.5 MG/2 ML NEBU. NEB SCH ×2 (07:52→20:28)
[2017-06-29] MEDS: IPRATRPIUM/ALBUTEROL 0.5/2.5MG 3 ML NEBU. NEB SCH ×4 (07:52→20:28)
[2017-06-29] MEDS: FUROSEMIDE 20 MG TABLET PO SCH (09:40)
[2017-06-29] MEDS: MAGNESIUM OXIDE 400 MG TABLET PO SCH ×2 (09:40→21:43)
[2017-06-29] MEDS: AMOXICILLIN/K CLAV 500/125MG TABLET. PO SCH ×2 (09:40→21:42)
[2017-06-29] MEDS: CYANOCOBALAMIN (VITAMIN B-12) 1,000 MCG TABLET. PO SCH (09:40)
[2017-06-29] MEDS: THIAMINE 100 MG TABLET. PO SCH (09:40)
[2017-06-29] MEDS: ASPIRIN ENTERIC COATED 81 MG TABLET.DR. PO SCH (09:41)
[2017-06-29] MEDS: OSELTAMIVIR 30 MG CAPSULE PO SCH ×2 (09:41→21:42)
[2017-06-29] MEDS: PANTOPRAZOLE 40 MG TABLET.DR. PO SCH (09:41)
[2017-06-29] MEDS: CHOLECALCIFEROL (VITAMIN D3) 1,000 UNIT TABLET PO SCH (09:41)
[2017-06-29] MEDS: POTASSIUM CHLORIDE 20 MEQ TABLET.ER. PO SCH ×2 (09:41→17:42)
[2017-06-29] MEDS: predniSONE 20 MG TABLET PO SCH (09:42)
--- NOTE | 2017-06-29 09:47 | PDOC ---
IM PROGRESS NOTES- Subjective Subjective Coughing a lot.Dyspnea is improving.Blood sugar 48 this AM. Now 150. Objective Vitals Vital Signs Date Time Temp Pulse Resp B/P (MAP) Pulse Ox O2 Delivery O2 Flow Rate FiO2 06/29/17 07:54 97 Nasal Cannula 4.0 06/29/17 07:00 97.4 105 20 134/84 (101) 97.4 Input & Output Intake and Output 06/29/17 07:00 Intake Total 1170 ml Output Total 450 ml Balance 720 ml Intake Oral 1170 ml Output Urine Total 450 ml # Voids 8 # Bowel Movements 6 Physical Exam Physical Exam General appearance - alert, ill appearing, and in mild distress Mental Status - alert, oriented to person, place, and time, affect appropriate to mood Head - normal Chest - rhonchi anteriorly Heart - S1 and S2 normal Abdomen - soft, nontender, nondistended, BS + Neurological - no acute focal neurological deficits noted Musculoskeletal - no muscular tenderness noted Extremities - ++ pedal edema Skin - warm and dry Labs Laboratory Tests Test 06/27/17 11:03 06/27/17 17:10 06/27/17 20:45 06/28/17 04:15 Glucose (Fingerstick) 210 mg/dL (70-99) 63 mg/dL (70-99) 172 mg/dL (70-99) White Blood Count 9.6 x10^3/uL (4.0-11.0) Red Blood Count 3.34 x10^6/uL (4.30-5.70) Hemoglobin 9.8 g/dL (13.0-17.5) Hematocrit 29.6 % (39.0-53.0) Mean Corpuscular Volume 89 fL (79-100) Mean Corpuscular Hemoglobin 30 pg (25-35) Mean Corpuscular Hemoglobin Concent 33 g/dL (31-37) Red Cell Distribution Width 15.5 % (11.5-14.5) Platelet Count 253 x10^3/uL (140-400) Neutrophils (%) (Auto) 81 % (31-73) Lymphocytes (%) (Auto) 13 % (24-48) Monocytes (%) (Auto) 6 % (0-9) Eosinophils (%) (Auto) 0 % (0-3) Basophils (%) (Auto) 0 % (0-3) Neutrophils # (Auto) 7.8 x10^3uL (1.8-7.7) Lymphocytes # (Auto) 1.2 x10^3/uL (1.0-4.8) Monocytes # (Auto) 0.6 x10^3/uL (0.0-1.1) Eosinophils # (Auto) 0.0 x10^3/uL (0.0-0.7) Basophils # (Auto) 0.0 x10^3/uL (0.0-0.2) Sodium Level 139 mmol/L (136-145) Potassium Level 3.7 mmol/L (3.5-5.1) Chloride Level 105 mmol/L (98-107) Carbon Dioxide Level 25 mmol/L (21-32) Anion Gap 9 (6-14) Blood Urea Nitrogen 30 mg/dL (8-26) Creatinine 1.5 mg/dL (0.7-1.3) Estimated GFR (Cockcroft-Gault) 44.2 Glucose Level 140 mg/dL (70-99) Calcium Level 8.2 mg/dL (8.5-10.1) Test 06/28/17 07:30 06/28/17 11:46 06/28/17 16:21 06/28/17 20:07 Glucose (Fingerstick) 81 mg/dL (70-99) 137 mg/dL (70-99) 162 mg/dL (70-99) 210 mg/dL (70-99) Test 06/29/17 03:10 06/29/17 03:50 06/29/17 07:29 06/29/17 08:02 White Blood Count 9.8 x10^3/uL (4.0-11.0) Red Blood Count 3.37 x10^6/uL (4.30-5.70) Hemoglobin 9.8 g/dL (13.0-17.5) Hematocrit 29.8 % (39.0-53.0) Mean Corpuscular Volume 88 fL (79-100) Mean Corpuscular Hemoglobin 29 pg (25-35) Mean Corpuscular Hemoglobin Concent 33 g/dL (31-37) Red Cell Distribution Width 15.5 % (11.5-14.5) Platelet Count 258 x10^3/uL (140-400) Neutrophils (%) (Auto) 69 % (31-73) Lymphocytes (%) (Auto) 21 % (24-48) Monocytes (%) (Auto) 9 % (0-9) Eosinophils (%) (Auto) 0 % (0-3) Basophils (%) (Auto) 0 % (0-3) Neutrophils # (Auto) 6.8 x10^3uL (1.8-7.7) Lymphocytes # (Auto) 2.0 x10^3/uL (1.0-4.8) Monocytes # (Auto) 0.9 x10^3/uL (0.0-1.1) Eosinophils # (Auto) 0.0 x10^3/uL (0.0-0.7) Basophils # (Auto) 0.0 x10^3/uL (0.0-0.2) Sodium Level 141 mmol/L (136-145) Potassium Level 4.1 mmol/L (3.5-5.1) Chloride Level 108 mmol/L (98-107) Carbon Dioxide Level 28 mmol/L (21-32) Anion Gap 5 (6-14) Blood Urea Nitrogen 28 mg/dL (8-26) Creatinine 1.3 mg/dL (0.7-1.3) Estimated GFR (Cockcroft-Gault) 52.1 Glucose Level 85 mg/dL (70-99) Calcium Level 8.0 mg/dL (8.5-10.1) Glucose (Fingerstick) 48 mg/dL (70-99) 155 mg/dL (70-99) Laboratory Tests Test 06/28/17 11:46 06/28/17 16:21 06/28/17 20:07 06/29/17 03:10 Glucose (Fingerstick) 137 mg/dL (70-99) 162 mg/dL (70-99) 210 mg/dL (70-99) White Blood Count 9.8 x10^3/uL (4.0-11.0) Red Blood Count 3.37 x10^6/uL (4.30-5.70) Hemoglobin 9.8 g/dL (13.0-17.5) Hematocrit 29.8 % (39.0-53.0) Mean Corpuscular Volume 88 fL (79-100) Mean Corpuscular Hemoglobin 29 pg (25-35) Mean Corpuscular Hemoglobin Concent 33 g/dL (31-37) Red Cell Distribution Width 15.5 % (11.5-14.5) Platelet Count 258 x10^3/uL (140-400) Neutrophils (%) (Auto) 69 % (31-73) Lymphocytes (%) (Auto) 21 % (24-48) Monocytes (%) (Auto) 9 % (0-9) Eosinophils (%) (Auto) 0 % (0-3) Basophils (%) (Auto) 0 % (0-3) Neutrophils # (Auto) 6.8 x10^3uL (1.8-7.7) Lymphocytes # (Auto) 2.0 x10^3/uL (1.0-4.8) Monocytes # (Auto) 0.9 x10^3/uL (0.0-1.1) Eosinophils # (Auto) 0.0 x10^3/uL (0.0-0.7) Basophils # (Auto) 0.0 x10^3/uL (0.0-0.2) Test 06/29/17 03:50 06/29/17 07:29 06/29/17 08:02 Sodium Level 141 mmol/L (136-145) Potassium Level 4.1 mmol/L (3.5-5.1) Chloride Level 108 mmol/L (98-107) Carbon Dioxide Level 28 mmol/L (21-32) Anion Gap 5 (6-14) Blood Urea Nitrogen 28 mg/dL (8-26) Creatinine 1.3 mg/dL (0.7-1.3) Estimated GFR (Cockcroft-Gault) 52.1 Glucose Level 85 mg/dL (70-99) Calcium Level 8.0 mg/dL (8.5-10.1) Glucose (Fingerstick) 48 mg/dL (70-99) 155 mg/dL (70-99) Meds Current Medications Amoxicillin/ Clavulanate Potassium (Augmentin 500/ 125mg) 1 tab BID PO Last administered on 06/28/17t 20:02; Start 06/28/17 at 12:00 Insulin Aspart (NovoLOG) BIDAC SQ ; Start 06/29/17 at 16:30 Assessment Assessment Problems Medical Problems: (1) Influenza B Status: Acute (2) Lactic acidosis Status: Acute IMPRESSION: DT s from alcohol, was shaky yesterday 1. Influenzae B with sepsis and hypotension. 2. Acute on Chronic respiratory failure with pulmonary fibrosis.Interstitial lung disease 3. acute bronchitis secondary to influenzae B 4. AECOPD 5. 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 chronic diastolic CHF EF normal . 7. Benign prostatic hypertrophy. 8. Moderate protein calorie malnutrition with new onset severe PCL malnutrition 9. COPD with exacerbation 10. chronic AF Xarelto 11. chronic respiratory failure with COPD, ILD, silicosis underlying O2 dependent 12. anemia chronic disease B12 13. hyperlipidemia 14. severe weakness and debility with mobility deficits 15. depression 16. h/o ETOH abuse 17. GERD 18. acute on chronic back pain LS POA 19. Severe PCL malnutrition 20. CKD II with BOBBY hypotension PLAN: Tamiflue+zyvox Hypotension resolved off pressors. transferred out of icu. Librium+thiamine+ d/c banana bag for DTs. No labs today. Inf B with sepsis - tamiflu - zosysn - zyvox - Vanco x 1 now stopped - ID consulted - Admit WBC 20.7 today 9.0 hypotension - levophed, multiple NS boluses through night a/c respiratory failure - AB/AECOPD - solumedrol 125mg IV x 1 then 60mg IV q8 - nebulizer - mucinex - CHF - admit wt 177.31 - diastolic -?component fluid overload from NS replacement fluids - give low dose Lasix 20mg IV x 1 - chronic lasix stopped DM II - FSBS SSI HTN - hold meds hypokalemia - admit 3.7 today 3.7 CKD II - Admit BUN/Cr 20/1.5 this am 23/1.8 - monitor - BOBBY hypotension weakness debility - PT OT consult malnutrition - supplements DVT/GI prophylaxis - xarelto PPI Has nose bleeds- hold Xarelto. SNF when ready. slowly improving. Hypoglycemia- d/c scheduled Novolog,low dose ssi bid and decrease Levemir to 30 units s/c daily. Discharge tomorrow if stable. Plan Plan The patient was seen and examined by me. Chart reviewed and plan of care formulated. Discussed with, reviewed and agree with RECORDER HELPER GRAVITY PROSPECTING's notes, plan of care and orders with modifications as necessary. For more details regarding further plans, please refer to the orders. STEPAN MILTON MD 21, 2017 09:47
[2017-06-29] MEDS: SODIUM CHLORIDE 0.65% NASAL SPRAY 45ML BOTTLE. NS SCH ×4 (09:48→21:42)
[2017-06-29] MEDS: LACTOBACILLUS RHAMNOSUS GG 1 CAPSULE. PO SCH ×2 (09:49→21:43)
[2017-06-29 11:00] VITALS: BP 135/71
--- NOTE | 2017-06-29 11:20 | PDOC ---
Infectious Disease Note Subjective Subjective Occasional cough, denies CP or SOA Appetite good ROS ROS GEN: Denies fevers, chills, sweats HEENT: Denies blurred vision, sore throat CV: Denies chest pain RESP: Denies shortness of air, cough GI: Denies n/v/d NEURO: Denies confusion, dizziness MSK: Denies weakness, joint pain/swelling Vital Sign Vital Signs Vital Signs Date Time Temp Pulse Resp B/P (MAP) Pulse Ox O2 Delivery O2 Flow Rate FiO2 06/29/17 11:00 98.3 89 20 135/71 (92) 94 Nasal Cannula 2.0 98.3 Physical Exam PHYSICAL EXAM GENERAL: NAD, Alert HEENT: PERRL, OC/OP NECK: Supple, no JVD, no LN LUNGS: Clear HEART: S1S2, no gallop, no murmur ABD: Soft, NT, no organomegaly, no rebound EXT: No edema, no cyanosis LCAC OPERATOR: Alert, 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, no focal neurologic deficit SKIN: No rash IV: ok Labs Lab Laboratory Tests Test 06/28/17 11:46 06/28/17 16:21 06/28/17 20:07 06/29/17 03:10 Glucose (Fingerstick) 137 mg/dL (70-99) 162 mg/dL (70-99) 210 mg/dL (70-99) White Blood Count 9.8 x10^3/uL (4.0-11.0) Red Blood Count 3.37 x10^6/uL (4.30-5.70) Hemoglobin 9.8 g/dL (13.0-17.5) Hematocrit 29.8 % (39.0-53.0) Mean Corpuscular Volume 88 fL (79-100) Mean Corpuscular Hemoglobin 29 pg (25-35) Mean Corpuscular Hemoglobin Concent 33 g/dL (31-37) Red Cell Distribution Width 15.5 % (11.5-14.5) Platelet Count 258 x10^3/uL (140-400) Neutrophils (%) (Auto) 69 % (31-73) Lymphocytes (%) (Auto) 21 % (24-48) Monocytes (%) (Auto) 9 % (0-9) Eosinophils (%) (Auto) 0 % (0-3) Basophils (%) (Auto) 0 % (0-3) Neutrophils # (Auto) 6.8 x10^3uL (1.8-7.7) Lymphocytes # (Auto) 2.0 x10^3/uL (1.0-4.8) Monocytes # (Auto) 0.9 x10^3/uL (0.0-1.1) Eosinophils # (Auto) 0.0 x10^3/uL (0.0-0.7) Basophils # (Auto) 0.0 x10^3/uL (0.0-0.2) Test 06/29/17 03:50 06/29/17 07:29 06/29/17 08:02 06/29/17 11:02 Sodium Level 141 mmol/L (136-145) Potassium Level 4.1 mmol/L (3.5-5.1) Chloride Level 108 mmol/L (98-107) Carbon Dioxide Level 28 mmol/L (21-32) Anion Gap 5 (6-14) Blood Urea Nitrogen 28 mg/dL (8-26) Creatinine 1.3 mg/dL (0.7-1.3) Estimated GFR (Cockcroft-Gault) 52.1 Glucose Level 85 mg/dL (70-99) Calcium Level 8.0 mg/dL (8.5-10.1) Glucose (Fingerstick) 48 mg/dL (70-99) 155 mg/dL (70-99) 106 mg/dL (70-99) Objective Assessment Sepsis - POA, improved Influenza B Leukocytosis, improved BOBBY DM Plan Plan of Care Tamiflu to 30 mg po BID augmentin F/u labs and cults ZEINA HU MD Jun 29, 2017 11:20
[2017-06-29 15:00] VITALS: BP 136/75
--- NOTE | 2017-06-29 16:16 | PDOC ---
PULMONARY PROGRESS NOTES Subjective NOT MORE SOA NO INCREASE COUGH Vitals Vital Signs Date Time Temp Pulse Resp B/P (MAP) Pulse Ox O2 Delivery O2 Flow Rate FiO2 06/29/17 15:57 Nasal Cannula 2.0 06/29/17 15:00 99.1 84 20 136/75 (95) 94 99.1 General: Alert, No acute distress Cardiovascular: S1, S2 Abdomen: Soft, Non-tender Extremities: Other (trace edema) Labs Laboratory Tests Test 06/27/17 17:10 06/27/17 20:45 06/28/17 04:15 06/28/17 07:30 Glucose (Fingerstick) 63 mg/dL (70-99) 172 mg/dL (70-99) 81 mg/dL (70-99) White Blood Count 9.6 x10^3/uL (4.0-11.0) Red Blood Count 3.34 x10^6/uL (4.30-5.70) Hemoglobin 9.8 g/dL (13.0-17.5) Hematocrit 29.6 % (39.0-53.0) Mean Corpuscular Volume 89 fL (79-100) Mean Corpuscular Hemoglobin 30 pg (25-35) Mean Corpuscular Hemoglobin Concent 33 g/dL (31-37) Red Cell Distribution Width 15.5 % (11.5-14.5) Platelet Count 253 x10^3/uL (140-400) Neutrophils (%) (Auto) 81 % (31-73) Lymphocytes (%) (Auto) 13 % (24-48) Monocytes (%) (Auto) 6 % (0-9) Eosinophils (%) (Auto) 0 % (0-3) Basophils (%) (Auto) 0 % (0-3) Neutrophils # (Auto) 7.8 x10^3uL (1.8-7.7) Lymphocytes # (Auto) 1.2 x10^3/uL (1.0-4.8) Monocytes # (Auto) 0.6 x10^3/uL (0.0-1.1) Eosinophils # (Auto) 0.0 x10^3/uL (0.0-0.7) Basophils # (Auto) 0.0 x10^3/uL (0.0-0.2) Sodium Level 139 mmol/L (136-145) Potassium Level 3.7 mmol/L (3.5-5.1) Chloride Level 105 mmol/L (98-107) Carbon Dioxide Level 25 mmol/L (21-32) Anion Gap 9 (6-14) Blood Urea Nitrogen 30 mg/dL (8-26) Creatinine 1.5 mg/dL (0.7-1.3) Estimated GFR (Cockcroft-Gault) 44.2 Glucose Level 140 mg/dL (70-99) Calcium Level 8.2 mg/dL (8.5-10.1) Test 06/28/17 11:46 06/28/17 16:21 06/28/17 20:07 06/29/17 03:10 Glucose (Fingerstick) 137 mg/dL (70-99) 162 mg/dL (70-99) 210 mg/dL (70-99) White Blood Count 9.8 x10^3/uL (4.0-11.0) Red Blood Count 3.37 x10^6/uL (4.30-5.70) Hemoglobin 9.8 g/dL (13.0-17.5) Hematocrit 29.8 % (39.0-53.0) Mean Corpuscular Volume 88 fL (79-100) Mean Corpuscular Hemoglobin 29 pg (25-35) Mean Corpuscular Hemoglobin Concent 33 g/dL (31-37) Red Cell Distribution Width 15.5 % (11.5-14.5) Platelet Count 258 x10^3/uL (140-400) Neutrophils (%) (Auto) 69 % (31-73) Lymphocytes (%) (Auto) 21 % (24-48) Monocytes (%) (Auto) 9 % (0-9) Eosinophils (%) (Auto) 0 % (0-3) Basophils (%) (Auto) 0 % (0-3) Neutrophils # (Auto) 6.8 x10^3uL (1.8-7.7) Lymphocytes # (Auto) 2.0 x10^3/uL (1.0-4.8) Monocytes # (Auto) 0.9 x10^3/uL (0.0-1.1) Eosinophils # (Auto) 0.0 x10^3/uL (0.0-0.7) Basophils # (Auto) 0.0 x10^3/uL (0.0-0.2) Test 06/29/17 03:50 06/29/17 07:29 06/29/17 08:02 06/29/17 11:02 Sodium Level 141 mmol/L (136-145) Potassium Level 4.1 mmol/L (3.5-5.1) Chloride Level 108 mmol/L (98-107) Carbon Dioxide Level 28 mmol/L (21-32) Anion Gap 5 (6-14) Blood Urea Nitrogen 28 mg/dL (8-26) Creatinine 1.3 mg/dL (0.7-1.3) Estimated GFR (Cockcroft-Gault) 52.1 Glucose Level 85 mg/dL (70-99) Calcium Level 8.0 mg/dL (8.5-10.1) Glucose (Fingerstick) 48 mg/dL (70-99) 155 mg/dL (70-99) 106 mg/dL (70-99) Laboratory Tests Test 06/28/17 16:21 06/28/17 20:07 06/29/17 03:10 06/29/17 03:50 Glucose (Fingerstick) 162 mg/dL (70-99) 210 mg/dL (70-99) White Blood Count 9.8 x10^3/uL (4.0-11.0) Red Blood Count 3.37 x10^6/uL (4.30-5.70) Hemoglobin 9.8 g/dL (13.0-17.5) Hematocrit 29.8 % (39.0-53.0) Mean Corpuscular Volume 88 fL (79-100) Mean Corpuscular Hemoglobin 29 pg (25-35) Mean Corpuscular Hemoglobin Concent 33 g/dL (31-37) Red Cell Distribution Width 15.5 % (11.5-14.5) Platelet Count 258 x10^3/uL (140-400) Neutrophils (%) (Auto) 69 % (31-73) Lymphocytes (%) (Auto) 21 % (24-48) Monocytes (%) (Auto) 9 % (0-9) Eosinophils (%) (Auto) 0 % (0-3) Basophils (%) (Auto) 0 % (0-3) Neutrophils # (Auto) 6.8 x10^3uL (1.8-7.7) Lymphocytes # (Auto) 2.0 x10^3/uL (1.0-4.8) Monocytes # (Auto) 0.9 x10^3/uL (0.0-1.1) Eosinophils # (Auto) 0.0 x10^3/uL (0.0-0.7) Basophils # (Auto) 0.0 x10^3/uL (0.0-0.2) Sodium Level 141 mmol/L (136-145) Potassium Level 4.1 mmol/L (3.5-5.1) Chloride Level 108 mmol/L (98-107) Carbon Dioxide Level 28 mmol/L (21-32) Anion Gap 5 (6-14) Blood Urea Nitrogen 28 mg/dL (8-26) Creatinine 1.3 mg/dL (0.7-1.3) Estimated GFR (Cockcroft-Gault) 52.1 Glucose Level 85 mg/dL (70-99) Calcium Level 8.0 mg/dL (8.5-10.1) Test 06/29/17 07:29 06/29/17 08:02 06/29/17 11:02 Glucose (Fingerstick) 48 mg/dL (70-99) 155 mg/dL (70-99) 106 mg/dL (70-99) Medications Active Scripts Medications Dose Route/Sig Max Daily Dose Days Date Category Dose Instructions Saline Nasal [place] (Sodium Chloride) 30 Ml [place] 2 [place] NS QID 06/25/17 Reported Proair Hfa Inhaler (Albuterol Sulfate) 8.5 Gm Hfa.aer.ad 1 Puff INH PRN Q6HRS PRN 06/25/17 Reported Potassium Chloride 20 Meq Tablet.er 20 Meq PO BID 06/25/17 Reported Advair 250-50 Diskus (Fluticasone/Salmeterol) 1 Each Disk.w.dev 1 Puff IH BID 06/25/17 Reported Levemir Flextouch (Insulin Detemir) 100 Unit/1 Ml Insuln.pen 40 Unit SQ HS 06/24/17 Reported Novolog Flexpen (Insulin Aspart) 100 Unit/1 Ml Insuln.pen 5 Unit SQ TIDAC 06/24/17 Reported Xarelto (Rivaroxaban) 20 Mg Tablet 15 Mg PO DAILY 04/22/17 Reported Lasix (Furosemide) 20 Mg Tablet 1 Tab PO MWF 03/19/17 Rx Lasix (Furosemide) 20 Mg Tablet 2 Tab PO TTSS 03/19/17 Rx Novolog Flexpen (Insulin Aspart) 100 Unit/1 Ml Insuln.pen 1 Unit SQ TIDAC 03/18/17 Rx BS <150=0, 151-200=2units, 201-250=3units, 251-300= 4 units, 301-350=5 units, 351-400=6 units >401 call Metoprolol Tartrate 25 Mg Tablet 12.5 Mg PO BID 02/22/17 Rx Take 1/2 tablet bid. HOLD if SBP <110 Aspirin Ec (Aspirin) 81 Mg Tablet. 81 Mg PO [id number] 02/22/17 Rx Take one tablet by mouth daily Protonix (Pantoprazole Sodium) 40 Mg Tablet. 1 Tab PO DAILY 02/18/17 Reported Lipitor (Atorvastatin Calcium) 40 Mg Tablet 1 Tab PO QHS 02/18/17 Reported Thiamine Hcl 100 Mg Tablet 100 Mg PO DAILY 02/18/17 Reported Magnesium (Magnesium Oxide) 400 Mg Capsule 400 Mg PO BID 02/17/17 Reported Miralax (Polyethylene Glycol 3350) 17 Gm Powd.pack 1 Pkt PO DAILY PRN 02/17/17 Reported Mapap (Acetaminophen) 325 Mg Tablet 650 Mg PO PRN Q4HRS PRN 06/03/16 Rx Tizanidine Hcl 4 Mg Tablet 1 Tab-Cap PO QHS 05/03/16 Reported Cetirizine Hcl 10 Mg Tab.chew 10 Mg PO QHS 05/03/16 Reported Gabapentin 100 Mg Capsule 100 Mg PO QHS 05/03/16 Reported Duoneb 0.5-3(2.5) Mg/3 Ml (Albuterol/Ipratropium) 3 Ml Ampul.neb 3 Ml NEB RTQID 12/04/15 Rx Tramadol Hcl 50 Mg Tablet 1 Tab PO PRN Q6HRS 03/07/15 Reported Vitamin D (Cholecalciferol (Vitamin D3)) 10,000 Unit Capsule 2,000 Unit PO DAILY 03/07/15 Reported Vitamin B-12 (Cyanocobalamin (Vitamin B-12)) 1,000 Mcg Tablet.er 1,000 Mcg PO DAILY08 11/17/13 Rx Singulair Tablet (Montelukast Sodium) 10 Mg Tablet 10 Mg PO DAILYBFRSUP 11/01/13 Reported last dose with supper next dose tomorrow Impression . 1. ACUTE/C RESP FAILURE SEC TO INFLUENZA 2. Chronic respiratory failure secondary to chronic pulmonary fibrosis. 3. Abnormal chest x-ray with bilateral interstitial infiltrates, which appears to be accentuated than 6 months ago and may be related to superimposed interstitial viral pneumonia. 4. Renal insufficiency. 5. No history of tobacco use. Plan . ANTIBX PER ID 6 MIN WALK PT 1. Continue with present respiratory isolation. 2. Tamiflu. 3. steroids. 4. Antibiotics. 5. Bronchodilators. 6. Continue oxygen at 2 liters. 7. Xarelto for AFib. AVA PRASAD MD Jun 29, 2017 16:16
[2017-06-29] MEDS ORDERED: INSULIN ASPART 300 UNITS/3 ML INSULN.PEN SQ SCH (16:30)
[2017-06-29] MEDS: MONTELUKAST SODIUM 10 MG TABLET. PO SCH (17:42)
[2017-06-29 19:25] VITALS: BP 144/86
[2017-06-29] MEDS: tiZANidine 4 MG TABLET. PO SCH (21:42)
[2017-06-29] MEDS: ATORVASTATIN CALCIUM 40 MG TABLET. PO SCH (21:42)
[2017-06-29] MEDS: CETIRIZINE HCL 10 MG TABLET. PO SCH (21:43)
[2017-06-29] MEDS: INSULIN DETEMIR 300 UNITS/3 ML INSULN.PEN. SQ SCH (21:51)
[2017-06-29] MEDS: GABAPENTIN 100 MG CAPSULE. PO SCH (21:57)
[2017-06-29] MEDS: traMADol 50 MG TABLET PO PRN (22:53)
[2017-06-29 23:25] VITALS: BP 107/63
[2017-06-30 03:42] LABS: BASO % 0 % (0-3); EOS % 1 % (0-3); HEMATOCRIT 30.9 % (39.0-53.0); HEMOGLOBIN 9.9 g/dL (13.0-17.5); LYMPH # 2.3 x10^3/uL (1.0-4.8); LYMPH % 20 % (24-48); MEAN CORPUSCULAR HEMOGLOBIN 29 pg (25-35); MEAN CORPUSCULAR HGB CONC 32 g/dL (31-37); MEAN CORPUSCULAR VOLUME 89 fL (79-100); MONO % 9 % (0-9); NEUT % 69 % (31-73); PLATELET COUNT 281 x10^3/uL (140-400); RED BLOOD COUNT 3.46 x10^6/uL (4.30-5.70); RED CELL DISTRIBUTION WIDTH 15.8 % (11.5-14.5); WHITE BLOOD COUNT 11.1 x10^3/uL (4.0-11.0)
[2017-06-30 05:09] LABS: CALCIUM 7.9 mg/dL (8.5-10.1); CREATININE 1.5 mg/dL (0.7-1.3); GFR 44.2; POTASSIUM 3.9 mmol/L (3.5-5.1)
[2017-06-30 07:00] VITALS: BP 135/79
[2017-06-30] MEDS: INSULIN ASPART 300 UNITS/3 ML INSULN.PEN SQ SCH ×4 (07:30→20:46)
[2017-06-30] MEDS: BUDESONIDE 0.5 MG/2 ML NEBU. NEB SCH ×2 (08:42→19:48)
[2017-06-30] MEDS: IPRATRPIUM/ALBUTEROL 0.5/2.5MG 3 ML NEBU. NEB SCH ×4 (08:42→19:48)
[2017-06-30] MEDS: LACTOBACILLUS RHAMNOSUS GG 1 CAPSULE. PO SCH ×2 (09:12→20:45)
[2017-06-30] MEDS: AMOXICILLIN/K CLAV 500/125MG TABLET. PO SCH ×2 (09:12→20:45)
[2017-06-30] MEDS: FUROSEMIDE 20 MG TABLET PO SCH (09:12)
[2017-06-30] MEDS: CHOLECALCIFEROL (VITAMIN D3) 1,000 UNIT TABLET PO SCH (09:13)
[2017-06-30] MEDS: ASPIRIN ENTERIC COATED 81 MG TABLET.DR. PO SCH (09:13)
[2017-06-30] MEDS: predniSONE 20 MG TABLET PO SCH (09:13)
[2017-06-30] MEDS: CYANOCOBALAMIN (VITAMIN B-12) 1,000 MCG TABLET. PO SCH (09:13)
[2017-06-30] MEDS: PANTOPRAZOLE 40 MG TABLET.DR. PO SCH (09:13)
[2017-06-30] MEDS: MAGNESIUM OXIDE 400 MG TABLET PO SCH ×2 (09:13→20:45)
[2017-06-30] MEDS: THIAMINE 100 MG TABLET. PO SCH (09:14)
[2017-06-30] MEDS: POTASSIUM CHLORIDE 20 MEQ TABLET.ER. PO SCH ×2 (09:14→16:47)
[2017-06-30] MEDS: SODIUM CHLORIDE 0.65% NASAL SPRAY 45ML BOTTLE. NS SCH ×4 (09:14→20:45)
[2017-06-30] MEDS: traMADol 50 MG TABLET PO PRN ×2 (09:14→20:44)
--- NOTE | 2017-06-30 10:14 | PDOC ---
IM PROGRESS NOTES- Subjective Subjective Coughing less..Dyspnea is improving.Blood sugar 54 this AM. Now 97 withou any treatment.Mucus is discolored because he chews tobacco- no hemoptysis. Walking with walker with RT. Objective Vitals Vital Signs Date Time Temp Pulse Resp B/P (MAP) Pulse Ox O2 Delivery O2 Flow Rate FiO2 06/30/17 08:44 88 Room Air 06/30/17 07:00 97.2 78 20 135/79 (97) 2.0 97.2 Input & Output Intake and Output 06/30/17 07:00 Intake Total 700 ml Output Total 977 ml Balance -277 ml Intake Oral 700 ml Output Urine Total 975 ml Stool Total 2 ml Physical Exam Physical Exam General appearance - alert, ill appearing, and in mild distress Mental Status - alert, oriented to person, place, and time, affect appropriate to mood Head - normal Chest - no wheezing Heart - S1 and S2 normal Abdomen - soft, nontender, nondistended, BS + Neurological - no acute focal neurological deficits noted Musculoskeletal - no muscular tenderness noted Extremities - ++ pedal edema Skin - warm and dry Labs Laboratory Tests Test 06/28/17 11:46 06/28/17 16:21 06/28/17 20:07 06/29/17 03:10 Glucose (Fingerstick) 137 mg/dL (70-99) 162 mg/dL (70-99) 210 mg/dL (70-99) White Blood Count 9.8 x10^3/uL (4.0-11.0) Red Blood Count 3.37 x10^6/uL (4.30-5.70) Hemoglobin 9.8 g/dL (13.0-17.5) Hematocrit 29.8 % (39.0-53.0) Mean Corpuscular Volume 88 fL (79-100) Mean Corpuscular Hemoglobin 29 pg (25-35) Mean Corpuscular Hemoglobin Concent 33 g/dL (31-37) Red Cell Distribution Width 15.5 % (11.5-14.5) Platelet Count 258 x10^3/uL (140-400) Neutrophils (%) (Auto) 69 % (31-73) Lymphocytes (%) (Auto) 21 % (24-48) Monocytes (%) (Auto) 9 % (0-9) Eosinophils (%) (Auto) 0 % (0-3) Basophils (%) (Auto) 0 % (0-3) Neutrophils # (Auto) 6.8 x10^3uL (1.8-7.7) Lymphocytes # (Auto) 2.0 x10^3/uL (1.0-4.8) Monocytes # (Auto) 0.9 x10^3/uL (0.0-1.1) Eosinophils # (Auto) 0.0 x10^3/uL (0.0-0.7) Basophils # (Auto) 0.0 x10^3/uL (0.0-0.2) Test 06/29/17 03:50 06/29/17 07:29 06/29/17 08:02 06/29/17 11:02 Sodium Level 141 mmol/L (136-145) Potassium Level 4.1 mmol/L (3.5-5.1) Chloride Level 108 mmol/L (98-107) Carbon Dioxide Level 28 mmol/L (21-32) Anion Gap 5 (6-14) Blood Urea Nitrogen 28 mg/dL (8-26) Creatinine 1.3 mg/dL (0.7-1.3) Estimated GFR (Cockcroft-Gault) 52.1 Glucose Level 85 mg/dL (70-99) Calcium Level 8.0 mg/dL (8.5-10.1) Glucose (Fingerstick) 48 mg/dL (70-99) 155 mg/dL (70-99) 106 mg/dL (70-99) Test 06/29/17 16:31 06/29/17 21:07 06/30/17 03:30 06/30/17 07:28 Glucose (Fingerstick) 209 mg/dL (70-99) 267 mg/dL (70-99) 54 mg/dL (70-99) White Blood Count 11.1 x10^3/uL (4.0-11.0) Red Blood Count 3.46 x10^6/uL (4.30-5.70) Hemoglobin 9.9 g/dL (13.0-17.5) Hematocrit 30.9 % (39.0-53.0) Mean Corpuscular Volume 89 fL (79-100) Mean Corpuscular Hemoglobin 29 pg (25-35) Mean Corpuscular Hemoglobin Concent 32 g/dL (31-37) Red Cell Distribution Width 15.8 % (11.5-14.5) Platelet Count 281 x10^3/uL (140-400) Neutrophils (%) (Auto) 69 % (31-73) Lymphocytes (%) (Auto) 20 % (24-48) Monocytes (%) (Auto) 9 % (0-9) Eosinophils (%) (Auto) 1 % (0-3) Basophils (%) (Auto) 0 % (0-3) Neutrophils # (Auto) 7.7 x10^3uL (1.8-7.7) Lymphocytes # (Auto) 2.3 x10^3/uL (1.0-4.8) Monocytes # (Auto) 1.0 x10^3/uL (0.0-1.1) Eosinophils # (Auto) 0.1 x10^3/uL (0.0-0.7) Basophils # (Auto) 0.0 x10^3/uL (0.0-0.2) Sodium Level 140 mmol/L (136-145) Potassium Level 3.9 mmol/L (3.5-5.1) Chloride Level 108 mmol/L (98-107) Carbon Dioxide Level 27 mmol/L (21-32) Anion Gap 5 (6-14) Blood Urea Nitrogen 29 mg/dL (8-26) Creatinine 1.5 mg/dL (0.7-1.3) Estimated GFR (Cockcroft-Gault) 44.2 Glucose Level 126 mg/dL (70-99) Calcium Level 7.9 mg/dL (8.5-10.1) Test 06/30/17 07:55 Glucose (Fingerstick) 97 mg/dL (70-99) Laboratory Tests Test 06/29/17 11:02 06/29/17 16:31 06/29/17 21:07 06/30/17 03:30 Glucose (Fingerstick) 106 mg/dL (70-99) 209 mg/dL (70-99) 267 mg/dL (70-99) White Blood Count 11.1 x10^3/uL (4.0-11.0) Red Blood Count 3.46 x10^6/uL (4.30-5.70) Hemoglobin 9.9 g/dL (13.0-17.5) Hematocrit 30.9 % (39.0-53.0) Mean Corpuscular Volume 89 fL (79-100) Mean Corpuscular Hemoglobin 29 pg (25-35) Mean Corpuscular Hemoglobin Concent 32 g/dL (31-37) Red Cell Distribution Width 15.8 % (11.5-14.5) Platelet Count 281 x10^3/uL (140-400) Neutrophils (%) (Auto) 69 % (31-73) Lymphocytes (%) (Auto) 20 % (24-48) Monocytes (%) (Auto) 9 % (0-9) Eosinophils (%) (Auto) 1 % (0-3) Basophils (%) (Auto) 0 % (0-3) Neutrophils # (Auto) 7.7 x10^3uL (1.8-7.7) Lymphocytes # (Auto) 2.3 x10^3/uL (1.0-4.8) Monocytes # (Auto) 1.0 x10^3/uL (0.0-1.1) Eosinophils # (Auto) 0.1 x10^3/uL (0.0-0.7) Basophils # (Auto) 0.0 x10^3/uL (0.0-0.2) Sodium Level 140 mmol/L (136-145) Potassium Level 3.9 mmol/L (3.5-5.1) Chloride Level 108 mmol/L (98-107) Carbon Dioxide Level 27 mmol/L (21-32) Anion Gap 5 (6-14) Blood Urea Nitrogen 29 mg/dL (8-26) Creatinine 1.5 mg/dL (0.7-1.3) Estimated GFR (Cockcroft-Gault) 44.2 Glucose Level 126 mg/dL (70-99) Calcium Level 7.9 mg/dL (8.5-10.1) Test 06/30/17 07:28 06/30/17 07:55 Glucose (Fingerstick) 54 mg/dL (70-99) 97 mg/dL (70-99) Meds Current Medications Insulin Aspart (NovoLOG) BIDAC SQ ; Start 06/29/17 at 16:30; Stop 06/29/17 at 17:40; Status DC Insulin Aspart (NovoLOG) QIDACHS SQ Last administered on 06/29/17 17:46; Start 06/29/17 at 11:30 Insulin Detemir (Levemir) 30 units HS SQ Last administered on 06/29/17 21:51 ; Start 06/29/17 at 21:00 Assessment Assessment Problems Medical Problems: (1) Influenza B Status: Acute (2) Lactic acidosis Status: Acute IMPRESSION: DT s from alcohol, was shaky yesterday 1. Influenzae B with sepsis and hypotension. 2. Acute on Chronic respiratory failure with pulmonary fibrosis.Interstitial lung disease 3. acute bronchitis secondary to influenzae B 4. AECOPD 5. 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 chronic diastolic CHF EF normal . 7. Benign prostatic hypertrophy. 8. Moderate protein calorie malnutrition with new onset severe PCL malnutrition 9. COPD with exacerbation 10. chronic AF Xarelto 11. chronic respiratory failure with COPD, ILD, silicosis underlying O2 dependent 12. anemia chronic disease B12 13. hyperlipidemia 14. severe weakness and debility with mobility deficits 15. depression 16. h/o ETOH abuse 17. GERD 18. acute on chronic back pain LS POA 19. Severe PCL malnutrition 20. CKD II with BOBBY hypotension PLAN: Tamiflue+zyvox Hypotension resolved off pressors. transferred out of icu. Librium+thiamine+ d/c banana bag for DTs. No labs today. Inf B with sepsis - tamiflu - zosysn - zyvox - Vanco x 1 now stopped - ID consulted - Admit WBC 20.7 today 9.0 hypotension - levophed, multiple NS boluses through night a/c respiratory failure - AB/AECOPD - solumedrol 125mg IV x 1 then 60mg IV q8 - nebulizer - mucinex - CHF - admit wt 177.31 - diastolic -?component fluid overload from NS replacement fluids - give low dose Lasix 20mg IV x 1 - chronic lasix stopped DM II - FSBS SSI HTN - hold meds hypokalemia - admit 3.7 today 3.7 CKD II - Admit BUN/Cr 20/1.5 this am /1.8 - monitor - BOBBY hypotension weakness debility - PT OT consult malnutrition - supplements DVT/GI prophylaxis - xarelto PPI 06/30/17 Doing much better. Taper Prednisone- 30-20-10 mg each for 3 days. slowly improving. Hypoglycemia- d/c scheduled Novolog,low dose ssi bid and decrease Levemir to 20 units s/c daily. Discharge to [facility] today. resume Xarelto. Discharge Management - 35 minutes. Plan Plan The patient was seen and examined by me. Chart reviewed and plan of care formulated. Discussed with, reviewed and agree with [facility]'s notes, plan of care and orders with modifications as necessary. For more details regarding further plans, please refer to the orders. STEPAN MILTON MD Jun 30, 2017 10:14
--- NOTE | 2017-06-30 10:54 | PDOC ---
Infectious Disease Note Subjective Subjective Occasional cough, denies CP or SOA Appetite good ROS ROS GEN: Denies fevers, chills, sweats HEENT: Denies blurred vision, sore throat CV: Denies chest pain RESP: Denies shortness of air, cough GI: Denies n/v/d NEURO: Denies confusion, dizziness MSK: Denies weakness, joint pain/swelling Vital Sign Vital Signs Vital Signs Date Time Temp Pulse Resp B/P (MAP) Pulse Ox O2 Delivery O2 Flow Rate FiO2 06/30/17 08:44 88 Room Air 06/30/17 07:00 97.2 78 20 135/79 (97) 2.0 97.2 Physical Exam PHYSICAL EXAM GENERAL: NAD, Alert HEENT: PERRL, OC/OP NECK: Supple, no JVD, no LN LUNGS: Clear HEART: S1S2, no gallop, no murmur ABD: Soft, NT, no organomegaly, no rebound EXT: No edema, no cyanosis 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, 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, no focal neurologic deficit SKIN: No rash IV: ok Labs Lab Laboratory Tests Test 06/29/17 11:02 06/29/17 16:31 06/29/17 21:07 06/30/17 03:30 Glucose (Fingerstick) 106 mg/dL (70-99) 209 mg/dL (70-99) 267 mg/dL (70-99) White Blood Count 11.1 x10^3/uL (4.0-11.0) Red Blood Count 3.46 x10^6/uL (4.30-5.70) Hemoglobin 9.9 g/dL (13.0-17.5) Hematocrit 30.9 % (39.0-53.0) Mean Corpuscular Volume 89 fL (79-100) Mean Corpuscular Hemoglobin 29 pg (25-35) Mean Corpuscular Hemoglobin Concent 32 g/dL (31-37) Red Cell Distribution Width 15.8 % (11.5-14.5) Platelet Count 281 x10^3/uL (140-400) Neutrophils (%) (Auto) 69 % (31-73) Lymphocytes (%) (Auto) 20 % (24-48) Monocytes (%) (Auto) 9 % (0-9) Eosinophils (%) (Auto) 1 % (0-3) Basophils (%) (Auto) 0 % (0-3) Neutrophils # (Auto) 7.7 x10^3uL (1.8-7.7) Lymphocytes # (Auto) 2.3 x10^3/uL (1.0-4.8) Monocytes # (Auto) 1.0 x10^3/uL (0.0-1.1) Eosinophils # (Auto) 0.1 x10^3/uL (0.0-0.7) Basophils # (Auto) 0.0 x10^3/uL (0.0-0.2) Sodium Level 140 mmol/L (136-145) Potassium Level 3.9 mmol/L (3.5-5.1) Chloride Level 108 mmol/L (98-107) Carbon Dioxide Level 27 mmol/L (21-32) Anion Gap 5 (6-14) Blood Urea Nitrogen 29 mg/dL (8-26) Creatinine 1.5 mg/dL (0.7-1.3) Estimated GFR (Cockcroft-Gault) 44.2 Glucose Level 126 mg/dL (70-99) Calcium Level 7.9 mg/dL (8.5-10.1) Test 06/30/17 07:28 06/30/17 07:55 Glucose (Fingerstick) 54 mg/dL (70-99) 97 mg/dL (70-99) Objective Assessment Sepsis - POA, improved Influenza B Leukocytosis, improved BOBBY DM Plan Plan of Care Tamiflu to 30 mg po BID augmentin F/u labs and cults d/c to rehab [place] ZEINA HU MD Jun 30, 2017 10:54
[2017-06-30 11:00] VITALS: BP 141/61
[2017-06-30 15:00] VITALS: BP 142/92
--- NOTE | 2017-06-30 16:22 | PDOC ---
PULMONARY PROGRESS NOTES Subjective NOT MORE SOA NO INCREASE COUGH Vitals Vital Signs Date Time Temp Pulse Resp B/P (MAP) Pulse Ox O2 Delivery O2 Flow Rate FiO2 06/30/17 16:00 Nasal Cannula 2.0 06/30/17 15:00 98.5 92 20 142/92 (109) 94 98.5 General: Alert, No acute distress Cardiovascular: S1, S2 Abdomen: Soft, Non-tender Extremities: Other (trace edema) Labs Laboratory Tests Test 06/28/17 20:07 06/29/17 03:10 06/29/17 03:50 06/29/17 07:29 Glucose (Fingerstick) 210 mg/dL (70-99) 48 mg/dL (70-99) White Blood Count 9.8 x10^3/uL (4.0-11.0) Red Blood Count 3.37 x10^6/uL (4.30-5.70) Hemoglobin 9.8 g/dL (13.0-17.5) Hematocrit 29.8 % (39.0-53.0) Mean Corpuscular Volume 88 fL (79-100) Mean Corpuscular Hemoglobin 29 pg (25-35) Mean Corpuscular Hemoglobin Concent 33 g/dL (31-37) Red Cell Distribution Width 15.5 % (11.5-14.5) Platelet Count 258 x10^3/uL (140-400) Neutrophils (%) (Auto) 69 % (31-73) Lymphocytes (%) (Auto) 21 % (24-48) Monocytes (%) (Auto) 9 % (0-9) Eosinophils (%) (Auto) 0 % (0-3) Basophils (%) (Auto) 0 % (0-3) Neutrophils # (Auto) 6.8 x10^3uL (1.8-7.7) Lymphocytes # (Auto) 2.0 x10^3/uL (1.0-4.8) Monocytes # (Auto) 0.9 x10^3/uL (0.0-1.1) Eosinophils # (Auto) 0.0 x10^3/uL (0.0-0.7) Basophils # (Auto) 0.0 x10^3/uL (0.0-0.2) Sodium Level 141 mmol/L (136-145) Potassium Level 4.1 mmol/L (3.5-5.1) Chloride Level 108 mmol/L (98-107) Carbon Dioxide Level 28 mmol/L (21-32) Anion Gap 5 (6-14) Blood Urea Nitrogen 28 mg/dL (8-26) Creatinine 1.3 mg/dL (0.7-1.3) Estimated GFR (Cockcroft-Gault) 52.1 Glucose Level 85 mg/dL (70-99) Calcium Level 8.0 mg/dL (8.5-10.1) Test 06/29/17 08:02 06/29/17 11:02 06/29/17 16:31 06/29/17 21:07 Glucose (Fingerstick) 155 mg/dL (70-99) 106 mg/dL (70-99) 209 mg/dL (70-99) 267 mg/dL (70-99) Test 06/30/17 03:30 06/30/17 07:28 06/30/17 07:55 White Blood Count 11.1 x10^3/uL (4.0-11.0) Red Blood Count 3.46 x10^6/uL (4.30-5.70) Hemoglobin 9.9 g/dL (13.0-17.5) Hematocrit 30.9 % (39.0-53.0) Mean Corpuscular Volume 89 fL (79-100) Mean Corpuscular Hemoglobin 29 pg (25-35) Mean Corpuscular Hemoglobin Concent 32 g/dL (31-37) Red Cell Distribution Width 15.8 % (11.5-14.5) Platelet Count 281 x10^3/uL (140-400) Neutrophils (%) (Auto) 69 % (31-73) Lymphocytes (%) (Auto) 20 % (24-48) Monocytes (%) (Auto) 9 % (0-9) Eosinophils (%) (Auto) 1 % (0-3) Basophils (%) (Auto) 0 % (0-3) Neutrophils # (Auto) 7.7 x10^3uL (1.8-7.7) Lymphocytes # (Auto) 2.3 x10^3/uL (1.0-4.8) Monocytes # (Auto) 1.0 x10^3/uL (0.0-1.1) Eosinophils # (Auto) 0.1 x10^3/uL (0.0-0.7) Basophils # (Auto) 0.0 x10^3/uL (0.0-0.2) Sodium Level 140 mmol/L (136-145) Potassium Level 3.9 mmol/L (3.5-5.1) Chloride Level 108 mmol/L (98-107) Carbon Dioxide Level 27 mmol/L (21-32) Anion Gap 5 (6-14) Blood Urea Nitrogen 29 mg/dL (8-26) Creatinine 1.5 mg/dL (0.7-1.3) Estimated GFR (Cockcroft-Gault) 44.2 Glucose Level 126 mg/dL (70-99) Calcium Level 7.9 mg/dL (8.5-10.1) Glucose (Fingerstick) 54 mg/dL (70-99) 97 mg/dL (70-99) Laboratory Tests Test 06/29/17 16:31 06/29/17 21:07 06/30/17 03:30 06/30/17 07:28 Glucose (Fingerstick) 209 mg/dL (70-99) 267 mg/dL (70-99) 54 mg/dL (70-99) White Blood Count 11.1 x10^3/uL (4.0-11.0) Red Blood Count 3.46 x10^6/uL (4.30-5.70) Hemoglobin 9.9 g/dL (13.0-17.5) Hematocrit 30.9 % (39.0-53.0) Mean Corpuscular Volume 89 fL (79-100) Mean Corpuscular Hemoglobin 29 pg (25-35) Mean Corpuscular Hemoglobin Concent 32 g/dL (31-37) Red Cell Distribution Width 15.8 % (11.5-14.5) Platelet Count 281 x10^3/uL (140-400) Neutrophils (%) (Auto) 69 % (31-73) Lymphocytes (%) (Auto) 20 % (24-48) Monocytes (%) (Auto) 9 % (0-9) Eosinophils (%) (Auto) 1 % (0-3) Basophils (%) (Auto) 0 % (0-3) Neutrophils # (Auto) 7.7 x10^3uL (1.8-7.7) Lymphocytes # (Auto) 2.3 x10^3/uL (1.0-4.8) Monocytes # (Auto) 1.0 x10^3/uL (0.0-1.1) Eosinophils # (Auto) 0.1 x10^3/uL (0.0-0.7) Basophils # (Auto) 0.0 x10^3/uL (0.0-0.2) Sodium Level 140 mmol/L (136-145) Potassium Level 3.9 mmol/L (3.5-5.1) Chloride Level 108 mmol/L (98-107) Carbon Dioxide Level 27 mmol/L (21-32) Anion Gap 5 (6-14) Blood Urea Nitrogen 29 mg/dL (8-26) Creatinine 1.5 mg/dL (0.7-1.3) Estimated GFR (Cockcroft-Gault) 44.2 Glucose Level 126 mg/dL (70-99) Calcium Level 7.9 mg/dL (8.5-10.1) Test 06/30/17 07:55 Glucose (Fingerstick) 97 mg/dL (70-99) Medications Active Scripts Medications Dose Route/Sig Max Daily Dose Days Date Category Dose Instructions Saline Nasal Sherman (Sodium Chloride) 30 Ml Sherman 2 Sherman NS QID 06/25/17 Reported Proair Hfa Inhaler (Albuterol Sulfate) 8.5 Gm Hfa.aer.ad 1 Puff INH PRN Q6HRS PRN 06/25/17 Reported Potassium Chloride 20 Meq Tablet.er 20 Meq PO BID 06/25/17 Reported Advair 250-50 Diskus (Fluticasone/Salmeterol) 1 Each Disk.w.dev 1 Puff IH BID 06/25/17 Reported Levemir Flextouch (Insulin Detemir) 100 Unit/1 Ml Insuln.pen 40 Unit SQ HS 06/24/17 Reported Novolog Flexpen (Insulin Aspart) 100 Unit/1 Ml Insuln.pen 5 Unit SQ TIDAC 06/24/17 Reported Xarelto (Rivaroxaban) 20 Mg Tablet 15 Mg PO DAILY 04/22/17 Reported Lasix (Furosemide) 20 Mg Tablet 1 Tab PO MWF 03/19/17 Rx Lasix (Furosemide) 20 Mg Tablet 2 Tab PO TTSS 03/19/17 Rx Novolog Flexpen (Insulin Aspart) 100 Unit/1 Ml Insuln.pen 1 Unit SQ TIDAC 03/18/17 Rx BS <150=0, 151-200=2units, 201-250=3units, 251-300= 4 units, 301-350=5 units, 351-400=6 units >401 call Metoprolol Tartrate 25 Mg Tablet 12.5 Mg PO BID 02/22/17 Rx Take 1/2 tablet bid. HOLD if SBP <110 Aspirin Ec (Aspirin) 81 Mg Tablet.dr 81 Mg PO DAILYWBKFT 02/22/17 Rx Take one tablet by mouth daily Protonix (Pantoprazole Sodium) 40 Mg Tablet.dr 1 Tab PO DAILY 02/18/17 Reported Lipitor (Atorvastatin Calcium) 40 Mg Tablet 1 Tab PO QHS 02/18/17 Reported Thiamine Hcl 100 Mg Tablet 100 Mg PO DAILY 02/18/17 Reported Magnesium (Magnesium Oxide) 400 Mg Capsule 400 Mg PO BID 02/17/17 Reported Miralax (Polyethylene Glycol 3350) 17 Gm Powd.pack 1 Pkt PO DAILY PRN 02/17/17 Reported Mapap (Acetaminophen) 325 Mg Tablet 650 Mg PO PRN Q4HRS PRN 06/03/16 Rx Tizanidine Hcl 4 Mg Tablet 1 Tab-Cap PO QHS 05/03/16 Reported Cetirizine Hcl 10 Mg Tab.chew 10 Mg PO QHS 05/03/16 Reported Gabapentin 100 Mg Capsule 100 Mg PO QHS 05/03/16 Reported Duoneb 0.5-3(2.5) Mg/3 Ml (Albuterol/Ipratropium) 3 Ml Ampul.neb 3 Ml NEB RTQID 12/04/15 Rx Tramadol Hcl 50 Mg Tablet 1 Tab PO PRN Q6HRS 03/07/15 Reported Vitamin D (Cholecalciferol (Vitamin D3)) 10,000 Unit Capsule 2,000 Unit PO DAILY 03/07/15 Reported Vitamin B-12 (Cyanocobalamin (Vitamin B-12)) 1,000 Mcg Tablet.er 1,000 Mcg PO DAILY08 11/17/13 Rx Singulair Tablet (Montelukast Sodium) 10 Mg Tablet 10 Mg PO DAILYBFRSUP 11/01/13 Reported last dose with supper next dose tomorrow Impression . 1. ACUTE/C RESP FAILURE SEC TO INFLUENZA 2. Chronic respiratory failure secondary to chronic pulmonary fibrosis. 3. Abnormal chest x-ray with bilateral interstitial infiltrates, which appears to be accentuated than 6 months ago and may be related to superimposed interstitial viral pneumonia. 4. Renal insufficiency. 5. No history of tobacco use. Plan . transfer to [facility] [place] resp status is compensated AVA PRASAD MD Jun 30, 2017 16:22
[2017-06-30] MEDS: MONTELUKAST SODIUM 10 MG TABLET. PO SCH (16:47)
[2017-06-30 19:41] VITALS: BP 133/78
[2017-06-30] MEDS: GABAPENTIN 100 MG CAPSULE. PO SCH (20:44)
[2017-06-30] MEDS: tiZANidine 4 MG TABLET. PO SCH (20:44)
[2017-06-30] MEDS: CETIRIZINE HCL 10 MG TABLET. PO SCH (20:44)
[2017-06-30] MEDS: ATORVASTATIN CALCIUM 40 MG TABLET. PO SCH (20:45)
[2017-06-30] MEDS: INSULIN DETEMIR 300 UNITS/3 ML INSULN.PEN. SQ SCH (20:52)
[2017-06-30 23:42] VITALS: BP 107/56
[2017-07-01 03:38] VITALS: BP 140/75
[2017-07-01 07:20] VITALS: BP 164/88
[2017-07-01] MEDS: INSULIN ASPART 300 UNITS/3 ML INSULN.PEN SQ SCH ×4 (07:30→21:00)
[2017-07-01] MEDS: IPRATRPIUM/ALBUTEROL 0.5/2.5MG 3 ML NEBU. NEB SCH ×3 (07:43→19:57)
[2017-07-01] MEDS: BUDESONIDE 0.5 MG/2 ML NEBU. NEB SCH ×2 (07:43→19:57)
--- NOTE | 2017-07-01 08:35 | PDOC ---
Infectious Disease Note Subjective Subjective feeling good ROS ROS GEN: Denies fevers, chills, sweats HEENT: Denies blurred vision, sore throat CV: Denies chest pain RESP: Denies shortness of air, cough GI: Denies n/v/d NEURO: Denies confusion, dizziness MSK: Denies weakness, joint pain/swelling Vital Sign Vital Signs Vital Signs Date Time Temp Pulse Resp B/P (MAP) Pulse Ox O2 Delivery O2 Flow Rate FiO2 07/01/17 07:44 93 Nasal Cannula 2.0 07/01/17 07:20 97.5 81 18 164/88 (113) 97.5 Physical Exam PHYSICAL EXAM GENERAL: NAD, Alert HEENT: PERRL, OC/OP NECK: Supple, no JVD, no LN LUNGS: Clear HEART: S1S2, no gallop, no murmur ABD: Soft, NT, no organomegaly, no rebound EXT: No edema, no cyanosis 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
[2017-07-01] MEDS: LACTOBACILLUS RHAMNOSUS GG 1 CAPSULE. PO SCH ×2 (08:46→21:00)
[2017-07-01] MEDS: POTASSIUM CHLORIDE 20 MEQ TABLET.ER. PO SCH ×2 (08:47→17:31)
[2017-07-01] MEDS: ASPIRIN ENTERIC COATED 81 MG TABLET.DR. PO SCH (08:47)
[2017-07-01] MEDS: MAGNESIUM OXIDE 400 MG TABLET PO SCH ×2 (08:48→21:00)
[2017-07-01] MEDS: predniSONE 20 MG TABLET PO SCH (08:48)
[2017-07-01] MEDS: CHOLECALCIFEROL (VITAMIN D3) 1,000 UNIT TABLET PO SCH (08:48)
[2017-07-01] MEDS: CYANOCOBALAMIN (VITAMIN B-12) 1,000 MCG TABLET. PO SCH (08:49)
[2017-07-01] MEDS: THIAMINE 100 MG TABLET. PO SCH (08:49)
[2017-07-01] MEDS: PANTOPRAZOLE 40 MG TABLET.DR. PO SCH (08:49)
[2017-07-01] MEDS: FUROSEMIDE 20 MG TABLET PO SCH (08:52)
[2017-07-01] MEDS: SODIUM CHLORIDE 0.65% NASAL SPRAY 45ML BOTTLE. NS SCH ×4 (09:00→21:00)
--- NOTE | 2017-07-01 09:19 | PDOC ---
IM PROGRESS NOTES- Subjective Subjective Coughing less..Dyspnea is improving.Blood sugar 54 this AM. Now 97 withou any treatment.Mucus is discolored because he chews tobacco- no hemoptysis. Walking with walker with RT. Objective Vitals Vital Signs Date Time Temp Pulse Resp B/P (MAP) Pulse Ox O2 Delivery O2 Flow Rate FiO2 07/01/17 07:44 93 Nasal Cannula 2.0 07/01/17 07:20 97.5 81 18 164/88 (113) 97.5 Input & Output Intake and Output 07/01/17 07:00 Intake Total 800 ml Output Total 1500 ml Balance -700 ml Intake Oral 800 ml Output Urine Total 1500 ml # Bowel Movements 1 Physical Exam Physical Exam General appearance - alert, ill appearing, and in mild distress Mental Status - alert, oriented to person, place, and time, affect appropriate to mood Head - normal Chest - no wheezing Heart - S1 and S2 normal Abdomen - soft, nontender, nondistended, BS + Neurological - no acute focal neurological deficits noted Musculoskeletal - no muscular tenderness noted Extremities - ++ pedal edema Skin - warm and dry Labs Laboratory Tests Test 06/29/17 11:02 06/29/17 16:31 06/29/17 21:07 06/30/17 03:30 Glucose (Fingerstick) 106 mg/dL (70-99) 209 mg/dL (70-99) 267 mg/dL (70-99) White Blood Count 11.1 x10^3/uL (4.0-11.0) Red Blood Count 3.46 x10^6/uL (4.30-5.70) Hemoglobin 9.9 g/dL (13.0-17.5) Hematocrit 30.9 % (39.0-53.0) Mean Corpuscular Volume 89 fL (79-100) Mean Corpuscular Hemoglobin 29 pg (25-35) Mean Corpuscular Hemoglobin Concent 32 g/dL (31-37) Red Cell Distribution Width 15.8 % (11.5-14.5) Platelet Count 281 x10^3/uL (140-400) Neutrophils (%) (Auto) 69 % (31-73) Lymphocytes (%) (Auto) 20 % (24-48) Monocytes (%) (Auto) 9 % (0-9) Eosinophils (%) (Auto) 1 % (0-3) Basophils (%) (Auto) 0 % (0-3) Neutrophils # (Auto) 7.7 x10^3uL (1.8-7.7) Lymphocytes # (Auto) 2.3 x10^3/uL (1.0-4.8) Monocytes # (Auto) 1.0 x10^3/uL (0.0-1.1) Eosinophils # (Auto) 0.1 x10^3/uL (0.0-0.7) Basophils # (Auto) 0.0 x10^3/uL (0.0-0.2) Sodium Level 140 mmol/L (136-145) Potassium Level 3.9 mmol/L (3.5-5.1) Chloride Level 108 mmol/L (98-107) Carbon Dioxide Level 27 mmol/L (21-32) Anion Gap 5 (6-14) Blood Urea Nitrogen 29 mg/dL (8-26) Creatinine 1.5 mg/dL (0.7-1.3) Estimated GFR (Cockcroft-Gault) 44.2 Glucose Level 126 mg/dL (70-99) Calcium Level 7.9 mg/dL (8.5-10.1) Test 06/30/17 07:28 06/30/17 07:55 06/30/17 12:00 06/30/17 16:35 Glucose (Fingerstick) 54 mg/dL (70-99) 97 mg/dL (70-99) 119 mg/dL (70-99) 252 mg/dL (70-99) Test 06/30/17 20:46 07/01/17 07:19 Glucose (Fingerstick) 272 mg/dL (70-99) 79 mg/dL (70-99) Laboratory Tests Test 06/30/17 12:00 06/30/17 16:35 06/30/17 20:46 07/01/17 07:19 Glucose (Fingerstick) 119 mg/dL (70-99) 252 mg/dL (70-99) 272 mg/dL (70-99) 79 mg/dL (70-99) Assessment Assessment Problems Medical Problems: (1) Influenza B Status: Acute (2) Lactic acidosis Status: Acute IMPRESSION: DT s from alcohol, was shaky yesterday 1. Influenzae B with sepsis and hypotension. 2. Acute on Chronic respiratory failure with pulmonary fibrosis.Interstitial lung disease 3. acute bronchitis secondary to influenzae B 4. AECOPD 5. 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 chronic diastolic CHF EF normal . 7. Benign prostatic hypertrophy. 8. Moderate protein calorie malnutrition with new onset severe PCL malnutrition 9. COPD with exacerbation 10. chronic AF Xarelto 11. chronic respiratory failure with COPD, ILD, silicosis underlying O2 dependent 12. anemia chronic disease B12 13. hyperlipidemia 14. severe weakness and debility with mobility deficits 15. depression 16. h/o ETOH abuse 17. GERD 18. acute on chronic back pain LS POA 19. Severe PCL malnutrition 20. CKD II with BOBBY hypotension PLAN: Inf B with sepsis - tamiflu - zosysn - zyvox - Vanco x 1 now stopped - ID consulted - Admit WBC 20.7 today 9.0 hypotension - levophed, multiple NS boluses through night a/c respiratory failure - AB/AECOPD - solumedrol 125mg IV x 1 then 60mg IV q8 - nebulizer - mucinex - CHF - admit wt 177.31 - diastolic -?component fluid overload from NS replacement fluids - give low dose Lasix 20mg IV x 1 - chronic lasix stopped DM II - FSBS SSI HTN - hold meds hypokalemia - admit 3.7 today 3.7 CKD II - Admit BUN/Cr 20/1.5 this am /.8 - monitor - BOBBY hypotension weakness debility - PT OT consult malnutrition - supplements DVT/GI prophylaxis - xarelto PPI 06/30/17 Doing much better. Taper Prednisone- 30-20-10 mg each for 3 days. slowly improving. Hypoglycemia- better- FBS 79.d/c scheduled Novolog,low dose ssi bid and decrease Levemir to 20 units s/c daily. Unable to go to ID yesterday.Wants to go home today. resume Xarelto. Continue Augmentin for 4 days. see me in office in 5 days on Wednesday. Discharge Management - 35 minutes. Discharge with [facility]. Plan Plan The patient was seen and examined by me. Chart reviewed and plan of care formulated. Discussed with, reviewed and agree with [employer]'s notes, plan of care and orders with modifications as necessary. For more details regarding further plans, please refer to the orders. STEPAN MILTON MD Jul 01, 2017 09:19
[2017-07-01 10:37] VITALS: BP 139/77
[2017-07-01 14:41] VITALS: BP 162/80
[2017-07-01] MEDS: MONTELUKAST SODIUM 10 MG TABLET. PO SCH (17:31)
[2017-07-01 19:25] VITALS: BP 159/83
[2017-07-01] MEDS: ATORVASTATIN CALCIUM 40 MG TABLET. PO SCH (21:00)
[2017-07-01] MEDS: CETIRIZINE HCL 10 MG TABLET. PO SCH (21:00)
[2017-07-01] MEDS: GABAPENTIN 100 MG CAPSULE. PO SCH (21:00)
[2017-07-01] MEDS: tiZANidine 4 MG TABLET. PO SCH (21:00)
[2017-07-01] MEDS: INSULIN DETEMIR 300 UNITS/3 ML INSULN.PEN. SQ SCH (21:19)
[2017-07-01 23:25] VITALS: BP 109/65
[2017-07-02 03:25] VITALS: BP 160/79
[2017-07-02] MEDS: INSULIN ASPART 300 UNITS/3 ML INSULN.PEN SQ SCH (07:30)
[2017-07-02] MEDS: IPRATRPIUM/ALBUTEROL 0.5/2.5MG 3 ML NEBU. NEB SCH (07:41)
[2017-07-02] MEDS: BUDESONIDE 0.5 MG/2 ML NEBU. NEB SCH (07:41)
[2017-07-02 07:46] VITALS: BP 167/79
[2017-07-02] MEDS: FUROSEMIDE 20 MG TABLET PO SCH (08:21)
[2017-07-02] MEDS: LACTOBACILLUS RHAMNOSUS GG 1 CAPSULE. PO SCH (08:21)
[2017-07-02] MEDS: CYANOCOBALAMIN (VITAMIN B-12) 1,000 MCG TABLET. PO SCH (08:22)
[2017-07-02] MEDS: THIAMINE 100 MG TABLET. PO SCH (08:22)
[2017-07-02] MEDS: PANTOPRAZOLE 40 MG TABLET.DR. PO SCH (08:22)
[2017-07-02] MEDS: POTASSIUM CHLORIDE 20 MEQ TABLET.ER. PO SCH (08:22)
[2017-07-02] MEDS: ASPIRIN ENTERIC COATED 81 MG TABLET.DR. PO SCH (08:22)
[2017-07-02] MEDS: MAGNESIUM OXIDE 400 MG TABLET PO SCH (08:22)
[2017-07-02] MEDS: CHOLECALCIFEROL (VITAMIN D3) 1,000 UNIT TABLET PO SCH (08:24)
[2017-07-02] MEDS: predniSONE 20 MG TABLET PO SCH (08:24)
[2017-07-02] MEDS: SODIUM CHLORIDE 0.65% NASAL SPRAY 45ML BOTTLE. NS SCH (08:28)
--- NOTE | 2017-07-02 10:30 | PDOC ---
Infectious Disease Note Subjective Subjective feeling good ROS ROS GEN: Denies fevers, chills, sweats HEENT: Denies blurred vision, sore throat CV: Denies chest pain RESP: Denies shortness of air, cough GI: Denies n/v/d NEURO: Denies confusion, dizziness MSK: Denies weakness, joint pain/swelling Vital Sign Vital Signs Vital Signs Date Time Temp Pulse Resp B/P (MAP) Pulse Ox O2 Delivery O2 Flow Rate FiO2 07/02/17 08:00 Nasal Cannula 2.0 07/02/17 07:46 97.9 80 20 167/79 (108) 99 97.9 Physical Exam PHYSICAL EXAM GENERAL: NAD, Alert HEENT: PERRL, OC/OP NECK: Supple, no JVD, no LN LUNGS: Clear HEART: S1S2, no gallop, no murmur ABD: Soft, NT, no organomegaly, no rebound EXT: No edema, no cyanosis [employer]: Alert, 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, no focal neurologic deficit SKIN: No rash IV: ok Labs Lab Laboratory Tests Test 07/01/17 11:18 07/01/17 16:24 07/02/17 07:53 Glucose (Fingerstick) 150 mg/dL (70-99) 348 mg/dL (70-99) 82 mg/dL (70-99) Objective Assessment Sepsis - POA, improved Influenza B Leukocytosis, improved BOBBY DM Plan Plan of Care F/u labs and cults d/c home ZEINA Kaufman MD Jul 02, 2017 10:30
[2017-07-02 10:38] VITALS: BP 136/76
--- NOTE | 2017-07-02 10:59 | PDOC ---
IM PROGRESS NOTES- Subjective Subjective Coughing less..Dyspnea is improving.Did not go home yesterday due to ride problems. Objective Vitals Vital Signs Date Time Temp Pulse Resp B/P (MAP) Pulse Ox O2 Delivery O2 Flow Rate FiO2 07/02/17 10:38 97.9 86 18 136/76 (96) 95 Nasal Cannula 2.0 97.9 Input & Output Intake and Output 07/02/17 07:00 Intake Total 1800 ml Balance 1800 ml Intake Oral 1800 ml # Voids 6 # Bowel Movements 4 Physical Exam Physical Exam General appearance - alert, chronically ill appearing, and in no distress Mental Status - alert, oriented to person, place, and time, affect appropriate to mood Head - normal Chest - no wheezing Heart - S1 and S2 normal Abdomen - soft, nontender, nondistended, BS + Neurological - no acute focal neurological deficits noted Musculoskeletal - no muscular tenderness noted Extremities - trace pedal edema Skin - warm and dry Labs Laboratory Tests Test 06/30/17 12:00 06/30/17 16:35 06/30/17 20:46 07/01/17 07:19 Glucose (Fingerstick) 119 mg/dL (70-99) 252 mg/dL (70-99) 272 mg/dL (70-99) 79 mg/dL (70-99) Test 07/01/17 11:18 07/01/17 16:24 07/02/17 07:53 Glucose (Fingerstick) 150 mg/dL (70-99) 348 mg/dL (70-99) 82 mg/dL (70-99) Laboratory Tests Test 07/01/17 11:18 07/01/17 16:24 07/02/17 07:53 Glucose (Fingerstick) 150 mg/dL (70-99) 348 mg/dL (70-99) 82 mg/dL (70-99) Assessment Assessment Problems Medical Problems: (1) Influenza B Status: Acute (2) Lactic acidosis Status: Acute IMPRESSION: DT s from alcohol, was shaky yesterday 1. Influenzae B with sepsis and hypotension. 2. Acute on Chronic respiratory failure with pulmonary fibrosis.Interstitial lung disease 3. acute bronchitis secondary to influenzae B 4. AECOPD 5. 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 chronic diastolic CHF EF normal . 7. Benign prostatic hypertrophy. 8. Moderate protein calorie malnutrition with new onset severe PCL malnutrition 9. COPD with exacerbation 10. chronic AF Xarelto 11. chronic respiratory failure with COPD, ILD, silicosis underlying O2 dependent 12. anemia chronic disease B12 13. hyperlipidemia 14. severe weakness and debility with mobility deficits 15. depression 16. h/o ETOH abuse 17. GERD 18. acute on chronic back pain LS POA 19. Severe PCL malnutrition 20. CKD II with BOBBY hypotension PLAN: Inf B with sepsis - tamiflu - zosysn - zyvox - Vanco x 1 now stopped - ID consulted - Admit WBC 20.7 today 9.0 hypotension - levophed, multiple NS boluses through night a/c respiratory failure - AB/AECOPD - solumedrol 125mg IV x 1 then 60mg IV q8 - nebulizer - mucinex - CHF - admit wt 177.31 - diastolic -?component fluid overload from NS replacement fluids - give low dose Lasix 20mg IV x 1 - chronic lasix stopped DM II - FSBS SSI HTN - hold meds hypokalemia - admit 3.7 today 3.7 CKD II - Admit BUN/Cr /1.5 this am 31/08.8 - monitor - BOBBY hypotension weakness debility - PT OT consult malnutrition - supplements DVT/GI prophylaxis - xarelto PPI 06/30/17 Doing much better. Taper Prednisone- 30-20-10 mg each for 3 days. slowly improving. Hypoglycemia- better- FBS 82.d/c scheduled Novolog,low dose ssi bid and decrease Levemir to 20 units s/c daily. Unable to go to [place] yesterday.Wants to go home today. resume Xarelto. Continue Augmentin for 4 days. see me in office in 5 days on Wednesday. Discharge Management - 35 minutes. Discharge with [facility]. Plan Plan The patient was seen and examined by me. Chart reviewed and plan of care formulated. Discussed with, reviewed and agree with CLIENT SERVICE EXECUTIVE's notes, plan of care and orders with modifications as necessary. For more details regarding further plans, please refer to the orders. STEPAN MILTON MD Jul 02, 2017 10:59
--- NOTE | 2017-08-03 15:39 | PDOC3 ---
IM DISCHARGE SUMMARY Date of Admission Date of Admission Date of Admission: Jun 24, 2017 at 17:08 Date of Discharge Date of Discharge 07/02/17 Primary Diagnosis Primary Diagnosis 1. Influenzae B with sepsis 2. Acute on Chronic respiratory failure with pulmonary fibrosis.Interstitial lung disease 3. acute bronchitis secondary to influenzae B 4. AECOPD 5. 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 chronic diastolic CHF EF normal . 7. Benign prostatic hypertrophy. 8. Moderate protein calorie malnutrition with new onset severe PCL malnutrition 9. COPD with exacerbation 10. chronic AF Xarelto 11. chronic respiratory failure with COPD, ILD, silicosis underlying O2 dependent 12. anemia chronic disease B12 13. hyperlipidemia 14. severe weakness and debility with mobility deficits 15. depression 16. h/o ETOH abuse 17. GERD 18. acute on chronic back pain LS POA 19. Severe PCL malnutrition 20. CKD II with BOBBY hypotension Problems: Consults Consults Talib Wong MD, Dr. Procedures Procedures None Labs Labs See EMR labs Brief hospital course Brief hospital course This 87 year old male who presented with sepsis due to influenzae B and acute on chronic respiratory failure was admitted. The following is a summary of his treatment: 07/02/17 Discharge home with [facility] PT OT stronger and appetite improved. labs stable VS stable. 07/01/17 Unable to go to [place] yesterday.Wants to go home today. resume Xarelto. Continue Augmentin for 4 days. see me in office in 5 days on Wednesday. 06/30/17 Doing much better. Taper Prednisone- 30-20-10 mg each for 3 days. slowly improving. Hypoglycemia- d/c scheduled Novolog,low dose ssi bid and decrease Levemir to 20 units s/c daily. Discharge to [place] today. resume Xarelto. Discharge Management - 35 minutes. 06/29/17 Hypoglycemia- d/c scheduled Novolog,low dose ssi bid and decrease Levemir to 30 units s/c daily. Discharge tomorrow if stable. 06/28/17 Has nose bleeds- hold Xarelto. SNF when ready. slowly improving. 06/27/17 Tamiflue+zyvox Hypotension resolved off pressors. transferred out of icu. Librium+thiamine+ d/c banana bag for DTs. No labs today. 06/26/17 Hypotension resolved off pressors. transfer out of icu. Librium+thiamine+banana bag for DTs. Wbc down to 9.0 Inf B with sepsis - tamiflu - zosysn - zyvox - Vanco x 1 now stopped - ID consulted - Admit WBC 20.7 today 9.0 hypotension - levophed, multiple NS boluses through night a/c respiratory failure - AB/AECOPD - solumedrol 125mg IV x 1 then 60mg IV q8 - nebulizer - mucinex - CHF - admit wt 177.31 - diastolic -?component fluid overload from NS replacement fluids - give low dose Lasix 20mg IV x 1 - chronic lasix stopped DM II - FSBS SSI HTN - hold meds hypokalemia - admit 3.7 today 3.3 give additional 20KCL this am po CKD II - Admit BUN/Cr 20/1.5 this am 23/1.8 - monitor - BOBBY hypotension weakness debility - PT OT consult malnutrition - supplements DVT/GI prophylaxis - xarelto PPI Problems: 06/25/17 Inf B with sepsis - tamiflu - zosysn - zyvox - Vanco x 1 now stopped - ID consulted - Admit WBC 20.7 today 16.2 hypotension - levophed, multiple NS boluses through night a/c respiratory failure - AB/AECOPD - solumedrol 125mg IV x 1 then 60mg IV q8 - nebulizer - mucinex - CHF - admit wt 177.31 - diastolic -?component fluid overload from NS replacement fluids - give low dose Lasix 20mg IV x 1 - chronic lasix stopped DM II - FSBS SSI HTN - hold meds hypokalemia - admit 3.7 today 3.3 give additional 20KCL this am po CKD II - Admit BUN/Cr 20/1.5 this am 23/1.8 - monitor - BOBBY hypotension weakness debility - PT OT consult malnutrition - supplements DVT/GI prophylaxis - xarelto PPI ers For more details regarding the past history, family history, social history, surgical history and other details, please refer to History and Physical. Medications Medications reviewed and reconciled for discharge. Allergy Allergies Coded Allergies Type Severity Reaction Last Updated Verified rofecoxib Allergy Severe 09/14/16 Yes Follow up in 3-5 days. DISPOSITION: Home health services Comments Discharge Management - 35 minutes. For other details please refer to discharge instructions PINKY REES APRN Aug 03, 2017 15:39
== END 2017-07-02 12:00 | disposition home health service (06) | DRG 871 ==
LOC: ER 15:55 → 5 NORTH 17:08 → 1 WEST ICU 06-25 01:15 → 6 SOUTH 06-26 15:55
PROVIDERS: ADMIT Internal Medicine; ATTEND Internal Medicine
DX: A41.9 Sepsis, unspecified organism (principal); E43 Unspecified severe protein-calorie malnutrition; J96.20 Acute and chronic respiratory failure, unspecified whether with hypoxia or hypercapnia; N17.9 Acute kidney failure, unspecified; E10.22 Type 1 diabetes mellitus with diabetic chronic kidney disease; I13.0 Hypertensive heart and chronic kidney disease with heart failure and stage 1 through stage 4 chronic kidney disease, or unspecified chronic kidney disease; I48.2 Chronic atrial fibrillation; I50.32 Chronic diastolic (congestive) heart failure; J84.10 Pulmonary fibrosis, unspecified; J44.0 Chronic obstructive pulmonary disease with (acute) lower respiratory infection; J44.1 Chronic obstructive pulmonary disease with (acute) exacerbation; D63.8 Anemia in other chronic diseases classified elsewhere; E78.00 Pure hypercholesterolemia, unspecified; E78.5 Hyperlipidemia, unspecified; F32.9 Major depressive disorder, single episode, unspecified; G89.29 Other chronic pain; J10.1 Influenza due to other identified influenza virus with other respiratory manifestations; J20.9 Acute bronchitis, unspecified; E87.6 Hypokalemia; K21.9 Gastro-esophageal reflux disease without esophagitis; N18.2 Chronic kidney disease, stage 2 (mild); M54.5 Low back pain; F10.20 Alcohol dependence, uncomplicated; N40.0 Benign prostatic hyperplasia without lower urinary tract symptoms; Z72.0 Tobacco use; Z79.01 Long term (current) use of anticoagulants; Z79.4 Long term (current) use of insulin; Z82.49 Family history of ischemic heart disease and other diseases of the circulatory system; Z83.3 Family history of diabetes mellitus; Z99.81 Dependence on supplemental oxygen; Z68.26 Body mass index [BMI] 26.0-26.9, adult
CPT/HCPCS: 36415; 71010; 80048; 80053; 82962; 83605; 83735; 83880; 84484; 85007; 85025; 87040; 87641; 87804; 93005; 94250; 94620; 94640; 94760; 96365; 96375; J1815; J2020; J2060; J2543; J2930; J3010; J3370; J7030; J7040; J7042; J7512; J7613; J7620; J7626; 97116; 97530; 97535; 99291-25

== ENCOUNTER 2017-08-19 02:06 | Inpatient (IN) | payer MEDICARE ==
[2017-08-19 02:28] LABS: ADD MAN DIFF? YES; BASO # 0.2 x10^3/uL (0.0-0.2); BASO % 1 % (0-3); EOS # 0.1 x10^3/uL (0.0-0.7); EOS % 1 % (0-3); HEMATOCRIT 33.5 % (39.0-53.0); HEMOGLOBIN 10.6 g/dL (13.0-17.5); LYMPH # 2.7 x10^3/uL (1.0-4.8); LYMPH % 10 % (24-48); MEAN CORPUSCULAR HEMOGLOBIN 27 pg (25-35); MEAN CORPUSCULAR HGB CONC 32 g/dL (31-37); MEAN CORPUSCULAR VOLUME 86 fL (79-100); MONO # 1.6 x10^3/uL (0.0-1.1); MONO % 6 % (0-9); NEUT # 21.5 x10^3uL (1.8-7.7); NEUT % 83 % (31-73); PLATELET COUNT 441 x10^3/uL (140-400); RED BLOOD COUNT 3.92 x10^6/uL (4.30-5.70); RED CELL DISTRIBUTION WIDTH 16.3 % (11.5-14.5); WHITE BLOOD COUNT 26.1 x10^3/uL (4.0-11.0)
[2017-08-19] MEDS ORDERED: PIP/TAZO PER PHARMACY MC (02:30)
[2017-08-19] MEDS: ACETAMINOPHEN 500 MG TABLET PO ×2 (02:30→02:35)
[2017-08-19] MEDS: IV NORMAL SALINE 1000ML BAG 1,000 ML IV ×3 (02:30→03:40)
[2017-08-19] MEDS: methylPREDNISolone SOD SUCC PF 125 MG/2 ML VIAL. IV ×3 (02:35→22:16)
[2017-08-19 02:40] LABS: ANION GAP 12 (6-14); BLOOD UREA NITROGEN 29 mg/dL (8-26); BUN/CREATININE RATIO 18 (6-20); CALCIUM 8.8 mg/dL (8.5-10.1); CARBON DIOXIDE 26 mmol/L (21-32); CHLORIDE 101 mmol/L (98-107); CREATININE 1.6 mg/dL (0.7-1.3); GLUCOSE 270 mg/dL (70-99); INR 1.4 (0.8-1.1); PARTIAL THROMBOPLASTIN TIME 36 SEC (24-38); POTASSIUM 3.9 mmol/L (3.5-5.1); PROTHROMBIN TIME PATIENT 16.6 SEC (11.7-14.0); SODIUM 139 mmol/L (136-145)
[2017-08-19] MEDS: ALBUTEROL SULFATE 2.5 MG/3 ML NEBU. NEB (02:40)
[2017-08-19] MEDS: IPRATRPIUM/ALBUTEROL 0.5/2.5MG 3 ML NEBU. NEB (02:40)
[2017-08-19] MEDS: ACETAMINOPHEN 650 MG SUPP.RECT. PR (02:45)
[2017-08-19 02:51] LABS: INFLUENZA A PATIENT NEGATIVE (NEGATIVE); INFLUENZA B PATIENT NEGATIVE (NEGATIVE); OBC FLU VALID
[2017-08-19 02:51] LABS: TROPONINI < 0.017 ng/mL (0.000-0.055)
[2017-08-19 02:52] LABS: NT-PRO BNP 1447 pg/mL (0-449)
[2017-08-19 02:54] LABS: ALBUMIN 1.9 g/dL (3.4-5.0); ALBUMIN/GLOBULIN RATIO 0.4 (1.0-1.7); ALK PHOS 110 U/L (46-116); ALT (SGPT) 20 U/L (16-63); AST (SGOT) 43 U/L (15-37); MAGNESIUM 1.9 mg/dL (1.8-2.4); TOTAL BILIRUBIN 0.6 mg/dL (0.2-1.0); TOTAL PROTEIN 6.6 g/dL (6.4-8.2)
[2017-08-19 02:56] LABS: % BANDS 4 % (0-9); % LYMPHS 12 % (24-48); % METAS 1 % (0-0); % MONOS 3 % (0-10); % SEGS 80 % (35-66); PLT ESTIMATE ADEQUATE (ADEQUATE); TOXIC GRANULATION MOD
[2017-08-19 03:01] LABS: BASE EXCESS COOX -2 mmol/L (-3-3); CARBON MONOXIDE 0.3 % (0.0-1.9); HCO3 COOX 23 mmol/L (21-28); METHEMOGLOBIN 0.6 % (0.0-1.9); OXYHEMOGLOBIN 93.4 %; PCO2 COOX 39 mmHg (35-46); PH COOX 7.38 (7.35-7.45); PO2 COOX 78 mmHg (65-108); SAT O2 COOX 94 % (92-99); TOTAL HEMOGLOBIN 10.7 g/dL
[2017-08-19] MEDS: KETAMINE HCL 500 MG/10 ML VIAL. IV (03:21)
[2017-08-19] MEDS: SUCCINYLCHOLINE 200 MG/10 ML VIAL. IV (03:21)
[2017-08-19] MEDS ORDERED: PROPOFOL 50 ML IV (03:25)
[2017-08-19] MEDS ORDERED: ONDANSETRON PF 4 MG/2 ML VIAL. IV (03:30)
[2017-08-19] MEDS: PROPOFOL 10 MG/ML (20ML) VIAL. IV (03:32)
[2017-08-19] MEDS: fentaNYL PF VIAL 100 MCG/2 ML VIAL IV ×2 (03:40→04:15)
[2017-08-19] MEDS: NOREPINEPHRIN PREMIX 250 ML IV (03:45)
[2017-08-19] MEDS: MIDAZOLAM 100MG/100ML PREMIX 100 ML IV ×3 (04:00→22:13)
[2017-08-19] MEDS: VANCOMYCIN 2 GM in IV DEXTROSE 5 %-0.2 % NACL 500 ML IV (04:08)
[2017-08-19] MEDS: PIPERACILLIN/TAZO IV Push 3.375 GM VIAL. IVP (04:08)
[2017-08-19] MEDS: MIDAZOLAM HCL/PF 5 MG/5 ML VIAL. IV (04:10)
[2017-08-19 04:47] LABS: BASE EXCESS ABG -7 mmol/L (-3-3); HCO3 ABG 20 mmol/L (21-28); PCO2 ABG 45 mmHg (35-46); PO2 ABG 109 mmHg (65-108); SAT O2 ABG 97 % (92-99)
[2017-08-19] MEDS ORDERED: ETOMIDATE 20 MG/10 ML VIAL. IV (04:49)
[2017-08-19] MEDS ORDERED: fentaNYL PF VIAL 100 MCG/2 ML VIAL (04:49)
[2017-08-19] MEDS ORDERED: MIDAZOLAM HCL/PF 5 MG/5 ML VIAL. (04:49)
[2017-08-19 05:23] LABS: PH ABG 7.26 (7.35-7.45)
[2017-08-19] MEDS: VANCOMYCIN PER PHARMACY MC (06:42)
[2017-08-19 07:37] LABS: LACTIC ACID 1.5 mmol/L (0.4-2.0)
[2017-08-19] MEDS: BUDESONIDE 0.5 MG/2 ML NEBU. NEB ×2 (08:00→20:20)
[2017-08-19] MEDS: AMINO AC 3%/ELECTROLYTE/GLYCER 1,000 ML IV ×2 (08:33→20:00)
[2017-08-19] MEDS: ENOXAPARIN 40 MG/0.4 ML SYRINGE. SQ (08:34)
[2017-08-19] MEDS: FAMOTIDINE 20 MG/2 ML VIAL IVP (08:35)
[2017-08-19] MEDS ORDERED: INSULIN ASPART 300 UNITS/3 ML INSULN.PEN SQ ×2 (08:46→17:00)
[2017-08-19] MEDS: INSULIN ASPART 300 UNITS/3 ML INSULN.PEN SQ ×4 (08:54→18:00)
[2017-08-19] MEDS: FAT EMULSIONS 20% 250 ML IV (08:55)
[2017-08-19] MEDS: INSULIN DETEMIR 300 UNITS/3 ML INSULN.PEN. SQ ×3 (08:59→20:02)
[2017-08-19] MEDS ORDERED: INSULIN DETEMIR 300 UNITS/3 ML INSULN.PEN. SQ (09:00)
[2017-08-19 09:09] LABS: BASE EXCESS ABG -12 mmol/L (-3-3); HCO3 ABG 13 mmol/L (21-28); PCO2 ABG 26 mmHg (35-46); PO2 ABG 130 mmHg (65-108); SAT O2 ABG 98 % (92-99)
[2017-08-19 09:11] LABS: FIO2 ABG 40
[2017-08-19 09:13] LABS: POC GLUCOSE 403 mg/dL (70-99)
[2017-08-19] MEDS: PIPERACILLIN/TAZO IV Push 2.25 GM VIAL. IVP ×3 (12:34→23:46)
[2017-08-19 12:38] LABS: POC GLUCOSE 490 mg/dL (70-99)
[2017-08-19 13:09] LABS: POC GLUCOSE 492 mg/dL (70-99)
[2017-08-19] MEDS ORDERED: DEXTROSE 50% 25 GM / 50ML DISP.SYRIN. IV (15:45)
[2017-08-19] MEDS: INSULIN REGULAR VIAL 150 UNIT in 0.9 % SODIUM CHLORIDE 150ML 150 ML IV ×2 (15:57→22:59)
[2017-08-19 17:02] LABS: POC GLUCOSE 469 mg/dL (70-99)
[2017-08-19 17:03] LABS: POC GLUCOSE 511 mg/dL (70-99)
[2017-08-19 18:10] LABS: POC GLUCOSE 447 mg/dL (70-99)
[2017-08-19 18:13] LABS: MRSA BY PCR Negative (Negative)
[2017-08-19 19:11] LABS: POC GLUCOSE 473 mg/dL (70-99)
[2017-08-19 20:06] LABS: POC GLUCOSE 405 mg/dL (70-99)
[2017-08-19] MEDS ORDERED: FAMOTIDINE 20 MG TABLET. PO (21:00)
[2017-08-19 21:30] LABS: POC GLUCOSE 362 mg/dL (70-99)
[2017-08-19 22:19] LABS: POC GLUCOSE 399 mg/dL (70-99)
[2017-08-19 23:02] LABS: POC GLUCOSE 335 mg/dL (70-99)
[2017-08-19 23:16] LABS: SPECIMEN SOURCE Urine (.); STREP PNEUMO ANTIGEN Negative (Negative)
[2017-08-19 23:16] LABS: LEGIONELLA AG UR Negative (Negative)
[2017-08-20 00:04] LABS: POC GLUCOSE 308 mg/dL (70-99)
[2017-08-20 01:05] LABS: POC GLUCOSE 226 mg/dL (70-99)
[2017-08-20 02:01] LABS: POC GLUCOSE 177 mg/dL (70-99)
[2017-08-20 02:56] LABS: POC GLUCOSE 130 mg/dL (70-99)
[2017-08-20 04:17] LABS: POC GLUCOSE 101 mg/dL (70-99)
[2017-08-20] MEDS: VANCOMYCIN 1.25 GM in IV 1/2 NORMAL SALINE 250 ML IV (04:51)
[2017-08-20 04:52] LABS: ADD MAN DIFF? NO
[2017-08-20 04:54] LABS: BASO % 0 % (0-3); EOS % 0 % (0-3); HEMATOCRIT 27.9 % (39.0-53.0); HEMOGLOBIN 8.6 g/dL (13.0-17.5); LYMPH # 0.7 x10^3/uL (1.0-4.8); LYMPH % 3 % (24-48); MEAN CORPUSCULAR HEMOGLOBIN 27 pg (25-35); MEAN CORPUSCULAR HGB CONC 31 g/dL (31-37); MEAN CORPUSCULAR VOLUME 86 fL (79-100); MONO # 0.8 x10^3/uL (0.0-1.1); MONO % 3 % (0-9); NEUT # 23.3 x10^3uL (1.8-7.7); NEUT % 94 % (31-73); PLATELET COUNT 375 x10^3/uL (140-400); RED BLOOD COUNT 3.25 x10^6/uL (4.30-5.70); RED CELL DISTRIBUTION WIDTH 16.3 % (11.5-14.5); WHITE BLOOD COUNT 24.9 x10^3/uL (4.0-11.0)
[2017-08-20] MEDS: PIPERACILLIN/TAZO IV Push 2.25 GM VIAL. IVP ×3 (05:03→17:19)
[2017-08-20] MEDS: methylPREDNISolone SOD SUCC PF 125 MG/2 ML VIAL. IV ×3 (05:03→21:09)
[2017-08-20 05:33] LABS: POC GLUCOSE 98 mg/dL (70-99)
[2017-08-20 05:40] LABS: ANION GAP 11 (6-14); BLOOD UREA NITROGEN 34 mg/dL (8-26); CALCIUM 7.9 mg/dL (8.5-10.1); CARBON DIOXIDE 21 mmol/L (21-32); CHLORIDE 110 mmol/L (98-107); CREATININE 1.4 mg/dL (0.7-1.3); GFR 47.8; GLUCOSE 90 mg/dL (70-99); POTASSIUM 3.2 mmol/L (3.5-5.1); SODIUM 142 mmol/L (136-145)
[2017-08-20 05:43] LABS: MAGNESIUM 2.1 mg/dL (1.8-2.4)
[2017-08-20] MEDS: INSULIN ASPART 300 UNITS/3 ML INSULN.PEN SQ ×4 (06:00→17:18)
[2017-08-20] MEDS: MIDAZOLAM 100MG/100ML PREMIX 100 ML IV ×2 (06:16→18:35)
[2017-08-20 06:19] LABS: POC GLUCOSE 104 mg/dL (70-99)
[2017-08-20 07:45] LABS: POC GLUCOSE 108 mg/dL (70-99)
[2017-08-20 08:52] LABS: POC GLUCOSE 124 mg/dL (70-99)
[2017-08-20] MEDS: FAMOTIDINE 20 MG/2 ML VIAL IVP (08:57)
[2017-08-20] MEDS: ENOXAPARIN 40 MG/0.4 ML SYRINGE. SQ (08:57)
[2017-08-20] MEDS: POTASSIUM CHLORIDE 20 MEQ/15 ML ORAL LIQUID. PEG (08:57)
[2017-08-20] MEDS: AMINO AC 3%/ELECTROLYTE/GLYCER 1,000 ML IV ×2 (08:58→21:10)
[2017-08-20] MEDS: BUDESONIDE 0.5 MG/2 ML NEBU. NEB ×2 (09:20→20:06)
[2017-08-20 09:30] LABS: BASE EXCESS ABG -4 mmol/L (-3-3); HCO3 ABG 20 mmol/L (21-28); PCO2 ABG 33 mmHg (35-46); PO2 ABG 150 mmHg (65-108); SAT O2 ABG 99 % (92-99)
[2017-08-20 09:34] LABS: FIO2 ABG 40
[2017-08-20 09:45] LABS: BILIRUBIN,URINE NEGATIVE (NEG); CLARITY,URINE CLEAR; COLOR,URINE YELLOW; GLUCOSE,URINE NEGATIVE (NEG); NITRITE,URINE NEGATIVE (NEG); PROTEIN,URINE 100 mg/dL (NEG-TRACE); UROBILINOGEN,URINE 0.2 mg/dL (0.2 mg/dL)
[2017-08-20 10:04] LABS: POC GLUCOSE 145 mg/dL (70-99)
[2017-08-20 10:05] LABS: AMORPHOUS SEDIMENT,UR PRESENT /HPF; BACTERIA,URINE FEW /HPF (0-FEW); GRANULAR CASTS,URINE OCCASIONAL /HPF; HYALINE CASTS, URINE OCCASIONAL /HPF
[2017-08-20] MEDS: VANCOMYCIN PER PHARMACY MC (10:31)
[2017-08-20 11:48] LABS: POC GLUCOSE 119 mg/dL (70-99)
[2017-08-20 12:54] LABS: POC GLUCOSE 111 mg/dL (70-99)
[2017-08-20 13:59] LABS: POC GLUCOSE 134 mg/dL (70-99)
[2017-08-20] MEDS: THIAMINE 100 MG in IV NORMAL SALINE 50ML 50 ML IV (14:07)
[2017-08-20 14:59] LABS: POC GLUCOSE 142 mg/dL (70-99)
[2017-08-20 17:23] LABS: POC GLUCOSE 130 mg/dL (70-99)
[2017-08-20] MEDS: NOREPINEPHRIN PREMIX 250 ML IV (17:23)
[2017-08-20] MEDS: INSULIN DETEMIR 300 UNITS/3 ML INSULN.PEN. SQ (21:14)
[2017-08-20 21:16] LABS: POC GLUCOSE 182 mg/dL (70-99)
[2017-08-21] MEDS: PIPERACILLIN/TAZO IV Push 2.25 GM VIAL. IVP ×4 (00:07→17:44)
[2017-08-21 00:12] LABS: POC GLUCOSE 223 mg/dL (70-99)
[2017-08-21] MEDS: INSULIN ASPART 300 UNITS/3 ML INSULN.PEN SQ ×4 (00:12→17:45)
[2017-08-21 03:34] LABS: ADD MAN DIFF? NO
[2017-08-21 03:42] LABS: BASO % 0 % (0-3); EOS % 0 % (0-3); HEMATOCRIT 32.8 % (39.0-53.0); HEMOGLOBIN 10.3 g/dL (13.0-17.5); LYMPH # 0.7 x10^3/uL (1.0-4.8); LYMPH % 3 % (24-48); MEAN CORPUSCULAR HEMOGLOBIN 27 pg (25-35); MEAN CORPUSCULAR HGB CONC 31 g/dL (31-37); MEAN CORPUSCULAR VOLUME 86 fL (79-100); MONO # 0.5 x10^3/uL (0.0-1.1); MONO % 2 % (0-9); NEUT # 22.4 x10^3uL (1.8-7.7); NEUT % 95 % (31-73); PLATELET COUNT 451 x10^3/uL (140-400); RED BLOOD COUNT 3.83 x10^6/uL (4.30-5.70); RED CELL DISTRIBUTION WIDTH 16.4 % (11.5-14.5); WHITE BLOOD COUNT 23.5 x10^3/uL (4.0-11.0)
[2017-08-21 03:48] LABS: ANION GAP 14 (6-14); BLOOD UREA NITROGEN 46 mg/dL (8-26); CALCIUM 7.7 mg/dL (8.5-10.1); CARBON DIOXIDE 21 mmol/L (21-32); CHLORIDE 109 mmol/L (98-107); CREATININE 1.5 mg/dL (0.7-1.3); GFR 44.2; GLUCOSE 294 mg/dL (70-99); POTASSIUM 3.9 mmol/L (3.5-5.1); SODIUM 144 mmol/L (136-145)
[2017-08-21 03:54] LABS: VANC TR 19.6 mcg/mL (10.0-20.0)
[2017-08-21] MEDS: VANCOMYCIN 1.25 GM in IV 1/2 NORMAL SALINE 250 ML IV (04:05)
[2017-08-21] MEDS: MIDAZOLAM 100MG/100ML PREMIX 100 ML IV ×2 (04:57→16:47)
[2017-08-21] MEDS: VANCOMYCIN PER PHARMACY MC ×2 (06:04→07:46)
[2017-08-21] MEDS: methylPREDNISolone SOD SUCC PF 125 MG/2 ML VIAL. IV ×3 (06:12→21:48)
[2017-08-21 06:22] LABS: POC GLUCOSE 309 mg/dL (70-99)
[2017-08-21] MEDS: BUDESONIDE 0.5 MG/2 ML NEBU. NEB ×2 (07:58→20:16)
[2017-08-21 08:14] LABS: BASE EXCESS ABG -3 mmol/L (-3-3); HCO3 ABG 20 mmol/L (21-28); PCO2 ABG 28 mmHg (35-46); PH ABG 7.48 (7.35-7.45); PO2 ABG 217 mmHg (65-108); SAT O2 ABG 99 % (92-99)
[2017-08-21 08:15] LABS: FIO2 ABG 40
[2017-08-21] MEDS: FAMOTIDINE 20 MG/2 ML VIAL IVP (08:59)
[2017-08-21] MEDS: THIAMINE 100 MG in IV NORMAL SALINE 50ML 50 ML IV (09:00)
[2017-08-21] MEDS: fentaNYL PF VIAL 100 MCG/2 ML VIAL IV (09:00)
[2017-08-21] MEDS: ENOXAPARIN 40 MG/0.4 ML SYRINGE. SQ (09:00)
[2017-08-21 12:32] LABS: POC GLUCOSE 354 mg/dL (70-99)
[2017-08-21] MEDS: chlordiazePOXIDE HCL 25 MG CAPSULE PO (16:31)
[2017-08-21 17:52] LABS: POC GLUCOSE 320 mg/dL (70-99)
[2017-08-21] MEDS: CHLORHEXIDINE 0.12% 15 ML MOUTHWASH. MM (21:49)
[2017-08-21] MEDS: INSULIN DETEMIR 300 UNITS/3 ML INSULN.PEN. SQ (21:53)
[2017-08-22] MEDS: PIPERACILLIN/TAZO IV Push 2.25 GM VIAL. IVP ×5 (00:29→23:43)
[2017-08-22] MEDS: INSULIN ASPART 300 UNITS/3 ML INSULN.PEN SQ ×4 (00:31→17:39)
[2017-08-22 00:36] LABS: POC GLUCOSE 334 mg/dL (70-99)
[2017-08-22] MEDS: VANCOMYCIN 1.25 GM in IV 1/2 NORMAL SALINE 250 ML IV (04:05)
[2017-08-22 04:09] LABS: POC GLUCOSE 362 mg/dL (70-99)
[2017-08-22] MEDS: MIDAZOLAM 100MG/100ML PREMIX 100 ML IV ×3 (05:06→23:41)
[2017-08-22 05:20] LABS: ADD MAN DIFF? NO
[2017-08-22 05:36] LABS: BASO % 0 % (0-3); EOS % 0 % (0-3); HEMATOCRIT 27.7 % (39.0-53.0); HEMOGLOBIN 8.5 g/dL (13.0-17.5); LYMPH # 0.5 x10^3/uL (1.0-4.8); LYMPH % 5 % (24-48); MEAN CORPUSCULAR HEMOGLOBIN 26 pg (25-35); MEAN CORPUSCULAR HGB CONC 31 g/dL (31-37); MEAN CORPUSCULAR VOLUME 85 fL (79-100); MONO # 0.3 x10^3/uL (0.0-1.1); MONO % 3 % (0-9); NEUT # 10.8 x10^3uL (1.8-7.7); NEUT % 92 % (31-73); PLATELET COUNT 319 x10^3/uL (140-400); RED BLOOD COUNT 3.25 x10^6/uL (4.30-5.70); RED CELL DISTRIBUTION WIDTH 16.7 % (11.5-14.5); WHITE BLOOD COUNT 11.7 x10^3/uL (4.0-11.0)
[2017-08-22] MEDS: methylPREDNISolone SOD SUCC PF 125 MG/2 ML VIAL. IV ×3 (05:48→22:21)
[2017-08-22 05:51] LABS: POC GLUCOSE 316 mg/dL (70-99)
[2017-08-22 06:28] LABS: ANION GAP 12 (6-14); BLOOD UREA NITROGEN 51 mg/dL (8-26); CALCIUM 7.1 mg/dL (8.5-10.1); CARBON DIOXIDE 22 mmol/L (21-32); CHLORIDE 112 mmol/L (98-107); CREATININE 1.4 mg/dL (0.7-1.3); GFR 47.8; GLUCOSE 356 mg/dL (70-99); POTASSIUM 4.1 mmol/L (3.5-5.1); SODIUM 146 mmol/L (136-145)
[2017-08-22] MEDS: BUDESONIDE 0.5 MG/2 ML NEBU. NEB ×2 (07:09→20:11)
[2017-08-22 08:20] LABS: BASE EXCESS ABG -2 mmol/L (-3-3); HCO3 ABG 22 mmol/L (21-28); PCO2 ABG 34 mmHg (35-46); PH ABG 7.42 (7.35-7.45); PO2 ABG 98 mmHg (65-108); SAT O2 ABG 97 % (92-99)
[2017-08-22 08:35] LABS: FIO2 ABG 30
[2017-08-22] MEDS: CHLORHEXIDINE 0.12% 15 ML MOUTHWASH. MM ×2 (09:45→20:59)
[2017-08-22] MEDS: THIAMINE 100 MG in IV NORMAL SALINE 50ML 50 ML IV (09:45)
[2017-08-22] MEDS: ENOXAPARIN 40 MG/0.4 ML SYRINGE. SQ (09:45)
[2017-08-22] MEDS: FAMOTIDINE 20 MG/2 ML VIAL IVP (09:45)
[2017-08-22] MEDS: VANCOMYCIN PER PHARMACY MC (12:15)
[2017-08-22 19:16] LABS: POC GLUCOSE 247 mg/dL (70-99)
[2017-08-22 19:16] LABS: POC GLUCOSE 253 mg/dL (70-99)
[2017-08-22] MEDS: INSULIN DETEMIR 300 UNITS/3 ML INSULN.PEN. SQ (21:00)
[2017-08-22] MEDS: fentaNYL PF VIAL 100 MCG/2 ML VIAL IV ×2 (22:25→23:38)
[2017-08-23] MEDS: INSULIN ASPART 300 UNITS/3 ML INSULN.PEN SQ ×4 (00:04→17:02)
[2017-08-23 03:39] LABS: POC GLUCOSE 298 mg/dL (70-99)
[2017-08-23] MEDS: fentaNYL PF VIAL 100 MCG/2 ML VIAL IV ×3 (04:20→08:58)
[2017-08-23 05:17] LABS: ADD MAN DIFF? NO
[2017-08-23 05:40] LABS: BASO % 0 % (0-3); EOS % 0 % (0-3); HEMATOCRIT 27.7 % (39.0-53.0); HEMOGLOBIN 8.7 g/dL (13.0-17.5); LYMPH # 0.6 x10^3/uL (1.0-4.8); LYMPH % 4 % (24-48); MEAN CORPUSCULAR HEMOGLOBIN 27 pg (25-35); MEAN CORPUSCULAR HGB CONC 31 g/dL (31-37); MEAN CORPUSCULAR VOLUME 87 fL (79-100); MONO # 0.4 x10^3/uL (0.0-1.1); MONO % 3 % (0-9); NEUT # 13.5 x10^3uL (1.8-7.7); NEUT % 93 % (31-73); PLATELET COUNT 327 x10^3/uL (140-400); RED CELL DISTRIBUTION WIDTH 16.4 % (11.5-14.5); WHITE BLOOD COUNT 14.5 x10^3/uL (4.0-11.0)
[2017-08-23] MEDS: methylPREDNISolone SOD SUCC PF 125 MG/2 ML VIAL. IV (05:48)
[2017-08-23] MEDS: PIPERACILLIN/TAZO IV Push 2.25 GM VIAL. IVP ×3 (05:48→17:00)
[2017-08-23 05:50] LABS: POC GLUCOSE 287 mg/dL (70-99)
[2017-08-23 05:51] LABS: ANION GAP 10 (6-14); BLOOD UREA NITROGEN 52 mg/dL (8-26); CALCIUM 7.3 mg/dL (8.5-10.1); CARBON DIOXIDE 25 mmol/L (21-32); CHLORIDE 115 mmol/L (98-107); CREATININE 1.3 mg/dL (0.7-1.3); GFR 52.1; GLUCOSE 301 mg/dL (70-99); POTASSIUM 3.9 mmol/L (3.5-5.1); SODIUM 150 mmol/L (136-145)
[2017-08-23] MEDS: BUDESONIDE 0.5 MG/2 ML NEBU. NEB (08:46)
[2017-08-23] MEDS: ENOXAPARIN 40 MG/0.4 ML SYRINGE. SQ (08:55)
[2017-08-23] MEDS: CHLORHEXIDINE 0.12% 15 ML MOUTHWASH. MM (08:56)
[2017-08-23] MEDS: FAMOTIDINE 20 MG/2 ML VIAL IVP (08:57)
[2017-08-23 08:59] LABS: BASE EXCESS ABG 0 mmol/L (-3-3); HCO3 ABG 24 mmol/L (21-28); PCO2 ABG 38 mmHg (35-46); PH ABG 7.42 (7.35-7.45); PO2 ABG 89 mmHg (65-108); SAT O2 ABG 96 % (92-99)
[2017-08-23] MEDS ORDERED: CHOLECALCIFEROL (VITAMIN D3) 5,000 UNIT CAPSULE NG (09:00)
[2017-08-23 09:01] LABS: FIO2 ABG 30
[2017-08-23] MEDS: THIAMINE 100 MG TABLET. NG (09:40)
[2017-08-23] MEDS: CETIRIZINE HCL 10 MG TABLET. NG (09:40)
[2017-08-23] MEDS: CYANOCOBALAMIN (VITAMIN B-12) 1,000 MCG TABLET. NG (09:40)
[2017-08-23] MEDS: ASPIRIN CHEWABLE 81 MG TABLET. NG (09:41)
[2017-08-23] MEDS: CHOLECALCIFEROL (VITAMIN D3) 1,000 UNIT TABLET NG (09:41)
[2017-08-23] MEDS: MIDAZOLAM 100MG/100ML PREMIX 100 ML IV (09:41)
[2017-08-23] MEDS ORDERED: INSULIN ASPART 300 UNITS/3 ML INSULN.PEN SQ (12:00)
[2017-08-23] MEDS ORDERED: MORPHINE SULFATE 2 MG/ML DISP.SYRIN. IV (12:45)
[2017-08-23] MEDS ORDERED: MORPHINE SULFATE 4 MG/ML DISP.SYRIN. IV (12:45)
[2017-08-23] MEDS: POLYVINYL ALCOHOL 1.4% OPHTH SOLUTION 15ML BOTTLE. OU (13:21)
[2017-08-23] MEDS: IV DEXTROSE 5% 1,000 ML IV (13:23)
[2017-08-23 13:29] LABS: POC GLUCOSE 276 mg/dL (70-99)
[2017-08-23] MEDS: MONTELUKAST SODIUM 10 MG TABLET. PO (17:00)
[2017-08-23 17:11] LABS: POC GLUCOSE 270 mg/dL (70-99)
[2017-08-23] MEDS ORDERED: methylPREDNISolone SOD SUCC PF 125 MG/2 ML VIAL. IV (21:00)
[2017-08-23] MEDS ORDERED: INSULIN DETEMIR 300 UNITS/3 ML INSULN.PEN. SQ (21:00)
[2017-08-23] MEDS ORDERED: ATORVASTATIN CALCIUM 40 MG TABLET. NG (21:00)
[2017-08-24] MEDS ORDERED: LANSOPRAZOLE 30 MG TAB.RAP.DR FT (06:00)
== END 2017-08-23 19:00 | DRG 870 ==
LOC: ER 02:06 → 1 WEST ICU 02:58
PROC: 5A1955Z Respiratory Ventilation, Greater than 96 Consecutive Hours (ICD-10-PCS; principal; 2017-08-19)
PROC: 0BH17EZ Insertion of Endotracheal Airway into Trachea, Via Natural or Artificial Opening (ICD-10-PCS; 2017-08-19)
PROC: 5A09357 Assistance with Respiratory Ventilation, Less than 24 Consecutive Hours, Continuous Positive Airway Pressure (ICD-10-PCS; 2017-08-19)
DX: A41.9 Sepsis, unspecified organism (principal); J96.21 Acute and chronic respiratory failure with hypoxia; E43 Unspecified severe protein-calorie malnutrition; J18.9 Pneumonia, unspecified organism; R65.21 Severe sepsis with septic shock; G93.41 Metabolic encephalopathy; F10.231 Alcohol dependence with withdrawal delirium; N17.9 Acute kidney failure, unspecified; E11.22 Type 2 diabetes mellitus with diabetic chronic kidney disease; I13.0 Hypertensive heart and chronic kidney disease with heart failure and stage 1 through stage 4 chronic kidney disease, or unspecified chronic kidney disease; J44.0 Chronic obstructive pulmonary disease with (acute) lower respiratory infection; E87.0 Hyperosmolality and hypernatremia; E87.2 Acidosis; I50.32 Chronic diastolic (congestive) heart failure; J44.1 Chronic obstructive pulmonary disease with (acute) exacerbation; E11.65 Type 2 diabetes mellitus with hyperglycemia; J84.112 Idiopathic pulmonary fibrosis; E78.5 Hyperlipidemia, unspecified; D63.8 Anemia in other chronic diseases classified elsewhere; E87.6 Hypokalemia; F32.9 Major depressive disorder, single episode, unspecified; G89.29 Other chronic pain; I07.1 Rheumatic tricuspid insufficiency; I25.10 Atherosclerotic heart disease of native coronary artery without angina pectoris; I35.0 Nonrheumatic aortic (valve) stenosis; M54.5 Low back pain; I35.1 Nonrheumatic aortic (valve) insufficiency; I48.2 Chronic atrial fibrillation; K21.9 Gastro-esophageal reflux disease without esophagitis; M19.90 Unspecified osteoarthritis, unspecified site; N18.3 Chronic kidney disease, stage 3 (moderate); N40.0 Benign prostatic hyperplasia without lower urinary tract symptoms; T38.0X5A Adverse effect of glucocorticoids and synthetic analogues, initial encounter; Z79.01 Long term (current) use of anticoagulants; Z79.4 Long term (current) use of insulin; Z82.49 Family history of ischemic heart disease and other diseases of the circulatory system; Z83.3 Family history of diabetes mellitus; Z87.891 Personal history of nicotine dependence; Z99.81 Dependence on supplemental oxygen
CPT/HCPCS: 31500; 36415; 36600; 70450; 71045; 80048; 80053; 80202; 81001; 82805; 82962; 83605; 83735; 83880; 84484; 85007; 85025; 85610; 85730; 87040; 87070; 87205; 87449; 87641; 87804; 87804-59; 93005; 94002; 94003; 94640; 94660; 96361; 96365; 96366; 96375; 99291-25; A4314; J0330; J1650; J1815; J1953; J1956; J2250; J2543; J2704; J2930; J3010; J3370; J3490; J7030; J7613; J7620; J7626; S0028

== ENCOUNTER 2017-09-27 12:03 | Emergency (ER) | payer MEDICARE ==
[2017-09-27 12:24] LABS: ADD MAN DIFF? NO
[2017-09-27 12:26] LABS: BASO # 0.1 x10^3/uL (0.0-0.2); BASO % 1 % (0-3); EOS # 0.2 x10^3/uL (0.0-0.7); EOS % 2 % (0-3); HEMATOCRIT 23.6 % (39.0-53.0); HEMOGLOBIN 7.7 g/dL (13.0-17.5); LYMPH # 1.9 x10^3/uL (1.0-4.8); LYMPH % 17 % (24-48); MEAN CORPUSCULAR HEMOGLOBIN 28 pg (25-35); MEAN CORPUSCULAR HGB CONC 33 g/dL (31-37); MEAN CORPUSCULAR VOLUME 88 fL (79-100); MONO # 0.5 x10^3/uL (0.0-1.1); MONO % 5 % (0-9); NEUT # 8.3 x10^3uL (1.8-7.7); NEUT % 76 % (31-73); PLATELET COUNT 463 x10^3/uL (140-400); RED BLOOD COUNT 2.69 x10^6/uL (4.30-5.70); RED CELL DISTRIBUTION WIDTH 19.4 % (11.5-14.5)
[2017-09-27 12:34] LABS: ANION GAP 0 (6-14); BLOOD UREA NITROGEN 11 mg/dL (8-26); BUN/CREATININE RATIO 14 (6-20); CALCIUM 7.9 mg/dL (8.5-10.1); CARBON DIOXIDE 34 mmol/L (21-32); CHLORIDE 104 mmol/L (98-107); CREATININE 0.8 mg/dL (0.7-1.3); GFR 91.2; GLUCOSE 128 mg/dL (70-99); POTASSIUM 4.9 mmol/L (3.5-5.1); SODIUM 138 mmol/L (136-145)
[2017-09-27 12:35] LABS: FECAL OB PT POSITIVE (NEG); NEG OBC FOB NEG; POS OBC FOB POS
[2017-09-27 12:40] LABS: ALBUMIN 2.2 g/dL (3.4-5.0); ALBUMIN/GLOBULIN RATIO 0.5 (1.0-1.7); ALK PHOS 86 U/L (46-116); ALT (SGPT) 28 U/L (16-63); AST (SGOT) 28 U/L (15-37); TOTAL BILIRUBIN 0.2 mg/dL (0.2-1.0); TOTAL PROTEIN 6.6 g/dL (6.4-8.2)
== END 2017-09-27 13:50 | disposition home or self-care (01) ==
LOC: ER 12:03
DX: D64.9 Anemia, unspecified (principal); K92.2 Gastrointestinal hemorrhage, unspecified; I11.0 Hypertensive heart disease with heart failure; I50.9 Heart failure, unspecified; E78.00 Pure hypercholesterolemia, unspecified; E10.9 Type 1 diabetes mellitus without complications; I48.91 Unspecified atrial fibrillation; J44.9 Chronic obstructive pulmonary disease, unspecified; K21.9 Gastro-esophageal reflux disease without esophagitis; Z79.4 Long term (current) use of insulin; Z88.8 Allergy status to other drugs, medicaments and biological substances
CPT/HCPCS: 36415; 80053; 82274; 85025; 86850; 86900; 86901; 99284

== ENCOUNTER 2017-10-21 13:06 | Inpatient (IN) | payer MEDICARE ==
[2017-10-21 13:28] LABS: ADD MAN DIFF? NO
[2017-10-21 13:31] LABS: BASO # 0.1 x10^3/uL (0.0-0.2); BASO % 1 % (0-3); EOS # 1.7 x10^3/uL (0.0-0.7); EOS % 15 % (0-3); HEMATOCRIT 25.7 % (39.0-53.0); HEMOGLOBIN 8.1 g/dL (13.0-17.5); LYMPH # 3.2 x10^3/uL (1.0-4.8); LYMPH % 27 % (24-48); MEAN CORPUSCULAR HEMOGLOBIN 26 pg (25-35); MEAN CORPUSCULAR HGB CONC 32 g/dL (31-37); MEAN CORPUSCULAR VOLUME 83 fL (79-100); MONO % 9 % (0-9); NEUT # 5.8 x10^3uL (1.8-7.7); NEUT % 49 % (31-73); PLATELET COUNT 515 x10^3/uL (140-400); RED BLOOD COUNT 3.08 x10^6/uL (4.30-5.70); RED CELL DISTRIBUTION WIDTH 17.7 % (11.5-14.5); WHITE BLOOD COUNT 11.8 x10^3/uL (4.0-11.0)
[2017-10-21 13:44] LABS: ANION GAP 5 (6-14); BLOOD UREA NITROGEN 15 mg/dL (8-26); CALCIUM 9.2 mg/dL (8.5-10.1); CARBON DIOXIDE 32 mmol/L (21-32); CHLORIDE 108 mmol/L (98-107); CREATININE 1.2 mg/dL (0.7-1.3); GFR 57.1; GLUCOSE 104 mg/dL (70-99); POTASSIUM 3.7 mmol/L (3.5-5.1); SODIUM 145 mmol/L (136-145)
[2017-10-21] MEDS: IPRATRPIUM/ALBUTEROL 0.5/2.5MG 3 ML NEBU. NEB (13:47)
[2017-10-21 13:49] LABS: ALBUMIN 2.1 g/dL (3.4-5.0); ALK PHOS 81 U/L (46-116); ALT (SGPT) 12 U/L (16-63); AST (SGOT) 15 U/L (15-37); DIRECT BILIRUBIN 0.2 mg/dL (0.0-0.2); LIPASE 74 U/L (73-393); MAGNESIUM 2.2 mg/dL (1.8-2.4); TOTAL BILIRUBIN 0.3 mg/dL (0.2-1.0); TOTAL PROTEIN 7.1 g/dL (6.4-8.2)
[2017-10-21 13:52] LABS: TROPONINI < 0.017 ng/mL (0.000-0.055)
[2017-10-21 13:57] LABS: CKMB MASS 0.6 ng/mL (0.0-3.6); CREATINE KINASE 25 U/L (39-308)
[2017-10-21 13:57] LABS: NT-PRO BNP 791 pg/mL (0-449); THYROID STIM HORMONE (TSH) 2.314 uIU/mL (0.358-3.74)
[2017-10-21 14:02] LABS: BASE EXCESS ABG 4 mmol/L (-3-3); HCO3 ABG 30 mmol/L (21-28); PCO2 ABG 49 mmHg (35-46); PO2 ABG 77 mmHg (65-108); SAT O2 ABG 93 % (92-99)
[2017-10-21 14:04] LABS: FIO2 ABG 36
[2017-10-21 14:04] LABS: LACTIC ACID 1.2 mmol/L (0.4-2.0)
[2017-10-21 14:26] LABS: INR 1.2 (0.8-1.1); PROTHROMBIN TIME PATIENT 14.2 SEC (11.7-14.0)
[2017-10-21] MEDS ORDERED: CONTRAST GIVEN MC (15:30)
[2017-10-21] MEDS: IOHEXOL 300 MG/ML 100ML VIAL. IV (15:53)
[2017-10-21] MEDS ORDERED: ONDANSETRON PF 4 MG/2 ML VIAL. IV (16:30)
[2017-10-21 16:49] LABS: BILIRUBIN,URINE NEGATIVE (NEG); CLARITY,URINE CLEAR; COLOR,URINE YELLOW; GLUCOSE,URINE NEGATIVE (NEG); NITRITE,URINE NEGATIVE (NEG); PROTEIN,URINE 30 mg/dL (NEG-TRACE)
[2017-10-21 16:58] LABS: BACTERIA,URINE 0 /HPF (0-FEW); HYALINE CASTS, URINE FEW /HPF; SQUAMOUS EPITHELIAL CELL,UR FEW /LPF; WBC,URINE 0 /HPF (0-4)
[2017-10-21] MEDS: methylPREDNISolone SOD SUCC PF 125 MG/2 ML VIAL. IV (17:08)
[2017-10-21] MEDS: AZITHRMYCN 500MG IVPB FOR OMNI 250 ML IV (17:10)
[2017-10-21 19:53] LABS: TROPONINI < 0.017 ng/mL (0.000-0.055)
[2017-10-21 20:13] LABS: POC GLUCOSE 123 mg/dL (70-99)
[2017-10-21 22:52] LABS: TROPONINI < 0.017 ng/mL (0.000-0.055)
[2017-10-22 05:12] LABS: ADD MAN DIFF? NO
[2017-10-22 05:33] LABS: BASO # 0.1 x10^3/uL (0.0-0.2); BASO % 1 % (0-3); EOS # 0.4 x10^3/uL (0.0-0.7); EOS % 5 % (0-3); HEMATOCRIT 26.5 % (39.0-53.0); HEMOGLOBIN 8.3 g/dL (13.0-17.5); LYMPH # 1.2 x10^3/uL (1.0-4.8); LYMPH % 15 % (24-48); MEAN CORPUSCULAR HEMOGLOBIN 27 pg (25-35); MEAN CORPUSCULAR HGB CONC 31 g/dL (31-37); MEAN CORPUSCULAR VOLUME 85 fL (79-100); MONO # 0.1 x10^3/uL (0.0-1.1); MONO % 2 % (0-9); NEUT # 6.6 x10^3uL (1.8-7.7); NEUT % 78 % (31-73); PLATELET COUNT 491 x10^3/uL (140-400); RED BLOOD COUNT 3.12 x10^6/uL (4.30-5.70); RED CELL DISTRIBUTION WIDTH 18.1 % (11.5-14.5); WHITE BLOOD COUNT 8.4 x10^3/uL (4.0-11.0)
[2017-10-22 05:41] LABS: ANION GAP 8 (6-14); BLOOD UREA NITROGEN 16 mg/dL (8-26); CALCIUM 9.2 mg/dL (8.5-10.1); CARBON DIOXIDE 31 mmol/L (21-32); CHLORIDE 107 mmol/L (98-107); CREATININE 1.1 mg/dL (0.7-1.3); GFR 63.2; GLUCOSE 105 mg/dL (70-99); POTASSIUM 4.1 mmol/L (3.5-5.1); SODIUM 146 mmol/L (136-145)
[2017-10-22] MEDS ORDERED: DEXTROSE 50% 25 GM / 50ML DISP.SYRIN. IV ×3 (08:15→09:00)
[2017-10-22 08:27] LABS: POC GLUCOSE 291 mg/dL (70-99)
[2017-10-22] MEDS ORDERED: chlordiazePOXIDE HCL 25 MG CAPSULE PO (08:45)
[2017-10-22] MEDS: IPRATRPIUM/ALBUTEROL 0.5/2.5MG 3 ML NEBU. NEB ×5 (09:00→20:51)
[2017-10-22] MEDS ORDERED: ALBUTEROL SULFATE 2.5 MG/3 ML NEBU. NEB (09:30)
[2017-10-22] MEDS: ASPIRIN ENTERIC COATED 81 MG TABLET.DR. PO (09:47)
[2017-10-22] MEDS: METOPROLOL TART IMMED RELEASE 25 MG TABLET. PO ×2 (09:47→21:08)
[2017-10-22] MEDS: levETIRAcetam 500 MG TABLET PO ×2 (09:48→21:08)
[2017-10-22] MEDS: CHLORHEXIDINE 0.12% 15 ML MOUTHWASH. MM ×2 (09:50→21:09)
[2017-10-22] MEDS: ENOXAPARIN 40 MG/0.4 ML SYRINGE. SQ (09:59)
[2017-10-22] MEDS: MULTIVITAMIN with MINERAL TABLET. PO (10:56)
[2017-10-22] MEDS: FAMOTIDINE 20 MG TABLET. PO (10:56)
[2017-10-22] MEDS: CHOLECALCIFEROL (VITAMIN D3) 5,000 UNIT CAPSULE PO (10:57)
[2017-10-22] MEDS: THIAMINE 100 MG TABLET. PO (10:57)
[2017-10-22] MEDS: CYANOCOBALAMIN (VITAMIN B-12) 1,000 MCG TABLET. PO (10:57)
[2017-10-22] MEDS: CETIRIZINE HCL 10 MG TABLET. PO (10:57)
[2017-10-22] MEDS: predniSONE 20 MG TABLET PO (10:57)
[2017-10-22] MEDS: BUDESONIDE 0.5 MG/2 ML NEBU. NEB ×2 (11:08→20:51)
[2017-10-22] MEDS: INSULIN ASPART 300 UNITS/3 ML INSULN.PEN SQ ×6 (12:44→17:59)
[2017-10-22 14:55] LABS: POC GLUCOSE 440 mg/dL (70-99)
[2017-10-22 14:55] LABS: POC GLUCOSE 434 mg/dL (70-99)
[2017-10-22] MEDS: CIPROFLOXACIN 0.3% OPHTH SOLUTION 5ML BOTTLE. OD ×3 (15:11→21:08)
[2017-10-22] MEDS: MONTELUKAST SODIUM 10 MG TABLET. PO (16:59)
[2017-10-22] MEDS: guaiFENesin DM 200MG/20MG 10 ML SYRUP PO (17:07)
[2017-10-22 18:03] LABS: POC GLUCOSE 319 mg/dL (70-99)
[2017-10-22 18:03] LABS: POC GLUCOSE 488 mg/dL (70-99)
[2017-10-22] MEDS ORDERED: INSULIN DETEMIR 300 UNITS/3 ML INSULN.PEN. SQ (21:00)
[2017-10-22] MEDS: ACETAMINOPHEN 325 MG TABLET. PO (21:06)
[2017-10-22] MEDS: LACTOBACILLUS RHAMNOSUS GG 1 CAPSULE. PO (21:06)
[2017-10-22] MEDS: BENZONATATE 100 MG CAPSULE. PO (21:06)
[2017-10-22] MEDS: MIRTAZAPINE 15 MG TABLET PO (21:08)
[2017-10-22] MEDS: ATORVASTATIN CALCIUM 40 MG TABLET. PO (21:08)
[2017-10-22 21:10] LABS: POC GLUCOSE 200 mg/dL (70-99)
[2017-10-22] MEDS: INSULIN DETEMIR 300 UNITS/3 ML INSULN.PEN. SQ (21:22)
[2017-10-23 07:52] LABS: POC GLUCOSE 199 mg/dL (70-99)
[2017-10-23] MEDS: ASPIRIN ENTERIC COATED 81 MG TABLET.DR. PO (08:07)
[2017-10-23] MEDS: predniSONE 20 MG TABLET PO (08:07)
[2017-10-23] MEDS: MULTIVITAMIN with MINERAL TABLET. PO (08:07)
[2017-10-23] MEDS: FAMOTIDINE 20 MG TABLET. PO (08:07)
[2017-10-23] MEDS: LACTOBACILLUS RHAMNOSUS GG 1 CAPSULE. PO ×2 (08:08→20:22)
[2017-10-23] MEDS: ENOXAPARIN 40 MG/0.4 ML SYRINGE. SQ (08:08)
[2017-10-23] MEDS: BENZONATATE 100 MG CAPSULE. PO ×3 (08:08→20:22)
[2017-10-23] MEDS: CHOLECALCIFEROL (VITAMIN D3) 5,000 UNIT CAPSULE PO (08:08)
[2017-10-23] MEDS: CETIRIZINE HCL 10 MG TABLET. PO (08:08)
[2017-10-23] MEDS: CYANOCOBALAMIN (VITAMIN B-12) 1,000 MCG TABLET. PO (08:08)
[2017-10-23] MEDS: THIAMINE 100 MG TABLET. PO (08:09)
[2017-10-23] MEDS: levETIRAcetam 500 MG TABLET PO ×2 (08:09→20:21)
[2017-10-23] MEDS: CIPROFLOXACIN 0.3% OPHTH SOLUTION 5ML BOTTLE. OD ×4 (08:10→20:24)
[2017-10-23] MEDS: METOPROLOL TART IMMED RELEASE 25 MG TABLET. PO ×2 (08:10→20:24)
[2017-10-23] MEDS: CHLORHEXIDINE 0.12% 15 ML MOUTHWASH. MM ×2 (08:11→20:21)
[2017-10-23] MEDS: INSULIN ASPART 300 UNITS/3 ML INSULN.PEN SQ ×6 (08:28→17:33)
[2017-10-23] MEDS: IPRATRPIUM/ALBUTEROL 0.5/2.5MG 3 ML NEBU. NEB ×4 (08:36→19:31)
[2017-10-23] MEDS: BUDESONIDE 0.5 MG/2 ML NEBU. NEB ×2 (08:37→19:31)
[2017-10-23 11:51] LABS: POC GLUCOSE 337 mg/dL (70-99)
[2017-10-23 17:05] LABS: POC GLUCOSE 304 mg/dL (70-99)
[2017-10-23] MEDS: MONTELUKAST SODIUM 10 MG TABLET. PO (17:27)
[2017-10-23] MEDS: ATORVASTATIN CALCIUM 40 MG TABLET. PO (20:21)
[2017-10-23] MEDS: MIRTAZAPINE 15 MG TABLET PO (20:22)
[2017-10-23] MEDS: guaiFENesin DM 200MG/20MG 10 ML SYRUP PO (20:22)
[2017-10-23] MEDS: INSULIN DETEMIR 300 UNITS/3 ML INSULN.PEN. SQ (21:33)
[2017-10-24] MEDS: IPRATRPIUM/ALBUTEROL 0.5/2.5MG 3 ML NEBU. NEB ×4 (06:53→20:00)
[2017-10-24] MEDS: BUDESONIDE 0.5 MG/2 ML NEBU. NEB ×2 (06:53→19:18)
[2017-10-24 07:36] LABS: POC GLUCOSE 183 mg/dL (70-99)
[2017-10-24] MEDS: BENZONATATE 100 MG CAPSULE. PO ×3 (08:39→20:49)
[2017-10-24] MEDS: FAMOTIDINE 20 MG TABLET. PO (08:39)
[2017-10-24] MEDS: THIAMINE 100 MG TABLET. PO (08:39)
[2017-10-24] MEDS: CYANOCOBALAMIN (VITAMIN B-12) 1,000 MCG TABLET. PO (08:39)
[2017-10-24] MEDS: predniSONE 20 MG TABLET PO (08:40)
[2017-10-24] MEDS: CHOLECALCIFEROL (VITAMIN D3) 5,000 UNIT CAPSULE PO (08:40)
[2017-10-24] MEDS: METOPROLOL TART IMMED RELEASE 25 MG TABLET. PO ×2 (08:40→20:50)
[2017-10-24] MEDS: ENOXAPARIN 40 MG/0.4 ML SYRINGE. SQ (08:41)
[2017-10-24] MEDS: CHLORHEXIDINE 0.12% 15 ML MOUTHWASH. MM ×2 (08:41→20:51)
[2017-10-24] MEDS: CIPROFLOXACIN 0.3% OPHTH SOLUTION 5ML BOTTLE. OD ×4 (08:41→20:49)
[2017-10-24] MEDS: guaiFENesin DM 200MG/20MG 10 ML SYRUP PO (08:41)
[2017-10-24] MEDS: ASPIRIN ENTERIC COATED 81 MG TABLET.DR. PO (08:41)
[2017-10-24] MEDS: levETIRAcetam 500 MG TABLET PO ×2 (08:41→20:49)
[2017-10-24] MEDS: MULTIVITAMIN with MINERAL TABLET. PO (08:41)
[2017-10-24] MEDS: LACTOBACILLUS RHAMNOSUS GG 1 CAPSULE. PO ×2 (08:41→20:49)
[2017-10-24] MEDS: CETIRIZINE HCL 10 MG TABLET. PO (08:41)
[2017-10-24] MEDS: INSULIN ASPART 300 UNITS/3 ML INSULN.PEN SQ ×6 (08:59→17:17)
[2017-10-24 12:00] LABS: POC GLUCOSE 207 mg/dL (70-99)
[2017-10-24 18:43] LABS: POC GLUCOSE 136 mg/dL (70-99)
[2017-10-24 20:45] LABS: POC GLUCOSE 292 mg/dL (70-99)
[2017-10-24] MEDS: ATORVASTATIN CALCIUM 40 MG TABLET. PO (20:49)
[2017-10-24] MEDS: MIRTAZAPINE 15 MG TABLET PO (20:50)
[2017-10-24] MEDS: MONTELUKAST SODIUM 10 MG TABLET. PO (20:50)
[2017-10-24] MEDS: INSULIN DETEMIR 300 UNITS/3 ML INSULN.PEN. SQ (20:58)
[2017-10-25] MEDS: guaiFENesin DM 200MG/20MG 10 ML SYRUP PO (04:38)
[2017-10-25 04:50] LABS: ADD MAN DIFF? NO
[2017-10-25 05:13] LABS: BASO % 0 % (0-3); EOS % 0 % (0-3); HEMATOCRIT 25.7 % (39.0-53.0); HEMOGLOBIN 7.7 g/dL (13.0-17.5); LYMPH % 24 % (24-48); MEAN CORPUSCULAR HEMOGLOBIN 25 pg (25-35); MEAN CORPUSCULAR HGB CONC 30 g/dL (31-37); MEAN CORPUSCULAR VOLUME 84 fL (79-100); MONO # 0.9 x10^3/uL (0.0-1.1); MONO % 7 % (0-9); NEUT # 8.7 x10^3uL (1.8-7.7); NEUT % 69 % (31-73); PLATELET COUNT 498 x10^3/uL (140-400); RED BLOOD COUNT 3.07 x10^6/uL (4.30-5.70); RED CELL DISTRIBUTION WIDTH 18.1 % (11.5-14.5); WHITE BLOOD COUNT 12.7 x10^3/uL (4.0-11.0)
[2017-10-25 05:32] LABS: ANION GAP 5 (6-14); BLOOD UREA NITROGEN 26 mg/dL (8-26); CALCIUM 8.7 mg/dL (8.5-10.1); CARBON DIOXIDE 32 mmol/L (21-32); CHLORIDE 108 mmol/L (98-107); CREATININE 1.2 mg/dL (0.7-1.3); GFR 57.1; GLUCOSE 153 mg/dL (70-99); POTASSIUM 4.2 mmol/L (3.5-5.1); SODIUM 145 mmol/L (136-145)
[2017-10-25] MEDS: BUDESONIDE 0.5 MG/2 ML NEBU. NEB ×2 (07:18→19:24)
[2017-10-25] MEDS: IPRATRPIUM/ALBUTEROL 0.5/2.5MG 3 ML NEBU. NEB ×4 (07:19→19:24)
[2017-10-25 07:49] LABS: POC GLUCOSE 105 mg/dL (70-99)
[2017-10-25] MEDS: INSULIN ASPART 300 UNITS/3 ML INSULN.PEN SQ ×6 (07:58→17:49)
[2017-10-25] MEDS: levETIRAcetam 500 MG TABLET PO ×2 (10:44→21:06)
[2017-10-25] MEDS: ENOXAPARIN 40 MG/0.4 ML SYRINGE. SQ (10:44)
[2017-10-25] MEDS: CHLORHEXIDINE 0.12% 15 ML MOUTHWASH. MM ×2 (10:44→21:06)
[2017-10-25] MEDS: MULTIVITAMIN with MINERAL TABLET. PO (10:44)
[2017-10-25] MEDS: THIAMINE 100 MG TABLET. PO (10:45)
[2017-10-25] MEDS: ASPIRIN ENTERIC COATED 81 MG TABLET.DR. PO (10:45)
[2017-10-25] MEDS: FAMOTIDINE 20 MG TABLET. PO (10:45)
[2017-10-25] MEDS: CYANOCOBALAMIN (VITAMIN B-12) 1,000 MCG TABLET. PO (10:45)
[2017-10-25] MEDS: predniSONE 20 MG TABLET PO (10:45)
[2017-10-25] MEDS: CHOLECALCIFEROL (VITAMIN D3) 5,000 UNIT CAPSULE PO (10:45)
[2017-10-25] MEDS: LACTOBACILLUS RHAMNOSUS GG 1 CAPSULE. PO ×2 (10:45→21:06)
[2017-10-25] MEDS: CETIRIZINE HCL 10 MG TABLET. PO (10:46)
[2017-10-25] MEDS: BENZONATATE 100 MG CAPSULE. PO ×3 (10:46→21:07)
[2017-10-25] MEDS: methylPREDNISolone SOD SUCC PF 40 MG/ML VIAL. IV (10:46)
[2017-10-25] MEDS: METOPROLOL TART IMMED RELEASE 25 MG TABLET. PO ×2 (10:46→21:07)
[2017-10-25] MEDS: CIPROFLOXACIN 0.3% OPHTH SOLUTION 5ML BOTTLE. OD ×4 (10:46→21:06)
[2017-10-25 12:11] LABS: POC GLUCOSE 130 mg/dL (70-99)
[2017-10-25] MEDS: ACETAMINOPHEN 325 MG TABLET. PO (15:57)
[2017-10-25] MEDS: ATORVASTATIN CALCIUM 40 MG TABLET. PO (21:07)
[2017-10-25] MEDS: MONTELUKAST SODIUM 10 MG TABLET. PO (21:07)
[2017-10-25] MEDS: MIRTAZAPINE 15 MG TABLET PO (21:07)
[2017-10-25 21:08] LABS: POC GLUCOSE 457 mg/dL (70-99)
[2017-10-25] MEDS: INSULIN DETEMIR 300 UNITS/3 ML INSULN.PEN. SQ (21:20)
[2017-10-26] MEDS: IPRATRPIUM/ALBUTEROL 0.5/2.5MG 3 ML NEBU. NEB ×2 (07:31→11:13)
[2017-10-26] MEDS: BUDESONIDE 0.5 MG/2 ML NEBU. NEB (07:31)
[2017-10-26 07:52] LABS: POC GLUCOSE 137 mg/dL (70-99)
[2017-10-26] MEDS: INSULIN ASPART 300 UNITS/3 ML INSULN.PEN SQ ×4 (08:00→12:00)
[2017-10-26] MEDS: METOPROLOL TART IMMED RELEASE 25 MG TABLET. PO (09:00)
[2017-10-26] MEDS: ENOXAPARIN 40 MG/0.4 ML SYRINGE. SQ (09:37)
[2017-10-26] MEDS: CIPROFLOXACIN 0.3% OPHTH SOLUTION 5ML BOTTLE. OD ×2 (09:39→15:02)
[2017-10-26] MEDS: CHLORHEXIDINE 0.12% 15 ML MOUTHWASH. MM (09:40)
[2017-10-26] MEDS: FAMOTIDINE 20 MG TABLET. PO (09:41)
[2017-10-26] MEDS: CHOLECALCIFEROL (VITAMIN D3) 5,000 UNIT CAPSULE PO (09:41)
[2017-10-26] MEDS: THIAMINE 100 MG TABLET. PO (09:41)
[2017-10-26] MEDS: CYANOCOBALAMIN (VITAMIN B-12) 1,000 MCG TABLET. PO (09:41)
[2017-10-26] MEDS: levETIRAcetam 500 MG TABLET PO (09:41)
[2017-10-26] MEDS: BENZONATATE 100 MG CAPSULE. PO ×2 (09:41→15:01)
[2017-10-26] MEDS: CETIRIZINE HCL 10 MG TABLET. PO (09:41)
[2017-10-26] MEDS: MULTIVITAMIN with MINERAL TABLET. PO (09:42)
[2017-10-26] MEDS: LACTOBACILLUS RHAMNOSUS GG 1 CAPSULE. PO (09:42)
[2017-10-26] MEDS: ASPIRIN ENTERIC COATED 81 MG TABLET.DR. PO (09:42)
[2017-10-26] MEDS: predniSONE 20 MG TABLET PO (09:42)
[2017-10-26 10:53] LABS: ADD MAN DIFF? NO
[2017-10-26 10:57] LABS: BASO % 0 % (0-3); EOS % 0 % (0-3); HEMATOCRIT 28.1 % (39.0-53.0); HEMOGLOBIN 8.7 g/dL (13.0-17.5); LYMPH # 3.8 x10^3/uL (1.0-4.8); LYMPH % 24 % (24-48); MEAN CORPUSCULAR HEMOGLOBIN 26 pg (25-35); MEAN CORPUSCULAR HGB CONC 31 g/dL (31-37); MEAN CORPUSCULAR VOLUME 83 fL (79-100); MONO % 6 % (0-9); NEUT % 69 % (31-73); PLATELET COUNT 583 x10^3/uL (140-400); RED BLOOD COUNT 3.37 x10^6/uL (4.30-5.70); RED CELL DISTRIBUTION WIDTH 17.7 % (11.5-14.5); WHITE BLOOD COUNT 15.8 x10^3/uL (4.0-11.0)
[2017-10-26 12:27] LABS: POC GLUCOSE 95 mg/dL (70-99)
[2017-10-27 04:29] LABS: POC GLUCOSE 157 mg/dL (70-99)
== END 2017-10-26 16:00 | DRG 193 ==
LOC: ER 13:06 → 6 SOUTH 16:09
DX: J18.9 Pneumonia, unspecified organism (principal); E43 Unspecified severe protein-calorie malnutrition; J96.21 Acute and chronic respiratory failure with hypoxia; E11.22 Type 2 diabetes mellitus with diabetic chronic kidney disease; I48.2 Chronic atrial fibrillation; I13.0 Hypertensive heart and chronic kidney disease with heart failure and stage 1 through stage 4 chronic kidney disease, or unspecified chronic kidney disease; I50.32 Chronic diastolic (congestive) heart failure; J84.10 Pulmonary fibrosis, unspecified; R13.10 Dysphagia, unspecified; J44.0 Chronic obstructive pulmonary disease with (acute) lower respiratory infection; J44.1 Chronic obstructive pulmonary disease with (acute) exacerbation; D63.8 Anemia in other chronic diseases classified elsewhere; E03.9 Hypothyroidism, unspecified; E78.5 Hyperlipidemia, unspecified; F32.9 Major depressive disorder, single episode, unspecified; G89.29 Other chronic pain; H01.003 Unspecified blepharitis right eye, unspecified eyelid; H10.89 Other conjunctivitis; J30.9 Allergic rhinitis, unspecified; Z88.8 Allergy status to other drugs, medicaments and biological substances; K21.9 Gastro-esophageal reflux disease without esophagitis; F10.21 Alcohol dependence, in remission; M54.5 Low back pain; K76.0 Fatty (change of) liver, not elsewhere classified; M41.9 Scoliosis, unspecified; N18.2 Chronic kidney disease, stage 2 (mild); N40.0 Benign prostatic hyperplasia without lower urinary tract symptoms; Z99.81 Dependence on supplemental oxygen; Z79.4 Long term (current) use of insulin; Z87.891 Personal history of nicotine dependence; Z82.49 Family history of ischemic heart disease and other diseases of the circulatory system
CPT/HCPCS: 36415; 36600; 71045; 71275; 80048; 80076; 81001; 82553; 82805; 82962; 83605; 83690; 83735; 83880; 84443; 84484; 85025; 85610; 87040; 93005; 94618; 94640; 94760; 96374; 96375; 97116-GP; 97161-GP; 97166-GO; 97530-GO; 97535-GO; 99285; 99285-25; J0456; J1650; J1815; J1956; J2920; J2930; J7512; J7620; J7626; Q9967